=== PATIENT | female | born 1935 | race Hispanic/Latino ===

== ENCOUNTER 2017-09-01 13:59 | Inpatient (IN) | payer MEDICARE, OTHER ==
[2017-08-30 18:47] VITALS: BMI 21.2
--- NOTE | 2017-09-01 15:54 | CP.PCM.HP ---
History of Present Illness - History of Present Illness History of Present Illness: 82 year old female with past medical history ESRD (HD on M, W, F, and Sa with left AC access), DM, HTN, CHF, chronic anemia, and diverticulitis was transported from [facility] to [facility] for hemodialysis. Patient has been on HD for at least 10 years. She was seen and examined in the Dialysis unit. Patient complains of generalized fatigue, otherwise no other acute complaints. Patient further denies having fever, headache, shortness of breath, chest pain, nausea, vomiting, or abdominal pain. PMD: Dr. Lan Nephro: Dr. Owen PMHx: CHF, carotid artery disease, [place], HLD, hypothyroidism, DM PSHx: left AV shunt, left carotid stent placement, cardiac cath, hysterectomy, left hip replacement Allergy: Ceftriaxone (itchiness) Social Hx: Denies tobacco, alcohol, or other drug use Family Hx: unknown Home meds: see MAR for detail Present on Admission - Present on Admission Any Indicators Present on Admission: No Review of Systems - Review of Systems All systems: reviewed and no additional remarkable complaints except - Constitutional Constitutional: As Per HPI, Fatigue. absent: Anorexia, Chills, Fever - EENT Eyes: As Per HPI. absent: Blurred Vision, Change in Vision, Discharge Ears: As Per HPI. absent: Ear Pain, Dizziness Nose/Mouth/Throat: As Per HPI. absent: Nasal Congestion, Nasal Trauma - Breasts Breasts: As Per HPI - Cardiovascular Cardiovascular: As Per HPI. absent: Chest Pain, Chest Pain at Rest, Chest Pain with Activity, Dyspnea, Syncope - Respiratory Respiratory: As Per HPI. absent: Dyspnea, Wheezing - Gastrointestinal Gastrointestinal: As Per HPI. absent: Abdominal Pain, Constipation, Nausea, Vomiting - Genitourinary Genitourinary: As Per HPI - Reproductive: Female Reproductive:Female: As Per HPI - Musculoskeletal Musculoskeletal: As Per HPI. absent: Back Pain, Joint Swelling - Integumentary Integumentary: As Per HPI. absent: Alopecia, Erythema - Neurological Neurological: As Per HPI. absent: Syncope, Tremor - Psychiatric Psychiatric: As Per HPI. absent: Anxiety, Depression - Endocrine Endocrine: As Per HPI, Fatigue. absent: Change in Body Appearance Past Patient History - Infectious Disease Hx of Infectious Diseases: C.diff - Tetanus Immunizations Tetanus Immunization: Unknown - Past Social History Smoking Status: Never Smoked - CARDIAC Hx Cardiac Disorders: Yes Hx Congestive Heart Failure: Yes Hx Hypercholesterolemia: Yes - PULMONARY Hx Respiratory Disorders: Yes Hx Chronic Obstructive Pulmonary Disease (COPD): Yes Hx Pneumonia: Yes - NEUROLOGICAL Hx Neurological Disorder: Yes (numbnes/tingling left leg and ft) Hx Dizziness: Yes - HEENT Hx HEENT Problems: Yes Hx Cataracts: Yes (b/l sx) - RENAL Date of Last Dialysis Treatment: 08/29/17 Hx Renal Failure: Yes - ENDOCRINE/METABOLIC Hx Diabetes Mellitus Type 2: Yes - HEMATOLOGICAL/ONCOLOGICAL Hx Blood Disorders: Yes Hx Anemia: Yes - INTEGUMENTARY Hx Dermatological Problems: No Other/Comment: L arm shunt fas dsg over iy, excellent bruit at site - MUSCULOSKELETAL/RHEUMATOLOGICAL Hx Musculoskeletal Disorders: Yes Hx Falls: Yes (fell & hurt L ankle) Hx Unsteady Gait: Yes (CANE) - GASTROINTESTINAL Hx Gastrointestinal Disorders: Yes (POOR APPETITE,GERD,DIVERTICULITIS,RECTAL BLEED. H/O C DIFF.) Other/Comment: CHOLELITHIASIS - GENITOURINARY/GYNECOLOGICAL Hx 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.ESRD ON HD) - PSYCHIATRIC Hx Psychophysiologic Disorder: Yes Hx Anxiety: Yes Hx Depression: Yes Hx Substance Use: No - SURGICAL HISTORY Hx Surgeries: Yes Hx Cardiac Catheterization: Yes Hx Hysterectomy: Yes Hx Orthopedic Surgery: Yes (left hip replacement) Other/Comment: ed av shunt - ANESTHESIA Hx Anesthesia: Yes Hx Anesthesia Reactions: No Hx Malignant Hyperthermia: No Meds Allergies/Adverse Reactions: Allergies Allergy/AdvReac Type Severity Reaction Status Date / Time ceftriaxone Allergy ITCHING Verified 08/30/17 16:26 Physical Exam - Constitutional Appears: Non-toxic, No Acute Distress, Chronically Ill - Head Exam Head Exam: ATRAUMATIC, NORMOCEPHALIC - Eye Exam Eye Exam: EOMI, Normal appearance, PERRL Pupil Exam: NORMAL ACCOMODATION - ENT Exam ENT Exam: Mucous Membranes Moist - Neck Exam Neck exam: Positive for: Normal Inspection. Negative for: Tenderness - Respiratory Exam Respiratory Exam: Clear to Auscultation Bilateral, NORMAL BREATHING PATTERN. absent: Rhonchi, Wheezes, Respiratory Distress - Cardiovascular Exam Cardiovascular Exam: REGULAR RHYTHM, +S1, +S2. absent: Systolic Murmur - GI/Abdominal Exam GI & Abdominal Exam: Normal Bowel Sounds, Soft. absent: Guarding, Hernia, Mass , Tenderness - Extremities Exam Additional comments: Left arm shunt proximal to AC fossa, excellent bruit - Neurological Exam Neurological exam: Alert, CN II-XII Intact, Oriented x3 - Psychiatric Exam Psychiatric exam: Normal Affect, Normal Mood - Skin Skin Exam: Dry, Normal Color, Warm Assessment & Plan - Assessment and Plan (Free Text) Assessment: ESRD -Attending physician Dr. Clinton Kessler received verbal consent from Dr. Owen for HD -Patient is to be transferred back to [facility] after HD session Discussed case with Dr. Kessler
--- NOTE | 2017-09-01 16:41 | CP.PCM.DIS ---
Provider - Provider Date of Admission: 09/01/17 13:59 Attending physician: Clinton Kessler MD Primary care physician: Dr. Lan Consults: Dr. Owen Time Spent in preparation of Discharge (in minutes): 40 Diagnosis - Discharge Diagnosis (1) ESRD (end stage renal disease) on dialysis Status: Chronic Hospital Course - Hospital Course Hospital Course: 82 year old female with past medical history ESRD (HD on M, W, F, and Sa with left AC access), DM, HTN, CHF, chronic anemia, and diverticulitis was transported from [facility] to [facility] for hemodialysis. Patient has been on HD for at least 10 years. She was seen and examined in the Dialysis unit. Patient complains of generalized fatigue, otherwise no other acute complaints. Patient further denies having fever, headache, shortness of breath, chest pain, nausea, vomiting, or abdominal pain. Patient will be transfer back to [facility] for further management. This is a brief summary of patient's hospital course. For more detail please refer to medical reports from [facility]. PMD: Dr. Lan Nephro: Dr. Owen PMHx: CHF, carotid artery disease, [place], HLD, hypothyroidism, DM PSHx: left AV shunt, left carotid stent placement, cardiac cath, hysterectomy, left hip replacement Allergy: Ceftriaxone (itchiness) Social Hx: Denies tobacco, alcohol, or other drug use Family Hx: unknown Home meds: see MAR for detail - Date & Time of H&P Date of H&P: 09/01/17 Time of H&P: 15:38 Discharge Exam - Additional Findings Additional findings: - Constitutional Appears: Non-toxic, No Acute Distress, Chronically Ill - Head Exam Head Exam: ATRAUMATIC, NORMOCEPHALIC - Eye Exam Eye Exam: EOMI, Normal appearance, PERRL Pupil Exam: NORMAL ACCOMODATION - ENT Exam ENT Exam: Mucous Membranes Moist - Neck Exam Neck exam: Positive for: Normal Inspection. Negative for: Tenderness - Respiratory Exam Respiratory Exam: Clear to Auscultation Bilateral, NORMAL BREATHING PATTERN. absent: Rhonchi, Wheezes, Respiratory Distress - Cardiovascular Exam Cardiovascular Exam: REGULAR RHYTHM, +S1, +S2. absent: Systolic Murmur - GI/Abdominal Exam GI & Abdominal Exam: Normal Bowel Sounds, Soft. absent: Guarding, Hernia, Mass , Tenderness - Extremities Exam Additional comments: Left arm shunt proximal to AC fossa, excellent bruit - Neurological Exam Neurological exam: Alert, CN II-XII Intact, Oriented x3 - Psychiatric Exam Psychiatric exam: Normal Affect, Normal Mood - Skin Skin Exam: Dry, Normal Color, Warm Discharge Plan - Follow Up Plan Condition: GOOD Disposition: Trans to Other Acute Care Hosp Instructions: Renal Failure Diet (DC) Additional Instructions: Patient is to be transfer back to [facility] after dialysis for ongoing medical management. Referrals: Albino Owen MD [Staff Provider] - Clinton Kessler MD [Staff Provider] -
[2017-09-01 16:46] VITALS: TEMP 97.9
[2017-09-01 18:27] VITALS: RESP 18; O2SAT 98
[2017-09-01 18:28] VITALS: BP 134/50; PULSE 80
== END 2017-09-01 19:18 | disposition short-term general hospital (02) | DRG 291 ==
LOC: C.3T 13:59
PROVIDERS: ADMIT Family Medicine; ATTEND Family Medicine
PROC: 5A1D70Z Performance of Urinary Filtration, Intermittent, Less than 6 Hours Per Day (ICD-10-PCS; principal; 2017-09-01)
DX: I13.2 Hypertensive heart and chronic kidney disease with heart failure and with stage 5 chronic kidney disease, or end stage renal disease (principal); N18.6 End stage renal disease; E78.5 Hyperlipidemia, unspecified; I50.9 Heart failure, unspecified; E11.22 Type 2 diabetes mellitus with diabetic chronic kidney disease; Z99.2 Dependence on renal dialysis

== ENCOUNTER 2017-09-03 12:15 | Inpatient (IN) | payer MEDICARE, OTHER ==
[2017-09-03 13:08] VITALS: BMI 19.6
--- NOTE | 2017-09-03 13:24 | CP.PCM.HP ---
<Abdullahi Davis - Last Filed: 09/03/17 14:07> History of Present Illness - History of Present Illness History of Present Illness: This 82 year old female with PMHx of ESRD (HD on M, W, F, and Sa with left AC access), DM, HTN, CHF, chronic anemia, and diverticulitis - was transported from [facility] to [facility] for hemodialysis today (last seen here 09/01/17 for dialysis). Patient has been on HD for at least 10 years. She was seen and examined in the Dialysis unit. Patient continues to complain of generalized fatigue, and is followed closely by her PMD Dr. Lan. She denies having fever, headache, shortness of breath, chest pain, nausea, vomiting, or abdominal pain. 12-point review of systems is otherwise negative without any additional acute complaints. PMD: Dr. Lan Nephro: Dr. Owen PMHx: CHF, carotid artery disease, [place], HLD, hypothyroidism, DM PSHx: left AV shunt, left carotid stent placement, cardiac cath, hysterectomy, left hip replacement Allergy: Ceftriaxone (itchiness) Social Hx: Denies tobacco, alcohol, or other drug use Family Hx: unknown Home meds: see MAR for detail Review of Systems: -Gen: No fever, No chills, No headache, + lethargy, + weakness. -HEENT: No dizziness, No change in vision, No change in hearing, No sore throat , No dysphagia, No nasal congestion, No mucous. -Cardio: No chest pain, No palpitations, No lower extremity edema, No orthopnea. -Resp: No cough, No dyspnea, No hemoptysis, No wheezing, No pain on inspiration. -GI: No abdominal pain, No nausea/vomiting, No diarrhea/constipation, No hematochezia, No hematemesis. -: No dysuria, No urinary freq, No incontinence, No hematuria, No change in urinary stream. -MSK: No back pain, No muscle weakness, No radiating pain. -Skin: No itching, No rash, No lesions. -Neuro: No confusion, No numbness, No tingling, No focal weakness, No radicular pain, No syncope. -Psych: No anxiety, No depression, No H/I, No S/I, No hallucinations. Present on Admission - Present on Admission Any Indicators Present on Admission: No Past Patient History - Infectious Disease Hx of Infectious Diseases: C.diff - Tetanus Immunizations Tetanus Immunization: Unknown - Past Social History Smoking Status: Never Smoked - CARDIAC Hx Cardiac Disorders: Yes - PULMONARY Hx Chronic Obstructive Pulmonary Disease (COPD): Yes - NEUROLOGICAL Hx Neurological Disorder: Yes (numbnes/tingling left leg and ft) Hx Dizziness: Yes - HEENT Hx HEENT Problems: Yes Hx Cataracts: Yes (b/l sx) - RENAL Hx Renal Failure: Yes - ENDOCRINE/METABOLIC Hx Diabetes Mellitus Type 2: Yes Hx Hypothyroidism: Yes - HEMATOLOGICAL/ONCOLOGICAL Hx Blood Disorders: Yes Hx Anemia: Yes - INTEGUMENTARY Hx Dermatological Problems: No Other/Comment: L arm shunt fas dsg over iy, excellent bruit at site - MUSCULOSKELETAL/RHEUMATOLOGICAL Hx Musculoskeletal Disorders: Yes Hx Falls: Yes (fell & hurt L ankle) Hx Unsteady Gait: Yes (CANE) - GASTROINTESTINAL Hx Gastrointestinal Disorders: Yes (POOR APPETITE,GERD,DIVERTICULITIS,RECTAL BLEED. H/O C DIFF.) Other/Comment: CHOLELITHIASIS - GENITOURINARY/GYNECOLOGICAL Hx 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.ESRD ON HD) - PSYCHIATRIC Hx Psychophysiologic Disorder: Yes Hx Anxiety: Yes Hx Depression: Yes Hx Substance Use: No - SURGICAL HISTORY Hx Surgeries: Yes Hx Cardiac Catheterization: Yes Hx Hysterectomy: Yes Hx Orthopedic Surgery: Yes (left hip replacement) Other/Comment: ed av shunt - ANESTHESIA Hx Anesthesia: Yes Hx Anesthesia Reactions: No Hx Malignant Hyperthermia: No Meds Allergies/Adverse Reactions: Allergies Allergy/AdvReac Type Severity Reaction Status Date / Time ceftriaxone Allergy ITCHING Verified 08/30/17 16:26 Physical Exam - Additional Findings Additional findings: - Constitutional Appears: Non-toxic, No Acute Distress, Chronically Ill - Head Exam Head Exam: ATRAUMATIC, NORMOCEPHALIC - Eye Exam Eye Exam: EOMI, Normal appearance, PERRL Pupil Exam: NORMAL ACCOMODATION - ENT Exam ENT Exam: Mucous Membranes Moist - Neck Exam Neck exam: Positive for: Normal Inspection. Negative for: Tenderness - Respiratory Exam Respiratory Exam: Clear to Auscultation Bilateral, NORMAL BREATHING PATTERN. absent: Rhonchi, Wheezes, Respiratory Distress - Cardiovascular Exam Cardiovascular Exam: REGULAR RHYTHM, +S1, +S2. absent: Systolic Murmur - GI/Abdominal Exam GI & Abdominal Exam: Normal Bowel Sounds, Soft. absent: Guarding, Hernia, Mass , Tenderness - Extremities Exam Additional comments: Left arm shunt (+bruit) - Neurological Exam Neurological exam: Alert, CN II-XII Intact, Oriented x3 - Psychiatric Exam Psychiatric exam: Normal Affect, Normal Mood - Skin Skin Exam: Dry, Normal Color, Warm Results - Labs Result Diagrams: 09/03/17 13:50 Assessment & Plan - Assessment and Plan (Free Text) Assessment: ESRD -Pt here for Dialysis -HD on M, W, F, and Sa with left AC access -To be discharged after dialysis -Nephrology Consult, Dr. Griggs, notified to evaluate and treat the pt. -Patient is to be transferred back to [facility] after HD session Case discussed with Dr. Justyn Kessler - Date & Time Date: 09/03/17 Time: 13:22 <Clinton Kessler - Last Filed: 09/03/17 20:07> Results - Vital Signs Recent Vital Signs: Last Vital Signs Temp 97.6 F 09/03/17 16:20 Pulse 69 09/03/17 16:20 Resp 20 09/03/17 16:20 BP 117/58 L 09/03/17 16:20 Pulse Ox 100 09/03/17 16:20 - Labs Result Diagrams: 09/03/17 13:50 09/03/17 13:50 Labs: Laboratory Results - last 24 hr 09/03/17 09/03/17 09/03/17 13:50 13:50 13:50 WBC 6.0 RBC 2.97 L Hgb 9.4 L Hct 28.5 L MCV 95.9 MCH 31.8 H MCHC 33.1 RDW 19.4 H Plt Count 105 L MPV 7.8 Neut % (Auto) 77.7 H Lymph % (Auto) 13.4 L [place] % (Auto) 7.6 Eos % (Auto) 0.8 Baso % (Auto) 0.5 Neut # (Auto) 4.6 Lymph # (Auto) 0.8 L [place] # (Auto) 0.5 Eos # (Auto) 0.0 Baso # (Auto) 0.0 APTT 33 Sodium 135 Potassium 4.2 Chloride 94 L Carbon Dioxide 26 Anion Gap 19 BUN 32 H Creatinine 5.4 H Est GFR ( Amer) 9 Est GFR (Non-Af Amer) 8 POC Glucose (mg/dL) Random Glucose 107 H Calcium 7.3 L Phosphorus 4.6 H Magnesium 1.8 Total Bilirubin 1.2 AST 30 ALT 8 L Alkaline Phosphatase 62 Total Protein 7.4 Albumin 2.7 L Globulin 4.7 H Albumin/Globulin Ratio 0.6 L Hep Bs Antigen Negative Hep Bs Antibody 09/03/17 09/03/17 13:50 16:15 WBC RBC Hgb Hct MCV MCH MCHC RDW Plt Count MPV Neut % (Auto) Lymph % (Auto) [place] % (Auto) Eos % (Auto) Baso % (Auto) Neut # (Auto) Lymph # (Auto) [place] # (Auto) Eos # (Auto) Baso # (Auto) APTT Sodium Potassium Chloride Carbon Dioxide Anion Gap BUN Creatinine Est GFR ( Amer) Est GFR (Non-Af Amer) POC Glucose (mg/dL) 80 Random Glucose Calcium Phosphorus Magnesium Total Bilirubin AST ALT Alkaline Phosphatase Total Protein Albumin Globulin Albumin/Globulin Ratio Hep Bs Antigen Hep Bs Antibody Positive Attending/Attestation - Attestation I have personally seen and examined this patient.: Yes I have fully participated in the care of the patient.: Yes I have reviewed all pertinent clinical information: Yes
[2017-09-03 13:54] LABS: BASO % 0.5 % (0.0-2.0); EOS % 0.8 % (0.0-4.0); HEMOGLOBIN 9.4 g/dL (11.0-16.0); LYMPH # 0.8 K/uL (1.0-4.3); LYMPH % 13.4 % (20.0-40.0); MEAN CELL VOLUME 95.9 fL (81.0-99.0); MEAN CORPUSCULAR HEMOGLOBIN 31.8 pg (27.0-31.0); MEAN CORPUSCULAR HGB CONC 33.1 g/dL (33.0-37.0); MEAN PLATELET VOLUME 7.8 fL (7.2-11.7); MONO # 0.5 K/uL (0.0-0.8); MONO % 7.6 % (0.0-10.0); NEUT # 4.6 K/uL (1.8-7.0); NEUT % 77.7 % (50.0-75.0); RBC 2.97 Mil/uL (3.80-5.20); RED CELL DISTRIBUTION WIDTH 19.4 % (11.5-14.5)
[2017-09-03 14:09] LABS: ALB/GLOB RATIO 0.6 (1.0-2.1); ALBUMIN 2.7 g/dL (3.5-5.0); AST/SGOT 30 U/L (14-36); BLOOD UREA NITROGEN 32 mg/dL (7-17); CALCIUM 7.3 mg/dl (8.6-10.4); GFR AFRICAN-AMERICAN 9; GFR NON-AFRICAN AMERICAN 8
--- NOTE | 2017-09-03 14:12 | CP.PCM.DIS ---
Provider - Provider Date of Admission: 09/03/17 12:15 Attending physician: Clinton Kessler MD Consults: Dr. Griggs - nephrology Time Spent in preparation of Discharge (in minutes): 22 Hospital Course - Lab Results Lab Results: Most Recent Lab Values WBC 6.0 K/uL (4.8-10.8) 09/03/17 13:50 RBC 2.97 Mil/uL (3.80-5.20) L 09/03/17 13:50 Hgb 9.4 g/dL (11.0-16.0) L 09/03/17 13:50 Hct 28.5 % (34.0-47.0) L 09/03/17 13:50 MCV 95.9 fL (81.0-99.0) 09/03/17 13:50 MCH 31.8 pg (27.0-31.0) H 09/03/17 13:50 MCHC 33.1 g/dL (33.0-37.0) 09/03/17 13:50 RDW 19.4 % (11.5-14.5) H 09/03/17 13:50 Plt Count 105 K/uL (130-400) L 09/03/17 13:50 MPV 7.8 fL (7.2-11.7) 09/03/17 13:50 Neut % (Auto) 77.7 % (50.0-75.0) H 09/03/17 13:50 Lymph % (Auto) 13.4 % (20.0-40.0) L 09/03/17 13:50 [place] % (Auto) 7.6 % (0.0-10.0) 09/03/17 13:50 Eos % (Auto) 0.8 % (0.0-4.0) 09/03/17 13:50 Baso % (Auto) 0.5 % (0.0-2.0) 09/03/17 13:50 Neut # (Auto) 4.6 K/uL (1.8-7.0) 09/03/17 13:50 Lymph # (Auto) 0.8 K/uL (1.0-4.3) L 09/03/17 13:50 [place] # (Auto) 0.5 K/uL (0.0-0.8) 09/03/17 13:50 Eos # (Auto) 0.0 K/uL (0.0-0.7) 09/03/17 13:50 Baso # (Auto) 0.0 K/uL (0.0-0.2) 09/03/17 13:50 APTT 33 SECONDS (21-34) 09/03/17 13:50 Sodium 135 mmol/L (132-148) 09/03/17 13:50 Potassium 4.2 mmol/L (3.6-5.2) 09/03/17 13:50 Chloride 94 mmol/L (98-107) L 09/03/17 13:50 Carbon Dioxide 26 mmol/L (22-30) 09/03/17 13:50 Anion Gap 19 (10-20) 09/03/17 13:50 BUN 32 mg/dL (7-17) H 09/03/17 13:50 Creatinine 5.4 mg/dL (0.7-1.2) H 09/03/17 13:50 Est GFR ( Amer) 9 09/03/17 13:50 Est GFR (Non-Af Amer) 8 09/03/17 13:50 Random Glucose 107 mg/dL (65-105) H 09/03/17 13:50 Calcium 7.3 mg/dl (8.6-10.4) L 09/03/17 13:50 Phosphorus 4.6 mg/dL (2.5-4.5) H 09/03/17 13:50 Magnesium 1.8 mg/dL (1.6-2.3) 09/03/17 13:50 Total Bilirubin 1.2 mg/dL (0.2-1.3) 09/03/17 13:50 AST 30 U/L (14-36) 09/03/17 13:50 Alkaline Phosphatase 62 U/L (38-126) 09/03/17 13:50 Total Protein 7.4 g/dL (6.3-8.3) 09/03/17 13:50 Albumin 2.7 g/dL (3.5-5.0) L 09/03/17 13:50 Globulin 4.7 gm/dL (2.2-3.9) H 09/03/17 13:50 Albumin/Globulin Ratio 0.6 (1.0-2.1) L 09/03/17 13:50 - Hospital Course Hospital Course: This 82 year old female with PMHx of ESRD (HD on M, W, F, and Sa with left AC access), DM, HTN, CHF, chronic anemia, and diverticulitis - was transported from [facility] to [facility] for hemodialysis today (last seen here 09/01/17 for dialysis). Patient has been on HD for at least 10 years. She was seen and examined in the Dialysis unit. Patient continues to complain of generalized fatigue, and is followed closely by her PMD Dr. Lan. She denies having fever, headache, shortness of breath, chest pain, nausea, vomiting, or abdominal pain. 12-point review of systems is otherwise negative without any additional acute complaints. PMD: Dr. Lan Nephro: Dr. Owen PMHx: CHF, carotid artery disease, [place], HLD, hypothyroidism, DM PSHx: left AV shunt, left carotid stent placement, cardiac cath, hysterectomy, left hip replacement Allergy: Ceftriaxone (itchiness) Social Hx: Denies tobacco, alcohol, or other drug use Family Hx: unknown Home meds: see MAR for detail - Date & Time of H&P Date of H&P: 09/03/17 Time of H&P: 13:21 Discharge Exam - Additional Findings Additional findings: - Constitutional Appears: Non-toxic, No Acute Distress, Chronically Ill - Head Exam Head Exam: ATRAUMATIC, NORMOCEPHALIC - Eye Exam Eye Exam: EOMI, Normal appearance, PERRL Pupil Exam: NORMAL ACCOMODATION - ENT Exam ENT Exam: Mucous Membranes Moist - Neck Exam Neck exam: Positive for: Normal Inspection. Negative for: Tenderness - Respiratory Exam Respiratory Exam: Clear to Auscultation Bilateral, NORMAL BREATHING PATTERN. absent: Rhonchi, Wheezes, Respiratory Distress - Cardiovascular Exam Cardiovascular Exam: REGULAR RHYTHM, +S1, +S2. absent: Systolic Murmur - GI/Abdominal Exam GI & Abdominal Exam: Normal Bowel Sounds, Soft. absent: Guarding, Hernia, Mass , Tenderness - Extremities Exam Additional comments: Left arm shunt (+bruit) - Neurological Exam Neurological exam: Alert, CN II-XII Intact, Oriented x3 - Psychiatric Exam Psychiatric exam: Normal Affect, Normal Mood - Skin Skin Exam: Dry, Normal Color, Warm Discharge Plan - Follow Up Plan Condition: GOOD Disposition: HOME/ ROUTINE Additional Instructions: Patient is to be transfer back to [facility] after dialysis for ongoing medical management. Her PMD is Dr. Lan.
[2017-09-03 14:29] VITALS: RESP 20
[2017-09-03] MEDS ORDERED: EPOETIN ALFA 4,000 UNIT/ML ML Dialysis IV ONE (14:30)
[2017-09-03 14:35] VITALS: O2SAT 100
[2017-09-03 14:37] LABS: ALT/SGPT 8 U/L (9-52)
[2017-09-03 14:39] LABS: HEPATITIS B SURFACE AG Negative (NEGATIVE)
[2017-09-03] MEDS ORDERED: Albumin Human 25% (12.5 gm/50 ml) IV ONE (15:12)
[2017-09-03 16:50] VITALS: BP 117/58; PULSE 69; TEMP 97.6
--- NOTE | 2017-09-03 16:56 | CP.PCM.CON ---
History of Present Illness - History of Present Illness History of Present Illness: Initial Nephrology Consultation: Assessment: Stable abdomen pain severe sys CHF Diabetic chronic Kidney Disease (E11.22) Hypertensive Chronic Kidney Disease (I12.0) End stage renal disease (N18.6) dependence on hemodialysis (Z99.2) (MWF) via AVF Anemia (D64.9), Hyperphosphatemia (E83.39), Secondary Hyperparathyroidism (E21.1 ), HTN (I12.0) Plan: Will plan for HD today as ordered. Continue with Nephrovite 1 tab/day. pt unable to tolerate higher UF goal due to low BP. PRBC as needed for anemia. On ANTONIA as epogen 4000 unit with HD, last Hb 9.6 Continue with phos binders home dose, check phos level BP control with meds as ordered. Glycemic control, Dialysis consistent diet Further work up/management as per primary team Dose meds/antibiotics (if needed) for ESRD status. Avoid fleets enema/magnesium based laxatives. Thanks for allowing me to participate in care of your patient. Please call if any Qs Dr Javid Griggs Office: [phone] Chief Complaint;SOB HPI: Pt is a 82 Fwith hx of ESRD on hemodialysis (MWF) via AVF (Dr Gonzalez/Dr Conley), last dialysis Mon, chronic anemia, hyperphosphatemia, secondary hyperparathyroidism, Diabetes Mellitus, hypertension, CHF presented with complaints of abdomen pain and admitted to [facility]. transferred to [facility] for HD. renal consult for ESRD management ROS: Cardiovascular: No chest pain. Pulmonary: c/o shortness of breath Gastrointestinal: denies abdominal pain c/o nausea. No vomiting. Genitourinary: No pain while urinating. Denies blood in urine. All other negative Physical Examination: seen on HD General Appearance: in no acute respiratory distress, co-operative . chronically ill and debilitated appeating Vitals reviewed and noted as below Head; Atraumatic, normocephalic ENT: no ulcers no thrush. Tongue is midline. Oropharynx: no rash or ulcers. EYES: Pupils are equal, round and reactive to light accommodation. Eye muscles and extraocular movement intact. Sclera is anicteric. Neck; supple no lymphadenopathy, no thyromegaly or bruit Lungs: Normal respiratory rate/effort. Breath sounds bilateral equal and basal crackles Heart: Normal rate. s1s2 normal. No rub or gallop. Extremities: no edema. No varicose veins Neurological: Patient is alert, awake and oriented to person, place and time. No focal deficit. Strength bilateral appropriate and equal Skin: Warm and dry. Normal turgor. No rash. Palpitation: Normal elasticity for age Abdomen: Abdomen is soft. Bowel sounds +. There is no abdominal tenderness, no guarding/rigidity or organomegaly Psych: limited insight and normal affect/mood MSK: no joint tenderness or swelling. Digits and nails normal, no deformity : kidney or bladder not palpable Access: AVF Labs/imaging reviewed. Past medical history, past surgical history, family history, social history, allergy reviewed and noted as below Family Hx: no hx of CKD. Non contributory Past Patient History - Infectious Disease Hx of Infectious Diseases: C.diff - Tetanus Immunizations Tetanus Immunization: Unknown - Past Medical History & Family History Past Medical History?: Yes - Past Social History Smoking Status: Never Smoked - CARDIAC Hx Cardiac Disorders: Yes - PULMONARY Hx Chronic Obstructive Pulmonary Disease (COPD): Yes - NEUROLOGICAL Hx Neurological Disorder: Yes (numbnes/tingling left leg and ft) Hx Dizziness: Yes - HEENT Hx HEENT Problems: Yes Hx Cataracts: Yes (b/l sx) - RENAL Hx Dialysis: Yes Type of Dialysis Access: Left arm AV shunt Date of Last Dialysis Treatment: 09/01/17 Hx Renal Failure: Yes - ENDOCRINE/METABOLIC Hx Diabetes Mellitus Type 2: Yes Hx Hypothyroidism: Yes - HEMATOLOGICAL/ONCOLOGICAL Hx Blood Disorders: Yes Hx Anemia: Yes - INTEGUMENTARY Hx Dermatological Problems: No Other/Comment: L arm shunt fas dsg over iy, excellent bruit at site - MUSCULOSKELETAL/RHEUMATOLOGICAL Hx Musculoskeletal Disorders: Yes Hx Falls: Yes (fell & hurt L ankle) Hx Unsteady Gait: Yes (CANE) - GASTROINTESTINAL Hx Gastrointestinal Disorders: Yes (POOR APPETITE,GERD,DIVERTICULITIS,RECTAL BLEED. H/O C DIFF.) Other/Comment: CHOLELITHIASIS - GENITOURINARY/GYNECOLOGICAL Hx 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.ESRD ON HD) - PSYCHIATRIC Hx Psychophysiologic Disorder: Yes Hx Anxiety: Yes Hx Depression: Yes Hx Substance Use: No - SURGICAL HISTORY Hx Surgeries: Yes Hx Cardiac Catheterization: Yes Hx Hysterectomy: Yes Hx Orthopedic Surgery: Yes (left hip replacement) Other/Comment: ed av shunt - ANESTHESIA Hx Anesthesia: Yes Hx Anesthesia Reactions: No Hx Malignant Hyperthermia: No Meds Allergies/Adverse Reactions: Allergies Allergy/AdvReac Type Severity Reaction Status Date / Time ceftriaxone Allergy ITCHING Verified 08/30/17 16:26 Results - Vital Signs Recent Vital Signs: Last Vital Signs Temp 97.6 F 09/03/17 16:20 Pulse 69 09/03/17 16:20 Resp 20 09/03/17 16:20 BP 117/58 L 09/03/17 16:20 Pulse Ox 100 09/03/17 16:20 - Labs Result Diagrams: 09/03/17 13:50 09/03/17 13:50 Labs: Laboratory Results - last 24 hr 09/03/17 09/03/17 09/03/17 13:50 13:50 13:50 WBC 6.0 RBC 2.97 L Hgb 9.4 L Hct 28.5 L MCV 95.9 MCH 31.8 H MCHC 33.1 RDW 19.4 H Plt Count 105 L MPV 7.8 Neut % (Auto) 77.7 H Lymph % (Auto) 13.4 L [place] % (Auto) 7.6 Eos % (Auto) 0.8 Baso % (Auto) 0.5 Neut # (Auto) 4.6 Lymph # (Auto) 0.8 L [place] # (Auto) 0.5 Eos # (Auto) 0.0 Baso # (Auto) 0.0 APTT 33 Sodium 135 Potassium 4.2 Chloride 94 L Carbon Dioxide 26 Anion Gap 19 BUN 32 H Creatinine 5.4 H Est GFR ( Amer) 9 Est GFR (Non-Af Amer) 8 POC Glucose (mg/dL) Random Glucose 107 H Calcium 7.3 L Phosphorus 4.6 H Magnesium 1.8 Total Bilirubin 1.2 AST 30 ALT 8 L Alkaline Phosphatase 62 Total Protein 7.4 Albumin 2.7 L Globulin 4.7 H Albumin/Globulin Ratio 0.6 L Hep Bs Antigen Negative Hep Bs Antibody 09/03/17 09/03/17 13:50 16:15 WBC RBC Hgb Hct MCV MCH MCHC RDW Plt Count MPV Neut % (Auto) Lymph % (Auto) [place] % (Auto) Eos % (Auto) Baso % (Auto) Neut # (Auto) Lymph # (Auto) [place] # (Auto) Eos # (Auto) Baso # (Auto) APTT Sodium Potassium Chloride Carbon Dioxide Anion Gap BUN Creatinine Est GFR ( Amer) Est GFR (Non-Af Amer) POC Glucose (mg/dL) 80 Random Glucose Calcium Phosphorus Magnesium Total Bilirubin AST ALT Alkaline Phosphatase Total Protein Albumin Globulin Albumin/Globulin Ratio Hep Bs Antigen Hep Bs Antibody Positive
== END 2017-09-03 17:33 | disposition short-term general hospital (02) | DRG 291 ==
LOC: C.3T 12:15
PROVIDERS: ADMIT Family Medicine; ATTEND Family Medicine
PROC: 5A1D70Z Performance of Urinary Filtration, Intermittent, Less than 6 Hours Per Day (ICD-10-PCS; principal; 2017-09-03)
DX: I13.2 Hypertensive heart and chronic kidney disease with heart failure and with stage 5 chronic kidney disease, or end stage renal disease (principal); N18.6 End stage renal disease; N25.81 Secondary hyperparathyroidism of renal origin; I50.20 Unspecified systolic (congestive) heart failure; E78.5 Hyperlipidemia, unspecified; E83.39 Other disorders of phosphorus metabolism; E11.22 Type 2 diabetes mellitus with diabetic chronic kidney disease; E03.9 Hypothyroidism, unspecified; D64.9 Anemia, unspecified; J44.9 Chronic obstructive pulmonary disease, unspecified; K21.9 Gastro-esophageal reflux disease without esophagitis; Z96.642 Presence of left artificial hip joint; Z99.2 Dependence on renal dialysis

== ENCOUNTER 2017-10-03 20:46 | Inpatient (IN) | payer MEDICARE, OTHER ==
[2017-10-03 20:46] VITALS: BMI 23.0
--- NOTE | 2017-10-03 21:03 | C.PDOC ---
History Of Present Illness Patient is an 82 y/o female who presents to the ED by transfer from [facility] for dialysis and CHF s/p fall. Patient belongs to shelter. [facility] chart reviewed; patient denies onset of any new symptoms since transfer. No other physical complaints. Time Seen by Provider: 10/03/17 21:00 Chief Complaint (Nursing): Shortness Of Breath History Per: Patient, Other ([facility]) History/Exam Limitations: no limitations Onset/Duration Of Symptoms: Hrs Current Symptoms Are (Timing): Still Present Recent travel outside of the [place]: No Past Medical History Reviewed: Historical Data, Nursing Documentation, Vital Signs Vital Signs: Last Vital Signs Temp 97.8 F 10/04/17 12:16 Pulse 96 H 10/04/17 13:00 Resp 18 10/04/17 12:16 BP 134/65 10/04/17 13:00 Pulse Ox 99 10/04/17 06:40 - Medical History PMH: Anemia, Anxiety, Arthritis, CAD, CHF, COPD, Depression, Diabetes, Diverticulitis, Fractures (left hip), HTN, Hypercholesterolemia, Hypothyroidism , Pneumonia, End Stage Renal Disease (m-w-f-sat), Chronic Kidney Disease, Rheumatoid Arthritis (On HD) Surgical History: Coronary Stent - [facility] Procedures (09/20/17) ANESTH INJECT SYMP NERVE (08/06/14) BATHING/SHOWERING TECHNIQUES TREATMENT (06/22/16) CLOSED ENDOSCOPIC BIOPSY OF LARGE INTESTINE (05/22/14) COLONOSCOPY (12/19/14) DESTRUCTION OF ASCENDING COLON, ENDO (05/03/15) DRAINAGE OF PERINEUM SKIN, EXTERNAL APPROACH, DIAGNOSTIC (08/31/17) DRESSING TECHNIQUES TREATMENT (06/22/16) DX ULTRASOUND-DIGESTIVE (08/01/13) ENDOSC POLYPECTOMY OF LG INTEST (05/22/14) GAIT TRAINING/AMBULAT TREATMENT USING ASSIST EQUIPMENT (09/11/17) GROOMING/PERSONAL HYGIENE TREATMENT (06/22/16) HEMODIALYSIS (12/19/14) HOME MANAGEMENT TREATMENT (02/24/17) HOME MANAGEMENT TREATMENT USING ASSIST EQUIPMENT (09/11/17) INJECT STEROID (08/06/14) INJECT/INFUSE NEC (09/21/13) INTRODUCE OF OTH THERAP SUBST INTO RESP TRACT, VIA OPENING (07/05/17) INTRODUCE OF OXAZOLIDINONES INTO PERIPH VEIN, PERC APPROACH (06/17/16) NEBULIZER THERAPY (06/18/14) OCCUPATIONAL THERAPY (06/18/14) OTHER ENDOSCOPY OF SM INTEST (12/19/14) OTHER NONOP RESPIRATORY MEASURE (02/29/00) PACKED CELL TRANSFUSION (12/19/14) PERFORMANCE OF URINARY FILTRATION, MULTIPLE (06/17/16) PERFORMANCE OF URINARY FILTRATION, SINGLE (09/27/16) PHYSICAL THERAPY NEC (06/18/14) SYMPATH NERVE INJECT NEC (08/06/14) THERAPEUTIC ERYTHROCYTAPHERESIS (12/19/14) THERAPEUTIC EXERCISE TREATMENT OF MUSCULOSK LOW BACK/LE (04/29/16) THERAPEUTIC EXERCISE TREATMENT OF MUSCULOSK WHOLE (02/24/17) THERAPEUTIC PLATELETPHERESIS (05/22/14) TRANSFER TRAINING TREATMENT (04/29/16) TRANSFUSE NONAUT RED BLOOD CELLS IN PERIPH VEIN, PERC (05/28/17) Family History: States: Unknown Family Hx - Social History Hx Tobacco Use: No Hx Alcohol Use: No Hx Substance Use: No - Immunization History Hx Tetanus Toxoid Vaccination: No Hx Influenza Vaccination: No Hx Pneumococcal Vaccination: No Review Of Systems Except As Marked, All Systems Reviewed And Found Negative. Constitutional: Negative for: Fever, Chills Cardiovascular: Positive for: Other (CHF symptoms) Respiratory: Positive for: Shortness of Breath Genitourinary: Positive for: Other (dialysis needed) Physical Exam - Physical Exam Appears: No Acute Distress, Other (comfortable) Skin: Normal Color, Warm, Dry Head: Atraumatic, Normacephalic Oral Mucosa: Moist Chest: Symmetrical Cardiovascular: Rhythm Regular, No JVD Respiratory: Normal Breath Sounds, No Rales, No Rhonchi, No Wheezing, Other (no acute respiratory distress) Gastrointestinal/Abdominal: Soft, No Tenderness Neurological/Psych: Oriented x3, Normal Speech, Normal Cognition ED Course And Treatment - Laboratory Results Result Diagrams: 10/04/17 06:13 10/04/17 06:13 Progress Note: Patient admitted and accepted by Dr Moses. Progress - Re-Evaluation Re-evaluation Note: 10/03/17 21:00 D/W DR MOSES ACCEPTS FOR ADMISSION. PT SP FALL OUT OF BED, FOUND LAYING ON FLOOR UNK DURATION. PT DUE TO FOR HD TODAY. Disposition Counseled Patient/Family Regarding: Studies Performed, Diagnosis - Disposition Disposition: HOSPITALIZED Disposition Time: 21:03 Condition: STABLE - Clinical Impression Clinical Impression: ESRD (end stage renal disease) on dialysis, CHF (congestive heart failure), Fall - Scribe Statement The provider has reviewed the documentation as recorded by the Scribe Juana Hong All medical record entries made by the Scribe were at my direction and personally dictated by me. I have reviewed the chart and agree that the record accurately reflects my personal performance of the history, physical exam, medical decision making, and the department course for this patient. I have also personally directed, reviewed, and agree with the discharge instructions and disposition. Decision To Admit - Pt Status Changed To: Hospital Disposition Of: Inpatient - Admit Certification Admit to Inpatient:: After my assessment, the patient will require hospitalization for at least two midnights. This is because of the severity of symptoms shown, intensity of services needed, and/or the medical risk in this patient being treated as an outpatient. - InPatient: Physician Admission Certification: I certify that this patient requires 2 or more midnights of care for the following reason:: SEE NOTE - . Bed Request Type: Regular Admitting Physician: Titus Moses Patient Diagnosis: ESRD (end stage renal disease) on dialysis, CHF (congestive heart failure), Fall
[2017-10-04] MEDS: Levothyroxine 50 MCG TAB PO SCH (06:17)
[2017-10-04 06:21] LABS: BASO % 0.5 % (0.0-2.0); EOS % 0.4 % (0.0-4.0); HEMOGLOBIN 10.6 g/dL (11.0-16.0); LYMPH # 1.1 K/uL (1.0-4.3); LYMPH % 22.4 % (20.0-40.0); MEAN CELL VOLUME 96.7 fL (81.0-99.0); MEAN CORPUSCULAR HEMOGLOBIN 32.1 pg (27.0-31.0); MEAN CORPUSCULAR HGB CONC 33.1 g/dL (33.0-37.0); MEAN PLATELET VOLUME 7.7 fL (7.2-11.7); MONO # 0.3 K/uL (0.0-0.8); MONO % 5.8 % (0.0-10.0); NEUT # 3.6 K/uL (1.8-7.0); NEUT % 70.9 % (50.0-75.0); NRBC % 0.1 % (0.0-2.0); RBC 3.29 Mil/uL (3.80-5.20); RED CELL DISTRIBUTION WIDTH 20.2 % (11.5-14.5)
[2017-10-04 06:38] LABS: ALB/GLOB RATIO 0.8 (1.0-2.1); ALBUMIN 3.2 g/dL (3.5-5.0); CALCIUM 7.8 mg/dl (8.6-10.4)
[2017-10-04 06:45] LABS: TROPONIN I 0.073 ng/mL (0.00-0.120)
[2017-10-04] MEDS ORDERED: (Novolog) Insulin Aspart, Recombinant 100 u/ml 10 ml vial SC SCH ×2 (08:00→12:00)
--- NOTE | 2017-10-04 08:05 | CP.PCM.CON ---
History of Present Illness - History of Present Illness History of Present Illness: Chief complaint: Found on the floor HPI: 82-year-old female with a history of ischemic heart disease, systolic heart failure, atrial fibrillation, history of carotid artery disease, diabetes, hyperlipidemia, end-stage renal disease, Patient also had a history of diverticulosis diverticulitis, left groin abscess , recently got antibiotic. She was also recently discharged from the hospital. She went home, and the house patient was found on the floor the day morning. Patient's son noted that she was on the floor called ambulance. Upon arrival to the emergency room patient was responding, no fractures identified. Patient was noted to have increasing shortness of breath. X-ray of the lungs showing increasing heart failure changes. Patient initially seen in the emergency room at [facility], and was sent to the [facility] for hemodialysis and further management. Patient came to the emergency room. She was feeling comfortable. She is having mild exertional dyspnea. Cough noted. She was moving all 4 extremities, and she wanted to have her dialysis done in the morning. Past medical history: Ischemic heart disease, hypertension, hypercholesterolemia, end-stage renal disease on dialysis, diabetes, diverticulosis diverticulitis. Surgical history includes AV fistula Allergy no known drug allergy Personal history: Used to be a smoker in the past. Family history significant for hypertension and heart disease. Review of system: Patient is having minimal headache, complaining of lower back pain, some shortness of breath noted. Minimal cough noted. Leg swelling occasionally noted On examination: Vital signs reviewed Blood pressure is stable, slightly on the low side. Saturation is 100% with nasal cannula. Chest good air entry. Regular heart sound. Abdominal tenderness negative. No pedal edema Labs reviewed X-ray showing bilateral pleural effusion. Mild vascular congestion noted. EKG first-degree AV block sinus rhythm noted Patient had echocardiogram in June 2017, ejection fraction is 20-25%. Severe global hypokinesia noted. Aortic sclerosis noted. Mild to moderate mitral regurgitation. Pulmonary hypertension likely, and a moderate tricuspid regurgitation. Assessment and recommendation: 82-year-old female with multiple medical history with recurrent heart failure, ischemic heart disease, global hypokinesia, end-stage renal disease on dialysis , frequently dialysis, and also frequent volume overload status. Now admitted with syncope. No improvement. Patient admitted now with the fluid overload, and pleural effusion. Patient will be getting the hemodialysis tomorrow. Spoke to the thermodynamics professor. I also spoke to the patient's PMD at [place]. DVT GI prophylaxis will continue the current treatment ICU monitoring will follow the patient Past Patient History - Infectious Disease Hx of Infectious Diseases: None - Tetanus Immunizations Tetanus Immunization: Unknown - Past Medical History & Family History Past Medical History?: Yes - Past Social History Smoking Status: Never Smoked - CARDIAC Hx Congestive Heart Failure: Yes Hx Hypercholesterolemia: Yes Hx Hypertension: Yes - PULMONARY Hx Chronic Obstructive Pulmonary Disease (COPD): Yes Hx Pneumonia: Yes - NEUROLOGICAL Hx Neurological Disorder: Yes (numbnes/tingling left leg and ft) Hx Dizziness: Yes - HEENT Hx HEENT Problems: Yes Hx Cataracts: Yes (b/l sx) - RENAL Date of Last Dialysis Treatment: 10/01/17 - ENDOCRINE/METABOLIC Hx Hypothyroidism: Yes - HEMATOLOGICAL/ONCOLOGICAL Hx Anemia: Yes - INTEGUMENTARY Hx Dermatological Problems: No Other/Comment: 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, excellent bruit at site - MUSCULOSKELETAL/RHEUMATOLOGICAL Hx Falls: Yes - GASTROINTESTINAL Hx Diverticulitis: Yes - GENITOURINARY/GYNECOLOGICAL Hx 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.ESRD ON HD) - PSYCHIATRIC Hx Substance Use: No - SURGICAL HISTORY Hx Coronary Stent: Yes - ANESTHESIA Hx Anesthesia: Yes Hx Anesthesia Reactions: No Hx Malignant Hyperthermia: No Meds Allergies/Adverse Reactions: Allergies Allergy/AdvReac Type Severity Reaction Status Date / Time ceftriaxone Allergy ITCHING Verified 10/03/17 21:02 - Medications Medications: Current Medications Amlodipine Besylate (Norvasc) 5 mg PO DAILY [facility] Aspirin (Aspirin Chewable) 81 mg PO 0800 [facility] Calcium Acetate (Phoslo) 667 mg PO BIDCC [facility] Fenofibrate (Tricor) 145 mg PO DAILY [facility] Gabapentin (Neurontin) 100 mg PO HS [facility] Insulin Aspart (Novolog) 0 unit SC Q6H [facility] PRN Reason: Protocol Levothyroxine Sodium (Synthroid) 50 mcg PO DAILY@0630 [facility] Last Admin: 10/04/17 06:17 Dose: 50 mcg Pantoprazole Sodium (Protonix Ec Tab) 20 mg PO DAILY [facility] Pneumococcal Polyvalent Vaccine (Pneumovax 23 Vaccine) 0.5 ml IM .ONCE ONE Stop: 10/06/17 10:01 Vitamin B Complex/Vit C/Folic Acid (Nephro-Kennedy) 1 tab PO 0800 [facility] Results - Vital Signs Recent Vital Signs: Last Vital Signs Temp 98.8 F 10/04/17 04:00 Pulse 97 H 10/04/17 06:40 Resp 22 10/04/17 06:40 BP 126/58 L 10/04/17 06:16 Pulse Ox 99 10/04/17 06:40 - Labs Result Diagrams: 10/06/17 05:37 10/06/17 05:38 Labs: Laboratory Results - last 24 hr 10/03/17 10/04/17 10/04/17 22:57 06:13 06:13 WBC 5.0 RBC 3.29 L Hgb 10.6 L Hct 31.8 L MCV 96.7 MCH 32.1 H MCHC 33.1 RDW 20.2 H Plt Count 90 L MPV 7.7 Neut % (Auto) 70.9 Lymph % (Auto) 22.4 [place] % (Auto) 5.8 Eos % (Auto) 0.4 Baso % (Auto) 0.5 Neut # (Auto) 3.6 Lymph # (Auto) 1.1 [place] # (Auto) 0.3 Eos # (Auto) 0.0 Baso # (Auto) 0.0 Sodium 141 Potassium 4.1 Chloride 100 Carbon Dioxide 25 Anion Gap 20 BUN 58 H Creatinine 4.5 H Est GFR ( Amer) 11 Est GFR (Non-Af Amer) 9 POC Glucose (mg/dL) 122 H Random Glucose 126 H Calcium 7.8 L Phosphorus 5.3 H Magnesium 1.8 Total Bilirubin 0.9 AST 34 ALT 17 Alkaline Phosphatase 73 Troponin I 0.0730 NT-Pro-B Natriuret Pep Total Protein 7.3 Albumin 3.2 L Globulin 4.2 H Albumin/Globulin Ratio 0.8 L 10/04/17 07:13 WBC RBC Hgb Hct MCV MCH MCHC RDW Plt Count MPV Neut % (Auto) Lymph % (Auto) [place] % (Auto) Eos % (Auto) Baso % (Auto) Neut # (Auto) Lymph # (Auto) [place] # (Auto) Eos # (Auto) Baso # (Auto) Sodium Potassium Chloride Carbon Dioxide Anion Gap BUN Creatinine Est GFR ( Amer) Est GFR (Non-Af Amer) POC Glucose (mg/dL) Random Glucose Calcium Phosphorus Magnesium Total Bilirubin AST ALT Alkaline Phosphatase Troponin I NT-Pro-B Natriuret Pep > [id number] H Total Protein Albumin Globulin Albumin/Globulin Ratio
--- NOTE | 2017-10-04 08:29 | CP.CCUPN ---
Addendum entered and electronically signed by Ernestina Leblanc DO 10/04/17 10:09 : Patient downgraded to telemetry Original Note: <Ernestina Leblanc - Last Filed: 10/04/17 08:47> CCU Subjective - Physician Review Subjective (Free Text): Patient was seen and examined at bedside. No acute complaints. 10/04/17 08:53 PMHx: HF, carotid artery disease, HLD, hypothyroidism, DM PSHx: left AV shunt, left carotid stent placement, cardiac cath, hysterectomy, left hip replacement Allergy: Ceftriaxone (itchiness) Social Hx: Denies tobacco, alcohol, or other drug use Family Hx: unknown Home meds: see MAR for detail 10/04/17 08:54 10/04/17 08:57 CCU Objective - Vital Signs / Intake & Output Vital Signs (Last 4 hours): Vital Signs Pulse Resp BP Pulse Ox 10/04/17 06:40 97 H 22 99 10/04/17 06:30 97 H 21 99 10/04/17 06:20 76 18 100 10/04/17 06:16 75 17 126/58 L 99 10/04/17 06:10 75 30 H 99 10/04/17 06:00 74 18 97 10/04/17 05:50 73 21 100 10/04/17 05:40 74 16 100 10/04/17 05:30 77 10 L 100 10/04/17 05:20 75 29 H 92 L 10/04/17 05:18 74 31 H 93 L 10/04/17 05:07 69 19 110/38 L 10/04/17 05:00 69 19 100 10/04/17 04:50 72 19 91 L 10/04/17 04:40 71 17 100 10/04/17 04:30 71 18 100 Intake and Output (Last 8hrs): Intake & Output 10/03/17 10/04/17 10/04/17 22:59 06:59 14:59 Intake Total 170 Balance 170 Weight 110 lb 97 lb Intake: Oral 170 - Physical Exam Head: Positive for: Atraumatic, Normocephalic Pupils: Positive for: PERRL Extroacular Muscles: Positive for: EOMI Conjunctiva: Positive for: Normal Mouth: Positive for: Moist Mucous Membranes Neck: Positive for: Normal Range of Motion Respiratory/Chest: Positive for: Clear to Auscultation Cardiovascular: Positive for: Regular Rate and Rhythm Abdomen: Positive for: Normal Bowel Sounds. Negative for: Tenderness, Distention Upper Extremity: Positive for: Normal Inspection, NORMAL PULSES, Neurovascularly Intact, Capillary Refill < 2s Lower Extremity: Positive for: Normal Inspection, Neurovascularly Intact, Capillary Refill < 2 s Neurological: Positive for: GCS=15, CN II-XII Intact Skin: Positive for: Warm, Dry Psychiatric: Positive for: Alert, Oriented x 3 - Medications Active Medications: Active Medications Generic Name Dose Route Start Last Admin Trade Name Freq PRN Reason Stop Dose Admin Amlodipine Besylate 5 mg 10/04/17 10:00 Norvasc PO DAILY [facility] Aspirin 81 mg 10/04/17 08:00 Aspirin Chewable PO 0800 [facility] Calcium Acetate 667 mg 10/04/17 08:00 Phoslo PO BIDCC [facility] Fenofibrate 145 mg 10/04/17 10:00 Tricor PO DAILY [facility] Gabapentin 100 mg 10/04/17 22:00 Neurontin PO HS [facility] Insulin Aspart 0 unit 10/04/17 12:00 Novolog SC Q6H [facility] Protocol Levothyroxine Sodium 50 mcg 10/04/17 06:30 10/04/17 06:17 Synthroid PO 50 mcg DAILY@0630 [facility] Administration Lidocaine/Prilocaine 1 gm 10/04/17 09:00 Emla TOP 10/04/17 09:01 ONCE ONE Pantoprazole Sodium 20 mg 10/04/17 10:00 Protonix Ec Tab PO DAILY [facility] Pneumococcal Polyvalent Vaccine 0.5 ml 10/06/17 10:00 Pneumovax 23 Vaccine IM 10/06/17 10:01 .ONCE ONE Vitamin B Complex/Vit C/Folic Acid 1 tab 10/04/17 08:30 Nephro-Kennedy PO 0800 [facility] - Patient Studies Lab Studies: Lab Studies 10/04/17 10/04/17 10/04/17 Range/Units 07:13 06:13 06:13 WBC 5.0 (4.8-10.8) K/uL RBC 3.29 L (3.80-5.20) Mil/uL Hgb 10.6 L (11.0-16.0) g/dL Hct 31.8 L (34.0-47.0) % MCV 96.7 (81.0-99.0) fL MCH 32.1 H (27.0-31.0) pg MCHC 33.1 (33.0-37.0) g/dL RDW 20.2 H (11.5-14.5) % Plt Count 90 L (130-400) K/uL MPV 7.7 (7.2-11.7) fL Neut % (Auto) 70.9 (50.0-75.0) % Lymph % (Auto) 22.4 (20.0-40.0) % Frio % (Auto) 5.8 (0.0-10.0) % Eos % (Auto) 0.4 (0.0-4.0) % Baso % (Auto) 0.5 (0.0-2.0) % Neut # (Auto) 3.6 (1.8-7.0) K/uL Lymph # (Auto) 1.1 (1.0-4.3) K/uL Frio # (Auto) 0.3 (0.0-0.8) K/uL Eos # (Auto) 0.0 (0.0-0.7) K/uL Baso # (Auto) 0.0 (0.0-0.2) K/uL Sodium 141 (132-148) mmol/L Potassium 4.1 (3.6-5.2) mmol/L Chloride 100 (98-107) mmol/L Carbon Dioxide 25 (22-30) mmol/L Anion Gap 20 (10-20) BUN 58 H (7-17) mg/dL Creatinine 4.5 H (0.7-1.2) mg/dL Est GFR ( Amer) 11 Est GFR (Non-Af Amer) 9 POC Glucose (mg/dL) (65-110) mg/dL Random Glucose 126 H (65-105) mg/dL Calcium 7.8 L (8.6-10.4) mg/dl Phosphorus 5.3 H (2.5-4.5) mg/dL Magnesium 1.8 (1.6-2.3) mg/dL Total Bilirubin 0.9 (0.2-1.3) mg/dL AST 34 (14-36) U/L ALT 17 (9-52) U/L Alkaline Phosphatase 73 (38-126) U/L Troponin I 0.0730 (0.00-0.120) ng/mL NT-Pro-B Natriuret Pep > [id number] H (0-900) pg/mL Total Protein 7.3 (6.3-8.3) g/dL Albumin 3.2 L (3.5-5.0) g/dL Globulin 4.2 H (2.2-3.9) gm/dL Albumin/Globulin Ratio 0.8 L (1.0-2.1) 10/03/17 Range/Units 22:57 WBC (4.8-10.8) K/uL RBC (3.80-5.20) Mil/uL Hgb (11.0-16.0) g/dL Hct (34.0-47.0) % MCV (81.0-99.0) fL MCH (27.0-31.0) pg MCHC (33.0-37.0) g/dL RDW (11.5-14.5) % Plt Count (130-400) K/uL MPV (7.2-11.7) fL Neut % (Auto) (50.0-75.0) % Lymph % (Auto) (20.0-40.0) % Frio % (Auto) (0.0-10.0) % Eos % (Auto) (0.0-4.0) % Baso % (Auto) (0.0-2.0) % Neut # (Auto) (1.8-7.0) K/uL Lymph # (Auto) (1.0-4.3) K/uL Frio # (Auto) (0.0-0.8) K/uL Eos # (Auto) (0.0-0.7) K/uL Baso # (Auto) (0.0-0.2) K/uL Sodium (132-148) mmol/L Potassium (3.6-5.2) mmol/L Chloride (98-107) mmol/L Carbon Dioxide (22-30) mmol/L Anion Gap (10-20) BUN (7-17) mg/dL Creatinine (0.7-1.2) mg/dL Est GFR ( Amer) Est GFR (Non-Af Amer) POC Glucose (mg/dL) 122 H (65-110) mg/dL Random Glucose (65-105) mg/dL Calcium (8.6-10.4) mg/dl Phosphorus (2.5-4.5) mg/dL Magnesium (1.6-2.3) mg/dL Total Bilirubin (0.2-1.3) mg/dL AST (14-36) U/L ALT (9-52) U/L Alkaline Phosphatase (38-126) U/L Troponin I (0.00-0.120) ng/mL NT-Pro-B Natriuret Pep (0-900) pg/mL Total Protein (6.3-8.3) g/dL Albumin (3.5-5.0) g/dL Globulin (2.2-3.9) gm/dL Albumin/Globulin Ratio (1.0-2.1) Laboratory Results - last 24 hr 10/03/17 10/04/17 10/04/17 22:57 06:13 06:13 WBC 5.0 RBC 3.29 L Hgb 10.6 L Hct 31.8 L MCV 96.7 MCH 32.1 H MCHC 33.1 RDW 20.2 H Plt Count 90 L MPV 7.7 Neut % (Auto) 70.9 Lymph % (Auto) 22.4 Frio % (Auto) 5.8 Eos % (Auto) 0.4 Baso % (Auto) 0.5 Neut # (Auto) 3.6 Lymph # (Auto) 1.1 Frio # (Auto) 0.3 Eos # (Auto) 0.0 Baso # (Auto) 0.0 Sodium 141 Potassium 4.1 Chloride 100 Carbon Dioxide 25 Anion Gap 20 BUN 58 H Creatinine 4.5 H Est GFR ( Amer) 11 Est GFR (Non-Af Amer) 9 POC Glucose (mg/dL) 122 H Random Glucose 126 H Calcium 7.8 L Phosphorus 5.3 H Magnesium 1.8 Total Bilirubin 0.9 AST 34 ALT 17 Alkaline Phosphatase 73 Troponin I 0.0730 NT-Pro-B Natriuret Pep Total Protein 7.3 Albumin 3.2 L Globulin 4.2 H Albumin/Globulin Ratio 0.8 L 10/04/17 07:13 WBC RBC Hgb Hct MCV MCH MCHC RDW Plt Count MPV Neut % (Auto) Lymph % (Auto) Frio % (Auto) Eos % (Auto) Baso % (Auto) Neut # (Auto) Lymph # (Auto) Frio # (Auto) Eos # (Auto) Baso # (Auto) Sodium Potassium Chloride Carbon Dioxide Anion Gap BUN Creatinine Est GFR ( Amer) Est GFR (Non-Af Amer) POC Glucose (mg/dL) Random Glucose Calcium Phosphorus Magnesium Total Bilirubin AST ALT Alkaline Phosphatase Troponin I NT-Pro-B Natriuret Pep > 691813 H Total Protein Albumin Globulin Albumin/Globulin Ratio Critical Care Progress Note - Nutrition Nutrition: Nutrition Category Date Time Status Renal Diet [DIET] Diets 10/03/17 Breakfast Active Assessment/Plan - Assessment and Plan (Free Text) Assessment: This is a 82 F with PMHx of ESRD on HD MWFS (LAVF), HTN, T2DM, CAD with HF, Anemia of Chronic Disease who is admitted for dialysis. Plan: ESRD on HD -Pt here for Dialysis -HD on M, W, F, and Sa with left AVF -Nephrology Consult, Dr. Talbert, notified to evaluate DW Dr. Helena Kessler, Ernestina Leblanc DO, PGY-1 <Helena Kessler M - Last Filed: 10/04/17 14:31> CCU Objective - Vital Signs / Intake & Output Vital Signs (Last 4 hours): Vital Signs Temp Pulse Pulse Resp BP BP 10/04/17 14:14 96 H 146/68 10/04/17 14:00 97 H 141/65 10/04/17 13:45 96 H 143/65 10/04/17 13:30 76 151/62 H 10/04/17 13:15 75 141/58 L 10/04/17 13:00 96 H 134/65 10/04/17 12:45 95 H 137/66 10/04/17 12:30 98 H 132/67 10/04/17 12:16 97.8 F 95 H 18 148/64 10/04/17 12:15 95 H 133/61 10/04/17 12:00 95 H 130/66 10/04/17 11:50 95 H 125/59 L Intake and Output (Last 8hrs): Intake & Output 10/03/17 10/04/17 10/04/17 22:59 06:59 14:59 Intake Total 170 0 Balance 170 0 Weight 110 lb 97 lb Intake: Oral 170 0 Other: # Bowel Movements 1 - Medications Active Medications: Active Medications Generic Name Dose Route Start Last Admin Trade Name Iris PRN Reason Stop Dose Admin Amlodipine Besylate 5 mg 10/04/17 10:00 10/04/17 10:00 Norvasc PO Not Given DAILY [facility] Aspirin 81 mg 10/04/17 08:00 10/04/17 08:36 Aspirin Chewable PO 81 mg 0800 [facility] Administration Calcium Acetate 667 mg 10/04/17 08:00 10/04/17 08:36 Phoslo PO 667 mg BIDCC [facility] Administration Gabapentin 100 mg 10/04/17 22:00 Neurontin PO HS [facility] Insulin Aspart 0 unit 10/04/17 12:00 10/04/17 13:30 Novolog SC Not Given Q6H [facility] Protocol Levothyroxine Sodium 50 mcg 10/04/17 06:30 10/04/17 06:17 Synthroid PO 50 mcg DAILY@0630 [facility] Administration Pantoprazole Sodium 20 mg 10/04/17 10:00 10/04/17 11:00 Protonix Ec Tab PO 20 mg DAILY [facility] Administration Pneumococcal Polyvalent Vaccine 0.5 ml 10/06/17 10:00 Pneumovax 23 Vaccine IM 10/06/17 10:01 .ONCE ONE Vitamin B Complex/Vit C/Folic Acid 1 tab 10/04/17 08:30 10/04/17 08:36 Nephro-Kennedy PO 1 tab 0800 [facility] Administration - Patient Studies Lab Studies: Lab Studies 10/04/17 10/04/17 10/04/17 Range/Units 07:13 06:13 06:13 WBC 5.0 (4.8-10.8) K/uL RBC 3.29 L (3.80-5.20) Mil/uL Hgb 10.6 L (11.0-16.0) g/dL Hct 31.8 L (34.0-47.0) % MCV 96.7 (81.0-99.0) fL MCH 32.1 H (27.0-31.0) pg MCHC 33.1 (33.0-37.0) g/dL RDW 20.2 H (11.5-14.5) % Plt Count 90 L (130-400) K/uL MPV 7.7 (7.2-11.7) fL Neut % (Auto) 70.9 (50.0-75.0) % Lymph % (Auto) 22.4 (20.0-40.0) % Frio % (Auto) 5.8 (0.0-10.0) % Eos % (Auto) 0.4 (0.0-4.0) % Baso % (Auto) 0.5 (0.0-2.0) % Neut # (Auto) 3.6 (1.8-7.0) K/uL Lymph # (Auto) 1.1 (1.0-4.3) K/uL Frio # (Auto) 0.3 (0.0-0.8) K/uL Eos # (Auto) 0.0 (0.0-0.7) K/uL Baso # (Auto) 0.0 (0.0-0.2) K/uL Sodium 141 (132-148) mmol/L Potassium 4.1 (3.6-5.2) mmol/L Chloride 100 (98-107) mmol/L Carbon Dioxide 25 (22-30) mmol/L Anion Gap 20 (10-20) BUN 58 H (7-17) mg/dL Creatinine 4.5 H (0.7-1.2) mg/dL Est GFR ( Amer) 11 Est GFR (Non-Af Amer) 9 POC Glucose (mg/dL) (65-110) mg/dL Random Glucose 126 H (65-105) mg/dL Calcium 7.8 L (8.6-10.4) mg/dl Phosphorus 5.3 H (2.5-4.5) mg/dL Magnesium 1.8 (1.6-2.3) mg/dL Total Bilirubin 0.9 (0.2-1.3) mg/dL AST 34 (14-36) U/L ALT 17 (9-52) U/L Alkaline Phosphatase 73 (38-126) U/L Troponin I 0.0730 (0.00-0.120) ng/mL NT-Pro-B Natriuret Pep > [id number] H (0-900) pg/mL Total Protein 7.3 (6.3-8.3) g/dL Albumin 3.2 L (3.5-5.0) g/dL Globulin 4.2 H (2.2-3.9) gm/dL Albumin/Globulin Ratio 0.8 L (1.0-2.1) 10/03/17 Range/Units 22:57 WBC (4.8-10.8) K/uL RBC (3.80-5.20) Mil/uL Hgb (11.0-16.0) g/dL Hct (34.0-47.0) % MCV (81.0-99.0) fL MCH (27.0-31.0) pg MCHC (33.0-37.0) g/dL RDW (11.5-14.5) % Plt Count (130-400) K/uL MPV (7.2-11.7) fL Neut % (Auto) (50.0-75.0) % Lymph % (Auto) (20.0-40.0) % Frio % (Auto) (0.0-10.0) % Eos % (Auto) (0.0-4.0) % Baso % (Auto) (0.0-2.0) % Neut # (Auto) (1.8-7.0) K/uL Lymph # (Auto) (1.0-4.3) K/uL Frio # (Auto) (0.0-0.8) K/uL Eos # (Auto) (0.0-0.7) K/uL Baso # (Auto) (0.0-0.2) K/uL Sodium (132-148) mmol/L Potassium (3.6-5.2) mmol/L Chloride (98-107) mmol/L Carbon Dioxide (22-30) mmol/L Anion Gap (10-20) BUN (7-17) mg/dL Creatinine (0.7-1.2) mg/dL Est GFR ( Amer) Est GFR (Non-Af Amer) POC Glucose (mg/dL) 122 H (65-110) mg/dL Random Glucose (65-105) mg/dL Calcium (8.6-10.4) mg/dl Phosphorus (2.5-4.5) mg/dL Magnesium (1.6-2.3) mg/dL Total Bilirubin (0.2-1.3) mg/dL AST (14-36) U/L ALT (9-52) U/L Alkaline Phosphatase (38-126) U/L Troponin I (0.00-0.120) ng/mL NT-Pro-B Natriuret Pep (0-900) pg/mL Total Protein (6.3-8.3) g/dL Albumin (3.5-5.0) g/dL Globulin (2.2-3.9) gm/dL Albumin/Globulin Ratio (1.0-2.1) Laboratory Results - last 24 hr 10/03/17 10/04/17 10/04/17 22:57 06:13 06:13 WBC 5.0 RBC 3.29 L Hgb 10.6 L Hct 31.8 L MCV 96.7 MCH 32.1 H MCHC 33.1 RDW 20.2 H Plt Count 90 L MPV 7.7 Neut % (Auto) 70.9 Lymph % (Auto) 22.4 Frio % (Auto) 5.8 Eos % (Auto) 0.4 Baso % (Auto) 0.5 Neut # (Auto) 3.6 Lymph # (Auto) 1.1 Frio # (Auto) 0.3 Eos # (Auto) 0.0 Baso # (Auto) 0.0 Sodium 141 Potassium 4.1 Chloride 100 Carbon Dioxide 25 Anion Gap 20 BUN 58 H Creatinine 4.5 H Est GFR ( Amer) 11 Est GFR (Non-Af Amer) 9 POC Glucose (mg/dL) 122 H Random Glucose 126 H Calcium 7.8 L Phosphorus 5.3 H Magnesium 1.8 Total Bilirubin 0.9 AST 34 ALT 17 Alkaline Phosphatase 73 Troponin I 0.0730 NT-Pro-B Natriuret Pep Total Protein 7.3 Albumin 3.2 L Globulin 4.2 H Albumin/Globulin Ratio 0.8 L 10/04/17 07:13 WBC RBC Hgb Hct MCV MCH MCHC RDW Plt Count MPV Neut % (Auto) Lymph % (Auto) Frio % (Auto) Eos % (Auto) Baso % (Auto) Neut # (Auto) Lymph # (Auto) Frio # (Auto) Eos # (Auto) Baso # (Auto) Sodium Potassium Chloride Carbon Dioxide Anion Gap BUN Creatinine Est GFR ( Amer) Est GFR (Non-Af Amer) POC Glucose (mg/dL) Random Glucose Calcium Phosphorus Magnesium Total Bilirubin AST ALT Alkaline Phosphatase Troponin I NT-Pro-B Natriuret Pep > 004380 H Total Protein Albumin Globulin Albumin/Globulin Ratio Critical Care Progress Note - Nutrition Nutrition: Nutrition Category Date Time Status Renal Diet [DIET] Diets 10/03/17 Breakfast Active Assessment/Plan - Assessment and Plan (Free Text) Plan: Patient seen and examined at bedside with above resident. Patient denies any chest pain and is awaiting HD. -Patient has no hemodynamic instability -Patient at risk of cad and likely has diatolice heart failure -consider cardiology eval. -patient remains chest pain free -nephrology and cardiology eval -respiratory remains stable. - Date & Time Date: 10/04/17 Time: 14:29
[2017-10-04] MEDS: Multivitamin Vitamin B Complex (Nephro-Vite) Tab PO SCH (08:36)
[2017-10-04] MEDS ORDERED: Lidocaine/Prilocaine 2.5%-2.5% Cream (5 gm) TOP ONE (09:00)
--- NOTE | 2017-10-04 09:08 | CP.PCM.CON ---
History of Present Illness - History of Present Illness History of Present Illness: Initial Nephrology Consultation Note Covering for Dr Conley/Carlos: Assessment: Stable Fall at home severe sys CHF Diabetic chronic Kidney Disease (E11.22) Hypertensive Chronic Kidney Disease (I12.0) End stage renal disease (N18.6) dependence on hemodialysis (Z99.2) (MWF and sat ) via AVF Anemia (D64.9), Hyperphosphatemia (E83.39), Secondary Hyperparathyroidism (E21.1 ), HTN (I12.0) Plan: Will plan for HD today as ordered. Continue with Nephrovite 1 tab/day. plan for next HD friday PRBC as needed for anemia. Not on ANTONIA last Hb 12.6>10.6 Continue with phos binders home dose, phos level 5.3 BP control with meds as ordered. Glycemic control, Dialysis consistent diet Further work up/management as per primary team Dose meds/antibiotics (if needed) for ESRD status. Avoid fleets enema/magnesium based laxatives. CHF optimization fall precautions Thanks for allowing me to participate in care of your patient. Please call if any Qs. Dr Javid Griggs Office: [phone] Chief Complaint; SOB and fall reason for consult: ESRD HPI: Pt is a 82 F with hx of ESRD on hemodialysis (MWF and sat) via AVF (Dr Gonzalez/Dr Conley), last dialysis wed, chronic anemia, hyperphosphatemia, secondary hyperparathyroidism, Diabetes Mellitus, hypertension, CHF presented to [facility] ([facility] Er with c/o fall at home and SOB x 1 day. She was transferred to [facility] (formerly [facility]] for HD. renal consult for ESRD management pt c/o body aches and SOB. otherwise feels in usual health ROS: Cardiovascular: No chest pain. Pulmonary: c/o shortness of breath but better Gastrointestinal: denies abdominal pain no nausea. No vomiting. Genitourinary: No pain while urinating. Denies blood in urine. All other negative Physical Examination: General Appearance: in no acute respiratory distress, co-operative, chronically ill and debilitated appeating Vitals reviewed and noted as below Head; Atraumatic, normocephalic ENT: no ulcers no thrush. Tongue is midline. Oropharynx: no rash or ulcers. EYES: Pupils are equal, round and reactive to light accommodation. Eye muscles and extraocular movement intact. Sclera is anicteric. Neck; supple no lymphadenopathy, no thyromegaly or bruit Lungs: Normal respiratory rate/effort. Breath sounds bilateral equal and basal crackles Heart: Normal rate. s1s2 normal. No rub or gallop. Extremities: no edema. No varicose veins Neurological: Patient is alert, awake and oriented to person, place and time. No focal deficit. Strength bilateral appropriate and equal Skin: Warm and dry. Normal turgor. No rash. Palpitation: Normal elasticity for age Abdomen: Abdomen is soft. Bowel sounds +. There is no abdominal tenderness, no guarding/rigidity or organomegaly Psych: limited insight and normal affect/mood MSK: no joint tenderness or swelling. Digits and nails normal, no deformity : kidney or bladder not palpable Access: AVF Labs/imaging reviewed. Past medical history, past surgical history, family history, social history, allergy reviewed and noted as below Family Hx: no hx of CKD. Non contributory Past Patient History - Infectious Disease Hx of Infectious Diseases: None - Tetanus Immunizations Tetanus Immunization: Unknown - Past Medical History & Family History Past Medical History?: Yes - Past Social History Smoking Status: Never Smoked - CARDIAC Hx Congestive Heart Failure: Yes Hx Hypercholesterolemia: Yes Hx Hypertension: Yes - PULMONARY Hx Chronic Obstructive Pulmonary Disease (COPD): Yes Hx Pneumonia: Yes - NEUROLOGICAL Hx Neurological Disorder: Yes (numbnes/tingling left leg and ft) Hx Dizziness: Yes - HEENT Hx HEENT Problems: Yes Hx Cataracts: Yes (b/l sx) - RENAL Date of Last Dialysis Treatment: 10/01/17 - ENDOCRINE/METABOLIC Hx Hypothyroidism: Yes - HEMATOLOGICAL/ONCOLOGICAL Hx Anemia: Yes - INTEGUMENTARY Hx Dermatological Problems: No Other/Comment: 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, excellent bruit at site - MUSCULOSKELETAL/RHEUMATOLOGICAL Hx Falls: Yes - GASTROINTESTINAL Hx Diverticulitis: Yes - GENITOURINARY/GYNECOLOGICAL Hx 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.ESRD ON HD) - PSYCHIATRIC Hx Substance Use: No - SURGICAL HISTORY Hx Coronary Stent: Yes - ANESTHESIA Hx Anesthesia: Yes Hx Anesthesia Reactions: No Hx Malignant Hyperthermia: No Meds Allergies/Adverse Reactions: Allergies Allergy/AdvReac Type Severity Reaction Status Date / Time ceftriaxone Allergy ITCHING Verified 10/03/17 21:02 - Medications Medications: Current Medications Amlodipine Besylate (Norvasc) 5 mg PO DAILY [facility] Aspirin (Aspirin Chewable) 81 mg PO 0800 [facility] Last Admin: 10/04/17 08:36 Dose: 81 mg Calcium Acetate (Phoslo) 667 mg PO BIDCC [facility] Last Admin: 10/04/17 08:36 Dose: 667 mg Gabapentin (Neurontin) 100 mg PO HS [facility] Insulin Aspart (Novolog) 0 unit SC Q6H [facility] PRN Reason: Protocol Levothyroxine Sodium (Synthroid) 50 mcg PO DAILY@0630 [facility] Last Admin: 10/04/17 06:17 Dose: 50 mcg Pantoprazole Sodium (Protonix Ec Tab) 20 mg PO DAILY [facility] Pneumococcal Polyvalent Vaccine (Pneumovax 23 Vaccine) 0.5 ml IM .ONCE ONE Stop: 10/06/17 10:01 Vitamin B Complex/Vit C/Folic Acid (Nephro-Kennedy) 1 tab PO 0800 [facility] Last Admin: 10/04/17 08:36 Dose: 1 tab Results - Vital Signs Recent Vital Signs: Last Vital Signs Temp 98.8 F 10/04/17 04:00 Pulse 97 H 10/04/17 06:40 Resp 22 10/04/17 06:40 BP 126/58 L 10/04/17 06:16 Pulse Ox 99 10/04/17 06:40 - Labs Result Diagrams: 10/04/17 06:13 10/04/17 06:13 Labs: Laboratory Results - last 24 hr 10/03/17 10/04/17 10/04/17 22:57 06:13 06:13 WBC 5.0 RBC 3.29 L Hgb 10.6 L Hct 31.8 L MCV 96.7 MCH 32.1 H MCHC 33.1 RDW 20.2 H Plt Count 90 L MPV 7.7 Neut % (Auto) 70.9 Lymph % (Auto) 22.4 [place] % (Auto) 5.8 Eos % (Auto) 0.4 Baso % (Auto) 0.5 Neut # (Auto) 3.6 Lymph # (Auto) 1.1 [place] # (Auto) 0.3 Eos # (Auto) 0.0 Baso # (Auto) 0.0 Sodium 141 Potassium 4.1 Chloride 100 Carbon Dioxide 25 Anion Gap 20 BUN 58 H Creatinine 4.5 H Est GFR ( Amer) 11 Est GFR (Non-Af Amer) 9 POC Glucose (mg/dL) 122 H Random Glucose 126 H Calcium 7.8 L Phosphorus 5.3 H Magnesium 1.8 Total Bilirubin 0.9 AST 34 ALT 17 Alkaline Phosphatase 73 Troponin I 0.0730 NT-Pro-B Natriuret Pep Total Protein 7.3 Albumin 3.2 L Globulin 4.2 H Albumin/Globulin Ratio 0.8 L 10/04/17 07:13 WBC RBC Hgb Hct MCV MCH MCHC RDW Plt Count MPV Neut % (Auto) Lymph % (Auto) [place] % (Auto) Eos % (Auto) Baso % (Auto) Neut # (Auto) Lymph # (Auto) [place] # (Auto) Eos # (Auto) Baso # (Auto) Sodium Potassium Chloride Carbon Dioxide Anion Gap BUN Creatinine Est GFR ( Amer) Est GFR (Non-Af Amer) POC Glucose (mg/dL) Random Glucose Calcium Phosphorus Magnesium Total Bilirubin AST ALT Alkaline Phosphatase Troponin I NT-Pro-B Natriuret Pep > 124779 H Total Protein Albumin Globulin Albumin/Globulin Ratio
--- NOTE | 2017-10-04 09:44 | CT ---
PROCEDURE: CT Chest without contrast HISTORY: pulmonary fibrosis COMPARISON: None. TECHNIQUE: Contiguous axial images were obtained through the chest without intravenous contrast enhancement. Sagittal and coronal reconstructions were performed. Radiation dose (DLP): 303.34 mGy-cm. This CT exam was performed using one or more of the following dose reduction techniques: Automated exposure control, adjustment of the mA and/or kV according to patient size, and/or use of iterative reconstruction technique. FINDINGS: LUNGS: Ill-defined alveolar opacity in both upper lobes. No significant interstitial fibrosis appreciated. Bilateral lower lobe subsegmental/ segmental atelectasis likely secondary to pleural effusions. Please note that there are punctate calcifications seen within the atelectatic lower lobes consistent with old granulomatous disease. MEDIASTINUM: Unremarkable thoracic aorta. No aneurysm. Mild cardiomegaly. Coronary arterial calcification. Main pulmonary artery unremarkable. No vascular congestion. Shotty nonspecific mediastinal nodes, largest 14 mm in short axis, precarinal. No definite hilar lymphadenopathy. Evaluation limited by the absence of intravenous contrast. PLEURA: Moderate right and small left pleural effusion. No pneumothorax appreciated. BONES: No fracture. No destructive lesion. UPPER ABDOMEN: Grossly unremarkable. OTHER FINDINGS: None. IMPRESSION: Bilateral pleural effusion, right greater than left. Bilateral lower lobe subsegmental/ segmental atelectasis. Ill-defined alveolar opacity in both upper lobes. No definite interstitial fibrosis. Nonspecific mild mediastinal lymphadenopathy. Cardiomegaly and coronary arterial calcification.
[2017-10-04] MEDS: Pantoprazole 20 mg EC Tab PO SCH (11:00)
[2017-10-04] MEDS: (Novolog) Insulin Aspart, Recombinant 100 u/ml 10 ml vial SC SCH ×2 (13:30→17:57)
--- NOTE | 2017-10-04 18:05 | RAD ---
PROCEDURE: CHEST RADIOGRAPH, 1 VIEW HISTORY: CHF/ESRD COMPARISON: None available. FINDINGS: LUNGS: Bilateral perihilar opacity. PLEURA: Although moderate right and small left pleural effusion. No pneumothorax. CARDIOVASCULAR: Congestive change. Normal heart size. OSSEOUS STRUCTURES: No significant abnormalities. VISUALIZED UPPER ABDOMEN: Normal. OTHER FINDINGS: None. IMPRESSION: Findings suspicious for acute pulmonary edema. Bilateral pleural effusion. Congestive change.
[2017-10-04] MEDS: Rosuvastatin Calcium 2.5 mg Tab PO SCH (22:30)
[2017-10-05] MEDS: (Novolog) Insulin Aspart, Recombinant 100 u/ml 10 ml vial SC SCH ×4 (00:42→21:14)
[2017-10-05 06:29] LABS: BASO % 0.6 % (0.0-2.0); EOS % 0.4 % (0.0-4.0); HEMOGLOBIN 10.3 g/dL (11.0-16.0); LYMPH % 26.3 % (20.0-40.0); MEAN CELL VOLUME 97.5 fL (81.0-99.0); MEAN CORPUSCULAR HEMOGLOBIN 31.7 pg (27.0-31.0); MEAN CORPUSCULAR HGB CONC 32.5 g/dL (33.0-37.0); MEAN PLATELET VOLUME 8.1 fL (7.2-11.7); MONO # 0.3 K/uL (0.0-0.8); MONO % 7.9 % (0.0-10.0); NEUT # 2.4 K/uL (1.8-7.0); NEUT % 64.8 % (50.0-75.0); NRBC % 0.1 % (0.0-2.0); RBC 3.25 Mil/uL (3.80-5.20); RED CELL DISTRIBUTION WIDTH 20.4 % (11.5-14.5); WHITE BLOOD COUNT 3.6 K/uL (4.8-10.8)
[2017-10-05 06:44] LABS: ALB/GLOB RATIO 0.7 (1.0-2.1); ALBUMIN 3.2 g/dL (3.5-5.0); CALCIUM 7.8 mg/dl (8.6-10.4)
[2017-10-05] MEDS: Levothyroxine 50 MCG TAB PO SCH (07:34)
--- NOTE | 2017-10-05 07:45 | CP.PCM.PN ---
Subjective - Date & Time of Evaluation Date of Evaluation: 10/04/17 Time of Evaluation: 22:35 - Subjective Subjective: Patient feeling better. Still having shortness of breath on exertion. Family at bedside. Vital signs stable. Chest good air entry. Rales noted Received hemodialysis yesterday Assessment and recommendation: 82-year-old female with multiple medical history admitted with syncope, patient had a fall. Fluid overload state. Receiving hemodialysis. Chronic heart failure. Objective - Vital Signs/Intake and Output Vital Signs (last 24 hours): Temp Pulse Resp BP Pulse Ox 98 F 74 31 H 111/63 100 10/05/17 04:00 10/05/17 07:10 10/05/17 07:10 10/05/17 06:38 10/05/17 07:10 Intake and Output: 10/05/17 10/05/17 06:59 18:59 Intake Total 150 Output Total 0 Balance 150 0 - Medications Medications: Current Medications Amlodipine Besylate (Norvasc) 5 mg PO DAILY [facility] Last Admin: 10/04/17 10:00 Dose: Not Given Aspirin (Aspirin Chewable) 81 mg PO 0800 [facility] Last Admin: 10/04/17 08:36 Dose: 81 mg Calcium Acetate (Phoslo) 667 mg PO BIDCC [facility] Last Admin: 10/04/17 17:53 Dose: 667 mg Gabapentin (Neurontin) 100 mg PO [facility] Last Admin: 10/04/17 22:29 Dose: 100 mg Insulin Aspart (Novolog) 0 unit SC Q6H [facility] PRN Reason: Protocol Last Admin: 10/05/17 07:38 Dose: Not Given Levothyroxine Sodium (Synthroid) 50 mcg PO DAILY@0630 [facility] Last Admin: 10/05/17 07:34 Dose: 50 mcg Pantoprazole Sodium (Protonix Ec Tab) 20 mg PO DAILY [facility] Last Admin: 10/04/17 11:00 Dose: 20 mg Pneumococcal Polyvalent Vaccine (Pneumovax 23 Vaccine) 0.5 ml IM .ONCE ONE Stop: 10/06/17 10:01 Rosuvastatin Calcium (Crestor) 2.5 mg PO [facility] Last Admin: 10/04/17 22:30 Dose: 2.5 mg Vitamin B Complex/Vit C/Folic Acid (Nephro-Kennedy) 1 tab PO 0800 [facility] Last Admin: 10/04/17 08:36 Dose: 1 tab - Labs Labs: 10/05/17 06:21 10/05/17 06:21
[2017-10-05] MEDS: Multivitamin Vitamin B Complex (Nephro-Vite) Tab PO SCH (08:14)
[2017-10-05 08:38] LABS: HEPATITIS B SURFACE AG Negative (NEGATIVE)
[2017-10-05 08:43] LABS: HEPATITIS B CORE AB NEGATIVE (NEGATIVE)
[2017-10-05] MEDS: Pantoprazole 20 mg EC Tab PO SCH (10:18)
--- NOTE | 2017-10-05 14:25 | CP.PCM.PN ---
Subjective - Date & Time of Evaluation Date of Evaluation: 10/05/17 Time of Evaluation: 14:25 - Subjective Subjective: Nephrology Consultation Note Covering for Dr Conley/Carlos: Assessment: Stable Fall at home severe sys CHF Diabetic chronic Kidney Disease (E11.22) Hypertensive Chronic Kidney Disease (I12.0) End stage renal disease (N18.6) dependence on hemodialysis (Z99.2) (MWF and sat ) via AVF Anemia (D64.9), Hyperphosphatemia (E83.39), Secondary Hyperparathyroidism (E21.1 ), HTN (I12.0) Plan: Continue with Nephrovite 1 tab/day. plan for next HD friday PRBC as needed for anemia.add ANTONIA last Hb 12.6>10.6>10.3 Continue with phos binders home dose, phos level 5.3 BP control with meds as ordered. Glycemic control, Dialysis consistent diet Further work up/management as per primary team Dose meds/antibiotics (if needed) for ESRD status. Avoid fleets enema/magnesium based laxatives. CHF optimization fall precautions Thanks for allowing me to participate in care of your patient. Please call if any Qs. Dr Javid Griggs Office: [phone] Chief Complaint; SOB and fall reason for consult: ESRD HPI: Pt is a 82 F with hx of ESRD on hemodialysis (MWF and sat) via AVF (Dr Gonzalez/Dr Conley), last dialysis wed, chronic anemia, hyperphosphatemia, secondary hyperparathyroidism, Diabetes Mellitus, hypertension, CHF presented to [facility] with c/o fall at home and SOB x 1 day. She was transferred to [facility] for HD. renal consult for ESRD management pt c/o body aches and SOB. otherwise feels in usual health ROS: Cardiovascular: No chest pain. Pulmonary: c/o shortness of breath but better Gastrointestinal: denies abdominal pain no nausea. No vomiting. Genitourinary: No pain while urinating. Denies blood in urine. All other negative Physical Examination: General Appearance: in no acute respiratory distress, co-operative, chronically ill and debilitated appeating Vitals reviewed and noted as below Head; Atraumatic, normocephalic ENT: no ulcers no thrush. Tongue is midline. Oropharynx: no rash or ulcers. EYES: Pupils are equal, round and reactive to light accommodation. Eye muscles and extraocular movement intact. Sclera is anicteric. Neck; supple no lymphadenopathy, no thyromegaly or bruit Lungs: Normal respiratory rate/effort. Breath sounds bilateral equal and basal crackles Heart: Normal rate. s1s2 normal. No rub or gallop. Extremities: no edema. No varicose veins Neurological: Patient is alert, awake and oriented to person, place and time. No focal deficit. Strength bilateral appropriate and equal Skin: Warm and dry. Normal turgor. No rash. Palpitation: Normal elasticity for age Abdomen: Abdomen is soft. Bowel sounds +. There is no abdominal tenderness, no guarding/rigidity or organomegaly Psych: limited insight and normal affect/mood MSK: no joint tenderness or swelling. Digits and nails normal, no deformity : kidney or bladder not palpable Access: AVF Labs/imaging reviewed. Past medical history, past surgical history, family history, social history, allergy reviewed and noted as below Family Hx: no hx of CKD. Non contributory Objective - Vital Signs/Intake and Output Vital Signs (last 24 hours): Temp Pulse Resp BP Pulse Ox 98.3 F 74 24 126/53 L 100 10/05/17 12:00 10/05/17 14:10 10/05/17 14:10 10/05/17 13:38 10/05/17 14:10 Intake and Output: 10/05/17 10/05/17 06:59 18:59 Intake Total 150 780 Output Total 0 Balance 150 780 - Medications Medications: Current Medications Amlodipine Besylate (Norvasc) 5 mg PO DAILY [facility] Last Admin: 10/05/17 10:20 Dose: Not Given Aspirin (Aspirin Chewable) 81 mg PO 0800 [facility] Last Admin: 10/05/17 08:14 Dose: 81 mg Calcium Acetate (Phoslo) 667 mg PO BIDCC [facility] Last Admin: 10/05/17 08:14 Dose: 667 mg Gabapentin (Neurontin) 100 mg PO HS [facility] Last Admin: 10/04/17 22:29 Dose: 100 mg Insulin Aspart (Novolog) 0 unit SC Q6H [facility] PRN Reason: Protocol Last Admin: 10/05/17 12:35 Dose: Not Given Levothyroxine Sodium (Synthroid) 50 mcg PO DAILY@0630 [facility] Last Admin: 10/05/17 07:34 Dose: 50 mcg Pantoprazole Sodium (Protonix Ec Tab) 20 mg PO DAILY [facility] Last Admin: 10/05/17 10:18 Dose: 20 mg Pneumococcal Polyvalent Vaccine (Pneumovax 23 Vaccine) 0.5 ml IM .ONCE ONE Stop: 10/06/17 10:01 Rosuvastatin Calcium (Crestor) 2.5 mg PO HS [facility] Last Admin: 10/04/17 22:30 Dose: 2.5 mg Vitamin B Complex/Vit C/Folic Acid (Nephro-Kennedy) 1 tab PO 0800 [facility] Last Admin: 10/05/17 08:14 Dose: 1 tab - Labs Labs: 10/05/17 06:21 10/05/17 06:21
--- NOTE | 2017-10-05 18:10 | CP.PCM.PN ---
Subjective - Date & Time of Evaluation Date of Evaluation: 10/05/17 Time of Evaluation: 18:09 - Subjective Subjective: patient sitting up comfortably Not in any distress Feeling better Patient's daughter at bedside Spoke to her daughter. eating better Objective - Vital Signs/Intake and Output Vital Signs (last 24 hours): Temp Pulse Resp BP Pulse Ox 97.5 F L 75 25 H 118/42 L 100 10/05/17 16:00 10/05/17 18:00 10/05/17 18:00 10/05/17 17:38 10/05/17 18:00 Intake and Output: 10/05/17 10/05/17 06:59 18:59 Intake Total 150 960 Output Total 0 Balance 150 960 - Medications Medications: Current Medications Amlodipine Besylate (Norvasc) 5 mg PO DAILY [facility] Last Admin: 10/05/17 10:20 Dose: Not Given Aspirin (Aspirin Chewable) 81 mg PO 0800 [facility] Last Admin: 10/05/17 08:14 Dose: 81 mg Calcium Acetate (Phoslo) 667 mg PO BIDCC [facility] Last Admin: 10/05/17 17:46 Dose: 667 mg Epoetin Jonathan (Procrit) 4,000 unit IV MWF [facility] Gabapentin (Neurontin) 100 mg PO [facility] Last Admin: 10/04/17 22:29 Dose: 100 mg Insulin Aspart (Novolog) 0 unit SC [facility] PRN Reason: Protocol Levothyroxine Sodium (Synthroid) 50 mcg PO DAILY@0630 [facility] Last Admin: 10/05/17 07:34 Dose: 50 mcg Pantoprazole Sodium (Protonix Ec Tab) 20 mg PO DAILY [facility] Last Admin: 10/05/17 10:18 Dose: 20 mg Pneumococcal Polyvalent Vaccine (Pneumovax 23 Vaccine) 0.5 ml IM .ONCE ONE Stop: 10/06/17 10:01 Rosuvastatin Calcium (Crestor) 2.5 mg PO [facility] Last Admin: 10/04/17 22:30 Dose: 2.5 mg Vitamin B Complex/Vit C/Folic Acid (Nephro-Kennedy) 1 tab PO 0800 [facility] Last Admin: 10/05/17 08:14 Dose: 1 tab - Labs Labs: 10/05/17 06:21 10/05/17 06:21 - Head Exam Head Exam: ATRAUMATIC Additional comments: good air entry bilaterally regular heart sound Nontender abdomen Assessment and Plan - Assessment and Plan (Free Text) Assessment: patient with the heart failure Intermittent atrial fibrillation Congestive heart failure Patient with bilateral pleural effusion Renal insuf Will arrange for possibleThoracentesis tomorrow
[2017-10-05] MEDS: Rosuvastatin Calcium 2.5 mg Tab PO SCH (21:25)
[2017-10-06 05:45] LABS: BASO % 0.6 % (0.0-2.0); EOS % 0.4 % (0.0-4.0); HEMOGLOBIN 10.8 g/dL (11.0-16.0); LYMPH # 1.2 K/uL (1.0-4.3); LYMPH % 24.7 % (20.0-40.0); MEAN CELL VOLUME 97.3 fL (81.0-99.0); MEAN CORPUSCULAR HEMOGLOBIN 32.5 pg (27.0-31.0); MEAN CORPUSCULAR HGB CONC 33.4 g/dL (33.0-37.0); MEAN PLATELET VOLUME 7.8 fL (7.2-11.7); MONO # 0.4 K/uL (0.0-0.8); NEUT # 3.4 K/uL (1.8-7.0); NEUT % 67.3 % (50.0-75.0); NRBC % 0.2 % (0.0-2.0); RBC 3.32 Mil/uL (3.80-5.20); RED CELL DISTRIBUTION WIDTH 19.7 % (11.5-14.5)
[2017-10-06] MEDS: Levothyroxine 50 MCG TAB PO SCH (05:50)
[2017-10-06 06:35] LABS: ALB/GLOB RATIO 0.7 (1.0-2.1); ALBUMIN 3.1 g/dL (3.5-5.0); CALCIUM 7.8 mg/dl (8.6-10.4)
[2017-10-06] MEDS: (Novolog) Insulin Aspart, Recombinant 100 u/ml 10 ml vial SC SCH ×4 (07:49→21:33)
[2017-10-06] MEDS: Multivitamin Vitamin B Complex (Nephro-Vite) Tab PO SCH (08:55)
[2017-10-06] MEDS ORDERED: EPOETIN ALFA 4,000 UNIT/ML ML Dialysis IV SCH (09:00)
--- NOTE | 2017-10-06 09:58 | PCM.SURG1 ---
Surgeon's Initial Post Op Note - Surgeon's Notes Surgeon: Adam Ramos MD Tnt Line Supervisor: NONE Type of Anesthesia: Local Pre-Operative Diagnosis: Pleural effusion Operative Findings: US showed large right effusion and moderate left effusion Post-Operative Diagnosis: Pleural effusion Operation Performed: US guided right thoracentesis. Specimen/Specimens Removed: 1200 cc of straw colored fluid Estimated Blood Loss: EBL {In ML}: 0 Blood Products Given: N/A Drains Used: No Drains Post-Op Condition: Fair Date of Surgery/Procedure: 10/06/17 Time of Surgery/Procedure: 09:55
[2017-10-06] MEDS ORDERED: Pneumococcal 23-Valent Vaccine IM ONE (10:00)
[2017-10-06 10:35] LABS: BODY FLUID TYPE PLEURAL/THORACENTESI
[2017-10-06] MEDS: Pantoprazole 20 mg EC Tab PO SCH (10:36)
--- NOTE | 2017-10-06 11:15 | RAD ---
HISTORY: Status post thoracentesis. COMPARISON: 10/03/2017 FINDINGS: LUNGS: Improved aeration right lower lobe status post right thoracentesis. Stable consolidative changes left lung. PLEURA: Decrease right pleural effusion. No pneumothorax identified following right thoracentesis. Stable large left pleural effusion. CARDIOVASCULAR: Cardiomegaly OSSEOUS STRUCTURES: No significant abnormalities. VISUALIZED UPPER ABDOMEN: Normal. OTHER FINDINGS: None. IMPRESSION: Status post right thoracentesis, decrease pleural effusion, commensurate improved aeration right lower lobe. No pneumothorax.
[2017-10-06 11:30] LABS: BF GROSS APPEARANCE SL CLOUDY (CLEAR)
[2017-10-06 11:31] LABS: BODY FLUID MONO/MACROPHAGE 1 % (0-0); BODY FLUID TOTAL COUNT 100 (0-0)
--- NOTE | 2017-10-06 13:12 | CP.PCM.PN ---
Subjective - Date & Time of Evaluation Date of Evaluation: 10/06/17 Time of Evaluation: 13:10 - Subjective Subjective: Nephrology Consultation Note Covering for Dr Conley/Carlos: Assessment: Stable Fall at home severe sys CHF Diabetic chronic Kidney Disease (E11.22) Hypertensive Chronic Kidney Disease (I12.0) End stage renal disease (N18.6) dependence on hemodialysis (Z99.2) (MWF and sat ) via AVF Anemia (D64.9), Hyperphosphatemia (E83.39), Secondary Hyperparathyroidism (E21.1 ), HTN (I12.0) pleural effusion s/p thoracocentesis Plan: Continue with Nephrovite 1 tab/day. plan for next HD today PRBC as needed for anemia.add ANTONIA last Hb 12.6>10.6>10.3 Continue with phos binders home dose, phos level 5.3 BP control with meds as ordered. hold norvasc Glycemic control, Dialysis consistent diet Further work up/management as per primary team Dose meds/antibiotics (if needed) for ESRD status. Avoid fleets enema/magnesium based laxatives. CHF optimization fall precautions Thanks for allowing me to participate in care of your patient. Please call if any Qs. Dr Javid Griggs Office: [phone] Chief Complaint; SOB and fall reason for consult: ESRD HPI: Pt is a 82 F with hx of ESRD on hemodialysis (MWF and sat) via AVF (Dr Gonzalez/Dr Conley), last dialysis wed, chronic anemia, hyperphosphatemia, secondary hyperparathyroidism, Diabetes Mellitus, hypertension, CHF presented to [facility] with c/o fall at home and SOB x 1 day. She was transferred to [facility] for HD. renal consult for ESRD management pt c/o body aches and SOB. otherwise feels in usual health ROS: Cardiovascular: No chest pain. Pulmonary: c/o shortness of breath but better Gastrointestinal: denies abdominal pain no nausea. No vomiting. Genitourinary: No pain while urinating. Denies blood in urine. All other negative Physical Examination: General Appearance: in no acute respiratory distress, co-operative, chronically ill and debilitated appearing Vitals reviewed and noted as below Head; Atraumatic, normocephalic ENT: no ulcers no thrush. Tongue is midline. Oropharynx: no rash or ulcers. EYES: Pupils are equal, round and reactive to light accommodation. Eye muscles and extraocular movement intact. Sclera is anicteric. Neck; supple no lymphadenopathy, no thyromegaly or bruit Lungs: Normal respiratory rate/effort. Breath sounds bilateral improved at bases with has basal crackles Heart: Normal rate. s1s2 normal. No rub or gallop. Extremities: no edema. No varicose veins Neurological: Patient is alert, awake and oriented to person, place and time. No focal deficit. Strength bilateral appropriate and equal Skin: Warm and dry. Normal turgor. No rash. Palpitation: Normal elasticity for age Abdomen: Abdomen is soft. Bowel sounds +. There is no abdominal tenderness, no guarding/rigidity or organomegaly Psych: limited insight and normal affect/mood MSK: no joint tenderness or swelling. Digits and nails normal, no deformity : kidney or bladder not palpable Access: AVF Labs/imaging reviewed. Past medical history, past surgical history, family history, social history, allergy reviewed and noted as below Family Hx: no hx of CKD. Non contributory Objective - Vital Signs/Intake and Output Vital Signs (last 24 hours): Temp Pulse Resp BP Pulse Ox 98.1 F 72 15 117/45 L 100 10/06/17 10:00 10/06/17 11:24 10/06/17 10:50 10/06/17 10:38 10/06/17 11:24 Intake and Output: 10/06/17 10/06/17 06:59 18:59 Intake Total 300 120 Output Total 1200 Balance 300 -1080 - Medications Medications: Current Medications Amlodipine Besylate (Norvasc) 5 mg PO DAILY [facility] Last Admin: 10/06/17 10:30 Dose: Not Given Aspirin (Aspirin Chewable) 81 mg PO 0800 [facility] Last Admin: 10/06/17 08:54 Dose: 81 mg Calcium Acetate (Phoslo) 667 mg PO BIDCC [facility] Last Admin: 10/06/17 08:57 Dose: 667 mg Epoetin Jonathan (Procrit) 4,000 unit IV MWF [facility] Gabapentin (Neurontin) 100 mg PO HS [facility] Last Admin: 10/05/17 21:25 Dose: 100 mg Insulin Aspart (Novolog) 0 unit SC ACHS [facility] PRN Reason: Protocol Last Admin: 10/06/17 07:49 Dose: Not Given Levothyroxine Sodium (Synthroid) 50 mcg PO DAILY@0630 [facility] Last Admin: 10/06/17 05:50 Dose: 50 mcg Pantoprazole Sodium (Protonix Ec Tab) 20 mg PO DAILY [facility] Last Admin: 10/06/17 10:36 Dose: 20 mg Rosuvastatin Calcium (Crestor) 2.5 mg PO HS [facility] Last Admin: 10/05/17 21:25 Dose: 2.5 mg Vitamin B Complex/Vit C/Folic Acid (Nephro-Kennedy) 1 tab PO 0800 [facility] Last Admin: 10/06/17 08:55 Dose: 1 tab - Labs Labs: 10/06/17 05:37 10/06/17 05:38
[2017-10-06] MEDS: EPOETIN ALFA 4,000 UNIT/ML ML Dialysis IV SCH (19:01)
[2017-10-06] MEDS: Rosuvastatin Calcium 2.5 mg Tab PO SCH (21:25)
[2017-10-07] MEDS: Levothyroxine 50 MCG TAB PO SCH (05:38)
[2017-10-07] MEDS: (Novolog) Insulin Aspart, Recombinant 100 u/ml 10 ml vial SC SCH ×4 (07:34→21:44)
[2017-10-07] MEDS: Multivitamin Vitamin B Complex (Nephro-Vite) Tab PO SCH (07:52)
[2017-10-07] MEDS: Pantoprazole 20 mg EC Tab PO SCH (09:33)
--- NOTE | 2017-10-07 10:36 | US ---
PROCEDURE: Date of procedure: 10/06/2017 Procedure: 1. Ultrasound-guided Right thoracentesis, CPT 38696 Medications: 6cc 1% Lidocaine HISTORY: Right pleural effusion, shortness of breath TECHNIQUE: Following informed consent ,the Patients' right chest was marked. Procedure time-out was called, and the patient was placed in the sitting position and limited ultrasound showed a large right effusion. The patient's right back was prepped and draped in the usual sterile fashion. After the skin was anesthetized with lidocaine, a drainage catheter was advanced under ultrasound guidance into the pleural space. Ultrasound-guided thoracentesis was performed. A total of 1200 cubic centimeters of straw-colored fluid removed without complication. A Xeroform dressing was applied. IMPRESSION: Ultrasound guided Right thoracentesis. There were no immediate complications.
--- NOTE | 2017-10-07 14:30 | CP.PCM.PN ---
Subjective - Date & Time of Evaluation Date of Evaluation: 10/07/17 Time of Evaluation: 14:30 - Subjective Subjective: Nephrology Consultation Note Covering for Dr Conley/Carlos: Assessment: Stable Fall at home severe sys CHF Diabetic chronic Kidney Disease (E11.22) Hypertensive Chronic Kidney Disease (I12.0) End stage renal disease (N18.6) dependence on hemodialysis (Z99.2) (MWF and sat ) via AVF Anemia (D64.9), Hyperphosphatemia (E83.39), Secondary Hyperparathyroidism (E21.1 ), HTN (I12.0) pleural effusion s/p thoracocentesis Plan: Continue with Nephrovite 1 tab/day. plan for next HD tomorrow per schedule PRBC as needed for anemia.add ANTONIA last Hb 12.6>10.6>10.3 Continue with phos binders home dose, phos level 5.3 BP control with meds as ordered. hold norvasc Glycemic control, Dialysis consistent diet Further work up/management as per primary team Dose meds/antibiotics (if needed) for ESRD status. Avoid fleets enema/magnesium based laxatives. CHF optimization fall precautions Thanks for allowing me to participate in care of your patient. Please call if any Qs. had d/w team Dr Javid Griggs Office: [phone] Chief Complaint; SOB and fall reason for consult: ESRD HPI: Pt is a 82 F with hx of ESRD on hemodialysis (MWF and sat) via AVF (Dr Gonzalez/Dr Conley), last dialysis wed, chronic anemia, hyperphosphatemia, secondary hyperparathyroidism, Diabetes Mellitus, hypertension, CHF presented to [facility] with c/o fall at home and SOB x 1 day. She was transferred to [facility] for HD. renal consult for ESRD management pt c/o body aches and SOB. otherwise feels in usual health ROS: Cardiovascular: No chest pain. Pulmonary: c/o shortness of breath but better Gastrointestinal: denies abdominal pain no nausea. No vomiting. Genitourinary: No pain while urinating. Denies blood in urine. All other negative Physical Examination: General Appearance: in no acute respiratory distress, co-operative, chronically ill and debilitated appearing Vitals reviewed and noted as below Head; Atraumatic, normocephalic ENT: no ulcers no thrush. Tongue is midline. Oropharynx: no rash or ulcers. EYES: Pupils are equal, round and reactive to light accommodation. Eye muscles and extraocular movement intact. Sclera is anicteric. Neck; supple no lymphadenopathy, no thyromegaly or bruit Lungs: Normal respiratory rate/effort. Breath sounds bilateral improved at bases with has basal crackles Heart: Normal rate. s1s2 normal. No rub or gallop. Extremities: no edema. No varicose veins Neurological: Patient is alert, awake and oriented to person, place and time. No focal deficit. Strength bilateral appropriate and equal Skin: Warm and dry. Normal turgor. No rash. Palpitation: Normal elasticity for age Abdomen: Abdomen is soft. Bowel sounds +. There is no abdominal tenderness, no guarding/rigidity or organomegaly Psych: limited insight and normal affect/mood MSK: no joint tenderness or swelling. Digits and nails normal, no deformity : kidney or bladder not palpable Access: AVF Labs/imaging reviewed. Past medical history, past surgical history, family history, social history, allergy reviewed and noted as below Family Hx: no hx of CKD. Non contributory Objective - Vital Signs/Intake and Output Vital Signs (last 24 hours): Temp Pulse Resp BP Pulse Ox 98.3 F 91 H 22 123/53 L 96 10/07/17 12:00 10/07/17 12:00 10/07/17 12:00 10/07/17 12:00 10/07/17 12:00 Intake and Output: 10/07/17 10/07/17 06:59 18:59 Intake Total 340 360 Output Total 0 0 Balance 340 360 - Medications Medications: Current Medications Aspirin (Aspirin Chewable) 81 mg PO 0800 [facility] Last Admin: 10/07/17 07:52 Dose: 81 mg Calcium Acetate (Phoslo) 667 mg PO BIDCC [facility] Last Admin: 10/07/17 07:52 Dose: 667 mg Epoetin Jonathan (Procrit) 4,000 unit IV MWF@1800 [facility] Last Admin: 10/06/17 19:01 Dose: 4,000 unit Gabapentin (Neurontin) 100 mg PO HS [facility] Last Admin: 10/06/17 21:25 Dose: 100 mg Insulin Aspart (Novolog) 0 unit SC ACHS [facility] PRN Reason: Protocol Last Admin: 10/07/17 12:04 Dose: 1 u Levothyroxine Sodium (Synthroid) 50 mcg PO DAILY@0630 [facility] Last Admin: 10/07/17 05:38 Dose: 50 mcg Pantoprazole Sodium (Protonix Ec Tab) 20 mg PO DAILY [facility] Last Admin: 10/07/17 09:33 Dose: 20 mg Rosuvastatin Calcium (Crestor) 2.5 mg PO HS [facility] Last Admin: 10/06/17 21:25 Dose: 2.5 mg Vitamin B Complex/Vit C/Folic Acid (Nephro-Kennedy) 1 tab PO 0800 [facility] Last Admin: 10/07/17 07:52 Dose: 1 tab - Labs Labs: 10/06/17 05:37 10/06/17 05:38
--- NOTE | 2017-10-07 14:33 | PQF ---
CDI RESPONSE TEXT: DOCUMENTED IN THE h AND P CHRONIC AND SYSTOLIC CDI QUERY TEXT: CHF Acuity and Type Query created by: Mahogany Ibanez on 10/07/2017 2:25 PM Electronically signed by: Titus Moses MD 10/07/2017 2:29 PM
[2017-10-07] MEDS: Rosuvastatin Calcium 2.5 mg Tab PO SCH (21:46)
--- NOTE | 2017-10-07 22:36 | CP.PCM.PN ---
Subjective - Date & Time of Evaluation Date of Evaluation: 10/06/17 Time of Evaluation: 22:36 - Subjective Subjective: Patient did today had right-sided thoracentesis. Almost 1.2 L of fluid removed. Also patient is to do hemodialysis. Clinically she is stable. Vital signs are stable. Chest good air entry regular heart sounds nontender abdomen edema 1+ We will closely monitor for hypotension. Physical therapy tomorrow. We will follow the patient. Objective - Vital Signs/Intake and Output Vital Signs (last 24 hours): Temp Pulse Resp BP Pulse Ox 98.3 F 91 H 18 124/54 L 100 10/07/17 20:00 10/07/17 20:00 10/07/17 20:00 10/07/17 20:00 10/07/17 20:00 Intake and Output: 10/07/17 10/08/17 18:59 06:59 Intake Total 720 Output Total 0 Balance 720 - Medications Medications: Current Medications Aspirin (Aspirin Chewable) 81 mg PO 0800 [facility] Last Admin: 10/07/17 07:52 Dose: 81 mg Calcium Acetate (Phoslo) 667 mg PO BIDCC [facility] Last Admin: 10/07/17 17:29 Dose: 667 mg Epoetin Jonathan (Procrit) 4,000 unit IV MWF@1800 [facility] Last Admin: 10/06/17 19:01 Dose: 4,000 unit Gabapentin (Neurontin) 100 mg PO HS [facility] Last Admin: 10/07/17 21:43 Dose: 100 mg Insulin Aspart (Novolog) 0 unit SC [facility] REPLACED [facility] PRN Reason: Protocol Last Admin: 10/07/17 21:44 Dose: Not Given Levothyroxine Sodium (Synthroid) 50 mcg PO DAILY@0630 [facility] Last Admin: 10/07/17 05:38 Dose: 50 mcg Pantoprazole Sodium (Protonix Ec Tab) 20 mg PO DAILY [facility] Last Admin: 10/07/17 09:33 Dose: 20 mg Rosuvastatin Calcium (Crestor) 2.5 mg PO HS [facility] Last Admin: 10/07/17 21:46 Dose: 2.5 mg Vitamin B Complex/Vit C/Folic Acid (Nephro-Kennedy) 1 tab PO 0800 [facility] Last Admin: 10/07/17 07:52 Dose: 1 tab - Labs Labs: 10/06/17 05:37 10/06/17 05:38
--- NOTE | 2017-10-07 22:37 | CP.PCM.PN ---
Subjective - Date & Time of Evaluation Date of Evaluation: 10/07/17 Time of Evaluation: 22:37 - Subjective Subjective: Patient today feeling better. This morning she was having some shortness of breath. Now she is feeling better. No chest pain no shortness of breath currently. Eating slightly better. Leg swelling present Vital signs stable. Oxygen saturation is 100% Chest x-ray done today showing evidence of increasing pleural fluid and also congestion noted. Patient will be getting the hemodialysis tomorrow. After the hemodialysis will plan for possible discharge plan. Objective - Vital Signs/Intake and Output Vital Signs (last 24 hours): Temp Pulse Resp BP Pulse Ox 98.3 F 91 H 18 124/54 L 100 10/07/17 20:00 10/07/17 20:00 10/07/17 20:00 10/07/17 20:00 10/07/17 20:00 Intake and Output: 10/07/17 10/08/17 18:59 06:59 Intake Total 720 Output Total 0 Balance 720 - Medications Medications: Current Medications Aspirin (Aspirin Chewable) 81 mg PO 0800 [facility] Last Admin: 10/07/17 07:52 Dose: 81 mg Calcium Acetate (Phoslo) 667 mg PO BIDCC [facility] Last Admin: 10/07/17 17:29 Dose: 667 mg Epoetin Jonathan (Procrit) 4,000 unit IV MWF@1800 [facility] Last Admin: 10/06/17 19:01 Dose: 4,000 unit Gabapentin (Neurontin) 100 mg PO [facility] Last Admin: 10/07/17 21:43 Dose: 100 mg Insulin Aspart (Novolog) 0 unit SC [facility] PRN Reason: Protocol Last Admin: 10/07/17 21:44 Dose: Not Given Levothyroxine Sodium (Synthroid) 50 mcg PO DAILY@0630 [facility] Last Admin: 10/07/17 05:38 Dose: 50 mcg Pantoprazole Sodium (Protonix Ec Tab) 20 mg PO DAILY [facility] Last Admin: 10/07/17 09:33 Dose: 20 mg Rosuvastatin Calcium (Crestor) 2.5 mg PO HS [facility] Last Admin: 10/07/17 21:46 Dose: 2.5 mg Vitamin B Complex/Vit C/Folic Acid (Nephro-Kennedy) 1 tab PO 0800 [facility] Last Admin: 10/07/17 07:52 Dose: 1 tab - Labs Labs: 10/06/17 05:37 10/06/17 05:38
[2017-10-08] MEDS: Levothyroxine 50 MCG TAB PO SCH (06:27)
[2017-10-08] MEDS: (Novolog) Insulin Aspart, Recombinant 100 u/ml 10 ml vial SC SCH ×4 (07:47→21:10)
[2017-10-08] MEDS: Multivitamin Vitamin B Complex (Nephro-Vite) Tab PO SCH (07:47)
[2017-10-08] MEDS: Pantoprazole 20 mg EC Tab PO SCH (09:31)
[2017-10-08] MEDS: EPOETIN ALFA 4,000 UNIT/ML ML Dialysis IV SCH ×2 (10:30→17:57)
--- NOTE | 2017-10-08 11:08 | CP.PCM.PN ---
Subjective - Date & Time of Evaluation Date of Evaluation: 10/08/17 Time of Evaluation: 11:08 - Subjective Subjective: Nephrology Consultation Note Covering for Dr Conley/Carlos: Assessment: Stable Fall at home severe sys CHF Diabetic chronic Kidney Disease (E11.22) Hypertensive Chronic Kidney Disease (I12.0) End stage renal disease (N18.6) dependence on hemodialysis (Z99.2) (MWF and sat ) via AVF Anemia (D64.9), Hyperphosphatemia (E83.39), Secondary Hyperparathyroidism (E21.1 ), HTN (I12.0) pleural effusion s/p thoracocentesis Plan: Continue with Nephrovite 1 tab/day. plan for next HD today per schedule PRBC as needed for anemia. add ANTONIA last Hb 12.6>10.6>10.3 Continue with phos binders home dose, phos level 5.3 BP control with meds as ordered. hold norvasc Glycemic control, Dialysis consistent diet Further work up/management as per primary team Dose meds/antibiotics (if needed) for ESRD status. Avoid fleets enema/magnesium based laxatives. CHF optimization fall precautions Thanks for allowing me to participate in care of your patient. Please call if any Qs. had d/w team Dr Javid Griggs Office: [phone] Chief Complaint; SOB and fall reason for consult: ESRD HPI: Pt is a 82 F with hx of ESRD on hemodialysis (MWF and sat) via AVF (Dr Gonzalez/Dr Conley), last dialysis wed, chronic anemia, hyperphosphatemia, secondary hyperparathyroidism, Diabetes Mellitus, hypertension, CHF presented to [facility] with c/o fall at home and SOB x 1 day. She was transferred to [facility] for HD. renal consult for ESRD management pt c/o body aches and SOB. otherwise feels in usual health ROS: Cardiovascular: No chest pain. Pulmonary: c/o shortness of breath but better Gastrointestinal: denies abdominal pain no nausea. No vomiting. Genitourinary: No pain while urinating. Denies blood in urine. All other negative Physical Examination: seen on HD General Appearance: in no acute respiratory distress, co-operative, chronically ill and debilitated appearing Vitals reviewed and noted as below Head; Atraumatic, normocephalic ENT: no ulcers no thrush. Tongue is midline. Oropharynx: no rash or ulcers. EYES: Pupils are equal, round and reactive to light accommodation. Eye muscles and extraocular movement intact. Sclera is anicteric. Neck; supple no lymphadenopathy, no thyromegaly or bruit Lungs: Normal respiratory rate/effort. Breath sounds bilateral improved at bases with has basal crackles Heart: Normal rate. s1s2 normal. No rub or gallop. Extremities: no edema. No varicose veins Neurological: Patient is alert, awake and oriented to person, place and time. No focal deficit. Strength bilateral appropriate and equal Skin: Warm and dry. Normal turgor. No rash. Palpitation: Normal elasticity for age Abdomen: Abdomen is soft. Bowel sounds +. There is no abdominal tenderness, no guarding/rigidity or organomegaly Psych: limited insight and normal affect/mood MSK: no joint tenderness or swelling. Digits and nails normal, no deformity : kidney or bladder not palpable Access: AVF Labs/imaging reviewed. Past medical history, past surgical history, family history, social history, allergy reviewed and noted as below Family Hx: no hx of CKD. Non contributory Objective - Vital Signs/Intake and Output Vital Signs (last 24 hours): Temp Pulse Resp BP Pulse Ox 97.9 F 82 15 114/40 L 100 10/08/17 09:15 10/08/17 10:00 10/08/17 09:15 10/08/17 10:45 10/08/17 09:15 Intake and Output: 10/08/17 10/08/17 06:59 18:59 Intake Total 240 300 Output Total 0 Balance 240 300 - Medications Medications: Current Medications Aspirin (Aspirin Chewable) 81 mg PO 0800 [facility] Last Admin: 10/08/17 07:47 Dose: 81 mg Calcium Acetate (Phoslo) 667 mg PO BIDCC [facility] Last Admin: 10/08/17 07:47 Dose: 667 mg Epoetin Jonathan (Procrit) 4,000 unit IV MWF@1800 [facility] Last Admin: 10/08/17 10:30 Dose: 4,000 unit Gabapentin (Neurontin) 100 mg PO HS [facility] Last Admin: 10/07/17 21:43 Dose: 100 mg Insulin Aspart (Novolog) 0 unit SC ACHS [facility] PRN Reason: Protocol Last Admin: 10/08/17 07:47 Dose: Not Given Levothyroxine Sodium (Synthroid) 50 mcg PO DAILY@0630 [facility] Last Admin: 10/08/17 06:27 Dose: 50 mcg Pantoprazole Sodium (Protonix Ec Tab) 20 mg PO DAILY [facility] Last Admin: 10/08/17 09:31 Dose: 20 mg Rosuvastatin Calcium (Crestor) 2.5 mg PO HS [facility] Last Admin: 10/07/17 21:46 Dose: 2.5 mg Vitamin B Complex/Vit C/Folic Acid (Nephro-Kennedy) 1 tab PO 0800 [facility] Last Admin: 10/08/17 07:47 Dose: 1 tab - Labs Labs: 10/06/17 05:37 10/06/17 05:38
[2017-10-08] MEDS: Rosuvastatin Calcium 2.5 mg Tab PO SCH (21:10)
[2017-10-08 22:58] LABS: LDH PLEURAL FLUID 135 U/L; TOTAL PROTEIN PLEURAL FLUID <3.0 g/dL
--- NOTE | 2017-10-08 23:16 | CP.PCM.PN ---
Subjective - Date & Time of Evaluation Date of Evaluation: 10/08/17 Time of Evaluation: 23:16 - Subjective Subjective: Patient had a hemodialysis. Comfortable no. Sitting up in the chair. Denies any nausea vomiting On examination: Vital signs stable. Chest bilateral good air entry Regular heart sound noted. Pedal edema negative Patient is extremely weak at this time. Assessment and recommendation: 82-year-old female with multiple medical history admitted to the hospital with the bilateral pleural effusion. Decompensated heart failure. Syncopal attack. Most likely chronic systolic heart failure. Atrial fibrillation intermittent in the past. We will continue to monitor. End-stage renal disease on dialysis. She will be discharged once medically stable Objective - Vital Signs/Intake and Output Vital Signs (last 24 hours): Temp Pulse Resp BP Pulse Ox 98 F 71 22 124/47 L 98 10/08/17 20:00 10/08/17 20:00 10/08/17 20:00 10/08/17 20:00 10/08/17 16:00 Intake and Output: 10/08/17 10/09/17 18:59 06:59 Intake Total 750 240 Output Total 2300 Balance -1550 240 - Medications Medications: Current Medications Aspirin (Aspirin Chewable) 81 mg PO 0800 [facility] Last Admin: 10/08/17 07:47 Dose: 81 mg Calcium Acetate (Phoslo) 667 mg PO BIDCC [facility] Last Admin: 10/08/17 16:44 Dose: 667 mg Epoetin Jonathan (Procrit) 4,000 unit IV MWF@1800 [facility] Last Admin: 10/08/17 17:57 Dose: Not Given Gabapentin (Neurontin) [address] [facility] Last Admin: 10/08/17 21:10 Dose: 100 mg Insulin Aspart (Novolog) 0 unit SC [facility] PRN Reason: Protocol Last Admin: 10/08/17 21:10 Dose: Not Given Levothyroxine Sodium (Synthroid) 50 mcg PO DAILY@0630 [facility] Last Admin: 10/08/17 06:27 Dose: 50 mcg Pantoprazole Sodium (Protonix Ec Tab) 20 mg PO DAILY [facility] Last Admin: 10/08/17 09:31 Dose: 20 mg Rosuvastatin Calcium (Crestor) 2.[address] [facility] Last Admin: 10/08/17 21:10 Dose: 2.5 mg Vitamin B Complex/Vit C/Folic Acid (Nephro-Kennedy) 1 tab PO 0800 [facility] Last Admin: 10/08/17 07:47 Dose: 1 tab - Labs Labs: 10/06/17 05:37 10/06/17 05:38
[2017-10-09] MEDS: Levothyroxine 50 MCG TAB PO SCH (05:45)
[2017-10-09 06:41] LABS: BASO % 0.7 % (0.0-2.0); EOS % 0.3 % (0.0-4.0); HEMOGLOBIN 10.2 g/dL (11.0-16.0); LYMPH # 0.9 K/uL (1.0-4.3); LYMPH % 19.9 % (20.0-40.0); MEAN CELL VOLUME 97.3 fL (81.0-99.0); MEAN CORPUSCULAR HEMOGLOBIN 32.2 pg (27.0-31.0); MEAN CORPUSCULAR HGB CONC 33.1 g/dL (33.0-37.0); MEAN PLATELET VOLUME 7.8 fL (7.2-11.7); MONO # 0.3 K/uL (0.0-0.8); MONO % 6.2 % (0.0-10.0); NEUT # 3.5 K/uL (1.8-7.0); NEUT % 72.9 % (50.0-75.0); NRBC % 0.1 % (0.0-2.0); RBC 3.17 Mil/uL (3.80-5.20); RED CELL DISTRIBUTION WIDTH 19.6 % (11.5-14.5); WHITE BLOOD COUNT 4.8 K/uL (4.8-10.8)
[2017-10-09 06:55] LABS: ALB/GLOB RATIO 0.7 (1.0-2.1); CALCIUM 7.7 mg/dl (8.6-10.4)
[2017-10-09] MEDS: Multivitamin Vitamin B Complex (Nephro-Vite) Tab PO SCH (07:28)
[2017-10-09] MEDS: (Novolog) Insulin Aspart, Recombinant 100 u/ml 10 ml vial SC SCH ×4 (07:32→21:06)
[2017-10-09] MEDS: Pantoprazole 20 mg EC Tab PO SCH (09:06)
--- NOTE | 2017-10-09 15:10 | CP.PCM.PN ---
Subjective - Date & Time of Evaluation Date of Evaluation: 10/09/17 Time of Evaluation: 15:09 - Subjective Subjective: Nephrology Consultation Note Covering for Dr Conley/Carlos: Assessment: Stable Fall at home severe sys CHF Diabetic chronic Kidney Disease (E11.22) Hypertensive Chronic Kidney Disease (I12.0) End stage renal disease (N18.6) dependence on hemodialysis (Z99.2) (MWF and sat ) via AVF Anemia (D64.9), Hyperphosphatemia (E83.39), Secondary Hyperparathyroidism (E21.1 ), HTN (I12.0) pleural effusion s/p thoracocentesis Plan: Continue with Nephrovite 1 tab/day. plan for next HD tomorrow per schedule PRBC as needed for anemia. add ANTONIA last Hb 12.6>10.6>10.3 Continue with phos binders home dose, phos level 5.3 BP control with meds as ordered. hold norvasc Glycemic control, Dialysis consistent diet Further work up/management as per primary team Dose meds/antibiotics (if needed) for ESRD status. Avoid fleets enema/magnesium based laxatives. CHF optimization fall precautions Thanks for allowing me to participate in care of your patient. Please call if any Qs. had d/w team Dr Javid Griggs Office: [phone] Chief Complaint; SOB and fall reason for consult: ESRD HPI: Pt is a 82 F with hx of ESRD on hemodialysis (MWF and sat) via AVF (Dr Gonzalez/Dr Conley), last dialysis wed, chronic anemia, hyperphosphatemia, secondary hyperparathyroidism, Diabetes Mellitus, hypertension, CHF presented to [facility] with c/o fall at home and SOB x 1 day. She was transferred to [facility] for HD. renal consult for ESRD management pt c/o body aches and SOB. otherwise feels in usual health ROS: Cardiovascular: No chest pain. Pulmonary: c/o shortness of breath but better Gastrointestinal: denies abdominal pain no nausea. No vomiting. Genitourinary: No pain while urinating. Denies blood in urine. All other negative Physical Examination: General Appearance: in no acute respiratory distress, co-operative, chronically ill and debilitated appearing Vitals reviewed and noted as below Head; Atraumatic, normocephalic ENT: no ulcers no thrush. Tongue is midline. Oropharynx: no rash or ulcers. EYES: Pupils are equal, round and reactive to light accommodation. Eye muscles and extraocular movement intact. Sclera is anicteric. Neck; supple no lymphadenopathy, no thyromegaly or bruit Lungs: Normal respiratory rate/effort. Breath sounds bilateral decreased at left bases with has basal crackles Heart: Normal rate. s1s2 normal. No rub or gallop. Extremities: no edema. No varicose veins Neurological: Patient is alert, awake and oriented to person, place and time. No focal deficit. Strength bilateral appropriate and equal Skin: Warm and dry. Normal turgor. No rash. Palpitation: Normal elasticity for age Abdomen: Abdomen is soft. Bowel sounds +. There is no abdominal tenderness, no guarding/rigidity or organomegaly Psych: limited insight and normal affect/mood MSK: no joint tenderness or swelling. Digits and nails normal, no deformity : kidney or bladder not palpable Access: AVF Labs/imaging reviewed. Past medical history, past surgical history, family history, social history, allergy reviewed and noted as below Family Hx: no hx of CKD. Non contributory Objective - Vital Signs/Intake and Output Vital Signs (last 24 hours): Temp Pulse Resp BP Pulse Ox 98.0 F 95 H 18 126/42 L 98 10/09/17 12:00 10/09/17 12:00 10/09/17 12:00 10/09/17 12:00 10/09/17 12:00 Intake and Output: 10/09/17 10/09/17 06:59 18:59 Intake Total 420 550 Balance 420 550 - Medications Medications: Current Medications Aspirin (Aspirin Chewable) 81 mg PO 0800 [facility] Last Admin: 10/09/17 07:28 Dose: 81 mg Calcium Acetate (Phoslo) 667 mg PO BIDCC [facility] Last Admin: 10/09/17 07:28 Dose: 667 mg Epoetin Jonathan (Procrit) 4,000 unit IV MWF@1800 [facility] Last Admin: 10/08/17 17:57 Dose: Not Given Gabapentin (Neurontin) 100 mg PO HS [facility] Last Admin: 10/08/17 21:10 Dose: 100 mg Insulin Aspart (Novolog) 0 unit SC ACHS [facility] PRN Reason: Protocol Last Admin: 10/09/17 11:18 Dose: 2 u Levothyroxine Sodium (Synthroid) 50 mcg PO DAILY@0630 [facility] Last Admin: 10/09/17 05:45 Dose: 50 mcg Pantoprazole Sodium (Protonix Ec Tab) 20 mg PO DAILY [facility] Last Admin: 10/09/17 09:06 Dose: 20 mg Rosuvastatin Calcium (Crestor) 2.5 mg PO HS [facility] Last Admin: 10/08/17 21:10 Dose: 2.5 mg Vitamin B Complex/Vit C/Folic Acid (Nephro-Kennedy) 1 tab PO 0800 [facility] Last Admin: 10/09/17 07:28 Dose: 1 tab - Labs Labs: 10/09/17 06:33 10/09/17 06:33
--- NOTE | 2017-10-09 19:29 | CP.PCM.PN ---
Subjective - Date & Time of Evaluation Date of Evaluation: 10/09/17 Time of Evaluation: 19:29 - Subjective Subjective: Patient had a hemodialysis yesterday. Comfortable no. Sitting up in the chair. Denies any nausea vomiting On examination: Vital signs stable. Chest bilateral good air entry Regular heart sound noted. Pedal edema negative Patient is extremely weak at this time. Assessment and recommendation: 82-year-old female with multiple medical history admitted to the hospital with the bilateral pleural effusion. Decompensated heart failure. Syncopal attack. Most likely chronic systolic heart failure. Atrial fibrillation intermittent in the past. We will continue to monitor. End-stage renal disease on dialysis. She will be discharged once medically stable Objective - Vital Signs/Intake and Output Vital Signs (last 24 hours): Temp Pulse Resp BP Pulse Ox 98.3 F 69 20 132/54 L 95 10/09/17 16:00 10/09/17 16:00 10/09/17 16:00 10/09/17 16:00 10/09/17 16:00 Intake and Output: 10/09/17 10/10/17 18:59 06:59 Intake Total 550 Balance 550 - Medications Medications: Current Medications Aspirin (Aspirin Chewable) 81 mg PO 0800 [facility] Last Admin: 10/09/17 07:28 Dose: 81 mg Calcium Acetate (Phoslo) 667 mg PO BIDCC [facility] Last Admin: 10/09/17 17:53 Dose: 667 mg Epoetin Jonathan (Procrit) 4,000 unit IV MWF@1800 [facility] Last Admin: 10/08/17 17:57 Dose: Not Given Gabapentin (Neurontin) 100 mg PO [facility] Last Admin: 10/08/17 21:10 Dose: 100 mg Insulin Aspart (Novolog) 0 unit SC [facility] PRN Reason: Protocol Last Admin: 10/09/17 17:54 Dose: 1 u Levothyroxine Sodium (Synthroid) 50 mcg PO DAILY@0630 [facility] Last Admin: 10/09/17 05:45 Dose: 50 mcg Pantoprazole Sodium (Protonix Ec Tab) 20 mg PO DAILY [facility] Last Admin: 10/09/17 09:06 Dose: 20 mg Rosuvastatin Calcium (Crestor) 2.5 mg PO [facility] Last Admin: 10/08/17 21:10 Dose: 2.5 mg Vitamin B Complex/Vit C/Folic Acid (Nephro-Kennedy) 1 tab PO 0800 [facility] Last Admin: 10/09/17 07:28 Dose: 1 tab - Labs Labs: 10/09/17 06:33 10/09/17 06:33
[2017-10-09] MEDS: Rosuvastatin Calcium 2.5 mg Tab PO SCH (21:56)
[2017-10-10] MEDS: Levothyroxine 50 MCG TAB PO SCH (06:42)
[2017-10-10] MEDS: (Novolog) Insulin Aspart, Recombinant 100 u/ml 10 ml vial SC SCH ×3 (07:40→21:58)
[2017-10-10] MEDS: Multivitamin Vitamin B Complex (Nephro-Vite) Tab PO SCH (08:57)
[2017-10-10] MEDS: Pantoprazole 20 mg EC Tab PO SCH (10:00)
--- NOTE | 2017-10-10 14:43 | CP.PCM.PN ---
Subjective - Date & Time of Evaluation Date of Evaluation: 10/10/17 Time of Evaluation: 14:42 - Subjective Subjective: Nephrology Consultation Note Covering for Dr Conley/Carlos: Assessment: Stable Fall at home severe sys CHF Diabetic chronic Kidney Disease (E11.22) Hypertensive Chronic Kidney Disease (I12.0) End stage renal disease (N18.6) dependence on hemodialysis (Z99.2) (MWF and sat ) via AVF Anemia (D64.9), Hyperphosphatemia (E83.39), Secondary Hyperparathyroidism (E21.1 ), HTN (I12.0) pleural effusion s/p thoracocentesis Plan: Continue with Nephrovite 1 tab/day. HD today done plan for next HD tomorrow per schedule (will do isolated UF) PRBC as needed for anemia. added ANTONIA last Hb 10.2 Continue with phos binders home dose, phos level 5.3 BP control with meds as ordered. hold norvasc Glycemic control, Dialysis consistent diet Further work up/management as per primary team Dose meds/antibiotics (if needed) for ESRD status. Avoid fleets enema/magnesium based laxatives. CHF optimization fall precautions Thanks for allowing me to participate in care of your patient. Please call if any Qs. had d/w team Dr Javid Griggs Office: [phone] Chief Complaint; SOB and fall reason for consult: ESRD HPI: Pt is a 82 F with hx of ESRD on hemodialysis (MWF and sat) via AVF (Dr Gonzalez/Dr Conley), last dialysis wed, chronic anemia, hyperphosphatemia, secondary hyperparathyroidism, Diabetes Mellitus, hypertension, CHF presented to [facility] with c/o fall at home and SOB x 1 day. She was transferred to [facility] for HD. renal consult for ESRD management pt c/o body aches and SOB. otherwise feels in usual health ROS: Cardiovascular: No chest pain. Pulmonary: c/o shortness of breath but better Gastrointestinal: denies abdominal pain no nausea. No vomiting. Genitourinary: No pain while urinating. Denies blood in urine. All other negative Physical Examination: General Appearance: in no acute respiratory distress, co-operative, chronically ill and debilitated appearing Vitals reviewed and noted as below Head; Atraumatic, normocephalic ENT: no ulcers no thrush. Tongue is midline. Oropharynx: no rash or ulcers. EYES: Pupils are equal, round and reactive to light accommodation. Eye muscles and extraocular movement intact. Sclera is anicteric. Neck; supple no lymphadenopathy, no thyromegaly or bruit Lungs: Normal respiratory rate/effort. Breath sounds bilateral decreased at left bases with has basal crackles Heart: Normal rate. s1s2 normal. No rub or gallop. Extremities: no edema. No varicose veins Neurological: Patient is alert, awake and oriented to person, place and time. No focal deficit. Strength bilateral appropriate and equal Skin: Warm and dry. Normal turgor. No rash. Palpitation: Normal elasticity for age Abdomen: Abdomen is soft. Bowel sounds +. There is no abdominal tenderness, no guarding/rigidity or organomegaly Psych: limited insight and normal affect/mood MSK: no joint tenderness or swelling. Digits and nails normal, no deformity : kidney or bladder not palpable Access: AVF Labs/imaging reviewed. Past medical history, past surgical history, family history, social history, allergy reviewed and noted as below Family Hx: no hx of CKD. Non contributory Objective - Vital Signs/Intake and Output Vital Signs (last 24 hours): Temp Pulse Resp BP Pulse Ox 97.2 F L 68 16 144/62 100 10/10/17 12:20 10/10/17 12:20 10/10/17 12:20 10/10/17 12:20 10/10/17 12:20 Intake and Output: 10/10/17 10/10/17 06:59 18:59 Intake Total 400 Balance 400 - Medications Medications: Current Medications Aspirin (Aspirin Chewable) 81 mg PO 0800 [facility] Last Admin: 10/10/17 08:57 Dose: Not Given Calcium Acetate (Phoslo) 667 mg PO BIDCC [facility] Last Admin: 10/10/17 08:57 Dose: Not Given Epoetin Jonathan (Procrit) 4,000 unit IV MWF@1800 [facility] Last Admin: 10/08/17 17:57 Dose: Not Given Gabapentin (Neurontin) 100 mg PO HS [facility] Last Admin: 10/09/17 21:56 Dose: 100 mg Insulin Aspart (Novolog) 0 unit SC ACHS [facility] PRN Reason: Protocol Last Admin: 10/10/17 07:40 Dose: Not Given Levothyroxine Sodium (Synthroid) 50 mcg PO DAILY@0630 [facility] Last Admin: 10/10/17 06:42 Dose: 50 mcg Pantoprazole Sodium (Protonix Ec Tab) 20 mg PO DAILY [facility] Last Admin: 10/10/17 10:00 Dose: Not Given Rosuvastatin Calcium (Crestor) 2.5 mg PO HS [facility] Last Admin: 10/09/17 21:56 Dose: 2.5 mg Vitamin B Complex/Vit C/Folic Acid (Nephro-Kennedy) 1 tab PO 0800 [facility] Last Admin: 10/10/17 08:57 Dose: Not Given - Labs Labs: 10/09/17 06:33 10/09/17 06:33
--- NOTE | 2017-10-10 15:58 | CP.PCM.PN ---
Subjective - Date & Time of Evaluation Date of Evaluation: 10/10/17 Time of Evaluation: 15:57 - Subjective Subjective: PT CLEARED FOR D/C TODAY. PT AND FAMILY REFUSING MORIAH RECOMMENDED. [facility] HAS ARRANGED HOME CARE SERVICES FOR THE PT. NO NEW RX. TO CONTINUE SAME HOME MEDS. F/U WITH DR. COLE IN THE OFFICE. NO FURTHER ORDERS. FAMILY WILL [facility] PT THIS EVENING. FOLLOW UP WITH DR. CONKLIN IN THE OFFICE WITHIN 1 WEEK---CALL FOR APPT TIME. CONTINUE ALL YOUR HOME MEDICATIONS USUAL. NO NEW PRESCRIPTIONS HAVE BEEN GIVEN TO YOU. CONTINUE HEMODIALYSIS SCHEDULED USUAL. [facility]. HOME CARE SERVICES HAVE BEEN ARRANGED FOR YOU. THE COMPANY WILL CONTACT YOU REGARDING WHEN TO BEGIN SERVICES. -IF YOU HAVE ANY FURTHER QUESTIONS OR CONCERNS, CONTACT DR. CONKLIN. Objective - Vital Signs/Intake and Output Vital Signs (last 24 hours): Temp Pulse Resp BP Pulse Ox 97.2 F L 68 16 144/62 100 10/10/17 12:20 10/10/17 12:20 10/10/17 12:20 10/10/17 12:20 10/10/17 12:20 Intake and Output: 10/10/17 10/10/17 06:59 18:59 Intake Total 400 Balance 400 - Medications Medications: Current Medications Aspirin (Aspirin Chewable) 81 mg PO 0800 [facility] Last Admin: 10/10/17 08:57 Dose: Not Given Calcium Acetate (Phoslo) 667 mg PO BIDCC [facility] Last Admin: 10/10/17 08:57 Dose: Not Given Epoetin Jonathan (Procrit) 4,000 unit IV MWF@1800 [facility] Last Admin: 10/08/17 17:57 Dose: Not Given Gabapentin (Neurontin) 100 mg PO [facility] Last Admin: 10/09/17 21:56 Dose: 100 mg Insulin Aspart (Novolog) 0 unit SC [facility] PRN Reason: Protocol Last Admin: 10/10/17 07:40 Dose: Not Given Levothyroxine Sodium (Synthroid) 50 mcg PO DAILY@0630 [facility] Last Admin: 10/10/17 06:42 Dose: 50 mcg Pantoprazole Sodium (Protonix Ec Tab) 20 mg PO DAILY [facility] Last Admin: 10/10/17 10:00 Dose: Not Given Rosuvastatin Calcium (Crestor) 2.5 mg PO [facility] Last Admin: 10/09/17 21:56 Dose: 2.5 mg Vitamin B Complex/Vit C/Folic Acid (Nephro-Kennedy) 1 tab PO 0800 [facility] Last Admin: 10/10/17 08:57 Dose: Not Given - Labs Labs: 10/09/17 06:33 10/09/17 06:33
--- NOTE | 2017-10-10 15:58 | PCM.HF ---
Heart Failure Core Measure - Heart Failure Ejection Fraction: Less Than 40 % ANAMARIA Inhibitor Prescribed: No Contraindication/Reason for not providing: ESRD Beta-Randall Prescribed: None Contraindication/Reason for not providing: FLUID OVERLOAD 2/2 ESRD Angiotensin II Receptor Randall Prescribed: No Contraindication/Reason for not providing: ESRD AnticoagulationTherapy for Atrial Fibrillation/Atrialflutter: No Contraindication/Reason for not providing: NO AFIB Aldosterone Antagonist Prescribed: No Contraindication/Reason for not providing: ESRD Hydralazine Nitrate Prescribed: No Contraindication/Reason for not providing: ESRD Implantable Cardioverter Defibrillator Therapy: No Contraindication/Reason for not providing: FLUID OVERLOAD 2/2 ESRD Cardiac Resynchronization Therapy Prescribed: No Contraindication/Reason for not providing: FLUID OVERLOAD 2/2 ESRD - Follow up Will be discharged to: Nursing Home Facility ([facility]) Follow Up Date (must be within 7 days from discharge): 10/14/17 Follow Up Time: 09:00
[2017-10-10] MEDS: Rosuvastatin Calcium 2.5 mg Tab PO SCH (21:04)
--- NOTE | 2017-10-10 22:22 | CP.PCM.PN ---
Subjective - Date & Time of Evaluation Date of Evaluation: 10/10/17 Time of Evaluation: 22:21 - Subjective Subjective: Patient today was more to sixth floor. Patient is now comfortable. She is not in any pain at this time. Increasingly weakness noted. Patient supposed to be discharged home today but family is very concerned about the safety of the patient in the house. She is having significant problem in going to the bathroom, walking. Initially patient was admitted to rehab, but family does not want to send her to rehab. Patient family now wanted to have a subacute rehab because of the non-mobility Patient is also feeling weak On examination: Vital signs stable. Chest good air entry regular heart sounds nontender abdomen no pedal edema Assessment and recommendation: Patient with a heart failure, ischemic heart disease, global hypokinesia, end- stage renal disease on dialysis admitted frequently with fluid overload Patient this time admitted with a syncopal attack, fall. Most likely weakness. Fluid overload status secondary to hemodialysis missing. Status post thoracentesis of the right lung. We will continue the current treatment. Tomorrow hemodialysis. Patient will need subacute rehab. 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 Will follow the patient If the bed is available tomorrow after the dialysis patient can be discharged to rehab Objective - Vital Signs/Intake and Output Vital Signs (last 24 hours): Temp Pulse Resp BP Pulse Ox 98.1 F 74 18 139/58 L 100 10/10/17 15:00 10/10/17 16:06 10/10/17 15:00 10/10/17 15:00 10/10/17 15:00 - Medications Medications: Current Medications Aspirin (Aspirin Chewable) 81 mg PO 0800 [facility] Last Admin: 10/10/17 08:57 Dose: Not Given Calcium Acetate (Phoslo) 667 mg PO BIDCC [facility] Last Admin: 10/10/17 17:17 Dose: 667 mg Epoetin Jonathan (Procrit) 4,000 unit IV MWF@1800 [facility] Last Admin: 10/08/17 17:57 Dose: Not Given Gabapentin (Neurontin) 100 mg PO HS [facility] Last Admin: 10/10/17 21:04 Dose: 100 mg Insulin Aspart (Novolog) 0 unit SC ACHS [facility] PRN Reason: Protocol Last Admin: 10/10/17 21:58 Dose: Not Given Levothyroxine Sodium (Synthroid) 50 mcg PO DAILY@0630 [facility] Last Admin: 10/10/17 06:42 Dose: 50 mcg Pantoprazole Sodium (Protonix Ec Tab) 20 mg PO DAILY [facility] Last Admin: 10/10/17 10:00 Dose: Not Given Rosuvastatin Calcium (Crestor) 2.5 mg PO HS [facility] Last Admin: 10/10/17 21:04 Dose: 2.5 mg Vitamin B Complex/Vit C/Folic Acid (Nephro-Kennedy) 1 tab PO 0800 [facility] Last Admin: 10/10/17 08:57 Dose: Not Given - Labs Labs: 10/09/17 06:33 10/09/17 06:33
[2017-10-11 00:49] VITALS: RESP 20
[2017-10-11] MEDS: Levothyroxine 50 MCG TAB PO SCH (06:50)
[2017-10-11] MEDS: (Novolog) Insulin Aspart, Recombinant 100 u/ml 10 ml vial SC SCH ×2 (08:00→16:57)
--- NOTE | 2017-10-11 08:29 | RAD ---
HISTORY: effusion COMPARISON: 10/06/2017. FINDINGS: LUNGS: The lungs are well inflated. There is severe pulmonary venous congestion. Also noted is haziness in the right lung which may represent pulmonary edema. PLEURA: There are moderate pleural effusions, no pneumothorax apparent. CARDIOVASCULAR: Mild cardiomegaly. OSSEOUS STRUCTURES: No significant abnormalities. VISUALIZED UPPER ABDOMEN: Normal. OTHER FINDINGS: None. IMPRESSION: No interval change in congestive heart failure with moderate pleural effusions. Presumable pulmonary edema in the right lung.
[2017-10-11] MEDS: Pantoprazole 20 mg EC Tab PO SCH ×2 (08:30→12:23)
[2017-10-11] MEDS: Multivitamin Vitamin B Complex (Nephro-Vite) Tab PO SCH (08:30)
--- NOTE | 2017-10-11 15:45 | CP.PCM.PN ---
Subjective - Date & Time of Evaluation Date of Evaluation: 10/11/17 Time of Evaluation: 14:05 - Subjective Subjective: RENAL: seen on dialysis extra Isolated UF tratement today for 2kg uf. bp stable +s1+s2 l ungs reduced bs at base Objective - Vital Signs/Intake and Output Vital Signs (last 24 hours): Temp Pulse Resp BP Pulse Ox 97.9 F 75 20 113/49 L 98 10/11/17 13:45 10/11/17 13:45 10/11/17 13:45 10/11/17 14:45 10/11/17 13:45 - Medications Medications: Current Medications Acetaminophen (Tylenol 325mg Tab) 650 mg PO Q6 PRN PRN Reason: Pain, moderate (4-7) Aspirin (Aspirin Chewable) 81 mg PO 0800 [facility] Last Admin: 10/11/17 08:30 Dose: 81 mg Calcium Acetate (Phoslo) 667 mg PO BIDCC [facility] Last Admin: 10/11/17 08:30 Dose: 667 mg Epoetin Jonathan (Procrit) 4,000 unit IV MWF@1800 [facility] Last Admin: 10/08/17 17:57 Dose: Not Given Gabapentin (Neurontin) 100 mg PO HS [facility] Last Admin: 10/10/17 21:04 Dose: 100 mg Insulin Aspart (Novolog) 0 unit SC ACHS [facility] PRN Reason: Protocol Last Admin: 10/11/17 08:00 Dose: Not Given Levothyroxine Sodium (Synthroid) 50 mcg PO DAILY@0630 [facility] Last Admin: 10/11/17 06:50 Dose: 50 mcg Pantoprazole Sodium (Protonix Ec Tab) 20 mg PO DAILY [facility] Last Admin: 10/11/17 12:23 Dose: Not Given Rosuvastatin Calcium (Crestor) 2.5 mg PO HS [facility] Last Admin: 10/10/17 21:04 Dose: 2.5 mg Vitamin B Complex/Vit C/Folic Acid (Nephro-Kennedy) 1 tab PO 0800 [facility] Last Admin: 10/11/17 08:30 Dose: 1 tab - Labs Labs: 10/09/17 06:33 10/09/17 06:33
[2017-10-11 18:49] VITALS: BP 138/55; PULSE 90; TEMP 97.9; O2SAT 100
--- NOTE | 2017-10-11 19:42 | CP.PCM.DIS ---
Provider - Provider Date of Admission: 10/03/17 21:08 Attending physician: Titus Moses MD Time Spent in preparation of Discharge (in minutes): 45 Hospital Course - Lab Results Lab Results: Micro Results 10/09/17 14:31 Nose MRSA Culture - Final 10/06/17 10:32 Other: Please Indicate Gram Stain - Final 10/06/17 10:32 Other: Please Indicate Anaerobic Culture - Final NO ANAEROBES ISOLATED. 10/06/17 10:32 Other: Please Indicate Body Fluid Culture - Preliminary NO GROWTH AFTER 3 DAYS 10/06/17 10:32 Other: Please Indicate Fungal Culture - Preliminary 10/04/17 06:13 Naris MRSA Culture (Admit) - Final MRSA NOT DETECTED Most Recent Lab Values WBC 4.8 K/uL (4.8-10.8) 10/09/17 06:33 RBC 3.17 Mil/uL (3.80-5.20) L 10/09/17 06:33 Hgb 10.2 g/dL (11.0-16.0) L 10/09/17 06:33 Hct 30.9 % (34.0-47.0) L 10/09/17 06:33 MCV 97.3 fL (81.0-99.0) 10/09/17 06:33 MCH 32.2 pg (27.0-31.0) H 10/09/17 06:33 MCHC 33.1 g/dL (33.0-37.0) 10/09/17 06:33 RDW 19.6 % (11.5-14.5) H 10/09/17 06:33 Plt Count 100 K/uL (130-400) L 10/09/17 06:33 MPV 7.8 fL (7.2-11.7) 10/09/17 06:33 Neut % (Auto) 72.9 % (50.0-75.0) 10/09/17 06:33 Lymph % (Auto) 19.9 % (20.0-40.0) L 10/09/17 06:33 Chambers % (Auto) 6.2 % (0.0-10.0) 10/09/17 06:33 Eos % (Auto) 0.3 % (0.0-4.0) 10/09/17 06:33 Baso % (Auto) 0.7 % (0.0-2.0) 10/09/17 06:33 Neut # (Auto) 3.5 K/uL (1.8-7.0) 10/09/17 06:33 Lymph # (Auto) 0.9 K/uL (1.0-4.3) L 10/09/17 06:33 Chambers # (Auto) 0.3 K/uL (0.0-0.8) 10/09/17 06:33 Eos # (Auto) 0.0 K/uL (0.0-0.7) 10/09/17 06:33 Baso # (Auto) 0.0 K/uL (0.0-0.2) 10/09/17 06:33 Sodium 133 mmol/L (132-148) 10/09/17 06:33 Potassium 4.5 mmol/L (3.6-5.2) 10/09/17 06:33 Chloride 96 mmol/L (98-107) L 10/09/17 06:33 Carbon Dioxide 27 mmol/L (22-30) 10/09/17 06:33 Anion Gap 16 (10-20) 10/09/17 06:33 BUN 38 mg/dL (7-17) H 10/09/17 06:33 Creatinine 2.9 mg/dL (0.7-1.2) H 10/09/17 06:33 Est GFR ( Amer) 19 10/09/17 06:33 Est GFR (Non-Af Amer) 15 10/09/17 06:33 POC Glucose (mg/dL) 125 mg/dL (65-110) H 10/11/17 16:51 Random Glucose 105 mg/dL (65-105) 10/09/17 06:33 Calcium 7.7 mg/dl (8.6-10.4) L 10/09/17 06:33 Phosphorus 2.6 mg/dL (2.5-4.5) 10/09/17 06:33 Magnesium 1.6 mg/dL (1.6-2.3) 10/09/17 06:33 Total Bilirubin 0.8 mg/dL (0.2-1.3) 10/09/17 06:33 AST 34 U/L (14-36) 10/09/17 06:33 ALT 18 U/L (9-52) 10/09/17 06:33 Alkaline Phosphatase 90 U/L (38-126) 10/09/17 06:33 Troponin I 0.0730 ng/mL (0.00-0.120) 10/04/17 06:13 NT-Pro-B Natriuret Pep > 631022 pg/mL (0-900) H 10/04/17 07:13 Total Protein 7.3 g/dL (6.3-8.3) 10/09/17 06:33 Albumin 3.0 g/dL (3.5-5.0) L 10/09/17 06:33 Globulin 4.2 gm/dL (2.2-3.9) H 10/09/17 06:33 Albumin/Globulin Ratio 0.7 (1.0-2.1) L 10/09/17 06:33 Fluid Source Pleural/thoracentesi 10/06/17 10:32 Fluid Appearance Sl cloudy (CLEAR) 10/06/17 10:32 Fluid WBC 208.0 /mm3 (0.0-300.0) 10/06/17 10:32 Fluid RBC 364.0 /mm3 (0.0-0.0) H 10/06/17 10:32 Fluid Tot Cell Count 100 (0-0) H 10/06/17 10:32 Fluid Neutrophils 95.0 % (0-0) H 10/06/17 10:32 Fluid Lymphocytes 4.0 % (0-0) H 10/06/17 10:32 Fld Monocyte/Macrophag 1 % (0-0) H 10/06/17 10:32 Fluid Comment 10/06/17 10:32 Pleural Total Protein <3.0 g/dL 10/06/17 10:32 Pleural LDH 135 U/L 10/06/17 10:32 Hep Bs Antigen Negative (NEGATIVE) 10/04/17 12:53 Hep Bs Antibody Positive (NEGATIVE) 10/04/17 12:53 Hep B Core IgM Ab Negative (NEGATIVE) 10/04/17 12:53 - Hospital Course Hospital Course: Chief complaint: Found on the floor HPI: 82-year-old female with a history of ischemic heart disease, systolic heart failure, atrial fibrillation, history of carotid artery disease, diabetes, hyperlipidemia, end-stage renal disease, Patient also had a history of diverticulosis diverticulitis, left groin abscess , recently got antibiotic. She was also recently discharged from the hospital. She went home, and the house patient was found on the floor the day morning. Patient's son noted that she was on the floor called ambulance. Upon arrival to the emergency room patient was responding, no fractures identified. Patient was noted to have increasing shortness of breath. X-ray of the lungs showing increasing heart failure changes. Patient initially seen in the emergency room at [facility], and was sent to the [facility] for hemodialysis and further management. Patient came to the emergency room. She was feeling comfortable. She is having mild exertional dyspnea. Cough noted. She was moving all 4 extremities, and she wanted to have her dialysis done in the morning. Past medical history: Ischemic heart disease, hypertension, hypercholesterolemia, end-stage renal disease on dialysis, diabetes, diverticulosis diverticulitis. Surgical history includes AV fistula Allergy no known drug allergy Personal history: Used to be a smoker in the past. Family history significant for hypertension and heart disease. Review of system: Patient is having minimal headache, complaining of lower back pain, some shortness of breath noted. Minimal cough noted. Leg swelling occasionally noted On examination: Vital signs reviewed Blood pressure is stable, slightly on the low side. Saturation is 100% with nasal cannula. Chest good air entry. Regular heart sound. Abdominal tenderness negative. No pedal edema Labs reviewed X-ray showing bilateral pleural effusion. Mild vascular congestion noted. EKG first-degree AV block sinus rhythm noted Patient had echocardiogram in June 2017, ejection fraction is 20-25%. Severe global hypokinesia noted. Aortic sclerosis noted. Mild to moderate mitral regurgitation. Pulmonary hypertension likely, and a moderate tricuspid regurgitation. Assessment and recommendation: 82-year-old female with multiple medical history with recurrent heart failure, ischemic heart disease, global hypokinesia, end-stage renal disease on dialysis , frequently dialysis, and also frequent volume overload status. Now admitted with syncope. No improvement. Patient admitted now with the fluid overload, and pleural effusion. Patient will be getting the hemodialysis tomorrow. Spoke to the forming machine upkeep mechanic helper. I also spoke to the patient's PMD at [facility]. DVT GI prophylaxis will continue the current treatment ICU monitoring will follow the patient Course in the hospital: The patient was transferred from [facility] for hemodialysis. Patient found to be on the floor, by the family member, not clear how long she was on the floor. Initial evaluation for stroke was negative. After patient was transferred to the floor patient was initially admitted to the intensive care unit The patient at the same time does not want to have the dialysis, and the dialysis was done the following day. Post dialysis patient was doing well. But repeat x-ray of the lungs are showing evidence of moderate to large pleural effusion on the right lung. Patient underwent a thoracentesis on the right lung, almost 1.4 L of fluid removed, transudative fluid. Patient tolerated the procedure well. Then she started on physical therapy. She was doing well. But the patient was having significant problem in moving around, and ambulation. After discussion with the family members it was decided that the patient will need, and the benefit having subacute rehab. Patient accepted, and the patient family also accepted for her to go to the [facility] rehab. Patient will be transferred to rehab today. Patient had hemodialysis this morning. She will be discharged to rehab today. Medications reviewed She will continue her home medications, oxygen, bronchodilators. Physical therapy will be continued. Next hemodialysis she will be getting on scheduled, patient recently was getting 4 times a week hemodialysis. She will be followed up by forming machine upkeep mechanic helper. Final diagnosis: Fall in the house, syncope. Fluid overload. Hemodialysis status. Congestive heart failure, diastolic. Intermittent history of atrial fibrillation. Pleural effusion. Weakness. Fatigue. Discharge Exam - Head Exam Head Exam: ATRAUMATIC Discharge Plan - Discharge Medications Prescriptions: Mupirocin 2% Nasal [Bactroban 2% Nasal] 1 gm ZAIDA BID 5 Days #1 gm - Follow Up Plan Condition: STABLE Disposition: REHAB FACILITY/REHAB UNIT Instructions: Dialysis Diet , Preventing Falls in the Older Adult, Heart Failure, Adult (DC), Thoracentesis, Pleural Effusion (DC), End Stage Kidney Disease (DC), Dialysis and Diet Additional Instructions: Please continue medication as per med. rec. Please continue HD as scheduled - as per SW all arranged Please keep oxygen via nasal canula 2-3Lit/min to keep spo2 >95% Referrals: Javid Griggs MD [Staff Provider] - Titus Moses MD [Staff Provider] -
== END 2017-10-11 19:31 | DRG 291 ==
LOC: C.ER 20:46 → C.9E 21:08 → C.6T 22:34 → C.9E 22:43 → C.9I 23:01 → C.6T 10-09 14:35
PROVIDERS: ADMIT Internal Medicine; ATTEND Internal Medicine
PROC: 5A1D70Z Performance of Urinary Filtration, Intermittent, Less than 6 Hours Per Day (ICD-10-PCS; 2017-10-03)
PROC: 0W993ZX Drainage of Right Pleural Cavity, Percutaneous Approach, Diagnostic (ICD-10-PCS; principal; 2017-10-06)
DX: I13.2 Hypertensive heart and chronic kidney disease with heart failure and with stage 5 chronic kidney disease, or end stage renal disease (principal); N18.6 End stage renal disease; N25.81 Secondary hyperparathyroidism of renal origin; J90 Pleural effusion, not elsewhere classified; I50.22 Chronic systolic (congestive) heart failure; E03.9 Hypothyroidism, unspecified; E11.22 Type 2 diabetes mellitus with diabetic chronic kidney disease; E78.00 Pure hypercholesterolemia, unspecified; J44.9 Chronic obstructive pulmonary disease, unspecified; M06.9 Rheumatoid arthritis, unspecified; I48.91 Unspecified atrial fibrillation; I25.10 Atherosclerotic heart disease of native coronary artery without angina pectoris; Z99.2 Dependence on renal dialysis; R55 Syncope and collapse; Z87.891 Personal history of nicotine dependence; I44.0 Atrioventricular block, first degree; I35.0 Nonrheumatic aortic (valve) stenosis; W18.30XA Fall on same level, unspecified, initial encounter; R53.1 Weakness; Z96.642 Presence of left artificial hip joint; D63.8 Anemia in other chronic diseases classified elsewhere; Z95.5 Presence of coronary angioplasty implant and graft; Z79.4 Long term (current) use of insulin

== ENCOUNTER 2017-10-27 05:43 | Inpatient (IN) | payer MEDICARE, OTHER ==
[2017-10-27 05:44] VITALS: BMI 23.0
--- NOTE | 2017-10-27 06:11 | C.PDOC ---
History Of Present Illness 82 year old female with PMHx of HTN, chronic renal failure, pneumonia, COPD, CAD , CHF is brought to the ED from her skilled nursing for evaluation. Patient was found unconscious and EMS were called. As per EMS patient was found in severe respiratory distress saturating at 73 with agonal respirations also noted to have pin point pupils. EMS gave narcan and removed avrious fentanyl patches from patient's sin. Patient became more arousable after that. Patient is unable to provide further history, patient only responds to question with groans. Patient currently on dialysis Friday, Friday and Friday. Chief Complaint (Nursing): Altered Mental Status History Per: EMS History/Exam Limitations: Clinical Condition Onset/Duration Of Symptoms: Hrs Onset Of Symptoms: Cannot Confirm Onset Current Symptoms Are (Timing): Still Present Usual Baseline: Alert Oriented Exacerbating Factor(s): Unknown Use Of Anticoag/Antiplatelets: No Recent travel outside of the [place]: No Additional History Per: EMS Past Medical History Reviewed: Historical Data, Nursing Documentation, Vital Signs Vital Signs: Last Vital Signs Temp 101.4 F H 10/27/17 05:55 Pulse 95 H 10/27/17 06:19 Resp 34 H 10/27/17 06:19 BP 102/41 L 10/27/17 06:19 Pulse Ox 90 L 10/27/17 06:37 - Medical History PMH: Anemia, Anxiety, Arthritis, CAD, CHF, COPD, Depression, Diabetes, Diverticulitis, Fractures (left hip), HTN, Hypercholesterolemia, Hypothyroidism , Pneumonia, End Stage Renal Disease (m-w-f-sat), Chronic Kidney Disease, Rheumatoid Arthritis (On HD) Surgical History: Coronary Stent - [facility] Procedures (10/03/17) ANESTH INJECT SYMP NERVE (08/06/14) BATHING/SHOWERING TECHNIQUES TREATMENT (06/22/16) CLOSED ENDOSCOPIC BIOPSY OF LARGE INTESTINE (05/22/14) COLONOSCOPY (12/19/14) DESTRUCTION OF ASCENDING COLON, ENDO (05/03/15) DRAINAGE OF PERINEUM SKIN, EXTERNAL APPROACH, DIAGNOSTIC (08/31/17) DRAINAGE OF RIGHT PLEURAL CAVITY, PERC APPROACH, DIAGN (10/03/17) DRESSING TECHNIQUES TREATMENT (06/22/16) DX ULTRASOUND-DIGESTIVE (08/01/13) ENDOSC POLYPECTOMY OF LG INTEST (05/22/14) GAIT TRAINING/AMBULAT TREATMENT USING ASSIST EQUIPMENT (09/11/17) GROOMING/PERSONAL HYGIENE TREATMENT (06/22/16) HEMODIALYSIS (12/19/14) HOME MANAGEMENT TREATMENT (02/24/17) HOME MANAGEMENT TREATMENT USING ASSIST EQUIPMENT (09/11/17) INJECT STEROID (08/06/14) INJECT/INFUSE NEC (09/21/13) INTRODUCE OF OTH THERAP SUBST INTO RESP TRACT, VIA OPENING (07/05/17) INTRODUCE OF OXAZOLIDINONES INTO PERIPH VEIN, PERC APPROACH (06/17/16) NEBULIZER THERAPY (06/18/14) OCCUPATIONAL THERAPY (06/18/14) OTHER ENDOSCOPY OF SM INTEST (12/19/14) OTHER NONOP RESPIRATORY MEASURE (02/29/00) PACKED CELL TRANSFUSION (12/19/14) PERFORMANCE OF URINARY FILTRATION, MULTIPLE (06/17/16) PERFORMANCE OF URINARY FILTRATION, SINGLE (09/27/16) PHYSICAL THERAPY NEC (06/18/14) SYMPATH NERVE INJECT NEC (08/06/14) THERAPEUTIC ERYTHROCYTAPHERESIS (12/19/14) THERAPEUTIC EXERCISE TREATMENT OF MUSCULOSK LOW BACK/LE (04/29/16) THERAPEUTIC EXERCISE TREATMENT OF MUSCULOSK WHOLE (02/24/17) THERAPEUTIC PLATELETPHERESIS (05/22/14) TRANSFER TRAINING TREATMENT (04/29/16) TRANSFUSE NONAUT RED BLOOD CELLS IN PERIPH VEIN, PERC (05/28/17) Family History: States: Unknown Family Hx - Social History Hx Tobacco Use: No Hx Alcohol Use: No Hx Substance Use: No - Immunization History Hx Tetanus Toxoid Vaccination: No Hx Influenza Vaccination: No Hx Pneumococcal Vaccination: No Review Of Systems Review Of Systems: ROS cannot be obtained secondary to pt's inabilty to answer questions. Physical Exam - Physical Exam Appears: In Acute Distress, Other (respiratory distress) Skin: Warm, Dry, Pale, Other (poor skin turgor. temp recorded at 101.4) Head: Atraumatic, Normacephalic Eye(s): bilateral: Normal Inspection Ear(s): Bilateral: Normal Oral Mucosa: Dry Throat: Normal, No Erythema, No Exudate Neck: Normal ROM, Supple Chest: Symmetrical Cardiovascular: Rhythm Regular, Other (pulse in the 90s) Respiratory: Accessory Muscle Use, No Rales, Rhonchi (b/l ), No Wheezing, Other (retractions. RR 30-40 . saturating at 90 on 4 liters) Gastrointestinal/Abdominal: Soft, No Tenderness, No Guarding, No Rebound, Other (scaphoid) Extremity: No Tenderness, Capillary Refill (diminished), No Swelling, Other (AV fistula on left arm) Pulses: Left Radial: Decreased (compared to central pulses), Right Radial: Decreased (compared to central pulses), Left Dorsalis Pedis: Decreased ( compared to central pulses), Right Dorsalis Pedis: Decreased (compared to central pulses) Neurological/Psych: Slow To Respond With Command Gait: Unable To Assess ED Course And Treatment - Laboratory Results Result Diagrams: 10/27/17 06:21 ECG: Interpreted By Me, Viewed By Me ECG Rhythm: Sinus Rhythm Interpretation Of ECst degree AV block. Q waves in leads V1 through V3 consistent with old intraceptal wall AR. Flipped Ts in leads I, aVL, V5 and V6 consistent with lateral wall ischemia O2 Sat by Pulse Oximetry: 90 (on 4 Liters) Medical Decision Making Medical Decision Making: Impression: AMS, rule out sepsis and pneumonia Plan: * ABG * VBG * EKG * Labs * CXR * Blood culture * Urine culture * UA * BIPAP 06:37 - spoke with Dr. Moses will come to the ED to evaluate patient. 06:45 - spoke with ICU Dr. Checo Helton who will come down and evaluate the patient Disposition - Disposition - Scribe Statement The provider has reviewed the documentation as recorded by the Scribe Roberto Avila All medical record entries made by the Scribe were at my direction and personally dictated by me. I have reviewed the chart and agree that the record accurately reflects my personal performance of the history, physical exam, medical decision making, and the department course for this patient. I have also personally directed, reviewed, and agree with the discharge instructions and disposition.
[2017-10-27 06:18] LABS: ARTERIAL BLOOD GAS HCO3 22.6 mmol/L (21-28); ARTERIAL BLOOD GAS O2 SAT 88.6 % (95-98); ARTERIAL BLOOD GAS PCO2 57 mm/Hg (35-45); ARTERIAL BLOOD GAS PH 7.26 (7.35-7.45); ARTERIAL BLOOD GAS PO2 51 mm/Hg (80-100); ARTERIAL BLOOD GAS TCO2 27.3 mmol/L (22-28)
[2017-10-27 06:27] LABS: BASO % 0.4 % (0.0-2.0); HEMOGLOBIN 10.3 g/dL (11.0-16.0); LYMPH # 0.3 K/uL (1.0-4.3); LYMPH % 4.8 % (20.0-40.0); MEAN CELL VOLUME 99.3 fL (81.0-99.0); MEAN CORPUSCULAR HEMOGLOBIN 31.9 pg (27.0-31.0); MEAN CORPUSCULAR HGB CONC 32.1 g/dL (33.0-37.0); MEAN PLATELET VOLUME 8.2 fL (7.2-11.7); MONO # 0.4 K/uL (0.0-0.8); MONO % 6.8 % (0.0-10.0); NEUT # 5.3 K/uL (1.8-7.0); NRBC % 0.1 % (0.0-2.0); PLATELET COUNT 91 K/uL (130-400); RBC 3.22 Mil/uL (3.80-5.20); RED CELL DISTRIBUTION WIDTH 17.9 % (11.5-14.5)
[2017-10-27 06:34] LABS: INR 1.3; PROTHROMBIN TIME 13.9 SECONDS (9.7-12.2)
[2017-10-27] MEDS ORDERED: Vancomycin 1 gm/NS 200 ml 1 GM/200 ML BAG IVPB STA (06:47)
[2017-10-27] MEDS ORDERED: Naloxone 0.4 mg/ml Inj (Adult) IVP ONE (06:53)
--- NOTE | 2017-10-27 06:55 | CP.PCM.CON ---
History of Present Illness - History of Present Illness History of Present Illness: 82 F with PMHx of ESRD on HD MWFS (LAVF), HTN, DM type 2, CAD with HF, Anemia of Chronic Disease who is admitted to [facility] with AMS. Patient had 2 fentanyl patch on her body. Patient is arousable but not able to provide any history. Past Patient History - Infectious Disease Hx of Infectious Diseases: C.diff - Tetanus Immunizations Tetanus Immunization: Unknown - Past Medical History & Family History Past Medical History?: Yes - Past Social History Smoking Status: Never Smoked - CARDIAC Hx Congestive Heart Failure: Yes Hx Hypercholesterolemia: Yes Hx Hypertension: Yes - PULMONARY Hx Chronic Obstructive Pulmonary Disease (COPD): Yes Hx Pneumonia: Yes - NEUROLOGICAL Hx Neurological Disorder: Yes (numbnes/tingling left leg and ft) Hx Dizziness: Yes - HEENT Hx HEENT Problems: Yes Hx Cataracts: Yes (b/l sx) - RENAL Hx Chronic Kidney Disease: Yes - ENDOCRINE/METABOLIC Hx Hypothyroidism: Yes - HEMATOLOGICAL/ONCOLOGICAL Hx Anemia: Yes - INTEGUMENTARY Hx Dermatological Problems: No Other/Comment: 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, excellent bruit at site - MUSCULOSKELETAL/RHEUMATOLOGICAL Hx Arthritis: Yes Hx Fractures: Yes (left hip) Hx Rheumatoid Arthritis: Yes (On HD) - GASTROINTESTINAL Hx Diverticulitis: Yes - GENITOURINARY/GYNECOLOGICAL Hx 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.ESRD ON HD) - PSYCHIATRIC Hx Anxiety: Yes Hx Depression: Yes Hx Substance Use: No - SURGICAL HISTORY Hx Coronary Stent: Yes - ANESTHESIA Hx Anesthesia: Yes Hx Anesthesia Reactions: No Hx Malignant Hyperthermia: No Meds Allergies/Adverse Reactions: Allergies Allergy/AdvReac Type Severity Reaction Status Date / Time ceftriaxone Allergy ITCHING Verified 10/27/17 05:52 Results - Vital Signs Recent Vital Signs: Last Vital Signs Temp 101.4 F H 10/27/17 05:55 Pulse 95 H 10/27/17 06:19 Resp 34 H 10/27/17 06:19 BP 102/41 L 10/27/17 06:19 Pulse Ox 90 L 10/27/17 06:47 - Labs Result Diagrams: 10/31/17 06:32 10/31/17 06:32 Labs: Laboratory Results - last 24 hr 10/27/17 10/27/17 06:12 06:21 WBC 6.0 RBC 3.22 L Hgb 10.3 L Hct 32.0 L MCV 99.3 H D MCH 31.9 H MCHC 32.1 L RDW 17.9 H Plt Count 91 L MPV 8.2 Neut % (Auto) 88.0 H Lymph % (Auto) 4.8 L [place] % (Auto) 6.8 Eos % (Auto) 0.0 Baso % (Auto) 0.4 Neut # (Auto) 5.3 Lymph # (Auto) 0.3 L [place] # (Auto) 0.4 Eos # (Auto) 0.0 Baso # (Auto) 0.0 Puncture Site R brac pCO2 57 H pO2 51 L HCO3 22.6 ABG pH 7.26 L ABG Total CO2 27.3 ABG O2 Saturation 88.6 L ABG Base Excess -2.4 L Ck Test Na ABG Potassium 4.4 Sodium 134.0 Chloride 100.0 Glucose 139 H Lactate 2.4 H Liter Flow 4.0 Arterial Blood Potassium 4.4 Assessment & Plan - Assessment and Plan (Free Text) Assessment: Hypercapneic respiratory failure: continue bi-pap, more arousable, repeat abg, continue bronchodilators, aspiratio precautions, if not improvement, intubate patient -ESRD on HD:continue HD for negative balace -ASpiration PNA: ESRD will start vanco, genta 180 mg and aztreonam 1gm q8hrs, serial lactic,will not benefit from 30 ml/kg of IVF, serial lactic -DVT ppx hepari nsq -PUD pp pepcid -NPOI until mental status improves. monitor to keep mPA >65 PAtient will benefit from ICU level of care. - Date & Time Date: 10/27/17 Time: 06:55
[2017-10-27 07:00] LABS: ABG ALLEN TEST OS; ARTERIAL BLOOD GAS O2 SAT 97.8 % (95-98); ARTERIAL BLOOD GAS PCO2 59 mm/Hg (35-45); ARTERIAL BLOOD GAS PH 7.25 (7.35-7.45); ARTERIAL BLOOD GAS PO2 92 mm/Hg (80-100); ARTERIAL BLOOD GAS TCO2 27.7 mmol/L (22-28)
[2017-10-27] MEDS ORDERED: Naloxone 0.4 mg/ml Inj (Adult) ONE (07:15)
[2017-10-27 07:19] LABS: SQUAMOUS EPITHIAL 5 /hpf (0-5); URINE BACTERIA OCC (<OCC); URINE BILIRUBIN NEGATIVE (NEGATIVE); URINE BLOOD 2+ (NEGATIVE); URINE CLARITY Hazy (Clear); URINE COLOR Amber (YELLOW); URINE GLUCOSE (UA) 1+ mg/dL (Normal); URINE LEUKOCYTE ESTERASE 2+ Leu/uL (Negative); URINE PROTEIN 2+ mg/dL (NEGATIVE); URINE UROBILINOGEN NORMAL mg/dL (0.2-1.0)
[2017-10-27 08:25] LABS: BANDS 3 % (0-2); LYMPHOCYTE 3 % (20-40); MONOCYTE 4 % (0-10); MYELOCYTE 1 % (0-0); NEUTROPHIL 89 % (50-75); PLATELET ESTIMATE DECREASED (NORMAL); TOTAL CELLS COUNTED 100
[2017-10-27 08:26] LABS: ANISOCYTOSIS SLIGHT
[2017-10-27 09:09] LABS: ALB/GLOB RATIO 0.9 (1.0-2.1); ALBUMIN 3.5 g/dL (3.5-5.0); CALCIUM 8.3 mg/dl (8.6-10.4)
--- NOTE | 2017-10-27 10:04 | RAD ---
HISTORY: rales COMPARISON: 10/11/2017. FINDINGS: LUNGS: There are low lung volumes. There is severe pulmonary venous congestion. PLEURA: There are small pleural effusions, no pneumothorax apparent. CARDIOVASCULAR: Stable. OSSEOUS STRUCTURES: Diffuse bone demineralization. VISUALIZED UPPER ABDOMEN: Normal. OTHER FINDINGS: None. IMPRESSION: Findings are most compatible with congestive heart failure. Low lung volumes may be related to poor inspiratory effort.
[2017-10-27] MEDS ORDERED: EPOETIN ALFA 4,000 UNIT/ML ML Dialysis IV SCH (11:00)
--- NOTE | 2017-10-27 12:13 | CP.PCM.CON ---
History of Present Illness - History of Present Illness History of Present Illness: Nephrology Consultation Note Covering for Dr Conley/Carlos: Assessment: critical Acute respi failure with hypoxia hypercapnia with pulm edema AMS likely due to opiates severe sys CHF exacerbation Diabetic chronic Kidney Disease (E11.22) Hypertensive Chronic Kidney Disease (I12.0) End stage renal disease (N18.6) dependence on hemodialysis (Z99.2) (MWF and sat ) via AVF Anemia (D64.9), Hyperphosphatemia (E83.39), Secondary Hyperparathyroidism (E21.1 ), HTN (I12.0) hx of pleural effusion s/p thoracocentesis Plan: Continue with Nephrovite 1 tab/day. plan for next HD today per schedule PRBC as needed for anemia. added ANTONIA last Hb 10.3 Continue with phos binders home dose, phos level 5.1 BP controlled without meds not on raas stefania as bp low Glycemic control, Dialysis consistent diet Further work up/management as per primary team Dose meds/antibiotics (if needed) for ESRD status. Avoid fleets enema/magnesium based laxatives. CHF optimization fall precautions consider palliative care Thanks for allowing me to participate in care of your patient. will follow with you. Please call if any Qs. had d/w team Dr Javid Griggs Office: [phone] Chief Complaint; SOB and AMS reason for consult: ESRD HPI: Pt is a 82 F with hx of ESRD on hemodialysis (MWF and sat) via AVF (Dr Gonzalez/Dr Conley), chronic anemia, hyperphosphatemia, secondary hyperparathyroidism, Diabetes Mellitus, hypertension, severe CHF presented to [facility] with c/o severe SOB and AMS which improved after narcan. pt was on fentanyl. renal consult for ESRD management pt on bipap and unable to provide much hx ROS: pt with SOB on Bipap, unable to obtain detailed ROS Physical Examination: General Appearance: co-operative, chronically ill and debilitated appearing, on bipap Vitals reviewed and noted as below Head; Atraumatic, normocephalic ENT: deferred EYES: Pupils are equal, round and reactive to light accommodation. Eye muscles and extraocular movement intact. Sclera is anicteric. Neck; supple no lymphadenopathy, no thyromegaly or bruit Lungs: Increased respiratory rate/effort. Breath sounds bilateral decreased has b/l crackles Heart: Normal rate. s1s2 normal. No rub or gallop. Extremities: no edema. No varicose veins Neurological: Patient is alert, awake and No focal deficit. Strength bilateral appropriate and equal Skin: Warm and dry. Normal turgor. No rash. Palpitation: Normal elasticity for age Abdomen: Abdomen is soft. Bowel sounds +. There is no abdominal tenderness, no guarding/rigidity or organomegaly Psych: limited insight and normal affect/mood MSK: no joint tenderness or swelling. Digits and nails normal, no deformity : kidney or bladder not palpable Access: AVF Labs/imaging reviewed. Past medical history, past surgical history, family history, social history, allergy reviewed and noted as below Family Hx: no hx of CKD. Non contributory Past Patient History - Infectious Disease Hx of Infectious Diseases: C.diff - Tetanus Immunizations Tetanus Immunization: Unknown - Past Medical History & Family History Past Medical History?: Yes - Past Social History Smoking Status: Former Smoker - CARDIAC Hx Congestive Heart Failure: Yes Hx Hypercholesterolemia: Yes Hx Hypertension: Yes - PULMONARY Hx Chronic Obstructive Pulmonary Disease (COPD): Yes Hx Pneumonia: Yes - NEUROLOGICAL Hx Neurological Disorder: Yes (numbnes/tingling left leg and ft) Hx Dizziness: Yes - HEENT Hx HEENT Problems: Yes Hx Cataracts: Yes (b/l sx) - RENAL Hx Chronic Kidney Disease: Yes - ENDOCRINE/METABOLIC Hx Hypothyroidism: Yes - HEMATOLOGICAL/ONCOLOGICAL Hx Anemia: Yes - INTEGUMENTARY Hx Dermatological Problems: No Other/Comment: 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, excellent bruit at site - MUSCULOSKELETAL/RHEUMATOLOGICAL Hx Falls: Yes - GASTROINTESTINAL Hx Diverticulitis: Yes - GENITOURINARY/GYNECOLOGICAL Hx 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.ESRD ON HD) - PSYCHIATRIC Hx Anxiety: Yes Hx Depression: Yes Hx Substance Use: No - SURGICAL HISTORY Hx Coronary Stent: Yes Other/Comment: unable to obtain any other information from patient at this time - ANESTHESIA Hx Anesthesia: Yes Hx Anesthesia Reactions: No Hx Malignant Hyperthermia: No Meds Allergies/Adverse Reactions: Allergies Allergy/AdvReac Type Severity Reaction Status Date / Time ceftriaxone Allergy ITCHING Verified 10/27/17 05:52 - Medications Medications: Current Medications Acetaminophen (Tylenol 325mg Tab) 650 mg PO Q6 PRN PRN Reason: Pain, moderate (4-7) Aspirin (Aspirin Chewable) 81 mg PO 0800 [facility] Calcium Acetate (Phoslo) 667 mg PO BIDCC [facility] Epoetin Jonathan (Procrit) 4,000 unit IV MWF [facility] Levothyroxine Sodium (Synthroid) 50 mcg PO DAILY@0630 [facility] Mupirocin (Bactroban 2% Nasal) 0.25 gm ZAIDA BID [place] Stop: 11/01/17 10:01 Pantoprazole Sodium (Protonix Ec Tab) 20 mg PO DAILY [facility] Pantoprazole Sodium (Protonix Inj) 40 mg IVP DAILY [facility] Rosuvastatin Calcium (Crestor) 2.5 mg PO HS [facility] Vitamin B Complex/Vit C/Folic Acid (Nephro-Kennedy) 1 tab PO 0800 [facility] Results - Vital Signs Recent Vital Signs: Last Vital Signs Temp 98.1 F 10/27/17 08:40 Pulse 88 10/27/17 09:32 Resp 21 10/27/17 09:32 BP 109/40 L 10/27/17 09:32 Pulse Ox 97 10/27/17 09:32 - Labs Result Diagrams: 10/27/17 06:21 10/27/17 08:47 Labs: Laboratory Results - last 24 hr 10/27/17 10/27/17 10/27/17 06:12 06:21 06:21 WBC 6.0 RBC 3.22 L Hgb 10.3 L Hct 32.0 L MCV 99.3 H D MCH 31.9 H MCHC 32.1 L RDW 17.9 H Plt Count 91 L MPV 8.2 Neut % (Auto) 88.0 H Lymph % (Auto) 4.8 L [place] % (Auto) 6.8 Eos % (Auto) 0.0 Baso % (Auto) 0.4 Neut # (Auto) 5.3 Lymph # (Auto) 0.3 L [place] # (Auto) 0.4 Eos # (Auto) 0.0 Baso # (Auto) 0.0 Neutrophils % (Manual) 89 H Band Neutrophils % 3 H Lymphocytes % (Manual) 3 L Monocytes % (Manual) 4 Myelocytes % 1 H Platelet Estimate Decreased L Anisocytosis (manual) Slight PT 13.9 H INR 1.3 APTT 37 H Puncture Site R brac pCO2 57 H pO2 51 L HCO3 22.6 ABG pH 7.26 L ABG Total CO2 27.3 ABG O2 Saturation 88.6 L ABG Base Excess -2.4 L Ck Test Na ABG Potassium 4.4 A-a O2 Difference Respiratory Index Sodium 134.0 Chloride 100.0 Glucose 139 H Lactate 2.4 H Liter Flow 4.0 Vent Mode Mechanical Rate FiO2 Inspiratory BiPAP Expiratory BiPAP Potassium Carbon Dioxide Anion Gap BUN Creatinine Est GFR ( Amer) Est GFR (Non-Af Amer) POC Glucose (mg/dL) Random Glucose Calcium Phosphorus Magnesium Total Bilirubin AST ALT Alkaline Phosphatase Total Protein Albumin Globulin Albumin/Globulin Ratio Arterial Blood Potassium 4.4 Urine Color Urine Clarity Urine pH Ur Specific [place] Urine Protein Urine Glucose (UA) Urine Ketones Urine Blood Urine Nitrate Urine Bilirubin Urine Urobilinogen Ur Leukocyte Esterase Urine WBC (Auto) Urine RBC (Auto) Ur Squamous Epith Cells Urine Bacteria 10/27/17 10/27/17 10/27/17 06:39 06:56 08:47 WBC RBC Hgb Hct MCV MCH MCHC RDW Plt Count MPV Neut % (Auto) Lymph % (Auto) [place] % (Auto) Eos % (Auto) Baso % (Auto) Neut # (Auto) Lymph # (Auto) [place] # (Auto) Eos # (Auto) Baso # (Auto) Neutrophils % (Manual) Band Neutrophils % Lymphocytes % (Manual) Monocytes % (Manual) Myelocytes % Platelet Estimate Anisocytosis (manual) PT INR APTT Puncture Site R rad pCO2 59 H pO2 92 HCO3 23.0 ABG pH 7.25 L ABG Total CO2 27.7 ABG O2 Saturation 97.8 ABG Base Excess -2.4 L Ck Test Os ABG Potassium 3.9 A-a O2 Difference 191.0 Respiratory Index 2.1 Sodium 133.0 135 Chloride 100.0 96 L Glucose 138 H Lactate 1.7 Liter Flow Vent Mode Bipap Mechanical Rate 14 FiO2 50.0 Inspiratory BiPAP 10 Expiratory BiPAP 5 Potassium 4.5 Carbon Dioxide 26 Anion Gap 18 BUN 28 H Creatinine 3.8 H Est GFR ( Amer) 14 Est GFR (Non-Af Amer) 11 POC Glucose (mg/dL) Random Glucose 148 H Calcium 8.3 L Phosphorus 5.1 H Magnesium 2.1 Total Bilirubin 1.2 AST 74 H D ALT 25 Alkaline Phosphatase 111 Total Protein 7.5 Albumin 3.5 Globulin 4.1 H Albumin/Globulin Ratio 0.9 L Arterial Blood Potassium 3.9 Urine Color June Urine Clarity Hazy Urine pH 5.0 Ur Specific [place] 1.019 Urine Protein 2+ H Urine Glucose (UA) 1+ Urine Ketones Negative Urine Blood 2+ H Urine Nitrate Negative Urine Bilirubin Negative Urine Urobilinogen Normal Ur Leukocyte Esterase 2+ H Urine WBC (Auto) 114 H Urine RBC (Auto) 25 H Ur Squamous Epith Cells 5 Urine Bacteria Occ H 10/27/17 11:45 WBC RBC Hgb Hct MCV MCH MCHC RDW Plt Count MPV Neut % (Auto) Lymph % (Auto) [place] % (Auto) Eos % (Auto) Baso % (Auto) Neut # (Auto) Lymph # (Auto) [place] # (Auto) Eos # (Auto) Baso # (Auto) Neutrophils % (Manual) Band Neutrophils % Lymphocytes % (Manual) Monocytes % (Manual) Myelocytes % Platelet Estimate Anisocytosis (manual) PT INR APTT Puncture Site pCO2 pO2 HCO3 ABG pH ABG Total CO2 ABG O2 Saturation ABG Base Excess Ck Test ABG Potassium A-a O2 Difference Respiratory Index Sodium Chloride Glucose Lactate Liter Flow Vent Mode Mechanical Rate FiO2 Inspiratory BiPAP Expiratory BiPAP Potassium Carbon Dioxide Anion Gap BUN Creatinine Est GFR ( Amer) Est GFR (Non-Af Amer) POC Glucose (mg/dL) 154 H Random Glucose Calcium Phosphorus Magnesium Total Bilirubin AST ALT Alkaline Phosphatase Total Protein Albumin Globulin Albumin/Globulin Ratio Arterial Blood Potassium Urine Color Urine Clarity Urine pH Ur Specific [place] Urine Protein Urine Glucose (UA) Urine Ketones Urine Blood Urine Nitrate Urine Bilirubin Urine Urobilinogen Ur Leukocyte Esterase Urine WBC (Auto) Urine RBC (Auto) Ur Squamous Epith Cells Urine Bacteria
[2017-10-27] MEDS: Mupirocin 2% Ointment (NASAL) NAS SCH (18:39)
--- NOTE | 2017-10-27 19:48 | CARD ---
APPROVED REPORT EKG Measurement Heart [id number] <Conclusion> Sinus rhythm with 1st degree AV block Low voltage QRS Cannot rule out Anteroseptal infarct, age undetermined ST & T wave abnormality, consider lateral ischemia Abnormal ECG
[2017-10-27] MEDS: Rosuvastatin Calcium 2.5 mg Tab PO SCH (21:33)
[2017-10-28] MEDS: Levothyroxine 50 MCG TAB PO SCH (05:55)
[2017-10-28 06:15] LABS: BASO % 0.3 % (0.0-2.0); HEMOGLOBIN 11.2 g/dL (11.0-16.0); LYMPH # 0.4 K/uL (1.0-4.3); LYMPH % 5.5 % (20.0-40.0); MEAN CELL VOLUME 99.4 fL (81.0-99.0); MEAN CORPUSCULAR HEMOGLOBIN 31.8 pg (27.0-31.0); MEAN PLATELET VOLUME 8.9 fL (7.2-11.7); MONO # 0.4 K/uL (0.0-0.8); MONO % 5.2 % (0.0-10.0); NEUT # 6.3 K/uL (1.8-7.0); NRBC % 0.2 % (0.0-2.0); PLATELET COUNT 76 K/uL (130-400); RBC 3.52 Mil/uL (3.80-5.20); RED CELL DISTRIBUTION WIDTH 17.5 % (11.5-14.5)
[2017-10-28 06:46] LABS: ALB/GLOB RATIO 0.8 (1.0-2.1); ALBUMIN 3.5 g/dL (3.5-5.0); CALCIUM 8.1 mg/dl (8.6-10.4)
[2017-10-28 08:05] LABS: ANISOCYTOSIS SLIGHT; BANDS 6 % (0-2); GIANT PLATELETS PRESENT; HYPOCHROMIC SLIGHT; LYMPHOCYTE 3 % (20-40); MONOCYTE 3 % (0-10); NEUTROPHIL 88 % (50-75); NUCLEATED RED BLOOD CELL 1 % (0-0); PLATELET ESTIMATE DECREASED (NORMAL); POIKILOCYTOSIS SLIGHT; TOTAL CELLS COUNTED 100
[2017-10-28 09:49] LABS: ABG ALLEN TEST POS; ARTERIAL BLOOD GAS HCO3 22.5 mmol/L (21-28); ARTERIAL BLOOD GAS HEMOGLOBIN 10.6 g/dL (11.7-17.4); ARTERIAL BLOOD GAS O2 SAT 97.4 % (95-98); ARTERIAL BLOOD GAS PCO2 66 mm/Hg (35-45); ARTERIAL BLOOD GAS PO2 90 mm/Hg (80-100); ARTERIAL BLOOD GAS TCO2 27.8 mmol/L (22-28)
[2017-10-28] MEDS ORDERED: Pantoprazole 20 mg EC Tab PO SCH (10:00)
[2017-10-28] MEDS: Mupirocin 2% Ointment (NASAL) NAS SCH ×2 (10:00→18:12)
[2017-10-28] MEDS: Multivitamin Vitamin B Complex (Nephro-Vite) Tab PO SCH (10:01)
--- NOTE | 2017-10-28 10:33 | CP.CCUPN ---
<Akilah Haywood - Last Filed: 10/28/17 17:26> CCU Subjective - Physician Review Subjective (Free Text): 10/28/17 10:29 82 F with PMHx of ESRD on HD MWFS, HTN, DM, CAD, HF, Anemia of Chronic Disease, admitted to ICU with AMS in hypercapneic respiratory failure. Patient presented to ED w/ 3 fentanyl patches. No acute events overnight. Pt unable to maintain spO2 on BiPAP w/ FiO2 of 50%, intubated today 10/28 *Contact precaution for C. Diff Hx. 10/28/17 17:26 CCU Objective - Vital Signs / Intake & Output Vital Signs (Last 4 hours): Vital Signs Pulse Resp BP Pulse Ox 10/28/17 09:54 81 10/28/17 07:38 99 H 10/28/17 07:00 95 H 28 H 98/30 L 97 Intake and Output (Last 8hrs): Intake & Output 10/27/17 10/28/17 10/28/17 22:59 06:59 14:59 Intake Total 0 150 0 Output Total 1999 Balance -1999 150 0 Weight 132 lb 4.438 oz 125 lb Intake: Oral 0 150 0 Output: Other 1999 Other: # Voids Urine, Voided 0 - Physical Exam Physical Exam Limitations: Positive for: Altered Mental Status Head: Positive for: Atraumatic, Normocephalic Mouth: Positive for: Moist Mucous Membranes Respiratory/Chest: Positive for: Decreased Breath Sounds (R>L), Tachypneic Cardiovascular: Positive for: Regular Rate and Rhythm. Negative for: Murmurs Abdomen: Positive for: Normal Bowel Sounds. Negative for: Distention Upper Extremity: Negative for: Cyanosis Lower Extremity: Positive for: Normal Inspection Skin: Positive for: Normal Color Psychiatric: Negative for: Alert - Medications Active Medications: Active Medications Generic Name Dose Route Start Last Admin Trade Name Freq PRN Reason Stop Dose Admin Acetaminophen 650 mg 10/27/17 10:07 10/27/17 22:00 Tylenol 325mg Tab PO 650 mg Q6 PRN Administration Pain, moderate (4-7) Albuterol/Ipratropium 3 ml 10/28/17 14:00 Duoneb 3 Mg/0.5 Mg (3 Ml) Ud INH RQ6 LUKE Aspirin 81 mg 10/28/17 08:00 07/10/18 09:57 Aspirin Chewable PO 81 mg 0800 LUKE Administration Calcium Acetate 667 mg 10/27/17 17:00 10/28/17 09:59 Phoslo PO 667 mg BIDCC [facility] Administration Epoetin Jonathan 4,000 unit 10/27/17 11:00 10/27/17 17:27 Procrit IV 4,000 unit MWF [facility] Administration Piperacillin Sod/Tazobactam Sod 2.25 gm in 50 mls @ 100 mls/hr 10/28/17 10:00 Zosyn 2.25 Gm Iv Premix IVPB Q8H [facility] Protocol Levothyroxine Sodium 50 mcg 10/28/17 06:30 10/28/17 05:55 Synthroid PO 50 mcg DAILY@0630 LUKE Administration Mupirocin 0.25 gm 10/27/17 18:00 10/28/17 10:00 Bactroban 2% Nasal ZAIDA 11/01/17 10:01 0.25 gm BID LUKE Administration Pantoprazole Sodium 40 mg 10/27/17 12:00 10/28/17 09:53 Protonix Inj IVP 40 mg DAILY LUKE Administration Rosuvastatin Calcium 2.5 mg 10/27/17 22:00 10/27/17 21:33 Crestor PO 2.5 mg HS LUKE Administration Vitamin B Complex/Vit C/Folic Acid 1 tab 10/28/17 08:00 10/28/17 10:01 Nephro-Kennedy PO 1 tab 0800 LUKE Administration - Patient Studies Lab Studies: Microbiology Studies 10/27/17 06:39 Urine Culture - Final Urine,Catheterized No Growth (<1,000 CFU/ML) Lab Studies 10/28/17 10/28/17 10/28/17 Range/Units 09:45 06:09 06:08 WBC 7.0 (4.8-10.8) K/uL RBC 3.52 L (3.80-5.20) Mil/uL Hgb 11.2 (11.0-16.0) g/dL Hct 35.0 (34.0-47.0) % MCV 99.4 H (81.0-99.0) fL MCH 31.8 H (27.0-31.0) pg MCHC 32.0 L (33.0-37.0) g/dL RDW 17.5 H (11.5-14.5) % Plt Count 76 L (130-400) K/uL MPV 8.9 (7.2-11.7) fL Neut % (Auto) 89.0 H (50.0-75.0) % Lymph % (Auto) 5.5 L (20.0-40.0) % [place] % (Auto) 5.2 (0.0-10.0) % Eos % (Auto) 0.0 (0.0-4.0) % Baso % (Auto) 0.3 (0.0-2.0) % Neut # (Auto) 6.3 (1.8-7.0) K/uL Lymph # (Auto) 0.4 L (1.0-4.3) K/uL [place] # (Auto) 0.4 (0.0-0.8) K/uL Eos # (Auto) 0.0 (0.0-0.7) K/uL Baso # (Auto) 0.0 (0.0-0.2) K/uL Neutrophils % (Manual) 88 H (50-75) % Band Neutrophils % 6 H (0-2) % Lymphocytes % (Manual) 3 L (20-40) % Monocytes % (Manual) 3 (0-10) % Nucleated RBC % 1 H (0-0) % Platelet Estimate Decreased L (NORMAL) Giant Platelets Present Hypochromasia (manual) Slight Poikilocytosis (manual Slight Basophilic Stippling Slight Anisocytosis (manual) Slight Puncture Site Rr pCO2 66 H (35-45) mm/Hg pO2 90 (80-100) mm/Hg HCO3 22.5 (21-28) mmol/L ABG pH 7.20 L (7.35-7.45) ABG Total CO2 27.8 (22-28) mmol/L ABG O2 Saturation 97.4 (95-98) % ABG Base Excess -3.0 L (-2.0-3.0) mmol/L ABG Hemoglobin 10.6 L (11.7-17.4) g/dL ABG Carboxyhemoglobin 2.1 H (0.5-1.5) % POC ABG HHb (Measured) 2.5 (0.0-5.0) % ABG Methemoglobin 0.7 (0.0-3.0) % Ck Test Pos A-a O2 Difference 184.0 mm/Hg Respiratory Index 2.0 Hgb O2 Saturation 94.7 L (95.0-98.0) % Vent Mode Bipap FiO2 50.0 % Inspiratory BiPAP 10 Expiratory BiPAP 5 Sodium 140 (132-148) mmol/L Potassium 4.5 (3.6-5.2) mmol/L Chloride 100 (98-107) mmol/L Carbon Dioxide 25 (22-30) mmol/L Anion Gap 20 (10-20) BUN 21 H (7-17) mg/dL Creatinine 2.8 H (0.7-1.2) mg/dL Est GFR ( Amer) 20 Est GFR (Non-Af Amer) 16 POC Glucose (mg/dL) (65-110) mg/dL Random Glucose 98 (65-105) mg/dL Calcium 8.1 L (8.6-10.4) mg/dl Phosphorus 5.3 H (2.5-4.5) mg/dL Magnesium 2.2 (1.6-2.3) mg/dL Total Bilirubin 1.1 (0.2-1.3) mg/dL AST 79 H (14-36) U/L ALT 27 (9-52) U/L Alkaline Phosphatase 97 (38-126) U/L Total Protein 7.7 (6.3-8.3) g/dL Albumin 3.5 (3.5-5.0) g/dL Globulin 4.2 H (2.2-3.9) gm/dL Albumin/Globulin Ratio 0.8 L (1.0-2.1) 10/28/17 10/27/17 10/27/17 Range/Units 04:55 23:52 17:34 WBC (4.8-10.8) K/uL RBC (3.80-5.20) Mil/uL Hgb (11.0-16.0) g/dL Hct (34.0-47.0) % MCV (81.0-99.0) fL MCH (27.0-31.0) pg MCHC (33.0-37.0) g/dL RDW (11.5-14.5) % Plt Count (130-400) K/uL MPV (7.2-11.7) fL Neut % (Auto) (50.0-75.0) % Lymph % (Auto) (20.0-40.0) % [place] % (Auto) (0.0-10.0) % Eos % (Auto) (0.0-4.0) % Baso % (Auto) (0.0-2.0) % Neut # (Auto) (1.8-7.0) K/uL Lymph # (Auto) (1.0-4.3) K/uL [place] # (Auto) (0.0-0.8) K/uL Eos # (Auto) (0.0-0.7) K/uL Baso # (Auto) (0.0-0.2) K/uL Neutrophils % (Manual) (50-75) % Band Neutrophils % (0-2) % Lymphocytes % (Manual) (20-40) % Monocytes % (Manual) (0-10) % Nucleated RBC % (0-0) % Platelet Estimate (NORMAL) Giant Platelets Hypochromasia (manual) Poikilocytosis (manual Basophilic Stippling Anisocytosis (manual) Puncture Site pCO2 (35-45) mm/Hg pO2 (80-100) mm/Hg HCO3 (21-28) mmol/L ABG pH (7.35-7.45) ABG Total CO2 (22-28) mmol/L ABG O2 Saturation (95-98) % ABG Base Excess (-2.0-3.0) mmol/L ABG Hemoglobin (11.7-17.4) g/dL ABG Carboxyhemoglobin (0.5-1.5) % POC ABG HHb (Measured) (0.0-5.0) % ABG Methemoglobin (0.0-3.0) % Ck Test A-a O2 Difference mm/Hg Respiratory Index Hgb O2 Saturation (95.0-98.0) % Vent Mode FiO2 % Inspiratory BiPAP Expiratory BiPAP Sodium (132-148) mmol/L Potassium (3.6-5.2) mmol/L Chloride (98-107) mmol/L Carbon Dioxide (22-30) mmol/L Anion Gap (10-20) BUN (7-17) mg/dL Creatinine (0.7-1.2) mg/dL Est GFR ( Amer) Est GFR (Non-Af Amer) POC Glucose (mg/dL) 95 100 120 H (65-110) mg/dL Random Glucose (65-105) mg/dL Calcium (8.6-10.4) mg/dl Phosphorus (2.5-4.5) mg/dL Magnesium (1.6-2.3) mg/dL Total Bilirubin (0.2-1.3) mg/dL AST (14-36) U/L ALT (9-52) U/L Alkaline Phosphatase (38-126) U/L Total Protein (6.3-8.3) g/dL Albumin (3.5-5.0) g/dL Globulin (2.2-3.9) gm/dL Albumin/Globulin Ratio (1.0-2.1) 10/27/17 Range/Units 11:45 WBC (4.8-10.8) K/uL RBC (3.80-5.20) Mil/uL Hgb (11.0-16.0) g/dL Hct (34.0-47.0) % MCV (81.0-99.0) fL MCH (27.0-31.0) pg MCHC (33.0-37.0) g/dL RDW (11.5-14.5) % Plt Count (130-400) K/uL MPV (7.2-11.7) fL Neut % (Auto) (50.0-75.0) % Lymph % (Auto) (20.0-40.0) % [place] % (Auto) (0.0-10.0) % Eos % (Auto) (0.0-4.0) % Baso % (Auto) (0.0-2.0) % Neut # (Auto) (1.8-7.0) K/uL Lymph # (Auto) (1.0-4.3) K/uL [place] # (Auto) (0.0-0.8) K/uL Eos # (Auto) (0.0-0.7) K/uL Baso # (Auto) (0.0-0.2) K/uL Neutrophils % (Manual) (50-75) % Band Neutrophils % (0-2) % Lymphocytes % (Manual) (20-40) % Monocytes % (Manual) (0-10) % Nucleated RBC % (0-0) % Platelet Estimate (NORMAL) Giant Platelets Hypochromasia (manual) Poikilocytosis (manual Basophilic Stippling Anisocytosis (manual) Puncture Site pCO2 (35-45) mm/Hg pO2 (80-100) mm/Hg HCO3 (21-28) mmol/L ABG pH (7.35-7.45) ABG Total CO2 (22-28) mmol/L ABG O2 Saturation (95-98) % ABG Base Excess (-2.0-3.0) mmol/L ABG Hemoglobin (11.7-17.4) g/dL ABG Carboxyhemoglobin (0.5-1.5) % POC ABG HHb (Measured) (0.0-5.0) % ABG Methemoglobin (0.0-3.0) % Ck Test A-a O2 Difference mm/Hg Respiratory Index Hgb O2 Saturation (95.0-98.0) % Vent Mode FiO2 % Inspiratory BiPAP Expiratory BiPAP Sodium (132-148) mmol/L Potassium (3.6-5.2) mmol/L Chloride (98-107) mmol/L Carbon Dioxide (22-30) mmol/L Anion Gap (10-20) BUN (7-17) mg/dL Creatinine (0.7-1.2) mg/dL Est GFR ( Amer) Est GFR (Non-Af Amer) POC Glucose (mg/dL) 154 H (65-110) mg/dL Random Glucose (65-105) mg/dL Calcium (8.6-10.4) mg/dl Phosphorus (2.5-4.5) mg/dL Magnesium (1.6-2.3) mg/dL Total Bilirubin (0.2-1.3) mg/dL AST (14-36) U/L ALT (9-52) U/L Alkaline Phosphatase (38-126) U/L Total Protein (6.3-8.3) g/dL Albumin (3.5-5.0) g/dL Globulin (2.2-3.9) gm/dL Albumin/Globulin Ratio (1.0-2.1) Laboratory Results - last 24 hr 10/27/17 10/27/17 10/27/17 11:45 17:34 23:52 WBC RBC Hgb Hct MCV MCH MCHC RDW Plt Count MPV Neut % (Auto) Lymph % (Auto) [place] % (Auto) Eos % (Auto) Baso % (Auto) Neut # (Auto) Lymph # (Auto) [place] # (Auto) Eos # (Auto) Baso # (Auto) Neutrophils % (Manual) Band Neutrophils % Lymphocytes % (Manual) Monocytes % (Manual) Nucleated RBC % Platelet Estimate Giant Platelets Hypochromasia (manual) Poikilocytosis (manual Basophilic Stippling Anisocytosis (manual) Puncture Site pCO2 pO2 HCO3 ABG pH ABG Total CO2 ABG O2 Saturation ABG Base Excess ABG Hemoglobin ABG Carboxyhemoglobin POC ABG HHb (Measured) ABG Methemoglobin Ck Test A-a O2 Difference Respiratory Index Hgb O2 Saturation Vent Mode FiO2 Inspiratory BiPAP Expiratory BiPAP Sodium Potassium Chloride Carbon Dioxide Anion Gap BUN Creatinine Est GFR ( Amer) Est GFR (Non-Af Amer) POC Glucose (mg/dL) 154 H 120 H 100 Random Glucose Calcium Phosphorus Magnesium Total Bilirubin AST ALT Alkaline Phosphatase Total Protein Albumin Globulin Albumin/Globulin Ratio 10/28/17 10/28/17 10/28/17 04:55 06:08 06:09 WBC 7.0 RBC 3.52 L Hgb 11.2 Hct 35.0 MCV 99.4 H MCH 31.8 H MCHC 32.0 L RDW 17.5 H Plt Count 76 L MPV 8.9 Neut % (Auto) 89.0 H Lymph % (Auto) 5.5 L [place] % (Auto) 5.2 Eos % (Auto) 0.0 Baso % (Auto) 0.3 Neut # (Auto) 6.3 Lymph # (Auto) 0.4 L [place] # (Auto) 0.4 Eos # (Auto) 0.0 Baso # (Auto) 0.0 Neutrophils % (Manual) 88 H Band Neutrophils % 6 H Lymphocytes % (Manual) 3 L Monocytes % (Manual) 3 Nucleated RBC % 1 H Platelet Estimate Decreased L Giant Platelets Present Hypochromasia (manual) Slight Poikilocytosis (manual Slight Basophilic Stippling Slight Anisocytosis (manual) Slight Puncture Site pCO2 pO2 HCO3 ABG pH ABG Total CO2 ABG O2 Saturation ABG Base Excess ABG Hemoglobin ABG Carboxyhemoglobin POC ABG HHb (Measured) ABG Methemoglobin Ck Test A-a O2 Difference Respiratory Index Hgb O2 Saturation Vent Mode FiO2 Inspiratory BiPAP Expiratory BiPAP Sodium 140 Potassium 4.5 Chloride 100 Carbon Dioxide 25 Anion Gap 20 BUN 21 H Creatinine 2.8 H Est GFR ( Amer) 20 Est GFR (Non-Af Amer) 16 POC Glucose (mg/dL) 95 Random Glucose 98 Calcium 8.1 L Phosphorus 5.3 H Magnesium 2.2 Total Bilirubin 1.1 AST 79 H ALT 27 Alkaline Phosphatase 97 Total Protein 7.7 Albumin 3.5 Globulin 4.2 H Albumin/Globulin Ratio 0.8 L 10/28/17 09:45 WBC RBC Hgb Hct MCV MCH MCHC RDW Plt Count MPV Neut % (Auto) Lymph % (Auto) [place] % (Auto) Eos % (Auto) Baso % (Auto) Neut # (Auto) Lymph # (Auto) [place] # (Auto) Eos # (Auto) Baso # (Auto) Neutrophils % (Manual) Band Neutrophils % Lymphocytes % (Manual) Monocytes % (Manual) Nucleated RBC % Platelet Estimate Giant Platelets Hypochromasia (manual) Poikilocytosis (manual Basophilic Stippling Anisocytosis (manual) Puncture Site Rr pCO2 66 H pO2 90 HCO3 22.5 ABG pH 7.20 L ABG Total CO2 27.8 ABG O2 Saturation 97.4 ABG Base Excess -3.0 L ABG Hemoglobin 10.6 L ABG Carboxyhemoglobin 2.1 H POC ABG HHb (Measured) 2.5 ABG Methemoglobin 0.7 Ck Test Pos A-a O2 Difference 184.0 Respiratory Index 2.0 Hgb O2 Saturation 94.7 L Vent Mode Bipap FiO2 50.0 Inspiratory BiPAP 10 Expiratory BiPAP 5 Sodium Potassium Chloride Carbon Dioxide Anion Gap BUN Creatinine Est GFR ( Amer) Est GFR (Non-Af Amer) POC Glucose (mg/dL) Random Glucose Calcium Phosphorus Magnesium Total Bilirubin AST ALT Alkaline Phosphatase Total Protein Albumin Globulin Albumin/Globulin Ratio Fingerstick Blood Sugar Results: 100 Review of Systems - Review of Systems Systems not reviewed;Unavailable: Altered Mental Status Critical Care Progress Note - Prophylaxis GI Prophylaxis GI: PPI Assessment/Plan - Assessment and Plan (Free Text) Assessment: 82 yo F w/ PMHx of ESRD, HTN, DM, CAD, HF, anemia, admitted with AMS in hypercapneic respiratory failure. 1. AMS -likely exacerbated due to 3 fentanyl patches -avoid opiates -monitor CO2 -aspiration precaution -NPO 2. Hypercapneic respiratory failure -on vent -pCO2 @66, pH 7.2 -ABGs 3. PNA -zosyn 2.25g q8 4. ESRD -HD MWFS -epo 400U MWF -renally dosed meds 5. CHF 6. COPD -duonebs q6 7. CAD -aspirin 81mg -crestor 2.5mg 8. Hypothyroid -levothyroxine 50mcg Ppx -protonix 40mg case discussed with Dr. Atwood <Vick Atwood S - Last Filed: 10/28/17 18:26> CCU Objective - Vital Signs / Intake & Output Vital Signs (Last 4 hours): Vital Signs Temp Pulse Pulse Resp BP Pulse Ox 10/28/17 16:40 97.7 F 79 25 H 98/41 L 97 10/28/17 16:10 91/36 L 10/28/17 15:47 74 10/28/17 15:40 96/38 L 10/28/17 15:10 100/34 L 10/28/17 14:55 89/35 L 10/28/17 14:40 88/35 L Intake and Output (Last 8hrs): Intake & Output 10/28/17 10/28/17 10/28/17 06:59 14:59 22:59 Intake Total 150 120 Balance 150 120 Weight 125 lb Intake: Oral 150 120 - Medications Active Medications: Active Medications Generic Name Dose Route Start Last Admin Trade Name Freq PRN Reason Stop Dose Admin Acetaminophen 650 mg 10/27/17 10:07 10/27/17 22:00 Tylenol 325mg Tab PO 650 mg Q6 PRN Administration Pain, moderate (4-7) Albuterol/Ipratropium 3 ml 10/28/17 14:00 10/28/17 13:33 Duoneb 3 Mg/0.5 Mg (3 Ml) Ud INH 3 ml RQ6 LUKE Administration Aspirin 81 mg 10/28/17 08:00 10/28/17 09:57 Aspirin Chewable PO 81 mg 0800 LUKE Administration Calcium Acetate 667 mg 10/27/17 17:00 10/28/17 18:08 Phoslo PO 667 mg BIDCC [facility] Administration Epoetin Jonathan 4,000 unit 11/03/17 10:00 Procrit IV QWK [facility] Heparin Sodium (Porcine) 5,000 units 10/28/17 22:00 Heparin SC Q12 LU[facility] Piperacillin Sod/Tazobactam Sod 2.25 gm in 50 mls @ 100 mls/hr 10/28/17 10:00 10/28/17 18:08 Zosyn 2.25 Gm Iv Premix IVPB 100 mls/hr Q8H [facility] Administration Protocol Propofol 1,000 mg in 100 mls @ 1.701 mls/hr 10/28/17 17:35 10/28/17 17:54 Diprivan IV 10 mcg/kg/min .Q24H PRN 3.402 mls/hr Agitation Administration Protocol 5 MCG/KG/MIN Levothyroxine Sodium 50 mcg 10/28/17 06:30 10/28/17 05:55 Synthroid PO 50 mcg DAILY@0630 [facility] Administration Mupirocin 0.25 gm 10/27/17 18:00 10/28/17 18:12 Bactroban 2% Nasal ZAIDA 11/01/17 10:01 0.25 gm BID LUKE Administration Pantoprazole Sodium 40 mg 10/27/17 12:00 10/28/17 09:53 Protonix Inj IVP 40 mg DAILY [facility] Administration Rosuvastatin Calcium 2.5 mg 10/27/17 22:00 10/27/17 21:33 Crestor PO 2.5 mg HS [facility] Administration Vitamin B Complex/Vit C/Folic Acid 1 tab 10/28/17 08:00 10/28/17 10:01 Nephro-Kennedy PO 1 tab 0800 LUKE Administration - Patient Studies Lab Studies: Microbiology Studies 10/27/17 16:35 Blood Culture - Preliminary Blood NO GROWTH AFTER 24 HOURS 10/27/17 16:35 Blood Culture - Preliminary Blood NO GROWTH AFTER 24 HOURS 10/27/17 09:10 MRSA Culture (Admit) - Final Naris MRSA NOT DETECTED 10/27/17 06:39 Urine Culture - Final Urine,Catheterized No Growth (<1,000 CFU/ML) Lab Studies 10/28/17 10/28/17 10/28/17 Range/Units 17:39 11:48 09:53 WBC (4.8-10.8) K/uL RBC (3.80-5.20) Mil/uL Hgb (11.0-16.0) g/dL Hct (34.0-47.0) % MCV (81.0-99.0) fL MCH (27.0-31.0) pg MCHC (33.0-37.0) g/dL RDW (11.5-14.5) % Plt Count (130-400) K/uL MPV (7.2-11.7) fL Neut % (Auto) (50.0-75.0) % Lymph % (Auto) (20.0-40.0) % [place] % (Auto) (0.0-10.0) % Eos % (Auto) (0.0-4.0) % Baso % (Auto) (0.0-2.0) % Neut # (Auto) (1.8-7.0) K/uL Lymph # (Auto) (1.0-4.3) K/uL [place] # (Auto) (0.0-0.8) K/uL Eos # (Auto) (0.0-0.7) K/uL Baso # (Auto) (0.0-0.2) K/uL Neutrophils % (Manual) (50-75) % Band Neutrophils % (0-2) % Lymphocytes % (Manual) (20-40) % Monocytes % (Manual) (0-10) % Nucleated RBC % (0-0) % Platelet Estimate (NORMAL) Giant Platelets Hypochromasia (manual) Poikilocytosis (manual Basophilic Stippling Anisocytosis (manual) Puncture Site pCO2 (35-45) mm/Hg pO2 (80-100) mm/Hg HCO3 (21-28) mmol/L ABG pH (7.35-7.45) ABG Total CO2 (22-28) mmol/L ABG O2 Saturation (95-98) % ABG Base Excess (-2.0-3.0) mmol/L ABG Hemoglobin (11.7-17.4) g/dL ABG Carboxyhemoglobin (0.5-1.5) % POC ABG HHb (Measured) (0.0-5.0) % ABG Methemoglobin (0.0-3.0) % Ck Test A-a O2 Difference mm/Hg Respiratory Index Hgb O2 Saturation (95.0-98.0) % Vent Mode FiO2 % Inspiratory BiPAP Expiratory BiPAP Sodium (132-148) mmol/L Potassium (3.6-5.2) mmol/L Chloride (98-107) mmol/L Carbon Dioxide (22-30) mmol/L Anion Gap (10-20) BUN (7-17) mg/dL Creatinine (0.7-1.2) mg/dL Est GFR ( Amer) Est GFR (Non-Af Amer) POC Glucose (mg/dL) 87 84 (65-110) mg/dL Random Glucose (65-105) mg/dL Calcium (8.6-10.4) mg/dl Phosphorus (2.5-4.5) mg/dL Magnesium (1.6-2.3) mg/dL Total Bilirubin (0.2-1.3) mg/dL AST (14-36) U/L ALT (9-52) U/L Alkaline Phosphatase (38-126) U/L Total Protein (6.3-8.3) g/dL Albumin (3.5-5.0) g/dL Globulin (2.2-3.9) gm/dL Albumin/Globulin Ratio (1.0-2.1) Procalcitonin 6.12 H (0.19-0.49) NG/ML 10/28/17 10/28/17 10/28/17 Range/Units 09:45 06:09 06:08 WBC 7.0 (4.8-10.8) K/uL RBC 3.52 L (3.80-5.20) Mil/uL Hgb 11.2 (11.0-16.0) g/dL Hct 35.0 (34.0-47.0) % MCV 99.4 H (81.0-99.0) fL MCH 31.8 H (27.0-31.0) pg MCHC 32.0 L (33.0-37.0) g/dL RDW 17.5 H (11.5-14.5) % Plt Count 76 L (130-400) K/uL MPV 8.9 (7.2-11.7) fL Neut % (Auto) 89.0 H (50.0-75.0) % Lymph % (Auto) 5.5 L (20.0-40.0) % [place] % (Auto) 5.2 (0.0-10.0) % Eos % (Auto) 0.0 (0.0-4.0) % Baso % (Auto) 0.3 (0.0-2.0) % Neut # (Auto) 6.3 (1.8-7.0) K/uL Lymph # (Auto) 0.4 L (1.0-4.3) K/uL [place] # (Auto) 0.4 (0.0-0.8) K/uL Eos # (Auto) 0.0 (0.0-0.7) K/uL Baso # (Auto) 0.0 (0.0-0.2) K/uL Neutrophils % (Manual) 88 H (50-75) % Band Neutrophils % 6 H (0-2) % Lymphocytes % (Manual) 3 L (20-40) % Monocytes % (Manual) 3 (0-10) % Nucleated RBC % 1 H (0-0) % Platelet Estimate Decreased L (NORMAL) Giant Platelets Present Hypochromasia (manual) Slight Poikilocytosis (manual Slight Basophilic Stippling Slight Anisocytosis (manual) Slight Puncture Site Rr pCO2 66 H (35-45) mm/Hg pO2 90 (80-100) mm/Hg HCO3 22.5 (21-28) mmol/L ABG pH 7.20 L (7.35-7.45) ABG Total CO2 27.8 (22-28) mmol/L ABG O2 Saturation 97.4 (95-98) % ABG Base Excess -3.0 L (-2.0-3.0) mmol/L ABG Hemoglobin 10.6 L (11.7-17.4) g/dL ABG Carboxyhemoglobin 2.1 H (0.5-1.5) % POC ABG HHb (Measured) 2.5 (0.0-5.0) % ABG Methemoglobin 0.7 (0.0-3.0) % Ck Test Pos A-a O2 Difference 184.0 mm/Hg Respiratory Index 2.0 Hgb O2 Saturation 94.7 L (95.0-98.0) % Vent Mode Bipap FiO2 50.0 % Inspiratory BiPAP 10 Expiratory BiPAP 5 Sodium 140 (132-148) mmol/L Potassium 4.5 (3.6-5.2) mmol/L Chloride 100 (98-107) mmol/L Carbon Dioxide 25 (22-30) mmol/L Anion Gap 20 (10-20) BUN 21 H (7-17) mg/dL Creatinine 2.8 H (0.7-1.2) mg/dL Est GFR ( Amer) 20 Est GFR (Non-Af Amer) 16 POC Glucose (mg/dL) (65-110) mg/dL Random Glucose 98 (65-105) mg/dL Calcium 8.1 L (8.6-10.4) mg/dl Phosphorus 5.3 H (2.5-4.5) mg/dL Magnesium 2.2 (1.6-2.3) mg/dL Total Bilirubin 1.1 (0.2-1.3) mg/dL AST 79 H (14-36) U/L ALT 27 (9-52) U/L Alkaline Phosphatase 97 (38-126) U/L Total Protein 7.7 (6.3-8.3) g/dL Albumin 3.5 (3.5-5.0) g/dL Globulin 4.2 H (2.2-3.9) gm/dL Albumin/Globulin Ratio 0.8 L (1.0-2.1) Procalcitonin (0.19-0.49) NG/ML 10/28/17 10/27/17 Range/Units 04:55 23:52 WBC (4.8-10.8) K/uL RBC (3.80-5.20) Mil/uL Hgb (11.0-16.0) g/dL Hct (34.0-47.0) % MCV (81.0-99.0) fL MCH (27.0-31.0) pg MCHC (33.0-37.0) g/dL RDW (11.5-14.5) % Plt Count (130-400) K/uL MPV (7.2-11.7) fL Neut % (Auto) (50.0-75.0) % Lymph % (Auto) (20.0-40.0) % [place] % (Auto) (0.0-10.0) % Eos % (Auto) (0.0-4.0) % Baso % (Auto) (0.0-2.0) % Neut # (Auto) (1.8-7.0) K/uL Lymph # (Auto) (1.0-4.3) K/uL [place] # (Auto) (0.0-0.8) K/uL Eos # (Auto) (0.0-0.7) K/uL Baso # (Auto) (0.0-0.2) K/uL Neutrophils % (Manual) (50-75) % Band Neutrophils % (0-2) % Lymphocytes % (Manual) (20-40) % Monocytes % (Manual) (0-10) % Nucleated RBC % (0-0) % Platelet Estimate (NORMAL) Giant Platelets Hypochromasia (manual) Poikilocytosis (manual Basophilic Stippling Anisocytosis (manual) Puncture Site pCO2 (35-45) mm/Hg pO2 (80-100) mm/Hg HCO3 (21-28) mmol/L ABG pH (7.35-7.45) ABG Total CO2 (22-28) mmol/L ABG O2 Saturation (95-98) % ABG Base Excess (-2.0-3.0) mmol/L ABG Hemoglobin (11.7-17.4) g/dL ABG Carboxyhemoglobin (0.5-1.5) % POC ABG HHb (Measured) (0.0-5.0) % ABG Methemoglobin (0.0-3.0) % Ck Test A-a O2 Difference mm/Hg Respiratory Index Hgb O2 Saturation (95.0-98.0) % Vent Mode FiO2 % Inspiratory BiPAP Expiratory BiPAP Sodium (132-148) mmol/L Potassium (3.6-5.2) mmol/L Chloride (98-107) mmol/L Carbon Dioxide (22-30) mmol/L Anion Gap (10-20) BUN (7-17) mg/dL Creatinine (0.7-1.2) mg/dL Est GFR ( Amer) Est GFR (Non-Af Amer) POC Glucose (mg/dL) 95 100 (65-110) mg/dL Random Glucose (65-105) mg/dL Calcium (8.6-10.4) mg/dl Phosphorus (2.5-4.5) mg/dL Magnesium (1.6-2.3) mg/dL Total Bilirubin (0.2-1.3) mg/dL AST (14-36) U/L ALT (9-52) U/L Alkaline Phosphatase (38-126) U/L Total Protein (6.3-8.3) g/dL Albumin (3.5-5.0) g/dL Globulin (2.2-3.9) gm/dL Albumin/Globulin Ratio (1.0-2.1) Procalcitonin (0.19-0.49) NG/ML Laboratory Results - last 24 hr 10/27/17 10/28/17 10/28/17 23:52 04:55 06:08 WBC 7.0 RBC 3.52 L Hgb 11.2 Hct 35.0 MCV 99.4 H MCH 31.8 H MCHC 32.0 L RDW 17.5 H Plt Count 76 L MPV 8.9 Neut % (Auto) 89.0 H Lymph % (Auto) 5.5 L [place] % (Auto) 5.2 Eos % (Auto) 0.0 Baso % (Auto) 0.3 Neut # (Auto) 6.3 Lymph # (Auto) 0.4 L [place] # (Auto) 0.4 Eos # (Auto) 0.0 Baso # (Auto) 0.0 Neutrophils % (Manual) 88 H Band Neutrophils % 6 H Lymphocytes % (Manual) 3 L Monocytes % (Manual) 3 Nucleated RBC % 1 H Platelet Estimate Decreased L Giant Platelets Present Hypochromasia (manual) Slight Poikilocytosis (manual Slight Basophilic Stippling Slight Anisocytosis (manual) Slight Puncture Site pCO2 pO2 HCO3 ABG pH ABG Total CO2 ABG O2 Saturation ABG Base Excess ABG Hemoglobin ABG Carboxyhemoglobin POC ABG HHb (Measured) ABG Methemoglobin Ck Test A-a O2 Difference Respiratory Index Hgb O2 Saturation Vent Mode FiO2 Inspiratory BiPAP Expiratory BiPAP Sodium Potassium Chloride Carbon Dioxide Anion Gap BUN Creatinine Est GFR ( Amer) Est GFR (Non-Af Amer) POC Glucose (mg/dL) 100 95 Random Glucose Calcium Phosphorus Magnesium Total Bilirubin AST ALT Alkaline Phosphatase Total Protein Albumin Globulin Albumin/Globulin Ratio Procalcitonin 10/28/17 10/28/17 10/28/17 06:09 09:45 09:53 WBC RBC Hgb Hct MCV MCH MCHC RDW Plt Count MPV Neut % (Auto) Lymph % (Auto) [place] % (Auto) Eos % (Auto) Baso % (Auto) Neut # (Auto) Lymph # (Auto) [place] # (Auto) Eos # (Auto) Baso # (Auto) Neutrophils % (Manual) Band Neutrophils % Lymphocytes % (Manual) Monocytes % (Manual) Nucleated RBC % Platelet Estimate Giant Platelets Hypochromasia (manual) Poikilocytosis (manual Basophilic Stippling Anisocytosis (manual) Puncture Site Rr pCO2 66 H pO2 90 HCO3 22.5 ABG pH 7.20 L ABG Total CO2 27.8 ABG O2 Saturation 97.4 ABG Base Excess -3.0 L ABG Hemoglobin 10.6 L ABG Carboxyhemoglobin 2.1 H POC ABG HHb (Measured) 2.5 ABG Methemoglobin 0.7 Ck Test Pos A-a O2 Difference 184.0 Respiratory Index 2.0 Hgb O2 Saturation 94.7 L Vent Mode Bipap FiO2 50.0 Inspiratory BiPAP 10 Expiratory BiPAP 5 Sodium 140 Potassium 4.5 Chloride 100 Carbon Dioxide 25 Anion Gap 20 BUN 21 H Creatinine 2.8 H Est GFR ( Amer) 20 Est GFR (Non-Af Amer) 16 POC Glucose (mg/dL) Random Glucose 98 Calcium 8.1 L Phosphorus 5.3 H Magnesium 2.2 Total Bilirubin 1.1 AST 79 H ALT 27 Alkaline Phosphatase 97 Total Protein 7.7 Albumin 3.5 Globulin 4.2 H Albumin/Globulin Ratio 0.8 L Procalcitonin 6.12 H 10/28/17 10/28/17 11:48 17:39 WBC RBC Hgb Hct MCV MCH MCHC RDW Plt Count MPV Neut % (Auto) Lymph % (Auto) [place] % (Auto) Eos % (Auto) Baso % (Auto) Neut # (Auto) Lymph # (Auto) [place] # (Auto) Eos # (Auto) Baso # (Auto) Neutrophils % (Manual) Band Neutrophils % Lymphocytes % (Manual) Monocytes % (Manual) Nucleated RBC % Platelet Estimate Giant Platelets Hypochromasia (manual) Poikilocytosis (manual Basophilic Stippling Anisocytosis (manual) Puncture Site pCO2 pO2 HCO3 ABG pH ABG Total CO2 ABG O2 Saturation ABG Base Excess ABG Hemoglobin ABG Carboxyhemoglobin POC ABG HHb (Measured) ABG Methemoglobin Ck Test A-a O2 Difference Respiratory Index Hgb O2 Saturation Vent Mode FiO2 Inspiratory BiPAP Expiratory BiPAP Sodium Potassium Chloride Carbon Dioxide Anion Gap BUN Creatinine Est GFR ( Amer) Est GFR (Non-Af Amer) POC Glucose (mg/dL) 84 87 Random Glucose Calcium Phosphorus Magnesium Total Bilirubin AST ALT Alkaline Phosphatase Total Protein Albumin Globulin Albumin/Globulin Ratio Procalcitonin Attending/Attestation - Attestation I have personally seen and examined this patient.: Yes I have fully participated in the care of the patient.: Yes I have reviewed all pertinent clinical information: Yes Notes (Text): 10/28/17 18:25 Patient seen and examined in the intensive care unit. Patient intubatedfor tachypnea/respiratory distress Status post hemodialysis Continue antibiotics Continue nebulizer treatment Start NG tube feeding Follow-up ABGand chest x-ray
[2017-10-28] MEDS: Piperacill/Tazo 2.25gm in Dex 2.25 GM/50 ML BAG IVPB SCH ×2 (10:39→18:08)
--- NOTE | 2017-10-28 10:40 | RAD ---
Date of service: 10/28/2017 HISTORY: respiratory distress COMPARISON: Chest x-ray 10/27/2017 FINDINGS: LUNGS: Bibasilar opacities compatible with bilateral pleural effusions and compressive bibasilar atelectasis. Concomitant underlying infiltrates here pathology not excluded. Size of the left pleural effusion is unchanged given differences in inspiration. That on the right believe similar as well. Background interstitial lung disease a background of pulmonary interstitial pulmonary edema also suspect. PLEURA: Bilateral pleural effusions as above. No pneumothorax CARDIOVASCULAR: Cardiomegaly -similar. Pulmonary venous congestion -similar Atherosclerotic vascular calcifications present. . OSSEOUS STRUCTURES: Generalized osteopenia. Thoracic spondylosis. Bilateral shoulder arthrosis VISUALIZED UPPER ABDOMEN: Normal. OTHER FINDINGS: None. IMPRESSION: Moderate bilateral pleural effusions -similar. Common and bibasilar compressive atelectasis inferred. Additional underlying pathology for example infiltrates not excluded. . Cardiomegaly and pulmonary venous congestion as well as pulmonary interstitial lung disease are suspect. Congestive heart failure inferred. Allowing for differences in technique -no definite interval changes noted
--- NOTE | 2017-10-28 11:43 | CP.PCM.PN ---
Subjective - Date & Time of Evaluation Date of Evaluation: 10/28/17 Time of Evaluation: 11:42 - Subjective Subjective: Nephrology Consultation Note Covering for Dr Conley/Carlos: Assessment: critical Acute respi failure with hypoxia hypercapnia with pulm edema AMS likely due to opiates severe sys CHF exacerbation Diabetic chronic Kidney Disease (E11.22) Hypertensive Chronic Kidney Disease (I12.0) End stage renal disease (N18.6) dependence on hemodialysis (Z99.2) (MWF and sat ) via AVF Anemia (D64.9), Hyperphosphatemia (E83.39), Secondary Hyperparathyroidism (E21.1 ), HTN (I12.0) hx of pleural effusion s/p thoracocentesis Plan: Continue with Nephrovite 1 tab/day. plan for next HD today for isolated UF PRBC as needed for anemia. ANTONIA q 1week last Hb 11 Continue with phos binders home dose, phos level 5.1 BP controlled without meds not on raas stefania as bp low Glycemic control, Dialysis consistent diet Further work up/management as per primary team Dose meds/antibiotics (if needed) for ESRD status. Avoid fleets enema/magnesium based laxatives. CHF optimization fall precautions consider palliative care Thanks for allowing me to participate in care of your patient. will follow with you. Please call if any Qs. had d/w team Dr Javid Griggs Office: [phone] Chief Complaint; SOB and AMS reason for consult: ESRD HPI: Pt is a 82 F with hx of ESRD on hemodialysis (MWF and sat) via AVF (Dr Gonzalez/Dr Conley), chronic anemia, hyperphosphatemia, secondary hyperparathyroidism, Diabetes Mellitus, hypertension, severe CHF presented to [facility] with c/o severe SOB and AMS which improved after narcan. pt was on fentanyl. renal consult for ESRD management pt on bipap and unable to provide much hx ROS: pt with SOB on Bipap, unable to obtain detailed ROS Physical Examination: General Appearance: co-operative, chronically ill and debilitated appearing, on bipap Vitals reviewed and noted as below Head; Atraumatic, normocephalic ENT: deferred EYES: Pupils are equal, round and reactive to light accommodation. Eye muscles and extraocular movement intact. Sclera is anicteric. Neck; supple no lymphadenopathy, no thyromegaly or bruit Lungs: Increased respiratory rate/effort. Breath sounds bilateral decreased has b/l crackles Heart: Normal rate. s1s2 normal. No rub or gallop. Extremities: 1+ edema. No varicose veins Neurological: Patient is alert, awake and No focal deficit. Strength bilateral appropriate and equal Skin: Warm and dry. Normal turgor. No rash. Palpitation: Normal elasticity for age Abdomen: Abdomen is soft. Bowel sounds +. There is no abdominal tenderness, no guarding/rigidity or organomegaly Psych: limited insight and normal affect/mood MSK: no joint tenderness or swelling. Digits and nails normal, no deformity : kidney or bladder not palpable Access: AVF Labs/imaging reviewed. Past medical history, past surgical history, family history, social history, allergy reviewed and noted as below Family Hx: no hx of CKD. Non contributory Objective - Vital Signs/Intake and Output Vital Signs (last 24 hours): Temp Pulse Resp BP Pulse Ox 97.6 F 98 H 24 106/35 L 98 10/28/17 08:00 10/28/17 11:00 10/28/17 11:00 10/28/17 11:00 10/28/17 11:00 Intake and Output: 10/28/17 10/28/17 06:59 18:59 Intake Total 150 120 Output Total 2000 Balance -1850 120 - Medications Medications: Current Medications Acetaminophen (Tylenol 325mg Tab) 650 mg PO Q6 PRN PRN Reason: Pain, moderate (4-7) Last Admin: 10/27/17 22:00 Dose: 650 mg Albuterol/Ipratropium (Duoneb 3 Mg/0.5 Mg (3 Ml) Ud) 3 ml INH RQ6 [facility] Aspirin (Aspirin Chewable) 81 mg PO 0800 [facility] Last Admin: 10/28/17 09:57 Dose: 81 mg Calcium Acetate (Phoslo) 667 mg PO BIDCC [facility] Last Admin: 10/28/17 09:59 Dose: 667 mg Epoetin Jonathan (Procrit) 4,000 unit IV QWK [facility] Piperacillin Sod/Tazobactam Sod (Zosyn 2.25 Gm Iv Premix) 2.25 gm in 50 mls @ 100 mls/hr IVPB Q8H [facility] PRN Reason: Protocol Last Admin: 10/28/17 10:39 Dose: 100 mls/hr Levothyroxine Sodium (Synthroid) 50 mcg PO DAILY@0630 [facility] Last Admin: 10/28/17 05:55 Dose: 50 mcg Mupirocin (Bactroban 2% Nasal) 0.25 gm ZAIDA BID [facility] Stop: 11/01/17 10:01 Last Admin: 10/28/17 10:00 Dose: 0.25 gm Pantoprazole Sodium (Protonix Inj) 40 mg IVP DAILY [facility] Last Admin: 10/28/17 09:53 Dose: 40 mg Rosuvastatin Calcium (Crestor) 2.5 mg PO HS [facility] Last Admin: 10/27/17 21:33 Dose: 2.5 mg Vitamin B Complex/Vit C/Folic Acid (Nephro-Kennedy) 1 tab PO 0800 [facility] Last Admin: 10/28/17 10:01 Dose: 1 tab - Labs Labs: 10/28/17 06:08 10/28/17 06:09 PT 13.9 SECONDS (9.7-12.2) H 10/27/17 06:21 INR 1.3 10/27/17 06:21 APTT 37 SECONDS (21-34) H 10/27/17 06:21
--- NOTE | 2017-10-28 13:27 | VASCLAB ---
Date of service: 10/28/2017 PROCEDURE: Lower Extremity Venous Duplex Exam. HISTORY: B/L LE swelling PRIORS: None. TECHNIQUE: Bilateral common femoral, femoral, popliteal and posterior tibial, peroneal and great saphenous veins were evaluated. Flow was assessed with color Doppler, compressibility, assessment of phasic flow and augmentation response. Report prepared by Compa Lanza, BS, RVT. FINDINGS: RIGHT: 1. Common Femoral Vein: 1.1. Compressibility - Fully compressible: Thrombus - None : Flow - Phasic: Augmentation -Normal: Reflux - None. 2. Femoral Vein: 2.1. Compressibility - Fully compressible: Thrombus - None : Flow - Phasic: Augmentation -Normal: Reflux - None. 3. Popliteal Vein: 3.1. Compressibility - Fully compressible: Thrombus - None : Flow - Phasic: Augmentation -Normal: Reflux - None. 4. Posterior Tibial Vein: 4.1. Compressibility - Fully compressible: Thrombus - None: Flow - Phasic: Augmentation -Normal: Reflux - None. 5. Peroneal Vein: 5.1. Compressibility - Fully compressible: Thrombus - None: Flow - Phasic: Augmentation -Normal: Reflux - None. 6. Great Saphenous Vein: 6.1. Compressibility - Fully compressible: Thrombus - None: Flow - Phasic: Augmentation - Normal: Reflux - None. LEFT: 1. Common Femoral Vein: 1.1. Compressibility - Fully compressible: Thrombus - None: Flow - Phasic: Augmentation -Normal: Reflux - None. 2. Femoral Vein: 2.1. Compressibility - Fully compressible: Thrombus - None: Flow - Phasic: Augmentation -Normal: Reflux - None. 3. Popliteal Vein: 3.1. Compressibility - Fully compressible: Thrombus - None : Flow - Phasic: Augmentation -Normal: Reflux - None. 4. Posterior Tibial Vein: 4.1. Compressibility - Fully compressible: Thrombus - None: Flow - Phasic: Augmentation -Normal: Reflux - None. 5. Peroneal Vein: 5.1. Compressibility - Fully compressible: Thrombus - None: Flow - Phasic: Augmentation -Normal: Reflux - None. 6. Great Saphenous Vein: 6.1. Compressibility - Fully compressible: Thrombus - None: Flow - Phasic: Augmentation - Normal: Reflux - None. OTHER FINDINGS: Right: None significant. Left: None significant. IMPRESSION: Right: No evidence of deep or superficial vein thrombosis of the right lower extremity. Normal valve function noted of the right side. Left: No evidence of deep or superficial vein thrombosis of the left lower extremity. Normal valve function noted of the left side.
[2017-10-28] MEDS: Albuterol-Ipratrop 3 mg / 0.5 (3 ml) UD INH SCH ×2 (13:33→20:01)
[2017-10-28] MEDS ORDERED: Etomidate 20 mg/10ml Inj IV ONE (17:08)
[2017-10-28] MEDS ORDERED: Propofol 10 mg/ml 1,000 MG/100 ML VIAL IV PRN (17:23)
--- NOTE | 2017-10-28 17:53 | PCM.PROC ---
Procedures Attestation:: I certify that I have explained the specified Operation(s) or Procedure(s), risks, benefits and reasonable alternatives to the Patient and/or other person responsible. The opportunity was given to ask questions and all questions answered - Intubation Sedative: Etomidate Laryngoscope: Angeline Assist Device Used: Bougie ET Tube Size: 7.5 ET Tube Secured Locarion: Lips ET Tube Placement Confirmation: Visualized Passing Through Cords, Breath Sounds Equal Bilaterally, Confirmation w/Capnometry Patient Tolerated Procedure: Well Procedure Immediate Complications: None
[2017-10-28] MEDS: Propofol 10 mg/ml 1,000 MG/100 ML VIAL IV PRN (17:54)
--- NOTE | 2017-10-28 17:54 | RAD ---
Date of service: 10/28/2017 HISTORY: intubation COMPARISON: Chest radiograph performed approximately 10 hours prior FINDINGS: LUNGS: Pulmonary vascular congestion. Bibasilar atelectasis. PLEURA: Moderate bilateral pleural effusions. No pneumothorax apparent. CARDIOVASCULAR: Atherosclerotic aortic calcifications. Cardiomediastinal silhouette stably enlarged. OSSEOUS STRUCTURES: Unchanged. VISUALIZED UPPER ABDOMEN: Normal. OTHER FINDINGS: Endotracheal tube with tip between the clavicles and the herberth. Enteric tube with tip in the stomach. IMPRESSION: New enteric and endotracheal tubes in satisfactory position. Grossly stable appearance of moderate bilateral pleural effusions.
[2017-10-28 18:34] LABS: ABG ALLEN TEST UNABLE; ARTERIAL BLOOD GAS HCO3 21.2 mmol/L (21-28); ARTERIAL BLOOD GAS HEMOGLOBIN 10.9 g/dL (11.7-17.4); ARTERIAL BLOOD GAS O2 SAT 99.7 % (95-98); ARTERIAL BLOOD GAS PCO2 38 mm/Hg (35-45); ARTERIAL BLOOD GAS PH 7.34 (7.35-7.45); ARTERIAL BLOOD GAS PO2 192 mm/Hg (80-100); ARTERIAL BLOOD GAS TCO2 21.7 mmol/L (22-28)
--- NOTE | 2017-10-28 18:41 | CP.PCM.HP ---
History of Present Illness - History of Present Illness History of Present Illness: Chief complaint: Altered mental status HPI: 82-year-old female with a history of ischemic heart disease, systolic heart failure, atrial fibrillation, history of carotid artery disease, diabetes, hyperlipidemia, end-stage renal disease, Patient also had a history of diverticulosis diverticulitis, left groin abscess , Received antibiotic and treatment. During the last hospitalization patient was hospitalized for recurrent fall, and also decompensated heart failure. Patient received hemodialysis. Right-sided pleural thoracentesis was done for pleural effusion. Patient sent to rehab, she was doing well, until 2 days she started having increasing weakness, lethargy. This morning patient was found to severe unresponsive, poorly responding to deep stimuli, and also difficulty to arouse. EMS was called, patient was given Narcan with minimal improvement. Patient was immediately transferred to emergency room at [facility]. In the ER patient was given another dose of Narcan, as the patient was having fentanyl patch. She briefly responded. But again she was not able to respond well, she was placed on BiPAP, and she was admitted to the intensive care unit. Patient in the intensive care unit more arousable than before. She was on BiPAP. She does not have any chest pain or does not have any other vomiting or nausea. She was responding to deep stimuli only. Patient also received emergent hemodialysis intensive care unit. Past medical history: Ischemic heart disease, hypertension, hypercholesterolemia, end-stage renal disease on dialysis, diabetes, diverticulosis diverticulitis. Surgical history includes AV fistula Allergy no known drug allergy Personal history: Used to be a smoker in the past. Family history significant for hypertension and heart disease. Review of system: Patient is having minimal headache, complaining of lower back pain, some shortness of breath noted. Minimal cough noted. Leg swelling occasionally noted On examination: Vital signs reviewed Blood pressure is mildly hypotensive. Patient responding only to do extremely. On BiPAP. Bilateral good air entry. Regular heart sound noted. Nontender abdomen. 1+ pedal edema Labs reviewed X-ray showing bilateral pleural effusion. Mild vascular congestion noted. EKG first-degree AV block sinus rhythm noted Patient had echocardiogram in June 2017, ejection fraction is 20-25%. Severe global hypokinesia noted. Aortic sclerosis noted. Mild to moderate mitral regurgitation. Pulmonary hypertension likely, and a moderate tricuspid regurgitation. Assessment and recommendation: 82-year-old female with multiple medical history with recurrent heart failure, ischemic heart disease, global hypokinesia, end-stage renal disease on dialysis , frequently dialysis, and also frequent volume overload status. Patient now admitted with altered mental status most likely secondary to opioid induced. Also associated with the possible decompensated heart failure, and associated with the shortness of breath. Patient is currently responding with the BiPAP. And also to the dialysis. Blood gas analysis reviewed and Currently improving. Continue the BiPAP, bronchodilators, hemodialysis, nephrology evaluation. DVT, GI prophylaxis. Patient possibly also has a decompensated systolic heart failure. Fluid restriction. Daily weight. Avoid opiates. Will follow the Present on Admission - Present on Admission Any Indicators Present on Admission: No History of DVT/PE: No History of Uncontrolled Diabetes: No Urinary Catheter: No Decubitus Ulcer Present: No Past Patient History - Infectious Disease Hx of Infectious Diseases: C.diff - Tetanus Immunizations Tetanus Immunization: Unknown - Past Medical History & Family History Past Medical History?: Yes - Past Social History Smoking Status: Former Smoker - CARDIAC Hx Congestive Heart Failure: Yes Hx Hypercholesterolemia: Yes Hx Hypertension: Yes - PULMONARY Hx Chronic Obstructive Pulmonary Disease (COPD): Yes Hx Pneumonia: Yes - NEUROLOGICAL Hx Neurological Disorder: Yes (numbnes/tingling left leg and ft) Hx Dizziness: Yes - HEENT Hx HEENT Problems: Yes Hx Cataracts: Yes (b/l sx) - RENAL Hx Chronic Kidney Disease: Yes - ENDOCRINE/METABOLIC Hx Hypothyroidism: Yes - HEMATOLOGICAL/ONCOLOGICAL Hx Anemia: Yes - INTEGUMENTARY Hx Dermatological Problems: No Other/Comment: 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, excellent bruit at site - MUSCULOSKELETAL/RHEUMATOLOGICAL Hx Falls: Yes - GASTROINTESTINAL Hx Diverticulitis: Yes - GENITOURINARY/GYNECOLOGICAL Hx 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.ESRD ON HD) - PSYCHIATRIC Hx Anxiety: Yes Hx Depression: Yes Hx Substance Use: No - SURGICAL HISTORY Hx Coronary Stent: Yes Other/Comment: unable to obtain any other information from patient at this time - ANESTHESIA Hx Anesthesia: Yes Hx Anesthesia Reactions: No Hx Malignant Hyperthermia: No Meds Allergies/Adverse Reactions: Allergies Allergy/AdvReac Type Severity Reaction Status Date / Time ceftriaxone Allergy ITCHING Verified 10/27/17 05:52 Results - Vital Signs Recent Vital Signs: Last Vital Signs Temp 97.7 F 10/28/17 16:40 Pulse 79 10/28/17 16:40 Resp 25 H 10/28/17 16:40 BP 98/41 L 10/28/17 16:40 Pulse Ox 97 10/28/17 16:40 - Labs Result Diagrams: 10/28/17 06:08 10/28/17 06:09 Labs: Laboratory Results - last 24 hr 10/27/17 10/28/17 10/28/17 23:52 04:55 06:08 WBC 7.0 RBC 3.52 L Hgb 11.2 Hct 35.0 MCV 99.4 H MCH 31.8 H MCHC 32.0 L RDW 17.5 H Plt Count 76 L MPV 8.9 Neut % (Auto) 89.0 H Lymph % (Auto) 5.5 L Bowie % (Auto) 5.2 Eos % (Auto) 0.0 Baso % (Auto) 0.3 Neut # (Auto) 6.3 Lymph # (Auto) 0.4 L Bowie # (Auto) 0.4 Eos # (Auto) 0.0 Baso # (Auto) 0.0 Neutrophils % (Manual) 88 H Band Neutrophils % 6 H Lymphocytes % (Manual) 3 L Monocytes % (Manual) 3 Nucleated RBC % 1 H Platelet Estimate Decreased L Giant Platelets Present Hypochromasia (manual) Slight Poikilocytosis (manual Slight Basophilic Stippling Slight Anisocytosis (manual) Slight Puncture Site pCO2 pO2 HCO3 ABG pH ABG Total CO2 ABG O2 Saturation ABG Base Excess ABG Hemoglobin ABG Carboxyhemoglobin POC ABG HHb (Measured) ABG Methemoglobin Ck Test A-a O2 Difference Respiratory Index Hgb O2 Saturation Vent Mode Mechanical Rate FiO2 Tidal Volume PEEP Inspiratory BiPAP Expiratory BiPAP Sodium Potassium Chloride Carbon Dioxide Anion Gap BUN Creatinine Est GFR ( Amer) Est GFR (Non-Af Amer) POC Glucose (mg/dL) 100 95 Random Glucose Calcium Phosphorus Magnesium Total Bilirubin AST ALT Alkaline Phosphatase Total Protein Albumin Globulin Albumin/Globulin Ratio Procalcitonin 10/28/17 10/28/17 10/28/17 06:09 09:45 09:53 WBC RBC Hgb Hct MCV MCH MCHC RDW Plt Count MPV Neut % (Auto) Lymph % (Auto) Bowie % (Auto) Eos % (Auto) Baso % (Auto) Neut # (Auto) Lymph # (Auto) Bowie # (Auto) Eos # (Auto) Baso # (Auto) Neutrophils % (Manual) Band Neutrophils % Lymphocytes % (Manual) Monocytes % (Manual) Nucleated RBC % Platelet Estimate Giant Platelets Hypochromasia (manual) Poikilocytosis (manual Basophilic Stippling Anisocytosis (manual) Puncture Site Rr pCO2 66 H pO2 90 HCO3 22.5 ABG pH 7.20 L ABG Total CO2 27.8 ABG O2 Saturation 97.4 ABG Base Excess -3.0 L ABG Hemoglobin 10.6 L ABG Carboxyhemoglobin 2.1 H POC ABG HHb (Measured) 2.5 ABG Methemoglobin 0.7 Ck Test Pos A-a O2 Difference 184.0 Respiratory Index 2.0 Hgb O2 Saturation 94.7 L Vent Mode Bipap Mechanical Rate FiO2 50.0 Tidal Volume PEEP Inspiratory BiPAP 10 Expiratory BiPAP 5 Sodium 140 Potassium 4.5 Chloride 100 Carbon Dioxide 25 Anion Gap 20 BUN 21 H Creatinine 2.8 H Est GFR ( Amer) 20 Est GFR (Non-Af Amer) 16 POC Glucose (mg/dL) Random Glucose 98 Calcium 8.1 L Phosphorus 5.3 H Magnesium 2.2 Total Bilirubin 1.1 AST 79 H ALT 27 Alkaline Phosphatase 97 Total Protein 7.7 Albumin 3.5 Globulin 4.2 H Albumin/Globulin Ratio 0.8 L Procalcitonin 6.12 H 10/28/17 10/28/17 10/28/17 11:48 17:39 18:29 WBC RBC Hgb Hct MCV MCH MCHC RDW Plt Count MPV Neut % (Auto) Lymph % (Auto) Bowie % (Auto) Eos % (Auto) Baso % (Auto) Neut # (Auto) Lymph # (Auto) Bowie # (Auto) Eos # (Auto) Baso # (Auto) Neutrophils % (Manual) Band Neutrophils % Lymphocytes % (Manual) Monocytes % (Manual) Nucleated RBC % Platelet Estimate Giant Platelets Hypochromasia (manual) Poikilocytosis (manual Basophilic Stippling Anisocytosis (manual) Puncture Site Rr pCO2 38 pO2 192 H HCO3 21.2 ABG pH 7.34 L ABG Total CO2 21.7 L ABG O2 Saturation 99.7 H ABG Base Excess -4.8 L ABG Hemoglobin 10.9 L ABG Carboxyhemoglobin 1.8 H POC ABG HHb (Measured) 0.3 ABG Methemoglobin 1.1 Ck Test Unable A-a O2 Difference 474.0 Respiratory Index 2.5 Hgb O2 Saturation 96.8 Vent Mode Prvc Mechanical Rate 14 FiO2 100.0 Tidal Volume 400 PEEP 5 Inspiratory BiPAP Expiratory BiPAP Sodium Potassium Chloride Carbon Dioxide Anion Gap BUN Creatinine Est GFR ( Amer) Est GFR (Non-Af Amer) POC Glucose (mg/dL) 84 87 Random Glucose Calcium Phosphorus Magnesium Total Bilirubin AST ALT Alkaline Phosphatase Total Protein Albumin Globulin Albumin/Globulin Ratio Procalcitonin
--- NOTE | 2017-10-28 19:04 | CP.PCM.PN ---
Subjective - Date & Time of Evaluation Date of Evaluation: 10/28/17 Time of Evaluation: 19:04 - Subjective Subjective: Patient yesterday received hemodialysis. She was doing okay, on BiPAP. But the secretion was noted, patient was having a hard time in bringing it out. Today again dialysis was attempted. But repeat blood gas analysis showing some George worsening acidosis, and the elevated PCO2 and a reduced pH noted. It was decided by the ICU team to intubate, currently on ventilator. Patient is on ventilator. Sedated. On examination: Vital signs hypotension noted. Chest bilateral good air entry. Regular heart sound noted. Abdomen soft nontender. Extremities edema Chest x-ray showing intubated endotracheal tube in place. Bilateral haziness noted, edema present Assessment and recommendation: 82-year-old female with a history of ischemic heart disease, systolic heart failure, atrial fibrillation intermittent, carotid artery disease, diabetes, hypertension, hypercholesterolemia, end-stage renal disease on dialysis, and diverticulosis diverticulitis. Now admitted with acute respiratory failure, and possible aspiration pneumonia, pneumonitis and associate with the fluid overload. Currently intubated, on ventilator patient I spoke to the patient's family in details. We will inform the family about the prognosis. If no improvement in next few days, will discuss with family about the possible palliative treatment. Will follow-up the patient Objective - Vital Signs/Intake and Output Vital Signs (last 24 hours): Temp Pulse Resp BP Pulse Ox 97.7 F 79 25 H 98/41 L 97 10/28/17 16:40 10/28/17 16:40 10/28/17 16:40 10/28/17 16:40 10/28/17 16:40 Intake and Output: 10/28/17 10/29/17 18:59 06:59 Intake Total 240 Balance 240 - Medications Medications: Current Medications Acetaminophen (Tylenol 325mg Tab) 650 mg PO Q6 PRN PRN Reason: Pain, moderate (4-7) Last Admin: 10/27/17 22:00 Dose: 650 mg Albuterol/Ipratropium (Duoneb 3 Mg/0.5 Mg (3 Ml) Ud) 3 ml INH RQ6 [facility] Last Admin: 10/28/17 13:33 Dose: 3 ml Aspirin (Aspirin Chewable) 81 mg PO 0800 [facility] Last Admin: 10/28/17 09:57 Dose: 81 mg Calcium Acetate (Phoslo) 667 mg PO BIDCC [facility] Last Admin: 10/28/17 18:08 Dose: 667 mg Epoetin Jonathan (Procrit) 4,000 unit IV QWK [facility] Heparin Sodium (Porcine) (Heparin) 5,000 units SC Q12 [facility] Piperacillin Sod/Tazobactam Sod (Zosyn 2.25 Gm Iv Premix) 2.25 gm in 50 mls @ 100 mls/hr IVPB Q8H [facility] PRN Reason: Protocol Last Admin: 10/28/17 18:08 Dose: 100 mls/hr Propofol (Diprivan) 1,000 mg in 100 mls @ 1.701 mls/hr IV .Q24H PRN; Protocol; 5 MCG/KG/MIN PRN Reason: Agitation Last Titration: 10/28/17 18:34 Dose: 30 mcg/kg/min, 10.206 mls/hr Levothyroxine Sodium (Synthroid) 50 mcg PO DAILY@0630 [facility] Last Admin: 10/28/17 05:55 Dose: 50 mcg Mupirocin (Bactroban 2% Nasal) 0.25 gm ZAIDA BID [facility] Stop: 11/01/17 10:01 Last Admin: 10/28/17 18:12 Dose: 0.25 gm Pantoprazole Sodium (Protonix Inj) 40 mg IVP DAILY [facility] Last Admin: 10/28/17 09:53 Dose: 40 mg Rosuvastatin Calcium (Crestor) 2.5 mg PO HS [facility] Last Admin: 10/27/17 21:33 Dose: 2.5 mg Vitamin B Complex/Vit C/Folic Acid (Nephro-Kennedy) 1 tab PO 0800 [facility] Last Admin: 10/28/17 10:01 Dose: 1 tab - Labs Labs: 10/28/17 06:08 10/28/17 06:09 PT 13.9 SECONDS (9.7-12.2) H 10/27/17 06:21 INR 1.3 10/27/17 06:21 APTT 37 SECONDS (21-34) H 10/27/17 06:21
[2017-10-28] MEDS: Rosuvastatin Calcium 2.5 mg Tab PO SCH (22:15)
[2017-10-29] MEDS ORDERED: Dextrose 50% SYRINGE Inj (50 ml) IV STA (00:27)
[2017-10-29] MEDS: Propofol 10 mg/ml 1,000 MG/100 ML VIAL IV PRN ×3 (00:45→16:00)
[2017-10-29] MEDS: Albuterol-Ipratrop 3 mg / 0.5 (3 ml) UD INH SCH ×4 (01:11→20:28)
[2017-10-29] MEDS: Piperacill/Tazo 2.25gm in Dex 2.25 GM/50 ML BAG IVPB SCH ×3 (02:00→17:40)
[2017-10-29 04:39] LABS: ABG ALLEN TEST POS; ARTERIAL BLOOD GAS HCO3 23.7 mmol/L (21-28); ARTERIAL BLOOD GAS HEMOGLOBIN 14.1 g/dL (11.7-17.4); ARTERIAL BLOOD GAS O2 SAT 99.7 % (95-98); ARTERIAL BLOOD GAS PCO2 44 mm/Hg (35-45); ARTERIAL BLOOD GAS PH 7.35 (7.35-7.45); ARTERIAL BLOOD GAS PO2 147 mm/Hg (80-100); ARTERIAL BLOOD GAS TCO2 25.7 mmol/L (22-28)
[2017-10-29] MEDS: Levothyroxine 50 MCG TAB PO SCH (05:49)
[2017-10-29 06:30] LABS: BASO % 0.3 % (0.0-2.0); HEMOGLOBIN 10.3 g/dL (11.0-16.0); LYMPH # 0.8 K/uL (1.0-4.3); LYMPH % 13.9 % (20.0-40.0); MEAN CELL VOLUME 96.2 fL (81.0-99.0); MEAN CORPUSCULAR HEMOGLOBIN 31.5 pg (27.0-31.0); MEAN CORPUSCULAR HGB CONC 32.8 g/dL (33.0-37.0); MONO # 0.5 K/uL (0.0-0.8); MONO % 8.3 % (0.0-10.0); NEUT # 4.5 K/uL (1.8-7.0); NEUT % 77.5 % (50.0-75.0); NRBC % 0.3 % (0.0-2.0); RBC 3.28 Mil/uL (3.80-5.20); RED CELL DISTRIBUTION WIDTH 17.3 % (11.5-14.5); WHITE BLOOD COUNT 5.8 K/uL (4.8-10.8)
[2017-10-29 06:49] LABS: ALB/GLOB RATIO 0.8 (1.0-2.1); ALBUMIN 2.7 g/dL (3.5-5.0); CALCIUM 7.8 mg/dl (8.6-10.4)
[2017-10-29] MEDS: Multivitamin Vitamin B Complex (Nephro-Vite) Tab PO SCH (10:11)
--- NOTE | 2017-10-29 10:16 | RAD ---
Date of service: 10/29/2017 HISTORY: Intubated. COMPARISON: October 28, 2017. FINDINGS: LUNGS: Stable bilateral lower lobe infiltrates, pulmonary vascular congestion. PLEURA: Stable bilateral pleural effusions left smaller than right CARDIOVASCULAR: No significant interval change compared to the prior examination(s). OSSEOUS STRUCTURES: No significant abnormalities. VISUALIZED UPPER ABDOMEN: Normal. OTHER FINDINGS: Satisfactory and stable position of support apparatus including endotracheal tube and nasogastric tube. IMPRESSION: No significant interval change compared to the prior examination(s).
[2017-10-29] MEDS: Mupirocin 2% Ointment (NASAL) NAS SCH ×2 (10:46→17:39)
--- NOTE | 2017-10-29 11:43 | CP.CCUPN ---
CCU Subjective - Physician Review Subjective (Free Text): 10/28/17 10:29 82 F with PMHx of ESRD on HD MWFS, HTN, DM, CAD, HF, Anemia of Chronic Disease, admitted to ICU with AMS in hypercapneic respiratory failure. Patient presented to ED w/ 3 fentanyl patches. No acute events overnight. Pt unable to maintain spO2 on BiPAP w/ FiO2 of 50%, intubated 10/28 *Contact precaution for C. Diff Hx. 10/29/17 11:41 CCU Objective - Vital Signs / Intake & Output Vital Signs (Last 4 hours): Vital Signs Temp Pulse Resp BP Pulse Ox 10/29/17 11:00 111 H 21 99 10/29/17 10:57 111 H 14 98/42 L 100 10/29/17 10:52 111 H 20 93/43 L 100 10/29/17 10:51 112 H 19 10/29/17 10:50 112 H 17 99 10/29/17 10:40 112 H 19 99 10/29/17 10:30 112 H 22 99 10/29/17 10:20 112 H 22 99 10/29/17 10:10 112 H 22 99 10/29/17 10:00 112 H 14 99 10/29/17 09:52 112 H 17 97/43 L 99 10/29/17 09:50 112 H 15 100 10/29/17 09:40 111 H 15 100 10/29/17 09:30 112 H 20 100 10/29/17 09:20 111 H 18 100 10/29/17 09:10 110 H 14 100 10/29/17 09:00 109 H 15 112/46 L 100 10/29/17 08:52 108 H 11 L 112/46 L 100 10/29/17 08:50 107 H 12 100 10/29/17 08:40 106 H 17 100 10/29/17 08:30 106 H 14 100 10/29/17 08:20 106 H 14 100 10/29/17 08:10 106 H 17 100 10/29/17 08:00 98.3 F 76 13 118/43 L 100 10/29/17 07:52 70 9 L 118/43 L 100 10/29/17 07:50 71 11 L 100 Intake and Output (Last 8hrs): Intake & Output 10/28/17 10/29/17 10/29/17 22:59 06:59 14:59 Intake Total 130.4 302.8 195.8 Output Total 0 Balance 130.4 302.8 195.8 Weight 129 lb 0.7 oz Intake: IV 30 92.0 78 Intake, IV Amount 100.4 150.8 117.8 Right Forearm 100.4 100.8 67.8 Right Hand 50 50 Oral 0 Other 60 Output: Urine 0 Urine, Voided 0 Other: # Bowel Movements 0 - Physical Exam Physical Exam Limitations: Positive for: Altered Mental Status Head: Positive for: Atraumatic, Normocephalic Respiratory/Chest: Positive for: Decreased Breath Sounds (R>L), Tachypneic Cardiovascular: Positive for: Regular Rate and Rhythm. Negative for: Murmurs Abdomen: Positive for: Normal Bowel Sounds. Negative for: Distention Upper Extremity: Negative for: Cyanosis, Edema Lower Extremity: Positive for: Normal Inspection. Negative for: Edema Neurological: Negative for: GCS=15 Skin: Positive for: Normal Color Psychiatric: Negative for: Alert - Medications Active Medications: Active Medications Generic Name Dose Route Start Last Admin Trade Name Freq PRN Reason Stop Dose Admin Acetaminophen 650 mg 10/27/17 10:07 10/27/17 22:00 Tylenol 325mg Tab PO 650 mg Q6 PRN Administration Pain, moderate (4-7) Albuterol/Ipratropium 3 ml 10/28/17 14:00 10/29/17 07:30 Duoneb 3 Mg/0.5 Mg (3 Ml) Ud INH 3 ml RQ6 LUKE Administration Aspirin 81 mg 10/28/17 08:00 10/29/17 07:58 Aspirin Chewable PO 81 mg 0800 LUKE Administration Calcium Acetate 667 mg 10/27/17 17:00 10/29/17 07:58 Phoslo PO 667 mg BIDCC LUKE Administration Epoetin Jonathan 4,000 unit 11/03/17 10:00 Procrit IV QWK [facility] Heparin Sodium (Porcine) 5,000 units 10/28/17 22:00 10/29/17 10:10 Heparin SC 5,000 units Q12 LUKE Administration Piperacillin Sod/Tazobactam Sod 2.25 gm in 50 mls @ 100 mls/hr 10/28/17 10:00 10/29/17 10:11 Zosyn 2.25 Gm Iv Premix IVPB 100 mls/hr Q8H LUKE Administration Protocol Propofol 1,000 mg in 100 mls @ 1.701 mls/hr 10/28/17 17:35 10/29/17 09:49 Diprivan IV 40 mcg/kg/min .Q24H PRN 13.608 mls/hr Agitation Administration Protocol 5 MCG/KG/MIN Levothyroxine Sodium 50 mcg 10/28/17 06:30 10/29/17 05:49 Synthroid PO 50 mcg DAILY@0630 LUKE Administration Mupirocin 0.25 gm 10/27/17 18:00 10/29/17 10:46 Bactroban 2% Nasal ZAIDA 11/01/17 10:01 0.25 gm BID LUKE Administration Pantoprazole Sodium 40 mg 10/27/17 12:00 10/29/17 10:11 Protonix Inj IVP 40 mg DAILY LUKE Administration Rosuvastatin Calcium 2.5 mg 10/27/17 22:00 10/28/17 22:15 Crestor PO 2.5 mg HS LUKE Administration Vitamin B Complex/Vit C/Folic Acid 1 tab 10/28/17 08:00 10/29/17 10:11 Nephro-Kennedy PO 1 tab 0800 LUKE Administration - Patient Studies Lab Studies: Microbiology Studies 10/28/17 18:47 Gram Stain - Final Trachasp 10/27/17 16:35 Blood Culture - Preliminary Blood NO GROWTH AFTER 24 HOURS 10/27/17 16:35 Blood Culture - Preliminary Blood NO GROWTH AFTER 24 HOURS 10/27/17 09:10 MRSA Culture (Admit) - Final Naris MRSA NOT DETECTED 10/27/17 06:39 Urine Culture - Final Urine,Catheterized No Growth (<1,000 CFU/ML) Lab Studies 10/29/17 10/29/17 10/29/17 Range/Units 06:24 06:24 06:04 WBC 5.8 (4.8-10.8) K/uL RBC 3.28 L (3.80-5.20) Mil/uL Hgb 10.3 L (11.0-16.0) g/dL Hct 31.6 L (34.0-47.0) % MCV 96.2 D (81.0-99.0) fL MCH 31.5 H (27.0-31.0) pg MCHC 32.8 L (33.0-37.0) g/dL RDW 17.3 H (11.5-14.5) % Plt Count 76 L (130-400) K/uL MPV 8.0 (7.2-11.7) fL Neut % (Auto) 77.5 H (50.0-75.0) % Lymph % (Auto) 13.9 L (20.0-40.0) % [place] % (Auto) 8.3 (0.0-10.0) % Eos % (Auto) 0.0 (0.0-4.0) % Baso % (Auto) 0.3 (0.0-2.0) % Neut # (Auto) 4.5 (1.8-7.0) K/uL Lymph # (Auto) 0.8 L (1.0-4.3) K/uL [place] # (Auto) 0.5 (0.0-0.8) K/uL Eos # (Auto) 0.0 (0.0-0.7) K/uL Baso # (Auto) 0.0 (0.0-0.2) K/uL Puncture Site pCO2 (35-45) mm/Hg pO2 (80-100) mm/Hg HCO3 (21-28) mmol/L ABG pH (7.35-7.45) ABG Total CO2 (22-28) mmol/L ABG O2 Saturation (95-98) % ABG Base Excess (-2.0-3.0) mmol/L ABG Hemoglobin (11.7-17.4) g/dL ABG Carboxyhemoglobin (0.5-1.5) % POC ABG HHb (Measured) (0.0-5.0) % ABG Methemoglobin (0.0-3.0) % Ck Test A-a O2 Difference mm/Hg Respiratory Index Hgb O2 Saturation (95.0-98.0) % Vent Mode Mechanical Rate FiO2 % Tidal Volume PEEP Sodium 139 (132-148) mmol/L Potassium 3.9 (3.6-5.2) mmol/L Chloride 100 (98-107) mmol/L Carbon Dioxide 22 (22-30) mmol/L Anion Gap 21 H (10-20) BUN 37 H (7-17) mg/dL Creatinine 3.5 H (0.7-1.2) mg/dL Est GFR ( Amer) 15 Est GFR (Non-Af Amer) 12 POC Glucose (mg/dL) 105 (65-110) mg/dL Random Glucose 91 (65-105) mg/dL Calcium 7.8 L (8.6-10.4) mg/dl Phosphorus 3.2 (2.5-4.5) mg/dL Magnesium 2.2 (1.6-2.3) mg/dL Total Bilirubin 0.9 (0.2-1.3) mg/dL AST 68 H (14-36) U/L ALT 36 (9-52) U/L Alkaline Phosphatase 90 (38-126) U/L Total Protein 6.3 (6.3-8.3) g/dL Albumin 2.7 L D (3.5-5.0) g/dL Globulin 3.5 (2.2-3.9) gm/dL Albumin/Globulin Ratio 0.8 L (1.0-2.1) Procalcitonin (0.19-0.49) NG/ML 10/29/17 10/29/17 10/29/17 Range/Units 04:25 00:59 00:17 WBC (4.8-10.8) K/uL RBC (3.80-5.20) Mil/uL Hgb (11.0-16.0) g/dL Hct (34.0-47.0) % MCV (81.0-99.0) fL MCH (27.0-31.0) pg MCHC (33.0-37.0) g/dL RDW (11.5-14.5) % Plt Count (130-400) K/uL MPV (7.2-11.7) fL Neut % (Auto) (50.0-75.0) % Lymph % (Auto) (20.0-40.0) % [place] % (Auto) (0.0-10.0) % Eos % (Auto) (0.0-4.0) % Baso % (Auto) (0.0-2.0) % Neut # (Auto) (1.8-7.0) K/uL Lymph # (Auto) (1.0-4.3) K/uL [place] # (Auto) (0.0-0.8) K/uL Eos # (Auto) (0.0-0.7) K/uL Baso # (Auto) (0.0-0.2) K/uL Puncture Site Rr pCO2 44 (35-45) mm/Hg pO2 147 H (80-100) mm/Hg HCO3 23.7 (21-28) mmol/L ABG pH 7.35 (7.35-7.45) ABG Total CO2 25.7 (22-28) mmol/L ABG O2 Saturation 99.7 H (95-98) % ABG Base Excess -1.5 (-2.0-3.0) mmol/L ABG Hemoglobin 14.1 (11.7-17.4) g/dL ABG Carboxyhemoglobin 1.8 H (0.5-1.5) % POC ABG HHb (Measured) 0.3 (0.0-5.0) % ABG Methemoglobin 0.9 (0.0-3.0) % Ck Test Pos A-a O2 Difference 226.0 mm/Hg Respiratory Index 1.5 Hgb O2 Saturation 97.0 (95.0-98.0) % Vent Mode Prvc Mechanical Rate 14 FiO2 60.0 % Tidal Volume 400 PEEP 5 Sodium (132-148) mmol/L Potassium (3.6-5.2) mmol/L Chloride (98-107) mmol/L Carbon Dioxide (22-30) mmol/L Anion Gap (10-20) BUN (7-17) mg/dL Creatinine (0.7-1.2) mg/dL Est GFR ( Amer) Est GFR (Non-Af Amer) POC Glucose (mg/dL) 210 H 61 L (65-110) mg/dL Random Glucose (65-105) mg/dL Calcium (8.6-10.4) mg/dl Phosphorus (2.5-4.5) mg/dL Magnesium (1.6-2.3) mg/dL Total Bilirubin (0.2-1.3) mg/dL AST (14-36) U/L ALT (9-52) U/L Alkaline Phosphatase (38-126) U/L Total Protein (6.3-8.3) g/dL Albumin (3.5-5.0) g/dL Globulin (2.2-3.9) gm/dL Albumin/Globulin Ratio (1.0-2.1) Procalcitonin (0.19-0.49) NG/ML 10/29/17 10/28/17 10/28/17 Range/Units 00:14 18:29 17:39 WBC (4.8-10.8) K/uL RBC (3.80-5.20) Mil/uL Hgb (11.0-16.0) g/dL Hct (34.0-47.0) % MCV (81.0-99.0) fL MCH (27.0-31.0) pg MCHC (33.0-37.0) g/dL RDW (11.5-14.5) % Plt Count (130-400) K/uL MPV (7.2-11.7) fL Neut % (Auto) (50.0-75.0) % Lymph % (Auto) (20.0-40.0) % [place] % (Auto) (0.0-10.0) % Eos % (Auto) (0.0-4.0) % Baso % (Auto) (0.0-2.0) % Neut # (Auto) (1.8-7.0) K/uL Lymph # (Auto) (1.0-4.3) K/uL [place] # (Auto) (0.0-0.8) K/uL Eos # (Auto) (0.0-0.7) K/uL Baso # (Auto) (0.0-0.2) K/uL Puncture Site Rr pCO2 38 (35-45) mm/Hg pO2 192 H (80-100) mm/Hg HCO3 21.2 (21-28) mmol/L ABG pH 7.34 L (7.35-7.45) ABG Total CO2 21.7 L (22-28) mmol/L ABG O2 Saturation 99.7 H (95-98) % ABG Base Excess -4.8 L (-2.0-3.0) mmol/L ABG Hemoglobin 10.9 L (11.7-17.4) g/dL ABG Carboxyhemoglobin 1.8 H (0.5-1.5) % POC ABG HHb (Measured) 0.3 (0.0-5.0) % ABG Methemoglobin 1.1 (0.0-3.0) % Ck Test Unable A-a O2 Difference 474.0 mm/Hg Respiratory Index 2.5 Hgb O2 Saturation 96.8 (95.0-98.0) % Vent Mode Prvc Mechanical Rate 14 FiO2 100.0 % Tidal Volume 400 PEEP 5 Sodium (132-148) mmol/L Potassium (3.6-5.2) mmol/L Chloride (98-107) mmol/L Carbon Dioxide (22-30) mmol/L Anion Gap (10-20) BUN (7-17) mg/dL Creatinine (0.7-1.2) mg/dL Est GFR ( Amer) Est GFR (Non-Af Amer) POC Glucose (mg/dL) 65 87 (65-110) mg/dL Random Glucose (65-105) mg/dL Calcium (8.6-10.4) mg/dl Phosphorus (2.5-4.5) mg/dL Magnesium (1.6-2.3) mg/dL Total Bilirubin (0.2-1.3) mg/dL AST (14-36) U/L ALT (9-52) U/L Alkaline Phosphatase (38-126) U/L Total Protein (6.3-8.3) g/dL Albumin (3.5-5.0) g/dL Globulin (2.2-3.9) gm/dL Albumin/Globulin Ratio (1.0-2.1) Procalcitonin (0.19-0.49) NG/ML 10/28/17 10/28/17 Range/Units 11:48 09:53 WBC (4.8-10.8) K/uL RBC (3.80-5.20) Mil/uL Hgb (11.0-16.0) g/dL Hct (34.0-47.0) % MCV (81.0-99.0) fL MCH (27.0-31.0) pg MCHC (33.0-37.0) g/dL RDW (11.5-14.5) % Plt Count (130-400) K/uL MPV (7.2-11.7) fL Neut % (Auto) (50.0-75.0) % Lymph % (Auto) (20.0-40.0) % [place] % (Auto) (0.0-10.0) % Eos % (Auto) (0.0-4.0) % Baso % (Auto) (0.0-2.0) % Neut # (Auto) (1.8-7.0) K/uL Lymph # (Auto) (1.0-4.3) K/uL [place] # (Auto) (0.0-0.8) K/uL Eos # (Auto) (0.0-0.7) K/uL Baso # (Auto) (0.0-0.2) K/uL Puncture Site pCO2 (35-45) mm/Hg pO2 (80-100) mm/Hg HCO3 (21-28) mmol/L ABG pH (7.35-7.45) ABG Total CO2 (22-28) mmol/L ABG O2 Saturation (95-98) % ABG Base Excess (-2.0-3.0) mmol/L ABG Hemoglobin (11.7-17.4) g/dL ABG Carboxyhemoglobin (0.5-1.5) % POC ABG HHb (Measured) (0.0-5.0) % ABG Methemoglobin (0.0-3.0) % Ck Test A-a O2 Difference mm/Hg Respiratory Index Hgb O2 Saturation (95.0-98.0) % Vent Mode Mechanical Rate FiO2 % Tidal Volume PEEP Sodium (132-148) mmol/L Potassium (3.6-5.2) mmol/L Chloride (98-107) mmol/L Carbon Dioxide (22-30) mmol/L Anion Gap (10-20) BUN (7-17) mg/dL Creatinine (0.7-1.2) mg/dL Est GFR ( Amer) Est GFR (Non-Af Amer) POC Glucose (mg/dL) 84 (65-110) mg/dL Random Glucose (65-105) mg/dL Calcium (8.6-10.4) mg/dl Phosphorus (2.5-4.5) mg/dL Magnesium (1.6-2.3) mg/dL Total Bilirubin (0.2-1.3) mg/dL AST (14-36) U/L ALT (9-52) U/L Alkaline Phosphatase (38-126) U/L Total Protein (6.3-8.3) g/dL Albumin (3.5-5.0) g/dL Globulin (2.2-3.9) gm/dL Albumin/Globulin Ratio (1.0-2.1) Procalcitonin 6.12 H (0.19-0.49) NG/ML Laboratory Results - last 24 hr 10/28/17 10/28/17 10/28/17 09:53 11:48 17:39 WBC RBC Hgb Hct MCV MCH MCHC RDW Plt Count MPV Neut % (Auto) Lymph % (Auto) [place] % (Auto) Eos % (Auto) Baso % (Auto) Neut # (Auto) Lymph # (Auto) [place] # (Auto) Eos # (Auto) Baso # (Auto) Puncture Site pCO2 pO2 HCO3 ABG pH ABG Total CO2 ABG O2 Saturation ABG Base Excess ABG Hemoglobin ABG Carboxyhemoglobin POC ABG HHb (Measured) ABG Methemoglobin Ck Test A-a O2 Difference Respiratory Index Hgb O2 Saturation Vent Mode Mechanical Rate FiO2 Tidal Volume PEEP Sodium Potassium Chloride Carbon Dioxide Anion Gap BUN Creatinine Est GFR ( Amer) Est GFR (Non-Af Amer) POC Glucose (mg/dL) 84 87 Random Glucose Calcium Phosphorus Magnesium Total Bilirubin AST ALT Alkaline Phosphatase Total Protein Albumin Globulin Albumin/Globulin Ratio Procalcitonin 6.12 H 10/28/17 10/29/17 10/29/17 18:29 00:14 00:17 WBC RBC Hgb Hct MCV MCH MCHC RDW Plt Count MPV Neut % (Auto) Lymph % (Auto) [place] % (Auto) Eos % (Auto) Baso % (Auto) Neut # (Auto) Lymph # (Auto) [place] # (Auto) Eos # (Auto) Baso # (Auto) Puncture Site Rr pCO2 38 pO2 192 H HCO3 21.2 ABG pH 7.34 L ABG Total CO2 21.7 L ABG O2 Saturation 99.7 H ABG Base Excess -4.8 L ABG Hemoglobin 10.9 L ABG Carboxyhemoglobin 1.8 H POC ABG HHb (Measured) 0.3 ABG Methemoglobin 1.1 Ck Test Unable A-a O2 Difference 474.0 Respiratory Index 2.5 Hgb O2 Saturation 96.8 Vent Mode Prvc Mechanical Rate 14 FiO2 100.0 Tidal Volume 400 PEEP 5 Sodium Potassium Chloride Carbon Dioxide Anion Gap BUN Creatinine Est GFR ( Amer) Est GFR (Non-Af Amer) POC Glucose (mg/dL) 65 61 L Random Glucose Calcium Phosphorus Magnesium Total Bilirubin AST ALT Alkaline Phosphatase Total Protein Albumin Globulin Albumin/Globulin Ratio Procalcitonin 10/29/17 10/29/17 10/29/17 00:59 04:25 06:04 WBC RBC Hgb Hct MCV MCH MCHC RDW Plt Count MPV Neut % (Auto) Lymph % (Auto) [place] % (Auto) Eos % (Auto) Baso % (Auto) Neut # (Auto) Lymph # (Auto) [place] # (Auto) Eos # (Auto) Baso # (Auto) Puncture Site Rr pCO2 44 pO2 147 H HCO3 23.7 ABG pH 7.35 ABG Total CO2 25.7 ABG O2 Saturation 99.7 H ABG Base Excess -1.5 ABG Hemoglobin 14.1 ABG Carboxyhemoglobin 1.8 H POC ABG HHb (Measured) 0.3 ABG Methemoglobin 0.9 Ck Test Pos A-a O2 Difference 226.0 Respiratory Index 1.5 Hgb O2 Saturation 97.0 Vent Mode Prvc Mechanical Rate 14 FiO2 60.0 Tidal Volume 400 PEEP 5 Sodium Potassium Chloride Carbon Dioxide Anion Gap BUN Creatinine Est GFR ( Amer) Est GFR (Non-Af Amer) POC Glucose (mg/dL) 210 H 105 Random Glucose Calcium Phosphorus Magnesium Total Bilirubin AST ALT Alkaline Phosphatase Total Protein Albumin Globulin Albumin/Globulin Ratio Procalcitonin 10/29/17 10/29/17 06:24 06:24 WBC 5.8 RBC 3.28 L Hgb 10.3 L Hct 31.6 L MCV 96.2 D MCH 31.5 H MCHC 32.8 L RDW 17.3 H Plt Count 76 L MPV 8.0 Neut % (Auto) 77.5 H Lymph % (Auto) 13.9 L [place] % (Auto) 8.3 Eos % (Auto) 0.0 Baso % (Auto) 0.3 Neut # (Auto) 4.5 Lymph # (Auto) 0.8 L [place] # (Auto) 0.5 Eos # (Auto) 0.0 Baso # (Auto) 0.0 Puncture Site pCO2 pO2 HCO3 ABG pH ABG Total CO2 ABG O2 Saturation ABG Base Excess ABG Hemoglobin ABG Carboxyhemoglobin POC ABG HHb (Measured) ABG Methemoglobin Ck Test A-a O2 Difference Respiratory Index Hgb O2 Saturation Vent Mode Mechanical Rate FiO2 Tidal Volume PEEP Sodium 139 Potassium 3.9 Chloride 100 Carbon Dioxide 22 Anion Gap 21 H BUN 37 H Creatinine 3.5 H Est GFR ( Amer) 15 Est GFR (Non-Af Amer) 12 POC Glucose (mg/dL) Random Glucose 91 Calcium 7.8 L Phosphorus 3.2 Magnesium 2.2 Total Bilirubin 0.9 AST 68 H ALT 36 Alkaline Phosphatase 90 Total Protein 6.3 Albumin 2.7 L D Globulin 3.5 Albumin/Globulin Ratio 0.8 L Procalcitonin Fingerstick Blood Sugar Results: 105 Review of Systems - Review of Systems Systems not reviewed;Unavailable: Intubated Assessment/Plan - Assessment and Plan (Free Text) Assessment: 82 yo F w/ PMHx of ESRD, HTN, DM, CAD, HF, anemia, admitted with AMS in hypercapneic respiratory failure. 1. AMS -likely exacerbated due to 3 fentanyl patches -avoid opiates -monitor CO2 -aspiration precaution -NPO 2. Hypercapneic respiratory failure -on vent, FiO2 50% -pCO2 44, pH 7.35 -ABGs 3. PNA -zosyn 2.25g q8 4. ESRD -HD MWFS -epo 400U MWF -renally dosed meds 5. CHF 6. COPD -duonebs q6 7. CAD -aspirin 81mg -crestor 2.5mg 8. Hypothyroid -levothyroxine 50mcg 9. Nutrition -10/29 feeds started, Nepro @20, goal 40 Ppx -protonix 40mg -heparin 5000u q12 case discussed with Dr. Atwood
[2017-10-29] MEDS ORDERED: Albumin Human 25% (12.5 gm/50 ml) IV ONE (12:45)
--- NOTE | 2017-10-29 15:07 | CP.PCM.PN ---
Subjective - Date & Time of Evaluation Date of Evaluation: 10/29/17 Time of Evaluation: 15:06 - Subjective Subjective: Nephrology Consultation Note Covering for Dr Conley/Carlos: Assessment: critical Acute respi failure with hypoxia hypercapnia with pulm edema s/p mechanical ventilation 10/28/17 AMS likely due to opiates severe sys CHF exacerbation Diabetic chronic Kidney Disease (E11.22) Hypertensive Chronic Kidney Disease (I12.0) End stage renal disease (N18.6) dependence on hemodialysis (Z99.2) (MWF and sat ) via AVF Anemia (D64.9), Hyperphosphatemia (E83.39), Secondary Hyperparathyroidism (E21.1 ), HTN (I12.0) hx of pleural effusion s/p thoracocentesis Plan: Continue with Nephrovite 1 tab/day. plan for next HD today per MWF schedule PRBC as needed for anemia. ANTONIA q 1week last Hb 10.3-11 range Continue with phos binders home dose, phos level 5.1 BP controlled without meds not on raas stefania as bp low Glycemic control, Dialysis consistent diet Further work up/management as per primary team Dose meds/antibiotics (if needed) for ESRD status. Avoid fleets enema/magnesium based laxatives. CHF optimization fall precautions consider palliative care Thanks for allowing me to participate in care of your patient. will follow with you. Please call if any Qs. had d/w team Dr Javid Griggs Office: [phone] Chief Complaint; SOB and AMS reason for consult: ESRD HPI: Pt is a 82 F with hx of ESRD on hemodialysis (MWF and sat) via AVF (Dr Gonzalez/Dr Conley), chronic anemia, hyperphosphatemia, secondary hyperparathyroidism, Diabetes Mellitus, hypertension, severe CHF presented to [facility] with c/o severe SOB and AMS which improved after narcan. pt was on fentanyl. renal consult for ESRD management pt on bipap and unable to provide much hx ROS: intubated Physical Examination: General Appearance: chronically ill and debilitated appearing, intubated and mechanically ventilated Vitals reviewed and noted as below Head; Atraumatic, normocephalic ENT: deferred EYES: Pupils are equal, round and reactive to light accommodation. Eye muscles and extraocular movement intact. Sclera is anicteric. Neck; supple no lymphadenopathy, no thyromegaly or bruit Lungs: normal respiratory rate/effort. Breath sounds bilateral decreased has b/ l crackles Heart: Normal rate. s1s2 normal. No rub or gallop. Extremities: no edema. No varicose veins Neurological: Patient is sedated Skin: Warm and dry. Normal turgor. No rash. Palpitation: Normal elasticity for age Abdomen: Abdomen is soft. Bowel sounds +. There is no abdominal tenderness, no guarding/rigidity or organomegaly Psych: deferred MSK: no joint tenderness or swelling. Digits and nails normal, no deformity : kidney or bladder not palpable Access: AVF Labs/imaging reviewed. Past medical history, past surgical history, family history, social history, allergy reviewed and noted as below Family Hx: no hx of CKD. Non contributory Objective - Vital Signs/Intake and Output Vital Signs (last 24 hours): Temp Pulse Resp BP Pulse Ox 97.7 F 70 15 124/43 L 100 10/29/17 13:55 10/29/17 14:30 10/29/17 14:30 10/29/17 14:16 10/29/17 14:30 Intake and Output: 10/29/17 10/29/17 06:59 18:59 Intake Total 363.2 276.6 Output Total 200 Balance 363.2 76.6 - Medications Medications: Current Medications Acetaminophen (Tylenol 325mg Tab) 650 mg PO Q6 PRN PRN Reason: Pain, moderate (4-7) Last Admin: 10/27/17 22:00 Dose: 650 mg Albuterol/Ipratropium (Duoneb 3 Mg/0.5 Mg (3 Ml) Ud) 3 ml INH RQ6 [facility] Last Admin: 10/29/17 13:17 Dose: 3 ml Aspirin (Aspirin Chewable) 81 mg PO 0800 [facility] Last Admin: 10/29/17 07:58 Dose: 81 mg Calcium Acetate (Phoslo) 667 mg PO BIDCC [facility] Last Admin: 10/29/17 07:58 Dose: 667 mg Epoetin Jonathan (Procrit) 4,000 unit IV QWK [facility] Heparin Sodium (Porcine) (Heparin) 5,000 units SC Q12 [facility] Last Admin: 10/29/17 10:10 Dose: 5,000 units Piperacillin Sod/Tazobactam Sod (Zosyn 2.25 Gm Iv Premix) 2.25 gm in 50 mls @ 100 mls/hr IVPB Q8H [facility] PRN Reason: Protocol Last Admin: 10/29/17 10:11 Dose: 100 mls/hr Propofol (Diprivan) 1,000 mg in 100 mls @ 1.701 mls/hr IV .Q24H PRN; Protocol; 5 MCG/KG/MIN PRN Reason: Agitation Last Admin: 10/29/17 09:49 Dose: 40 mcg/kg/min, 13.608 mls/hr Levothyroxine Sodium (Synthroid) 50 mcg PO DAILY@0630 [facility] Last Admin: 10/29/17 05:49 Dose: 50 mcg Mupirocin (Bactroban 2% Nasal) 0.25 gm ZAIDA BID [facility] Stop: 11/01/17 10:01 Last Admin: 10/29/17 10:46 Dose: 0.25 gm Pantoprazole Sodium (Protonix Inj) 40 mg IVP DAILY [facility] Last Admin: 10/29/17 10:11 Dose: 40 mg Rosuvastatin Calcium (Crestor) 2.5 mg PO HS [facility] Last Admin: 10/28/17 22:15 Dose: 2.5 mg Vitamin B Complex/Vit C/Folic Acid (Nephro-Kennedy) 1 tab PO 0800 [facility] Last Admin: 10/29/17 10:11 Dose: 1 tab - Labs Labs: 10/29/17 06:24 10/29/17 06:24 PT 13.9 SECONDS (9.7-12.2) H 10/27/17 06:21 INR 1.3 10/27/17 06:21 APTT 37 SECONDS (21-34) H 10/27/17 06:21
--- NOTE | 2017-10-29 22:00 | CP.PCM.PN ---
Subjective - Date & Time of Evaluation Date of Evaluation: 10/29/17 Time of Evaluation: 22:00 - Subjective Subjective: Patient is currently sedated. On ventilator. Thick secretions noted from the tube. Did have a dialysis today. Tolerated. Vital signs stable. No fever noted. On examination: Vital signs stable. Chest bilateral good air entry noted. Regular heart sound noted. Abdomen soft, nontender. Edema noted bilaterally Labs reviewed Chest x-ray Sabra her pleural effusion, no acute infiltrate noted Assessment/recommendation: 82-year-old female with history of end-stage renal disease on dialysis, congestive heart failure, atrial fibrillation intermittent, bilateral pleural effusion. Admitted with acute respiratory failure, altered mental status, aspiration possibly pneumonia. On ventilator at right now. We'll continue the bronchodilators, antibiotic, and will follow the patient. Will speak to the patient's family about the prognosis again. Will follow-up the patient Objective - Vital Signs/Intake and Output Vital Signs (last 24 hours): Temp Pulse Resp BP Pulse Ox 98.7 F 81 23 125/41 L 100 10/29/17 20:00 10/29/17 21:00 10/29/17 21:00 10/29/17 20:26 10/29/17 21:00 Intake and Output: 10/29/17 10/30/17 18:59 06:59 Intake Total 597.0 107.4 Output Total 200 0 Balance 397.0 107.4 - Medications Medications: Current Medications Acetaminophen (Tylenol 325mg Tab) 650 mg PO Q6 PRN PRN Reason: Pain, moderate (4-7) Last Admin: 10/27/17 22:00 Dose: 650 mg Albuterol/Ipratropium (Duoneb 3 Mg/0.5 Mg (3 Ml) Ud) 3 ml INH RQ6 [facility] Last Admin: 10/29/17 20:28 Dose: 3 ml Aspirin (Aspirin Chewable) 81 mg PO 0800 [facility] Last Admin: 10/29/17 07:58 Dose: 81 mg Calcium Acetate (Phoslo) 667 mg PO BIDCC [facility] Last Admin: 10/29/17 16:12 Dose: 667 mg Epoetin Jonathan (Procrit) 4,000 unit IV QWK [facility] Heparin Sodium (Porcine) (Heparin) 5,000 units SC Q12 [facility] Last Admin: 10/29/17 10:10 Dose: 5,000 units Piperacillin Sod/Tazobactam Sod (Zosyn 2.25 Gm Iv Premix) 2.25 gm in 50 mls @ 100 mls/hr IVPB Q8H [facility] PRN Reason: Protocol Last Admin: 10/29/17 17:40 Dose: 100 mls/hr Propofol (Diprivan) 1,000 mg in 100 mls @ 1.701 mls/hr IV .Q24H PRN; Protocol; 5 MCG/KG/MIN PRN Reason: Agitation Last Titration: 10/29/17 18:47 Dose: 35 mcg/kg/min, 11.907 mls/hr Levothyroxine Sodium (Synthroid) 50 mcg PO DAILY@0630 [facility] Last Admin: 10/29/17 05:49 Dose: 50 mcg Mupirocin (Bactroban 2% Nasal) 0.25 gm ZAIDA BID [facility] Stop: 11/01/17 10:01 Last Admin: 10/29/17 17:39 Dose: 0.25 gm Pantoprazole Sodium (Protonix Inj) 40 mg IVP DAILY [facility] Last Admin: 10/29/17 10:11 Dose: 40 mg Rosuvastatin Calcium (Crestor) 2.5 mg PO HS [facility] Last Admin: 10/28/17 22:15 Dose: 2.5 mg Vitamin B Complex/Vit C/Folic Acid (Nephro-Kennedy) 1 tab PO 0800 [facility] Last Admin: 10/29/17 10:11 Dose: 1 tab - Labs Labs: 10/29/17 06:24 10/29/17 06:24 PT 13.9 SECONDS (9.7-12.2) H 10/27/17 06:21 INR 1.3 10/27/17 06:21 APTT 37 SECONDS (21-34) H 10/27/17 06:21
[2017-10-29] MEDS: Rosuvastatin Calcium 2.5 mg Tab PO SCH (22:26)
[2017-10-30] MEDS: Propofol 10 mg/ml 1,000 MG/100 ML VIAL IV PRN ×2 (00:35→08:59)
[2017-10-30] MEDS: Albuterol-Ipratrop 3 mg / 0.5 (3 ml) UD INH SCH ×4 (01:34→19:28)
[2017-10-30] MEDS: Piperacill/Tazo 2.25gm in Dex 2.25 GM/50 ML BAG IVPB SCH ×3 (01:39→17:00)
[2017-10-30 06:08] LABS: ABG ALLEN TEST POS; ARTERIAL BLOOD GAS HCO3 29.6 mmol/L (21-28); ARTERIAL BLOOD GAS HEMOGLOBIN 9.1 g/dL (11.7-17.4); ARTERIAL BLOOD GAS O2 SAT 99.4 % (95-98); ARTERIAL BLOOD GAS PCO2 44 mm/Hg (35-45); ARTERIAL BLOOD GAS PH 7.45 (7.35-7.45); ARTERIAL BLOOD GAS PO2 172 mm/Hg (80-100)
[2017-10-30] MEDS: Levothyroxine 50 MCG TAB PO SCH (06:11)
[2017-10-30 06:19] LABS: HEMOGLOBIN 9.4 g/dL (11.0-16.0); LYMPH # 1.1 K/uL (1.0-4.3); MEAN CELL VOLUME 95.3 fL (81.0-99.0); MEAN CORPUSCULAR HEMOGLOBIN 32.9 pg (27.0-31.0); MEAN CORPUSCULAR HGB CONC 34.6 g/dL (33.0-37.0); MEAN PLATELET VOLUME 8.1 fL (7.2-11.7); MONO # 0.4 K/uL (0.0-0.8); MONO % 8.7 % (0.0-10.0); NEUT # 3.2 K/uL (1.8-7.0); NEUT % 67.3 % (50.0-75.0); NRBC % 0.4 % (0.0-2.0); RBC 2.86 Mil/uL (3.80-5.20); RED CELL DISTRIBUTION WIDTH 16.9 % (11.5-14.5); WHITE BLOOD COUNT 4.8 K/uL (4.8-10.8)
[2017-10-30 06:32] LABS: INR 1.1; PROTHROMBIN TIME 12.1 SECONDS (9.7-12.2)
[2017-10-30 06:51] LABS: ALB/GLOB RATIO 0.8 (1.0-2.1); ALBUMIN 2.9 g/dL (3.5-5.0); CALCIUM 8.2 mg/dl (8.6-10.4)
[2017-10-30] MEDS: Multivitamin Vitamin B Complex (Nephro-Vite) Tab PO SCH (08:22)
[2017-10-30] MEDS ORDERED: Potassium Phosphate 15 MMOLE in Sodium Chloride 0.9% 250 ML IVPB ONE (09:00)
[2017-10-30] MEDS: Mupirocin 2% Ointment (NASAL) NAS SCH (10:27)
--- NOTE | 2017-10-30 12:38 | RAD ---
Date of service: 10/30/2017 HISTORY: intubated COMPARISON: 10/29/2017 FINDINGS: LUNGS: Bordering the right pleural effusion is fluid tracking in the fissure and likely-concomitant discoid atelectasis-appearing similar. PLEURA: The minimal left and mild right pleural effusions appear similar. Nopneumothorax apparent. CARDIOVASCULAR: Minimal cardiomegaly and mild pulmonary venous congestion-both similar. OSSEOUS STRUCTURES: No significant abnormalities. VISUALIZED UPPER ABDOMEN: Splenic artery and aortic knob calcifications noted OTHER FINDINGS: Endotracheal tube tip 3 cm from the herberth the NG tube courses along the stomach -tip beyond the inferior edge of this study. IMPRESSION: The pulmonary venous congestion, bilateral pleural effusions and right basal concomitant discoid atelectasis are similar in appearance Endotracheal tube and NG tube positions suggest satisfactory positions
--- NOTE | 2017-10-30 15:25 | CP.PCM.PN ---
Subjective - Date & Time of Evaluation Date of Evaluation: 10/30/17 Time of Evaluation: 15:24 - Subjective Subjective: Nephrology Consultation Note Covering for Dr Conley/Carlos: Assessment: critical Acute respi failure with hypoxia hypercapnia with pulm edema s/p mechanical ventilation 10/28/17 AMS likely due to opiates severe sys CHF exacerbation Diabetic chronic Kidney Disease (E11.22) Hypertensive Chronic Kidney Disease (I12.0) End stage renal disease (N18.6) dependence on hemodialysis (Z99.2) (MWF and sat ) via AVF Anemia (D64.9), Hyperphosphatemia (E83.39), Secondary Hyperparathyroidism (E21.1 ), HTN (I12.0) hx of pleural effusion s/p thoracocentesis Plan: Continue with Nephrovite 1 tab/day. plan for next HD tomorrow per MWF schedule PRBC as needed for anemia. ANTONIA with HD last Hb 9.4 d/c phos binders, last phos level 1.0 KPHOS was supplemented BP controlled without meds not on raas stefania as bp low Glycemic control, Dialysis consistent diet Further work up/management as per primary team Dose meds/antibiotics (if needed) for ESRD status. Avoid fleets enema/magnesium based laxatives. CHF optimization fall precautions consider palliative care Thanks for allowing me to participate in care of your patient. will follow with you. Please call if any Qs. had d/w team Dr Javid Griggs Office: [phone] Chief Complaint; SOB and AMS reason for consult: ESRD HPI: Pt is a 82 F with hx of ESRD on hemodialysis (MWF and sat) via AVF (Dr Gonzalez/Dr Conley), chronic anemia, hyperphosphatemia, secondary hyperparathyroidism, Diabetes Mellitus, hypertension, severe CHF presented to [facility] with c/o severe SOB and AMS which improved after narcan. pt was on fentanyl. renal consult for ESRD management pt on bipap and unable to provide much hx ROS: intubated Physical Examination: General Appearance: chronically ill and debilitated appearing, orally intubated and mechanically ventilated Vitals reviewed and noted as below Head; Atraumatic, normocephalic ENT: deferred EYES: Pupils are equal, round and reactive to light accommodation. Sclera is anicteric. Neck; supple no lymphadenopathy, no thyromegaly or bruit Lungs: normal respiratory rate/effort. Breath sounds bilateral clear anteriorly Heart: Normal rate. s1s2 normal. No rub or gallop. Extremities: no edema. No varicose veins Neurological: Patient is sedated Skin: Warm and dry. Normal turgor. No rash. Palpitation: Normal elasticity for age Abdomen: Abdomen is soft. Bowel sounds +. There is no abdominal tenderness, no guarding/rigidity or organomegaly Psych: deferred MSK: no joint tenderness or swelling. Digits and nails normal, no deformity : kidney or bladder not palpable Access: AVF Labs/imaging reviewed. Past medical history, past surgical history, family history, social history, allergy reviewed and noted as below Family Hx: no hx of CKD. Non contributory Objective - Vital Signs/Intake and Output Vital Signs (last 24 hours): Temp Pulse Resp BP Pulse Ox 98.8 F 75 14 101/39 L 95 10/30/17 12:00 10/30/17 13:00 10/30/17 13:00 10/30/17 12:25 10/30/17 13:00 Intake and Output: 10/30/17 10/30/17 06:59 18:59 Intake Total 638.5 639.6 Output Total 0 0 Balance 638.5 639.6 - Medications Medications: Current Medications Acetaminophen (Tylenol 325mg Tab) 650 mg PO Q6 PRN PRN Reason: Pain, moderate (4-7) Last Admin: 10/27/17 22:00 Dose: 650 mg Albuterol/Ipratropium (Duoneb 3 Mg/0.5 Mg (3 Ml) Ud) 3 ml INH RQ6 [facility] Last Admin: 10/30/17 14:21 Dose: 3 ml Aspirin (Aspirin Chewable) 81 mg PO 0800 [facility] Last Admin: 10/30/17 08:22 Dose: 81 mg Epoetin Jonathan (Procrit) 4,000 unit IV MWF [facility] Heparin Sodium (Porcine) (Heparin) 5,000 units SC Q12 [facility] Last Admin: 10/30/17 10:35 Dose: 5,000 units Piperacillin Sod/Tazobactam Sod (Zosyn 2.25 Gm Iv Premix) 2.25 gm in 50 mls @ 100 mls/hr IVPB Q8H [facility] PRN Reason: Protocol Last Admin: 10/30/17 10:21 Dose: 100 mls/hr Propofol (Diprivan) 1,000 mg in 100 mls @ 1.701 mls/hr IV .Q24H PRN; Protocol; 5 MCG/KG/MIN PRN Reason: Agitation Last Titration: 10/30/17 10:19 Dose: 5 mcg/kg/min, 1.701 mls/hr Fentanyl Citrate 2,500 mcg/ (Sodium Chloride) 250 mls @ 11.79 mls/hr IV .[id number] [facility]; 2 MCG/KG/HR PRN Reason: Protocol Last Admin: 10/30/17 11:00 Dose: 1 mcg/kg/hr, 5.89 mls/hr Levothyroxine Sodium (Synthroid) 50 mcg PO DAILY@0630 [facility] Last Admin: 10/30/17 06:11 Dose: 50 mcg Pantoprazole Sodium (Protonix Inj) 40 mg IVP DAILY [facility] Last Admin: 10/30/17 10:36 Dose: 40 mg Rosuvastatin Calcium (Crestor) 2.5 mg PO HS [facility] Last Admin: 10/29/17 22:26 Dose: 2.5 mg Vitamin B Complex/Vit C/Folic Acid (Nephro-Kennedy) 1 tab PO 0800 [facility] Last Admin: 10/30/17 08:22 Dose: 1 tab - Labs Labs: 10/30/17 06:11 10/30/17 06:11 PT 12.1 SECONDS (9.7-12.2) 10/30/17 06:11 INR 1.1 10/30/17 06:11 APTT 33 SECONDS (21-34) 10/30/17 06:11
--- NOTE | 2017-10-30 18:44 | CP.CCUPN ---
<Akilah Haywood - Last Filed: 10/30/17 19:00> CCU Subjective - Physician Review Subjective (Free Text): 82 F with PMHx of ESRD on HD MWFS, HTN, DM, CAD, HF, Anemia of Chronic Disease, admitted to ICU with AMS in hypercapneic respiratory failure. Patient presented to ED w/ 3 fentanyl patches. No acute events overnight. Pt unable to maintain spO2 on BiPAP, intubated 7/10 w/ FiO2 of 50%. ROS unobtainable as pt is intubated. *Contact precaution for C. Diff Hx. 10/30/17 18:36 CCU Objective - Vital Signs / Intake & Output Vital Signs (Last 4 hours): Vital Signs Pulse Resp BP Pulse Ox 10/30/17 17:25 71 14 102/40 L 96 10/30/17 17:00 71 14 96 10/30/17 16:25 75 14 115/42 L 96 10/30/17 16:00 76 16 96 10/30/17 15:26 80 15 117/42 L 97 10/30/17 15:00 80 14 96 Intake and Output (Last 8hrs): Intake & Output 10/30/17 10/30/17 10/30/17 06:59 14:59 22:59 Intake Total 494.2 736.0 85.1 Output Total 0 0 0 Balance 494.2 736.0 85.1 Weight 130 lb 0.8 oz Intake: IV 99 92 Intake, IV Amount 145.2 469.0 85.1 Right Forearm 95.2 54.4 Right Hand 50 375.0 62.5 side port right forearm 39.6 22.6 Tube Feeding 250 175 Output: Urine 0 0 0 Urine, Voided 0 0 0 Other: # Bowel Movements 0 0 0 - Physical Exam Head: Positive for: Atraumatic, Normocephalic Mouth: Positive for: Moist Mucous Membranes Respiratory/Chest: Positive for: Decreased Breath Sounds (R>L), Tachypneic Cardiovascular: Positive for: Regular Rate and Rhythm. Negative for: Murmurs Abdomen: Positive for: Normal Bowel Sounds. Negative for: Distention Upper Extremity: Negative for: Cyanosis, Edema Lower Extremity: Positive for: Normal Inspection. Negative for: Edema Neurological: Negative for: GCS=15 Skin: Positive for: Normal Color Psychiatric: Negative for: Alert - Medications Active Medications: Active Medications Generic Name Dose Route Start Last Admin Trade Name Freq PRN Reason Stop Dose Admin Acetaminophen 650 mg 10/27/17 10:07 10/27/17 22:00 Tylenol 325mg Tab PO 650 mg Q6 PRN Administration Pain, moderate (4-7) Albuterol/Ipratropium 3 ml 10/28/17 14:00 10/30/17 14:21 Duoneb 3 Mg/0.5 Mg (3 Ml) Ud INH 3 ml RQ6 LUKE Administration Aspirin 81 mg 10/28/17 08:00 10/30/17 08:22 Aspirin Chewable PO 81 mg 0800 LUKE Administration Epoetin Jonathan 4,000 unit 10/31/17 09:00 Procrit IV MWF [facility], [facility]–1983 Heparin Sodium (Porcine) 5,000 units 10/28/17 22:00 10/30/17 10:35 Heparin SC 5,000 units Q12 LUKE Administration Piperacillin Sod/Tazobactam Sod 2.25 gm in 50 mls @ 100 mls/hr 10/28/17 10:00 10/30/17 10:21 Zosyn 2.25 Gm Iv Premix IVPB 100 mls/hr Q8H LUKE Administration Protocol Propofol 1,000 mg in 100 mls @ 1.701 mls/hr 10/28/17 17:35 10/30/17 10:19 Diprivan IV 5 mcg/kg/min .Q24H PRN 1.701 mls/hr Agitation Titration Protocol 5 MCG/KG/MIN Fentanyl Citrate 2,500 mcg/ 250 mls @ 11.79 mls/hr 10/30/17 11:00 10/30/17 11 :00 Sodium Chloride IV 1 mcg/kg/hr .[id number] LUKE 5.89 mls/hr Protocol Administration 2 MCG/KG/HR Levothyroxine Sodium 50 mcg 10/28/17 06:30 10/30/17 06:11 Synthroid PO 50 mcg DAILY@0630 LUKE Administration Pantoprazole Sodium 40 mg 10/27/17 12:00 10/30/17 10:36 Protonix Inj IVP 40 mg DAILY LUKE Administration Rosuvastatin Calcium 2.5 mg 10/27/17 22:00 10/29/17 22:26 Crestor PO 2.5 mg HS LUKE Administration Vitamin B Complex/Vit C/Folic Acid 1 tab 10/28/17 08:00 10/30/17 08:22 Nephro-Kennedy PO 1 tab 0800 [facility] Administration - Patient Studies Lab Studies: Microbiology Studies 10/27/17 16:35 Blood Culture - Preliminary Blood NO GROWTH AFTER 3 DAYS 10/27/17 16:35 Blood Culture - Preliminary Blood NO GROWTH AFTER 3 DAYS 10/28/17 18:47 Gram Stain - Final Trachasp Sputum Culture - Final Yeast Species Lab Studies 10/30/17 10/30/17 10/30/17 Range/Units 18:11 12:46 06:11 WBC (4.8-10.8) K/uL RBC (3.80-5.20) Mil/uL Hgb (11.0-16.0) g/dL Hct (34.0-47.0) % MCV (81.0-99.0) fL MCH (27.0-31.0) pg MCHC (33.0-37.0) g/dL RDW (11.5-14.5) % Plt Count (130-400) K/uL MPV (7.2-11.7) fL Neut % (Auto) (50.0-75.0) % Lymph % (Auto) (20.0-40.0) % [place] % (Auto) (0.0-10.0) % Eos % (Auto) (0.0-4.0) % Baso % (Auto) (0.0-2.0) % Neut # (Auto) (1.8-7.0) K/uL Lymph # (Auto) (1.0-4.3) K/uL [place] # (Auto) (0.0-0.8) K/uL Eos # (Auto) (0.0-0.7) K/uL Baso # (Auto) (0.0-0.2) K/uL PT (9.7-12.2) SECONDS INR APTT (21-34) SECONDS Puncture Site pCO2 (35-45) mm/Hg pO2 (80-100) mm/Hg HCO3 (21-28) mmol/L ABG pH (7.35-7.45) ABG Total CO2 (22-28) mmol/L ABG O2 Saturation (95-98) % ABG Base Excess (-2.0-3.0) mmol/L ABG Hemoglobin (11.7-17.4) g/dL ABG Carboxyhemoglobin (0.5-1.5) % POC ABG HHb (Measured) (0.0-5.0) % ABG Methemoglobin (0.0-3.0) % Ck Test A-a O2 Difference mm/Hg Respiratory Index Hgb O2 Saturation (95.0-98.0) % Vent Mode Mechanical Rate FiO2 % Tidal Volume PEEP Sodium 138 (132-148) mmol/L Potassium 3.6 (3.6-5.2) mmol/L Chloride 98 (98-107) mmol/L Carbon Dioxide 27 (22-30) mmol/L Anion Gap 17 (10-20) BUN 30 H (7-17) mg/dL Creatinine 2.9 H (0.7-1.2) mg/dL Est GFR ( Amer) 19 Est GFR (Non-Af Amer) 15 POC Glucose (mg/dL) 164 H 179 H (65-110) mg/dL Random Glucose 175 H (65-105) mg/dL Calcium 8.2 L (8.6-10.4) mg/dl Phosphorus 1.0 L* (2.5-4.5) mg/dL Magnesium 2.1 (1.6-2.3) mg/dL Total Bilirubin 0.9 (0.2-1.3) mg/dL AST 66 H (14-36) U/L ALT 28 (9-52) U/L Alkaline Phosphatase 125 (38-126) U/L Total Protein 6.5 (6.3-8.3) g/dL Albumin 2.9 L (3.5-5.0) g/dL Globulin 3.6 (2.2-3.9) gm/dL Albumin/Globulin Ratio 0.8 L (1.0-2.1) 10/30/17 10/30/17 10/30/17 Range/Units 06:11 06:11 05:54 WBC 4.8 (4.8-10.8) K/uL RBC 2.86 L (3.80-5.20) Mil/uL Hgb 9.4 L (11.0-16.0) g/dL Hct 27.2 L (34.0-47.0) % MCV 95.3 (81.0-99.0) fL MCH 32.9 H (27.0-31.0) pg MCHC 34.6 (33.0-37.0) g/dL RDW 16.9 H (11.5-14.5) % Plt Count 67 L (130-400) K/uL MPV 8.1 (7.2-11.7) fL Neut % (Auto) 67.3 (50.0-75.0) % Lymph % (Auto) 23.0 (20.0-40.0) % [place] % (Auto) 8.7 (0.0-10.0) % Eos % (Auto) 0.0 (0.0-4.0) % Baso % (Auto) 1.0 (0.0-2.0) % Neut # (Auto) 3.2 (1.8-7.0) K/uL Lymph # (Auto) 1.1 (1.0-4.3) K/uL [place] # (Auto) 0.4 (0.0-0.8) K/uL Eos # (Auto) 0.0 (0.0-0.7) K/uL Baso # (Auto) 0.0 (0.0-0.2) K/uL PT 12.1 (9.7-12.2) SECONDS INR 1.1 APTT 33 (21-34) SECONDS Puncture Site pCO2 (35-45) mm/Hg pO2 (80-100) mm/Hg HCO3 (21-28) mmol/L ABG pH (7.35-7.45) ABG Total CO2 (22-28) mmol/L ABG O2 Saturation (95-98) % ABG Base Excess (-2.0-3.0) mmol/L ABG Hemoglobin (11.7-17.4) g/dL ABG Carboxyhemoglobin (0.5-1.5) % POC ABG HHb (Measured) (0.0-5.0) % ABG Methemoglobin (0.0-3.0) % Ck Test A-a O2 Difference mm/Hg Respiratory Index Hgb O2 Saturation (95.0-98.0) % Vent Mode Mechanical Rate FiO2 % Tidal Volume PEEP Sodium (132-148) mmol/L Potassium (3.6-5.2) mmol/L Chloride (98-107) mmol/L Carbon Dioxide (22-30) mmol/L Anion Gap (10-20) BUN (7-17) mg/dL Creatinine (0.7-1.2) mg/dL Est GFR ( Amer) Est GFR (Non-Af Amer) POC Glucose (mg/dL) 177 H (65-110) mg/dL Random Glucose (65-105) mg/dL Calcium (8.6-10.4) mg/dl Phosphorus (2.5-4.5) mg/dL Magnesium (1.6-2.3) mg/dL Total Bilirubin (0.2-1.3) mg/dL AST (14-36) U/L ALT (9-52) U/L Alkaline Phosphatase (38-126) U/L Total Protein (6.3-8.3) g/dL Albumin (3.5-5.0) g/dL Globulin (2.2-3.9) gm/dL Albumin/Globulin Ratio (1.0-2.1) 10/30/17 10/29/17 Range/Units 05:27 23:56 WBC (4.8-10.8) K/uL RBC (3.80-5.20) Mil/uL Hgb (11.0-16.0) g/dL Hct (34.0-47.0) % MCV (81.0-99.0) fL MCH (27.0-31.0) pg MCHC (33.0-37.0) g/dL RDW (11.5-14.5) % Plt Count (130-400) K/uL MPV (7.2-11.7) fL Neut % (Auto) (50.0-75.0) % Lymph % (Auto) (20.0-40.0) % [place] % (Auto) (0.0-10.0) % Eos % (Auto) (0.0-4.0) % Baso % (Auto) (0.0-2.0) % Neut # (Auto) (1.8-7.0) K/uL Lymph # (Auto) (1.0-4.3) K/uL [place] # (Auto) (0.0-0.8) K/uL Eos # (Auto) (0.0-0.7) K/uL Baso # (Auto) (0.0-0.2) K/uL PT (9.7-12.2) SECONDS INR APTT (21-34) SECONDS Puncture Site R rad pCO2 44 (35-45) mm/Hg pO2 172 H (80-100) mm/Hg HCO3 29.6 H (21-28) mmol/L ABG pH 7.45 (7.35-7.45) ABG Total CO2 32.0 H (22-28) mmol/L ABG O2 Saturation 99.4 H (95-98) % ABG Base Excess 6.0 H (-2.0-3.0) mmol/L ABG Hemoglobin 9.1 L (11.7-17.4) g/dL ABG Carboxyhemoglobin 1.5 (0.5-1.5) % POC ABG HHb (Measured) 0.6 (0.0-5.0) % ABG Methemoglobin 1.2 (0.0-3.0) % Ck Test Pos A-a O2 Difference 130.0 mm/Hg Respiratory Index 0.8 Hgb O2 Saturation 96.7 (95.0-98.0) % Vent Mode Prvc Mechanical Rate 14 FiO2 50.0 % Tidal Volume 400 PEEP 5 Sodium (132-148) mmol/L Potassium (3.6-5.2) mmol/L Chloride (98-107) mmol/L Carbon Dioxide (22-30) mmol/L Anion Gap (10-20) BUN (7-17) mg/dL Creatinine (0.7-1.2) mg/dL Est GFR ( Amer) Est GFR (Non-Af Amer) POC Glucose (mg/dL) 146 H (65-110) mg/dL Random Glucose (65-105) mg/dL Calcium (8.6-10.4) mg/dl Phosphorus (2.5-4.5) mg/dL Magnesium (1.6-2.3) mg/dL Total Bilirubin (0.2-1.3) mg/dL AST (14-36) U/L ALT (9-52) U/L Alkaline Phosphatase (38-126) U/L Total Protein (6.3-8.3) g/dL Albumin (3.5-5.0) g/dL Globulin (2.2-3.9) gm/dL Albumin/Globulin Ratio (1.0-2.1) Laboratory Results - last 24 hr 10/29/17 10/30/17 10/30/17 23:56 05:27 05:54 WBC RBC Hgb Hct MCV MCH MCHC RDW Plt Count MPV Neut % (Auto) Lymph % (Auto) [place] % (Auto) Eos % (Auto) Baso % (Auto) Neut # (Auto) Lymph # (Auto) [place] # (Auto) Eos # (Auto) Baso # (Auto) PT INR APTT Puncture Site R rad pCO2 44 pO2 172 H HCO3 29.6 H ABG pH 7.45 ABG Total CO2 32.0 H ABG O2 Saturation 99.4 H ABG Base Excess 6.0 H ABG Hemoglobin 9.1 L ABG Carboxyhemoglobin 1.5 POC ABG HHb (Measured) 0.6 ABG Methemoglobin 1.2 Ck Test Pos A-a O2 Difference 130.0 Respiratory Index 0.8 Hgb O2 Saturation 96.7 Vent Mode Prvc Mechanical Rate 14 FiO2 50.0 Tidal Volume 400 PEEP 5 Sodium Potassium Chloride Carbon Dioxide Anion Gap BUN Creatinine Est GFR ( Amer) Est GFR (Non-Af Amer) POC Glucose (mg/dL) 146 H 177 H Random Glucose Calcium Phosphorus Magnesium Total Bilirubin AST ALT Alkaline Phosphatase Total Protein Albumin Globulin Albumin/Globulin Ratio 10/30/17 10/30/17 10/30/17 06:11 06:11 06:11 WBC 4.8 RBC 2.86 L Hgb 9.4 L Hct 27.2 L MCV 95.3 MCH 32.9 H MCHC 34.6 RDW 16.9 H Plt Count 67 L MPV 8.1 Neut % (Auto) 67.3 Lymph % (Auto) 23.0 [place] % (Auto) 8.7 Eos % (Auto) 0.0 Baso % (Auto) 1.0 Neut # (Auto) 3.2 Lymph # (Auto) 1.1 [place] # (Auto) 0.4 Eos # (Auto) 0.0 Baso # (Auto) 0.0 PT 12.1 INR 1.1 APTT 33 Puncture Site pCO2 pO2 HCO3 ABG pH ABG Total CO2 ABG O2 Saturation ABG Base Excess ABG Hemoglobin ABG Carboxyhemoglobin POC ABG HHb (Measured) ABG Methemoglobin Ck Test A-a O2 Difference Respiratory Index Hgb O2 Saturation Vent Mode Mechanical Rate FiO2 Tidal Volume PEEP Sodium 138 Potassium 3.6 Chloride 98 Carbon Dioxide 27 Anion Gap 17 BUN 30 H Creatinine 2.9 H Est GFR ( Amer) 19 Est GFR (Non-Af Amer) 15 POC Glucose (mg/dL) Random Glucose 175 H Calcium 8.2 L Phosphorus 1.0 L* Magnesium 2.1 Total Bilirubin 0.9 AST 66 H ALT 28 Alkaline Phosphatase 125 Total Protein 6.5 Albumin 2.9 L Globulin 3.6 Albumin/Globulin Ratio 0.8 L 10/30/17 10/30/17 12:46 18:11 WBC RBC Hgb Hct MCV MCH MCHC RDW Plt Count MPV Neut % (Auto) Lymph % (Auto) [place] % (Auto) Eos % (Auto) Baso % (Auto) Neut # (Auto) Lymph # (Auto) [place] # (Auto) Eos # (Auto) Baso # (Auto) PT INR APTT Puncture Site pCO2 pO2 HCO3 ABG pH ABG Total CO2 ABG O2 Saturation ABG Base Excess ABG Hemoglobin ABG Carboxyhemoglobin POC ABG HHb (Measured) ABG Methemoglobin Ck Test A-a O2 Difference Respiratory Index Hgb O2 Saturation Vent Mode Mechanical Rate FiO2 Tidal Volume PEEP Sodium Potassium Chloride Carbon Dioxide Anion Gap BUN Creatinine Est GFR ( Amer) Est GFR (Non-Af Amer) POC Glucose (mg/dL) 179 H 164 H Random Glucose Calcium Phosphorus Magnesium Total Bilirubin AST ALT Alkaline Phosphatase Total Protein Albumin Globulin Albumin/Globulin Ratio Fingerstick Blood Sugar Results: 172 Review of Systems - Review of Systems Systems not reviewed;Unavailable: Intubated Assessment/Plan - Assessment and Plan (Free Text) Assessment: 82 yo F w/ PMHx of ESRD, HTN, DM, CAD, HF, anemia, admitted with AMS in hypercapneic respiratory failure. 1. AMS -likely exacerbated due to 3 fentanyl patches -avoid opiates -monitor CO2 -aspiration precaution -NPO, tube feeds -decrease propofol sedation while adding fentanyl 2. Hypercapneic respiratory failure -on vent, FiO2 50%, wean to 40% w/ goal of CPAP -pCO2 44, pH 7.45 -ABGs 3. PNA -zosyn 2.25g q8 4. ESRD -HD MWFS -epo 400U MWF -renally dosed meds 5. CHF -limit IVF 6. COPD -duonebs q6 7. CAD -aspirin 81mg -crestor 2.5mg 8. Hypothyroid -levothyroxine 50mcg 9. Nutrition -10/29 feeds started, Nepro @20, goal 40 Ppx -protonix 40mg -heparin 5000u q12 case discussed with Dr. Lau - Date & Time Date: 10/30/17 Time: 19:00 <Jose Lau - Last Filed: 10/30/17 19:01> CCU Objective - Vital Signs / Intake & Output Vital Signs (Last 4 hours): Vital Signs Pulse Resp BP Pulse Ox 10/30/17 17:25 71 14 102/40 L 96 10/30/17 17:00 71 14 96 10/30/17 16:25 75 14 115/42 L 96 10/30/17 16:00 76 16 96 10/30/17 15:26 80 15 117/42 L 97 Intake and Output (Last 8hrs): Intake & Output 10/30/17 10/30/17 10/30/17 06:59 14:59 22:59 Intake Total 494.2 736.0 85.1 Output Total 0 0 0 Balance 494.2 736.0 85.1 Weight 130 lb 0.8 oz Intake: IV 99 92 Intake, IV Amount 145.2 469.0 85.1 Right Forearm 95.2 54.4 Right Hand 50 375.0 62.5 side port right forearm 39.6 22.6 Tube Feeding 250 175 Output: Urine 0 0 0 Urine, Voided 0 0 0 Other: # Bowel Movements 0 0 0 - Medications Active Medications: Active Medications Generic Name Dose Route Start Last Admin Trade Name Freq PRN Reason Stop Dose Admin Acetaminophen 650 mg 10/27/17 10:07 10/27/17 22:00 Tylenol 325mg Tab PO 650 mg Q6 PRN Administration Pain, moderate (4-7) Albuterol/Ipratropium 3 ml 10/28/17 14:00 10/30/17 14:21 Duoneb 3 Mg/0.5 Mg (3 Ml) Ud INH 3 ml RQ6 LUKE Administration Aspirin 81 mg 10/28/17 08:00 10/30/17 08:22 Aspirin Chewable PO 81 mg 0800 LUKE Administration Epoetin Jonathan 4,000 unit 10/31/17 09:00 Procrit IV MWF [facility] Heparin Sodium (Porcine) 5,000 units 10/28/17 22:00 10/30/17 10:35 Heparin SC 5,000 units Q12 LUKE Administration Piperacillin Sod/Tazobactam Sod 2.25 gm in 50 mls @ 100 mls/hr 10/28/17 10:00 10/30/17 10:21 Zosyn 2.25 Gm Iv Premix IVPB 100 mls/hr Q8H LUKE Administration Protocol Propofol 1,000 mg in 100 mls @ 1.701 mls/hr 10/28/17 17:35 10/30/17 10:19 Diprivan IV 5 mcg/kg/min .Q24H PRN 1.701 mls/hr Agitation Titration Protocol 5 MCG/KG/MIN Fentanyl Citrate 2,500 mcg/ 250 mls @ 11.79 mls/hr 10/30/17 11:00 10/30/17 11 :00 Sodium Chloride IV 1 mcg/kg/hr .[id number] LUKE 5.89 mls/hr Protocol Administration 2 MCG/KG/HR Levothyroxine Sodium 50 mcg 10/28/17 06:30 10/30/17 06:11 Synthroid PO 50 mcg DAILY@0630 LUKE Administration Pantoprazole Sodium 40 mg 10/27/17 12:00 10/30/17 10:36 Protonix Inj IVP 40 mg DAILY LUKE Administration Rosuvastatin Calcium 2.5 mg 10/27/17 22:00 10/29/17 22:26 Crestor PO 2.5 mg HS LUKE Administration Vitamin B Complex/Vit C/Folic Acid 1 tab 10/28/17 08:00 10/30/17 08:22 Nephro-Kennedy PO 1 tab 0800 LUKE Administration - Patient Studies Lab Studies: Microbiology Studies 10/27/17 16:35 Blood Culture - Preliminary Blood NO GROWTH AFTER 3 DAYS 10/27/17 16:35 Blood Culture - Preliminary Blood NO GROWTH AFTER 3 DAYS 10/28/17 18:47 Gram Stain - Final Trachasp Sputum Culture - Final Yeast Species Lab Studies 10/30/17 10/30/17 10/30/17 Range/Units 18:11 12:46 06:11 WBC (4.8-10.8) K/uL RBC (3.80-5.20) Mil/uL Hgb (11.0-16.0) g/dL Hct (34.0-47.0) % MCV (81.0-99.0) fL MCH (27.0-31.0) pg MCHC (33.0-37.0) g/dL RDW (11.5-14.5) % Plt Count (130-400) K/uL MPV (7.2-11.7) fL Neut % (Auto) (50.0-75.0) % Lymph % (Auto) (20.0-40.0) % [place] % (Auto) (0.0-10.0) % Eos % (Auto) (0.0-4.0) % Baso % (Auto) (0.0-2.0) % Neut # (Auto) (1.8-7.0) K/uL Lymph # (Auto) (1.0-4.3) K/uL [place] # (Auto) (0.0-0.8) K/uL Eos # (Auto) (0.0-0.7) K/uL Baso # (Auto) (0.0-0.2) K/uL PT (9.7-12.2) SECONDS INR APTT (21-34) SECONDS Puncture Site pCO2 (35-45) mm/Hg pO2 (80-100) mm/Hg HCO3 (21-28) mmol/L ABG pH (7.35-7.45) ABG Total CO2 (22-28) mmol/L ABG O2 Saturation (95-98) % ABG Base Excess (-2.0-3.0) mmol/L ABG Hemoglobin (11.7-17.4) g/dL ABG Carboxyhemoglobin (0.5-1.5) % POC ABG HHb (Measured) (0.0-5.0) % ABG Methemoglobin (0.0-3.0) % Ck Test A-a O2 Difference mm/Hg Respiratory Index Hgb O2 Saturation (95.0-98.0) % Vent Mode Mechanical Rate FiO2 % Tidal Volume PEEP Sodium 138 (132-148) mmol/L Potassium 3.6 (3.6-5.2) mmol/L Chloride 98 (98-107) mmol/L Carbon Dioxide 27 (22-30) mmol/L Anion Gap 17 (10-20) BUN 30 H (7-17) mg/dL Creatinine 2.9 H (0.7-1.2) mg/dL Est GFR ( Amer) 19 Est GFR (Non-Af Amer) 15 POC Glucose (mg/dL) 164 H 179 H (65-110) mg/dL Random Glucose 175 H (65-105) mg/dL Calcium 8.2 L (8.6-10.4) mg/dl Phosphorus 1.0 L* (2.5-4.5) mg/dL Magnesium 2.1 (1.6-2.3) mg/dL Total Bilirubin 0.9 (0.2-1.3) mg/dL AST 66 H (14-36) U/L ALT 28 (9-52) U/L Alkaline Phosphatase 125 (38-126) U/L Total Protein 6.5 (6.3-8.3) g/dL Albumin 2.9 L (3.5-5.0) g/dL Globulin 3.6 (2.2-3.9) gm/dL Albumin/Globulin Ratio 0.8 L (1.0-2.1) 10/30/17 10/30/17 10/30/17 Range/Units 06:11 06:11 05:54 WBC 4.8 (4.8-10.8) K/uL RBC 2.86 L (3.80-5.20) Mil/uL Hgb 9.4 L (11.0-16.0) g/dL Hct 27.2 L (34.0-47.0) % MCV 95.3 (81.0-99.0) fL MCH 32.9 H (27.0-31.0) pg MCHC 34.6 (33.0-37.0) g/dL RDW 16.9 H (11.5-14.5) % Plt Count 67 L (130-400) K/uL MPV 8.1 (7.2-11.7) fL Neut % (Auto) 67.3 (50.0-75.0) % Lymph % (Auto) 23.0 (20.0-40.0) % [place] % (Auto) 8.7 (0.0-10.0) % Eos % (Auto) 0.0 (0.0-4.0) % Baso % (Auto) 1.0 (0.0-2.0) % Neut # (Auto) 3.2 (1.8-7.0) K/uL Lymph # (Auto) 1.1 (1.0-4.3) K/uL [place] # (Auto) 0.4 (0.0-0.8) K/uL Eos # (Auto) 0.0 (0.0-0.7) K/uL Baso # (Auto) 0.0 (0.0-0.2) K/uL PT 12.1 (9.7-12.2) SECONDS INR 1.1 APTT 33 (21-34) SECONDS Puncture Site pCO2 (35-45) mm/Hg pO2 (80-100) mm/Hg HCO3 (21-28) mmol/L ABG pH (7.35-7.45) ABG Total CO2 (22-28) mmol/L ABG O2 Saturation (95-98) % ABG Base Excess (-2.0-3.0) mmol/L ABG Hemoglobin (11.7-17.4) g/dL ABG Carboxyhemoglobin (0.5-1.5) % POC ABG HHb (Measured) (0.0-5.0) % ABG Methemoglobin (0.0-3.0) % Ck Test A-a O2 Difference mm/Hg Respiratory Index Hgb O2 Saturation (95.0-98.0) % Vent Mode Mechanical Rate FiO2 % Tidal Volume PEEP Sodium (132-148) mmol/L Potassium (3.6-5.2) mmol/L Chloride (98-107) mmol/L Carbon Dioxide (22-30) mmol/L Anion Gap (10-20) BUN (7-17) mg/dL Creatinine (0.7-1.2) mg/dL Est GFR ( Amer) Est GFR (Non-Af Amer) POC Glucose (mg/dL) 177 H (65-110) mg/dL Random Glucose (65-105) mg/dL Calcium (8.6-10.4) mg/dl Phosphorus (2.5-4.5) mg/dL Magnesium (1.6-2.3) mg/dL Total Bilirubin (0.2-1.3) mg/dL AST (14-36) U/L ALT (9-52) U/L Alkaline Phosphatase (38-126) U/L Total Protein (6.3-8.3) g/dL Albumin (3.5-5.0) g/dL Globulin (2.2-3.9) gm/dL Albumin/Globulin Ratio (1.0-2.1) 10/30/17 10/29/17 Range/Units 05:27 23:56 WBC (4.8-10.8) K/uL RBC (3.80-5.20) Mil/uL Hgb (11.0-16.0) g/dL Hct (34.0-47.0) % MCV (81.0-99.0) fL MCH (27.0-31.0) pg MCHC (33.0-37.0) g/dL RDW (11.5-14.5) % Plt Count (130-400) K/uL MPV (7.2-11.7) fL Neut % (Auto) (50.0-75.0) % Lymph % (Auto) (20.0-40.0) % [place] % (Auto) (0.0-10.0) % Eos % (Auto) (0.0-4.0) % Baso % (Auto) (0.0-2.0) % Neut # (Auto) (1.8-7.0) K/uL Lymph # (Auto) (1.0-4.3) K/uL [place] # (Auto) (0.0-0.8) K/uL Eos # (Auto) (0.0-0.7) K/uL Baso # (Auto) (0.0-0.2) K/uL PT (9.7-12.2) SECONDS INR APTT (21-34) SECONDS Puncture Site R rad pCO2 44 (35-45) mm/Hg pO2 172 H (80-100) mm/Hg HCO3 29.6 H (21-28) mmol/L ABG pH 7.45 (7.35-7.45) ABG Total CO2 32.0 H (22-28) mmol/L ABG O2 Saturation 99.4 H (95-98) % ABG Base Excess 6.0 H (-2.0-3.0) mmol/L ABG Hemoglobin 9.1 L (11.7-17.4) g/dL ABG Carboxyhemoglobin 1.5 (0.5-1.5) % POC ABG HHb (Measured) 0.6 (0.0-5.0) % ABG Methemoglobin 1.2 (0.0-3.0) % Ck Test Pos A-a O2 Difference 130.0 mm/Hg Respiratory Index 0.8 Hgb O2 Saturation 96.7 (95.0-98.0) % Vent Mode Prvc Mechanical Rate 14 FiO2 50.0 % Tidal Volume 400 PEEP 5 Sodium (132-148) mmol/L Potassium (3.6-5.2) mmol/L Chloride (98-107) mmol/L Carbon Dioxide (22-30) mmol/L Anion Gap (10-20) BUN (7-17) mg/dL Creatinine (0.7-1.2) mg/dL Est GFR ( Amer) Est GFR (Non-Af Amer) POC Glucose (mg/dL) 146 H (65-110) mg/dL Random Glucose (65-105) mg/dL Calcium (8.6-10.4) mg/dl Phosphorus (2.5-4.5) mg/dL Magnesium (1.6-2.3) mg/dL Total Bilirubin (0.2-1.3) mg/dL AST (14-36) U/L ALT (9-52) U/L Alkaline Phosphatase (38-126) U/L Total Protein (6.3-8.3) g/dL Albumin (3.5-5.0) g/dL Globulin (2.2-3.9) gm/dL Albumin/Globulin Ratio (1.0-2.1) Laboratory Results - last 24 hr 10/29/17 10/30/17 10/30/17 23:56 05:27 05:54 WBC RBC Hgb Hct MCV MCH MCHC RDW Plt Count MPV Neut % (Auto) Lymph % (Auto) [place] % (Auto) Eos % (Auto) Baso % (Auto) Neut # (Auto) Lymph # (Auto) [place] # (Auto) Eos # (Auto) Baso # (Auto) PT INR APTT Puncture Site R rad pCO2 44 pO2 172 H HCO3 29.6 H ABG pH 7.45 ABG Total CO2 32.0 H ABG O2 Saturation 99.4 H ABG Base Excess 6.0 H ABG Hemoglobin 9.1 L ABG Carboxyhemoglobin 1.5 POC ABG HHb (Measured) 0.6 ABG Methemoglobin 1.2 Ck Test Pos A-a O2 Difference 130.0 Respiratory Index 0.8 Hgb O2 Saturation 96.7 Vent Mode Prvc Mechanical Rate 14 FiO2 50.0 Tidal Volume 400 PEEP 5 Sodium Potassium Chloride Carbon Dioxide Anion Gap BUN Creatinine Est GFR ( Amer) Est GFR (Non-Af Amer) POC Glucose (mg/dL) 146 H 177 H Random Glucose Calcium Phosphorus Magnesium Total Bilirubin AST ALT Alkaline Phosphatase Total Protein Albumin Globulin Albumin/Globulin Ratio 10/30/17 10/30/17 10/30/17 06:11 06:11 06:11 WBC 4.8 RBC 2.86 L Hgb 9.4 L Hct 27.2 L MCV 95.3 MCH 32.9 H MCHC 34.6 RDW 16.9 H Plt Count 67 L MPV 8.1 Neut % (Auto) 67.3 Lymph % (Auto) 23.0 [place] % (Auto) 8.7 Eos % (Auto) 0.0 Baso % (Auto) 1.0 Neut # (Auto) 3.2 Lymph # (Auto) 1.1 [place] # (Auto) 0.4 Eos # (Auto) 0.0 Baso # (Auto) 0.0 PT 12.1 INR 1.1 APTT 33 Puncture Site pCO2 pO2 HCO3 ABG pH ABG Total CO2 ABG O2 Saturation ABG Base Excess ABG Hemoglobin ABG Carboxyhemoglobin POC ABG HHb (Measured) ABG Methemoglobin Ck Test A-a O2 Difference Respiratory Index Hgb O2 Saturation Vent Mode Mechanical Rate FiO2 Tidal Volume PEEP Sodium 138 Potassium 3.6 Chloride 98 Carbon Dioxide 27 Anion Gap 17 BUN 30 H Creatinine 2.9 H Est GFR ( Amer) 19 Est GFR (Non-Af Amer) 15 POC Glucose (mg/dL) Random Glucose 175 H Calcium 8.2 L Phosphorus 1.0 L* Magnesium 2.1 Total Bilirubin 0.9 AST 66 H ALT 28 Alkaline Phosphatase 125 Total Protein 6.5 Albumin 2.9 L Globulin 3.6 Albumin/Globulin Ratio 0.8 L 10/30/17 10/30/17 12:46 18:11 WBC RBC Hgb Hct MCV MCH MCHC RDW Plt Count MPV Neut % (Auto) Lymph % (Auto) [place] % (Auto) Eos % (Auto) Baso % (Auto) Neut # (Auto) Lymph # (Auto) [place] # (Auto) Eos # (Auto) Baso # (Auto) PT INR APTT Puncture Site pCO2 pO2 HCO3 ABG pH ABG Total CO2 ABG O2 Saturation ABG Base Excess ABG Hemoglobin ABG Carboxyhemoglobin POC ABG HHb (Measured) ABG Methemoglobin Ck Test A-a O2 Difference Respiratory Index Hgb O2 Saturation Vent Mode Mechanical Rate FiO2 Tidal Volume PEEP Sodium Potassium Chloride Carbon Dioxide Anion Gap BUN Creatinine Est GFR ( Amer) Est GFR (Non-Af Amer) POC Glucose (mg/dL) 179 H 164 H Random Glucose Calcium Phosphorus Magnesium Total Bilirubin AST ALT Alkaline Phosphatase Total Protein Albumin Globulin Albumin/Globulin Ratio Attending/Attestation - Attestation I have personally seen and examined this patient.: Yes I have fully participated in the care of the patient.: Yes I have reviewed all pertinent clinical information: Yes Notes (Text): 10/30/17 19:01 Today: October The Patient was seen and examined at the bedside, Medical records reviewed, and management issues were discussed and formulated with the house staff. I have reviewed all the relevant clinical, laboratory, hemodynamic, radiographic data and medications Events reviewed Pain issues, skin care, head of the bed elevation, glycemic control were addressed. Agree with above resident's assessment and treatment plans of care as transcribed in Dr. Haywood's note.
[2017-10-30] MEDS: Rosuvastatin Calcium 2.5 mg Tab PO SCH (22:13)
--- NOTE | 2017-10-31 00:33 | CP.PCM.PN ---
Subjective - Date & Time of Evaluation Date of Evaluation: 10/30/17 Time of Evaluation: 21:13 - Subjective Subjective: Patient is currently having some shortness of breath. Extubated. Respiratory status to be monitored. Cough noted. Awake and responding On examination: Vital signs stable. Chest good air entry Regular heart sounds Nontender abdomen Labs reviewed X-ray bilateral effusion noted Assessment and recommendation: 82-year-old female admitted with acute respiratory failure, status post intubation. Pneumonia possible. We will continue the current treatment. ICU management Objective - Vital Signs/Intake and Output Vital Signs (last 24 hours): Temp Pulse Resp BP Pulse Ox 97.9 F 85 16 105/43 L 96 10/30/17 20:00 10/31/17 00:25 10/31/17 00:25 10/31/17 00:25 10/31/17 00:25 Intake and Output: 10/30/17 10/31/17 18:59 06:59 Intake Total 948.7 304.4 Output Total 0 0 Balance 948.7 304.4 - Medications Medications: Current Medications Acetaminophen (Tylenol 325mg Tab) 650 mg PO Q6 PRN PRN Reason: Pain, moderate (4-7) Last Admin: 10/27/17 22:00 Dose: 650 mg Albuterol/Ipratropium (Duoneb 3 Mg/0.5 Mg (3 Ml) Ud) 3 ml INH RQ6 REPLACED BY [facility] Last Admin: 10/30/17 19:28 Dose: 3 ml Aspirin (Aspirin Chewable) 81 mg PO 0800 REPLACED BY [facility] Last Admin: 10/30/17 08:22 Dose: 81 mg Epoetin Jonathan (Procrit) 4,000 unit IV MWF REPLACED BY [facility] Heparin Sodium (Porcine) (Heparin) 5,000 units SC Q12 REPLACED BY [facility] Last Admin: 10/30/17 22:13 Dose: 5,000 units Piperacillin Sod/Tazobactam Sod (Zosyn 2.25 Gm Iv Premix) 2.25 gm in 50 mls @ 100 mls/hr IVPB Q8H REPLACED BY [facility] PRN Reason: Protocol Last Admin: 10/30/17 17:00 Dose: 100 mls/hr Propofol (Diprivan) 1,000 mg in 100 mls @ 1.701 mls/hr IV .Q24H PRN; Protocol; 5 MCG/KG/MIN PRN Reason: Agitation Last Titration: 10/30/17 21:00 Dose: 5 mcg/kg/min, 1.701 mls/hr Fluconazole (Diflucan Iv 200 Mg/100 Ml Ns) 100 mls @ 100 mls/hr IVPB DAILY [facility] PRN Reason: Protocol Levothyroxine Sodium (Synthroid) 50 mcg PO DAILY@0630 REPLACED BY [facility] Last Admin: 10/30/17 06:11 Dose: 50 mcg Lorazepam (Ativan) 1 mg IVP Q6H PRN PRN Reason: Anxiety Pantoprazole Sodium (Protonix Inj) 40 mg IVP DAILY REPLACED BY [facility] Last Admin: 10/30/17 10:36 Dose: 40 mg Rosuvastatin Calcium (Crestor) 2.5 mg PO HS REPLACED BY [facility] Last Admin: 10/30/17 22:13 Dose: 2.5 mg Vitamin B Complex/Vit C/Folic Acid (Nephro-Kennedy) 1 tab PO 0800 REPLACED BY [facility] Last Admin: 10/30/17 08:22 Dose: 1 tab - Labs Labs: 10/30/17 06:11 10/30/17 06:11 PT 12.1 SECONDS (9.7-12.2) 10/30/17 06:11 INR 1.1 10/30/17 06:11 APTT 33 SECONDS (21-34) 10/30/17 06:11
[2017-10-31] MEDS: Albuterol-Ipratrop 3 mg / 0.5 (3 ml) UD INH SCH ×6 (01:17→19:35)
[2017-10-31] MEDS: Piperacill/Tazo 2.25gm in Dex 2.25 GM/50 ML BAG IVPB SCH ×3 (02:20→17:28)
[2017-10-31 05:43] LABS: ABG ALLEN TEST POS; ARTERIAL BLOOD GAS HCO3 23.2 mmol/L (21-28); ARTERIAL BLOOD GAS HEMOGLOBIN 7.6 g/dL (11.7-17.4); ARTERIAL BLOOD GAS O2 SAT 99.2 % (95-98); ARTERIAL BLOOD GAS PCO2 59 mm/Hg (35-45); ARTERIAL BLOOD GAS PH 7.24 (7.35-7.45); ARTERIAL BLOOD GAS PO2 150 mm/Hg (80-100); ARTERIAL BLOOD GAS TCO2 27.1 mmol/L (22-28)
[2017-10-31] MEDS: Levothyroxine 50 MCG TAB PO SCH (05:43)
[2017-10-31 06:37] LABS: BASO % 0.5 % (0.0-2.0); EOS % 0.1 % (0.0-4.0); HEMOGLOBIN 9.4 g/dL (11.0-16.0); LYMPH # 0.9 K/uL (1.0-4.3); LYMPH % 19.5 % (20.0-40.0); MEAN CELL VOLUME 97.3 fL (81.0-99.0); MEAN CORPUSCULAR HEMOGLOBIN 31.4 pg (27.0-31.0); MEAN CORPUSCULAR HGB CONC 32.3 g/dL (33.0-37.0); MONO # 0.3 K/uL (0.0-0.8); MONO % 6.8 % (0.0-10.0); NEUT # 3.4 K/uL (1.8-7.0); NEUT % 73.1 % (50.0-75.0); NRBC % 0.7 % (0.0-2.0); RBC 2.98 Mil/uL (3.80-5.20); RED CELL DISTRIBUTION WIDTH 17.6 % (11.5-14.5); WHITE BLOOD COUNT 4.7 K/uL (4.8-10.8)
[2017-10-31 07:00] LABS: ALB/GLOB RATIO 0.8 (1.0-2.1); ALBUMIN 2.9 g/dL (3.5-5.0)
--- NOTE | 2017-10-31 07:16 | CP.CCUPN ---
<HaywoodAkilah - Last Filed: 10/31/17 14:57> CCU Subjective - Physician Review Subjective (Free Text): 82 F with PMHx of ESRD on HD MWFS, HTN, DM, CAD, HF, Anemia of Chronic Disease, admitted to ICU with AMS in hypercapneic respiratory failure. Patient presented to ED w/ 3 fentanyl patches. No acute events overnight. Pt unable to maintain spO2 on BiPAP, intubated 10/28 w/ FiO2 of 40%. Pt extubated(10/31), placed back on BiPAP. *Contact precaution for C. Diff Hx. 10/31/17 07:11 10/31/17 14:56 CCU Objective - Vital Signs / Intake & Output Vital Signs (Last 4 hours): Vital Signs Temp Pulse Resp BP Pulse Ox 10/31/17 06:26 107 H 21 103/45 L 97 10/31/17 06:00 106 H 20 97 10/31/17 05:25 104 H 19 92/41 L 97 10/31/17 05:00 105 H 16 98 10/31/17 04:25 107 H 21 112/49 L 98 10/31/17 04:00 97.6 F 106 H 20 98 10/31/17 03:25 105 H 19 103/45 L 100 Intake and Output (Last 8hrs): Intake & Output 10/30/17 10/31/17 10/31/17 22:59 06:59 14:59 Intake Total 438.7 366.6 Output Total 0 0 Balance 438.7 366.6 Weight 131 lb 13.383 oz Intake: IV 0 13 Intake, IV Amount 233.7 13.6 Right Hand 162.5 side port right forearm 71.2 13.6 Tube Feeding 105 280 Other 100 60 Output: Urine 0 0 Urine, Voided 0 0 Other: # Bowel Movements 0 0 - Physical Exam Physical Exam Limitations: Positive for: Altered Mental Status Head: Positive for: Atraumatic, Normocephalic Mouth: Positive for: Moist Mucous Membranes Respiratory/Chest: Positive for: Decreased Breath Sounds (R>L), Tachypneic Cardiovascular: Positive for: Regular Rate and Rhythm. Negative for: Murmurs Abdomen: Positive for: Normal Bowel Sounds. Negative for: Distention Upper Extremity: Negative for: Cyanosis, Edema Lower Extremity: Positive for: Normal Inspection. Negative for: Edema Neurological: Negative for: GCS=15 Skin: Positive for: Normal Color Psychiatric: Negative for: Alert - Medications Active Medications: Active Medications Generic Name Dose Route Start Last Admin Trade Name Freq PRN Reason Stop Dose Admin Acetaminophen 650 mg 10/27/17 10:07 10/27/17 22:00 Tylenol 325mg Tab PO 650 mg Q6 PRN Administration Pain, moderate (4-7) Albuterol/Ipratropium 3 ml 10/28/17 14:00 10/31/17 01:17 Duoneb 3 Mg/0.5 Mg (3 Ml) Ud INH 3 ml RQ6 [facility] Administration Aspirin 81 mg 10/28/17 08:00 10/30/17 08:22 Aspirin Chewable PO 81 mg 0800 [facility] Administration Epoetin Jonathan 4,000 unit 10/31/17 09:00 Procrit IV MWF [facility] Heparin Sodium (Porcine) 5,000 units 10/28/17 22:00 10/30/17 22:13 Heparin SC 5,000 units Q12 [facility] Administration Piperacillin Sod/Tazobactam Sod 2.25 gm in 50 mls @ 100 mls/hr 10/28/17 10:00 10/31/17 02:20 Zosyn 2.25 Gm Iv Premix IVPB 100 mls/hr Q8H [facility] Administration Protocol Propofol 1,000 mg in 100 mls @ 1.701 mls/hr 10/28/17 17:35 10/31/17 05:55 Diprivan IV 8 mcg/kg/min .Q24H PRN 2.722 mls/hr Agitation Titration Protocol 5 MCG/KG/MIN Fluconazole 100 mls @ 100 mls/hr 10/31/17 10:00 Diflucan Iv 200 Mg/100 Ml Ns IVPB DAILY [facility] Protocol Levothyroxine Sodium 50 mcg 10/28/17 06:30 10/31/17 05:43 Synthroid PO 50 mcg DAILY@0630 [facility] Administration Lorazepam 1 mg 10/30/17 20:48 Ativan IVP Q6H PRN Anxiety Pantoprazole Sodium 40 mg 10/27/17 12:00 10/30/17 10:36 Protonix Inj IVP 40 mg DAILY [facility] Administration Rosuvastatin Calcium 2.5 mg 10/27/17 22:00 10/30/17 22:13 Crestor PO 2.5 mg HS [facility] Administration Vitamin B Complex/Vit C/Folic Acid 1 tab 10/28/17 08:00 10/30/17 08:22 Nephro-Kennedy PO 1 tab 0800 [facility] Administration - Patient Studies Lab Studies: Microbiology Studies 10/27/17 16:35 Blood Culture - Preliminary Blood NO GROWTH AFTER 3 DAYS 10/27/17 16:35 Blood Culture - Preliminary Blood NO GROWTH AFTER 3 DAYS 10/28/17 18:47 Gram Stain - Final Trachasp Sputum Culture - Final Yeast Species Lab Studies 10/31/17 10/31/17 10/31/17 Range/Units 06:32 06:32 05:21 WBC 4.7 L (4.8-10.8) K/uL RBC 2.98 L (3.80-5.20) Mil/uL Hgb 9.4 L (11.0-16.0) g/dL Hct 29.0 L (34.0-47.0) % MCV 97.3 D (81.0-99.0) fL MCH 31.4 H (27.0-31.0) pg MCHC 32.3 L (33.0-37.0) g/dL RDW 17.6 H (11.5-14.5) % Plt Count 54 L (130-400) K/uL MPV 8.0 (7.2-11.7) fL Neut % (Auto) 73.1 (50.0-75.0) % Lymph % (Auto) 19.5 L (20.0-40.0) % Grundy % (Auto) 6.8 (0.0-10.0) % Eos % (Auto) 0.1 (0.0-4.0) % Baso % (Auto) 0.5 (0.0-2.0) % Neut # (Auto) 3.4 (1.8-7.0) K/uL Lymph # (Auto) 0.9 L (1.0-4.3) K/uL Grundy # (Auto) 0.3 (0.0-0.8) K/uL Eos # (Auto) 0.0 (0.0-0.7) K/uL Baso # (Auto) 0.0 (0.0-0.2) K/uL Puncture Site pCO2 (35-45) mm/Hg pO2 (80-100) mm/Hg HCO3 (21-28) mmol/L ABG pH (7.35-7.45) ABG Total CO2 (22-28) mmol/L ABG O2 Saturation (95-98) % ABG Base Excess (-2.0-3.0) mmol/L ABG Hemoglobin (11.7-17.4) g/dL ABG Carboxyhemoglobin (0.5-1.5) % POC ABG HHb (Measured) (0.0-5.0) % ABG Methemoglobin (0.0-3.0) % Ck Test A-a O2 Difference mm/Hg Respiratory Index Hgb O2 Saturation (95.0-98.0) % Vent Mode FiO2 % PEEP Pressure Support Sodium 142 (132-148) mmol/L Potassium 4.1 (3.6-5.2) mmol/L Chloride 99 (98-107) mmol/L Carbon Dioxide 29 (22-30) mmol/L Anion Gap 18 (10-20) BUN 44 H (7-17) mg/dL Creatinine 3.9 H (0.7-1.2) mg/dL Est GFR ( Amer) 13 Est GFR (Non-Af Amer) 11 POC Glucose (mg/dL) 155 H (65-110) mg/dL Random Glucose 146 H (65-105) mg/dL Calcium 8.0 L (8.6-10.4) mg/dl Phosphorus 3.6 (2.5-4.5) mg/dL Magnesium 2.3 (1.6-2.3) mg/dL Total Bilirubin 0.9 (0.2-1.3) mg/dL AST 46 H D (14-36) U/L ALT 22 (9-52) U/L Alkaline Phosphatase 102 (38-126) U/L Total Protein 6.6 (6.3-8.3) g/dL Albumin 2.9 L (3.5-5.0) g/dL Globulin 3.7 (2.2-3.9) gm/dL Albumin/Globulin Ratio 0.8 L (1.0-2.1) 10/31/17 10/30/17 10/30/17 Range/Units 05:15 23:39 18:11 WBC (4.8-10.8) K/uL RBC (3.80-5.20) Mil/uL Hgb (11.0-16.0) g/dL Hct (34.0-47.0) % MCV (81.0-99.0) fL MCH (27.0-31.0) pg MCHC (33.0-37.0) g/dL RDW (11.5-14.5) % Plt Count (130-400) K/uL MPV (7.2-11.7) fL Neut % (Auto) (50.0-75.0) % Lymph % (Auto) (20.0-40.0) % Grundy % (Auto) (0.0-10.0) % Eos % (Auto) (0.0-4.0) % Baso % (Auto) (0.0-2.0) % Neut # (Auto) (1.8-7.0) K/uL Lymph # (Auto) (1.0-4.3) K/uL Grundy # (Auto) (0.0-0.8) K/uL Eos # (Auto) (0.0-0.7) K/uL Baso # (Auto) (0.0-0.2) K/uL Puncture Site Rr pCO2 59 H (35-45) mm/Hg pO2 150 H (80-100) mm/Hg HCO3 23.2 (21-28) mmol/L ABG pH 7.24 L (7.35-7.45) ABG Total CO2 27.1 (22-28) mmol/L ABG O2 Saturation 99.2 H (95-98) % ABG Base Excess -2.2 L (-2.0-3.0) mmol/L ABG Hemoglobin 7.6 L (11.7-17.4) g/dL ABG Carboxyhemoglobin 1.8 H (0.5-1.5) % POC ABG HHb (Measured) 0.8 (0.0-5.0) % ABG Methemoglobin 1.2 (0.0-3.0) % Ck Test Pos A-a O2 Difference 61.0 mm/Hg Respiratory Index 0.4 Hgb O2 Saturation 96.2 (95.0-98.0) % Vent Mode Cpap FiO2 40.0 % PEEP 5 Pressure Support 12 Sodium (132-148) mmol/L Potassium (3.6-5.2) mmol/L Chloride (98-107) mmol/L Carbon Dioxide (22-30) mmol/L Anion Gap (10-20) BUN (7-17) mg/dL Creatinine (0.7-1.2) mg/dL Est GFR ( Amer) Est GFR (Non-Af Amer) POC Glucose (mg/dL) 173 H 164 H (65-110) mg/dL Random Glucose (65-105) mg/dL Calcium (8.6-10.4) mg/dl Phosphorus (2.5-4.5) mg/dL Magnesium (1.6-2.3) mg/dL Total Bilirubin (0.2-1.3) mg/dL AST (14-36) U/L ALT (9-52) U/L Alkaline Phosphatase (38-126) U/L Total Protein (6.3-8.3) g/dL Albumin (3.5-5.0) g/dL Globulin (2.2-3.9) gm/dL Albumin/Globulin Ratio (1.0-2.1) 10/30/17 10/30/17 Range/Units 12:46 05:54 WBC (4.8-10.8) K/uL RBC (3.80-5.20) Mil/uL Hgb (11.0-16.0) g/dL Hct (34.0-47.0) % MCV (81.0-99.0) fL MCH (27.0-31.0) pg MCHC (33.0-37.0) g/dL RDW (11.5-14.5) % Plt Count (130-400) K/uL MPV (7.2-11.7) fL Neut % (Auto) (50.0-75.0) % Lymph % (Auto) (20.0-40.0) % Grundy % (Auto) (0.0-10.0) % Eos % (Auto) (0.0-4.0) % Baso % (Auto) (0.0-2.0) % Neut # (Auto) (1.8-7.0) K/uL Lymph # (Auto) (1.0-4.3) K/uL Grundy # (Auto) (0.0-0.8) K/uL Eos # (Auto) (0.0-0.7) K/uL Baso # (Auto) (0.0-0.2) K/uL Puncture Site pCO2 (35-45) mm/Hg pO2 (80-100) mm/Hg HCO3 (21-28) mmol/L ABG pH (7.35-7.45) ABG Total CO2 (22-28) mmol/L ABG O2 Saturation (95-98) % ABG Base Excess (-2.0-3.0) mmol/L ABG Hemoglobin (11.7-17.4) g/dL ABG Carboxyhemoglobin (0.5-1.5) % POC ABG HHb (Measured) (0.0-5.0) % ABG Methemoglobin (0.0-3.0) % Ck Test A-a O2 Difference mm/Hg Respiratory Index Hgb O2 Saturation (95.0-98.0) % Vent Mode FiO2 % PEEP Pressure Support Sodium (132-148) mmol/L Potassium (3.6-5.2) mmol/L Chloride (98-107) mmol/L Carbon Dioxide (22-30) mmol/L Anion Gap (10-20) BUN (7-17) mg/dL Creatinine (0.7-1.2) mg/dL Est GFR ( Amer) Est GFR (Non-Af Amer) POC Glucose (mg/dL) 179 H 177 H (65-110) mg/dL Random Glucose (65-105) mg/dL Calcium (8.6-10.4) mg/dl Phosphorus (2.5-4.5) mg/dL Magnesium (1.6-2.3) mg/dL Total Bilirubin (0.2-1.3) mg/dL AST (14-36) U/L ALT (9-52) U/L Alkaline Phosphatase (38-126) U/L Total Protein (6.3-8.3) g/dL Albumin (3.5-5.0) g/dL Globulin (2.2-3.9) gm/dL Albumin/Globulin Ratio (1.0-2.1) Laboratory Results - last 24 hr 10/30/17 10/30/17 10/30/17 05:54 12:46 18:11 WBC RBC Hgb Hct MCV MCH MCHC RDW Plt Count MPV Neut % (Auto) Lymph % (Auto) Grundy % (Auto) Eos % (Auto) Baso % (Auto) Neut # (Auto) Lymph # (Auto) Grundy # (Auto) Eos # (Auto) Baso # (Auto) Puncture Site pCO2 pO2 HCO3 ABG pH ABG Total CO2 ABG O2 Saturation ABG Base Excess ABG Hemoglobin ABG Carboxyhemoglobin POC ABG HHb (Measured) ABG Methemoglobin Ck Test A-a O2 Difference Respiratory Index Hgb O2 Saturation Vent Mode FiO2 PEEP Pressure Support Sodium Potassium Chloride Carbon Dioxide Anion Gap BUN Creatinine Est GFR ( Amer) Est GFR (Non-Af Amer) POC Glucose (mg/dL) 177 H 179 H 164 H Random Glucose Calcium Phosphorus Magnesium Total Bilirubin AST ALT Alkaline Phosphatase Total Protein Albumin Globulin Albumin/Globulin Ratio 10/30/17 10/31/17 10/31/17 23:39 05:15 05:21 WBC RBC Hgb Hct MCV MCH MCHC RDW Plt Count MPV Neut % (Auto) Lymph % (Auto) Grundy % (Auto) Eos % (Auto) Baso % (Auto) Neut # (Auto) Lymph # (Auto) Grundy # (Auto) Eos # (Auto) Baso # (Auto) Puncture Site Rr pCO2 59 H pO2 150 H HCO3 23.2 ABG pH 7.24 L ABG Total CO2 27.1 ABG O2 Saturation 99.2 H ABG Base Excess -2.2 L ABG Hemoglobin 7.6 L ABG Carboxyhemoglobin 1.8 H POC ABG HHb (Measured) 0.8 ABG Methemoglobin 1.2 Ck Test Pos A-a O2 Difference 61.0 Respiratory Index 0.4 Hgb O2 Saturation 96.2 Vent Mode Cpap FiO2 40.0 PEEP 5 Pressure Support 12 Sodium Potassium Chloride Carbon Dioxide Anion Gap BUN Creatinine Est GFR ( Amer) Est GFR (Non-Af Amer) POC Glucose (mg/dL) 173 H 155 H Random Glucose Calcium Phosphorus Magnesium Total Bilirubin AST ALT Alkaline Phosphatase Total Protein Albumin Globulin Albumin/Globulin Ratio 10/31/17 10/31/17 06:32 06:32 WBC 4.7 L RBC 2.98 L Hgb 9.4 L Hct 29.0 L MCV 97.3 D MCH 31.4 H MCHC 32.3 L RDW 17.6 H Plt Count 54 L MPV 8.0 Neut % (Auto) 73.1 Lymph % (Auto) 19.5 L Grundy % (Auto) 6.8 Eos % (Auto) 0.1 Baso % (Auto) 0.5 Neut # (Auto) 3.4 Lymph # (Auto) 0.9 L Grundy # (Auto) 0.3 Eos # (Auto) 0.0 Baso # (Auto) 0.0 Puncture Site pCO2 pO2 HCO3 ABG pH ABG Total CO2 ABG O2 Saturation ABG Base Excess ABG Hemoglobin ABG Carboxyhemoglobin POC ABG HHb (Measured) ABG Methemoglobin Ck Test A-a O2 Difference Respiratory Index Hgb O2 Saturation Vent Mode FiO2 PEEP Pressure Support Sodium 142 Potassium 4.1 Chloride 99 Carbon Dioxide 29 Anion Gap 18 BUN 44 H Creatinine 3.9 H Est GFR ( Amer) 13 Est GFR (Non-Af Amer) 11 POC Glucose (mg/dL) Random Glucose 146 H Calcium 8.0 L Phosphorus 3.6 Magnesium 2.3 Total Bilirubin 0.9 AST 46 H D ALT 22 Alkaline Phosphatase 102 Total Protein 6.6 Albumin 2.9 L Globulin 3.7 Albumin/Globulin Ratio 0.8 L Fingerstick Blood Sugar Results: 173 Review of Systems - Review of Systems Systems not reviewed;Unavailable: Intubated Assessment/Plan - Assessment and Plan (Free Text) Assessment: 82 yo F w/ PMHx of ESRD, HTN, DM, CAD, HF, anemia, admitted with AMS in hypercapneic respiratory failure. 1. AMS -likely exacerbated due to 3 fentanyl patches -avoid opiates -monitor CO2 -aspiration precaution 2. Hypercapneic respiratory failure -extubated(10/31) -extubated on biPAP -ABGs 3. PNA -zosyn 2.25g q8 4. ESRD -HD MWFS -epo 400U MWF -renally dosed meds 5. CHF -limit IVF 6. COPD -duonebs q6 7. CAD -aspirin 81mg -crestor 2.5mg 8. Hypothyroid -levothyroxine 50mcg 9. Nutrition -10/29 feeds started, Nepro @20, goal 40 10. Thrombocytopenia -Plts dropped from 91-->54 -heparin d/c Ppx -protonix 40mg -heparin 5000u q12 - Date & Time Date: 10/31/17 Time: 15:16 <Helena Kessler M - Last Filed: 10/31/17 22:08> CCU Objective - Vital Signs / Intake & Output Intake and Output (Last 8hrs): Intake & Output 10/31/17 10/31/17 10/31/17 06:59 14:59 22:59 Intake Total 366.6 291.7 50 Output Total 0 0 Balance 366.6 291.7 50 Weight 131 lb 13.383 oz Intake: IV 13 0 Intake, IV Amount 13.6 151.7 50 side port right forearm 13.6 151.7 50 Tube Feeding 280 140 Other 60 Output: Urine 0 0 Urine, Voided 0 0 Other: # Bowel Movements 0 1 1 - Medications Active Medications: Active Medications Generic Name Dose Route Start Last Admin Trade Name Freq PRN Reason Stop Dose Admin Acetaminophen 650 mg 10/27/17 10:07 10/27/17 22:00 Tylenol 325mg Tab PO 650 mg Q6 PRN Administration Pain, moderate (4-7) Albuterol/Ipratropium 3 ml 10/31/17 16:00 10/31/17 19:35 Duoneb 3 Mg/0.5 Mg (3 Ml) Ud INH 3 ml RQ4 [facility] Administration Aspirin 81 mg 10/28/17 08:00 10/31/17 08:23 Aspirin Chewable PO 81 mg 0800 [facility] Administration Docusate Sodium 100 mg 10/31/17 10:00 10/31/17 18:02 Colace PO Not Given BID [facility] Epoetin Jonathan 4,000 unit 10/31/17 09:00 10/31/17 11:34 Procrit IV 4,000 unit MWF [facility] Administration Piperacillin Sod/Tazobactam Sod 2.25 gm in 50 mls @ 100 mls/hr 10/28/17 10:00 10/31/17 17:28 Zosyn 2.25 Gm Iv Premix IVPB 100 mls/hr Q8H [facility] Administration Protocol Fluconazole 100 mls @ 100 mls/hr 10/31/17 10:00 10/31/17 12:02 Diflucan Iv 200 Mg/100 Ml Ns IVPB 100 mls/hr DAILY [facility] Administration Protocol Levothyroxine Sodium 50 mcg 10/28/17 06:30 10/31/17 05:43 Synthroid PO 50 mcg DAILY@0630 [facility] Administration Pantoprazole Sodium 40 mg 10/27/17 12:00 10/31/17 11:28 Protonix Inj IVP 40 mg DAILY [facility] Administration Rosuvastatin Calcium 2.5 mg 10/27/17 22:00 10/31/17 21:36 Crestor PO Not Given HS [facility] Sennosides 8.6 mg 10/31/17 10:00 10/31/17 13:29 Senokot Tab PO 8.6 mg DAILY [facility] Administration Vitamin A 1 ea 10/31/17 19:10 10/31/17 21:37 Vitamin A & D Oint Ud Foilpak TOP 1 ea Q8 PRN Administration Dry skin Vitamin B Complex/Vit C/Folic Acid 1 tab 10/28/17 08:00 10/31/17 08:24 Nephro-Kennedy PO 1 tab 0800 [facility] Administration - Patient Studies Lab Studies: Microbiology Studies 10/27/17 16:35 Blood Culture - Preliminary Blood NO GROWTH AFTER 4 DAYS 10/27/17 16:35 Blood Culture - Preliminary Blood NO GROWTH AFTER 4 DAYS Lab Studies 10/31/17 10/31/17 10/31/17 Range/Units 13:53 13:17 11:59 WBC (4.8-10.8) K/uL RBC (3.80-5.20) Mil/uL Hgb (11.0-16.0) g/dL Hct (34.0-47.0) % MCV (81.0-99.0) fL MCH (27.0-31.0) pg MCHC (33.0-37.0) g/dL RDW (11.5-14.5) % Plt Count (130-400) K/uL MPV (7.2-11.7) fL Neut % (Auto) (50.0-75.0) % Lymph % (Auto) (20.0-40.0) % Grundy % (Auto) (0.0-10.0) % Eos % (Auto) (0.0-4.0) % Baso % (Auto) (0.0-2.0) % Neut # (Auto) (1.8-7.0) K/uL Lymph # (Auto) (1.0-4.3) K/uL Grundy # (Auto) (0.0-0.8) K/uL Eos # (Auto) (0.0-0.7) K/uL Baso # (Auto) (0.0-0.2) K/uL Puncture Site Rrad pCO2 52 H (35-45) mm/Hg pO2 73 L (80-100) mm/Hg HCO3 29.2 H (21-28) mmol/L ABG pH 7.39 (7.35-7.45) ABG Total CO2 33.1 H (22-28) mmol/L ABG O2 Saturation 96.7 (95-98) % ABG Base Excess 5.6 H (-2.0-3.0) mmol/L ABG Hemoglobin 10.0 L (11.7-17.4) g/dL ABG Carboxyhemoglobin 2.3 H (0.5-1.5) % POC ABG HHb (Measured) 3.2 (0.0-5.0) % ABG Methemoglobin 0.6 (0.0-3.0) % Ck Test Na VBG pH (7.32-7.43) VBG pCO2 (40-60) mmHg VBG HCO3 mmol/L VBG Total CO2 (22-28) mmol/L VBG O2 Sat (Calc) (40-65) % VBG Base Excess (0.0-2.0) mmol/L VBG Potassium (3.6-5.2) mmol/L A-a O2 Difference 112.0 mm/Hg Respiratory Index 1.5 Hgb O2 Saturation 93.9 L (95.0-98.0) % Glucose (65-105) mg/dl Lactate (0.7-2.1) mmol/L Liter Flow 10.0 Vent Mode FiO2 35.0 % PEEP Pressure Support Sodium (132-148) mmol/L Potassium (3.6-5.2) mmol/L Chloride (98-107) mmol/L Carbon Dioxide (22-30) mmol/L Anion Gap (10-20) BUN (7-17) mg/dL Creatinine (0.7-1.2) mg/dL Est GFR ( Amer) Est GFR (Non-Af Amer) POC Glucose (mg/dL) 147 H (65-110) mg/dL Random Glucose (65-105) mg/dL Calcium (8.6-10.4) mg/dl Phosphorus (2.5-4.5) mg/dL Magnesium (1.6-2.3) mg/dL Total Bilirubin (0.2-1.3) mg/dL AST (14-36) U/L ALT (9-52) U/L Alkaline Phosphatase (38-126) U/L Total Protein (6.3-8.3) g/dL Albumin (3.5-5.0) g/dL Globulin (2.2-3.9) gm/dL Albumin/Globulin Ratio (1.0-2.1) Venous Blood Potassium (3.6-5.2) mmol/L Random Vancomycin 5.8 ug/mL 10/31/17 10/31/17 10/31/17 Range/Units 11:52 11:50 06:32 WBC (4.8-10.8) K/uL RBC (3.80-5.20) Mil/uL Hgb (11.0-16.0) g/dL Hct (34.0-47.0) % MCV (81.0-99.0) fL MCH (27.0-31.0) pg MCHC (33.0-37.0) g/dL RDW (11.5-14.5) % Plt Count (130-400) K/uL MPV (7.2-11.7) fL Neut % (Auto) (50.0-75.0) % Lymph % (Auto) (20.0-40.0) % Grundy % (Auto) (0.0-10.0) % Eos % (Auto) (0.0-4.0) % Baso % (Auto) (0.0-2.0) % Neut # (Auto) (1.8-7.0) K/uL Lymph # (Auto) (1.0-4.3) K/uL Grundy # (Auto) (0.0-0.8) K/uL Eos # (Auto) (0.0-0.7) K/uL Baso # (Auto) (0.0-0.2) K/uL Puncture Site pCO2 (35-45) mm/Hg pO2 70 H (80-100) mm/Hg HCO3 (21-28) mmol/L ABG pH (7.35-7.45) ABG Total CO2 (22-28) mmol/L ABG O2 Saturation (95-98) % ABG Base Excess (-2.0-3.0) mmol/L ABG Hemoglobin (11.7-17.4) g/dL ABG Carboxyhemoglobin (0.5-1.5) % POC ABG HHb (Measured) (0.0-5.0) % ABG Methemoglobin (0.0-3.0) % Ck Test VBG pH 7.47 H (7.32-7.43) VBG pCO2 43 (40-60) mmHg VBG HCO3 30.2 mmol/L VBG Total CO2 32.6 H (22-28) mmol/L VBG O2 Sat (Calc) 96.7 H (40-65) % VBG Base Excess 6.8 H (0.0-2.0) mmol/L VBG Potassium 3.0 L (3.6-5.2) mmol/L A-a O2 Difference mm/Hg Respiratory Index Hgb O2 Saturation (95.0-98.0) % Glucose 113 H (65-105) mg/dl Lactate 1.1 (0.7-2.1) mmol/L Liter Flow Vent Mode FiO2 30.0 % PEEP 5 Pressure Support Sodium 138.0 142 (132-148) mmol/L Potassium 4.1 (3.6-5.2) mmol/L Chloride 102.0 99 (98-107) mmol/L Carbon Dioxide 29 (22-30) mmol/L Anion Gap 18 (10-20) BUN 44 H (7-17) mg/dL Creatinine 3.9 H (0.7-1.2) mg/dL Est GFR ( Amer) 13 Est GFR (Non-Af Amer) 11 POC Glucose (mg/dL) 109 (65-110) mg/dL Random Glucose 146 H (65-105) mg/dL Calcium 8.0 L (8.6-10.4) mg/dl Phosphorus 3.6 (2.5-4.5) mg/dL Magnesium 2.3 (1.6-2.3) mg/dL Total Bilirubin 0.9 (0.2-1.3) mg/dL AST 46 H D (14-36) U/L ALT 22 (9-52) U/L Alkaline Phosphatase 102 (38-126) U/L Total Protein 6.6 (6.3-8.3) g/dL Albumin 2.9 L (3.5-5.0) g/dL Globulin 3.7 (2.2-3.9) gm/dL Albumin/Globulin Ratio 0.8 L (1.0-2.1) Venous Blood Potassium 3.0 L (3.6-5.2) mmol/L Random Vancomycin ug/mL 10/31/17 10/31/17 10/31/17 Range/Units 06:32 05:21 05:15 WBC 4.7 L (4.8-10.8) K/uL RBC 2.98 L (3.80-5.20) Mil/uL Hgb 9.4 L (11.0-16.0) g/dL Hct 29.0 L (34.0-47.0) % MCV 97.3 D (81.0-99.0) fL MCH 31.4 H (27.0-31.0) pg MCHC 32.3 L (33.0-37.0) g/dL RDW 17.6 H (11.5-14.5) % Plt Count 54 L (130-400) K/uL MPV 8.0 (7.2-11.7) fL Neut % (Auto) 73.1 (50.0-75.0) % Lymph % (Auto) 19.5 L (20.0-40.0) % Grundy % (Auto) 6.8 (0.0-10.0) % Eos % (Auto) 0.1 (0.0-4.0) % Baso % (Auto) 0.5 (0.0-2.0) % Neut # (Auto) 3.4 (1.8-7.0) K/uL Lymph # (Auto) 0.9 L (1.0-4.3) K/uL Grundy # (Auto) 0.3 (0.0-0.8) K/uL Eos # (Auto) 0.0 (0.0-0.7) K/uL Baso # (Auto) 0.0 (0.0-0.2) K/uL Puncture Site Rr pCO2 59 H (35-45) mm/Hg pO2 150 H (80-100) mm/Hg HCO3 23.2 (21-28) mmol/L ABG pH 7.24 L (7.35-7.45) ABG Total CO2 27.1 (22-28) mmol/L ABG O2 Saturation 99.2 H (95-98) % ABG Base Excess -2.2 L (-2.0-3.0) mmol/L ABG Hemoglobin 7.6 L (11.7-17.4) g/dL ABG Carboxyhemoglobin 1.8 H (0.5-1.5) % POC ABG HHb (Measured) 0.8 (0.0-5.0) % ABG Methemoglobin 1.2 (0.0-3.0) % Ck Test Pos VBG pH (7.32-7.43) VBG pCO2 (40-60) mmHg VBG HCO3 mmol/L VBG Total CO2 (22-28) mmol/L VBG O2 Sat (Calc) (40-65) % VBG Base Excess (0.0-2.0) mmol/L VBG Potassium (3.6-5.2) mmol/L A-a O2 Difference 61.0 mm/Hg Respiratory Index 0.4 Hgb O2 Saturation 96.2 (95.0-98.0) % Glucose (65-105) mg/dl Lactate (0.7-2.1) mmol/L Liter Flow Vent Mode Cpap FiO2 40.0 % PEEP 5 Pressure Support 12 Sodium (132-148) mmol/L Potassium (3.6-5.2) mmol/L Chloride (98-107) mmol/L Carbon Dioxide (22-30) mmol/L Anion Gap (10-20) BUN (7-17) mg/dL Creatinine (0.7-1.2) mg/dL Est GFR ( Amer) Est GFR (Non-Af Amer) POC Glucose (mg/dL) 155 H (65-110) mg/dL Random Glucose (65-105) mg/dL Calcium (8.6-10.4) mg/dl Phosphorus (2.5-4.5) mg/dL Magnesium (1.6-2.3) mg/dL Total Bilirubin (0.2-1.3) mg/dL AST (14-36) U/L ALT (9-52) U/L Alkaline Phosphatase (38-126) U/L Total Protein (6.3-8.3) g/dL Albumin (3.5-5.0) g/dL Globulin (2.2-3.9) gm/dL Albumin/Globulin Ratio (1.0-2.1) Venous Blood Potassium (3.6-5.2) mmol/L Random Vancomycin ug/mL 10/30/17 Range/Units 23:39 WBC (4.8-10.8) K/uL RBC (3.80-5.20) Mil/uL Hgb (11.0-16.0) g/dL Hct (34.0-47.0) % MCV (81.0-99.0) fL MCH (27.0-31.0) pg MCHC (33.0-37.0) g/dL RDW (11.5-14.5) % Plt Count (130-400) K/uL MPV (7.2-11.7) fL Neut % (Auto) (50.0-75.0) % Lymph % (Auto) (20.0-40.0) % Grundy % (Auto) (0.0-10.0) % Eos % (Auto) (0.0-4.0) % Baso % (Auto) (0.0-2.0) % Neut # (Auto) (1.8-7.0) K/uL Lymph # (Auto) (1.0-4.3) K/uL Grundy # (Auto) (0.0-0.8) K/uL Eos # (Auto) (0.0-0.7) K/uL Baso # (Auto) (0.0-0.2) K/uL Puncture Site pCO2 (35-45) mm/Hg pO2 (80-100) mm/Hg HCO3 (21-28) mmol/L ABG pH (7.35-7.45) ABG Total CO2 (22-28) mmol/L ABG O2 Saturation (95-98) % ABG Base Excess (-2.0-3.0) mmol/L ABG Hemoglobin (11.7-17.4) g/dL ABG Carboxyhemoglobin (0.5-1.5) % POC ABG HHb (Measured) (0.0-5.0) % ABG Methemoglobin (0.0-3.0) % Ck Test VBG pH (7.32-7.43) VBG pCO2 (40-60) mmHg VBG HCO3 mmol/L VBG Total CO2 (22-28) mmol/L VBG O2 Sat (Calc) (40-65) % VBG Base Excess (0.0-2.0) mmol/L VBG Potassium (3.6-5.2) mmol/L A-a O2 Difference mm/Hg Respiratory Index Hgb O2 Saturation (95.0-98.0) % Glucose (65-105) mg/dl Lactate (0.7-2.1) mmol/L Liter Flow Vent Mode FiO2 % PEEP Pressure Support Sodium (132-148) mmol/L Potassium (3.6-5.2) mmol/L Chloride (98-107) mmol/L Carbon Dioxide (22-30) mmol/L Anion Gap (10-20) BUN (7-17) mg/dL Creatinine (0.7-1.2) mg/dL Est GFR ( Amer) Est GFR (Non-Af Amer) POC Glucose (mg/dL) 173 H (65-110) mg/dL Random Glucose (65-105) mg/dL Calcium (8.6-10.4) mg/dl Phosphorus (2.5-4.5) mg/dL Magnesium (1.6-2.3) mg/dL Total Bilirubin (0.2-1.3) mg/dL AST (14-36) U/L ALT (9-52) U/L Alkaline Phosphatase (38-126) U/L Total Protein (6.3-8.3) g/dL Albumin (3.5-5.0) g/dL Globulin (2.2-3.9) gm/dL Albumin/Globulin Ratio (1.0-2.1) Venous Blood Potassium (3.6-5.2) mmol/L Random Vancomycin ug/mL Laboratory Results - last 24 hr 10/30/17 10/31/17 10/31/17 23:39 05:15 05:21 WBC RBC Hgb Hct MCV MCH MCHC RDW Plt Count MPV Neut % (Auto) Lymph % (Auto) Grundy % (Auto) Eos % (Auto) Baso % (Auto) Neut # (Auto) Lymph # (Auto) Grundy # (Auto) Eos # (Auto) Baso # (Auto) Puncture Site Rr pCO2 59 H pO2 150 H HCO3 23.2 ABG pH 7.24 L ABG Total CO2 27.1 ABG O2 Saturation 99.2 H ABG Base Excess -2.2 L ABG Hemoglobin 7.6 L ABG Carboxyhemoglobin 1.8 H POC ABG HHb (Measured) 0.8 ABG Methemoglobin 1.2 Ck Test Pos VBG pH VBG pCO2 VBG HCO3 VBG Total CO2 VBG O2 Sat (Calc) VBG Base Excess VBG Potassium A-a O2 Difference 61.0 Respiratory Index 0.4 Hgb O2 Saturation 96.2 Glucose Lactate Liter Flow Vent Mode Cpap FiO2 40.0 PEEP 5 Pressure Support 12 Sodium Potassium Chloride Carbon Dioxide Anion Gap BUN Creatinine Est GFR ( Amer) Est GFR (Non-Af Amer) POC Glucose (mg/dL) 173 H 155 H Random Glucose Calcium Phosphorus Magnesium Total Bilirubin AST ALT Alkaline Phosphatase Total Protein Albumin Globulin Albumin/Globulin Ratio Venous Blood Potassium Random Vancomycin 10/31/17 10/31/17 10/31/17 06:32 06:32 11:50 WBC 4.7 L RBC 2.98 L Hgb 9.4 L Hct 29.0 L MCV 97.3 D MCH 31.4 H MCHC 32.3 L RDW 17.6 H Plt Count 54 L MPV 8.0 Neut % (Auto) 73.1 Lymph % (Auto) 19.5 L Grundy % (Auto) 6.8 Eos % (Auto) 0.1 Baso % (Auto) 0.5 Neut # (Auto) 3.4 Lymph # (Auto) 0.9 L Grundy # (Auto) 0.3 Eos # (Auto) 0.0 Baso # (Auto) 0.0 Puncture Site pCO2 pO2 70 H HCO3 ABG pH ABG Total CO2 ABG O2 Saturation ABG Base Excess ABG Hemoglobin ABG Carboxyhemoglobin POC ABG HHb (Measured) ABG Methemoglobin Ck Test VBG pH 7.47 H VBG pCO2 43 VBG HCO3 30.2 VBG Total CO2 32.6 H VBG O2 Sat (Calc) 96.7 H VBG Base Excess 6.8 H VBG Potassium 3.0 L A-a O2 Difference Respiratory Index Hgb O2 Saturation Glucose 113 H Lactate 1.1 Liter Flow Vent Mode FiO2 30.0 PEEP 5 Pressure Support Sodium 142 138.0 Potassium 4.1 Chloride 99 102.0 Carbon Dioxide 29 Anion Gap 18 BUN 44 H Creatinine 3.9 H Est GFR ( Amer) 13 Est GFR (Non-Af Amer) 11 POC Glucose (mg/dL) Random Glucose 146 H Calcium 8.0 L Phosphorus 3.6 Magnesium 2.3 Total Bilirubin 0.9 AST 46 H D ALT 22 Alkaline Phosphatase 102 Total Protein 6.6 Albumin 2.9 L Globulin 3.7 Albumin/Globulin Ratio 0.8 L Venous Blood Potassium 3.0 L Random Vancomycin 10/31/17 10/31/17 10/31/17 11:52 11:59 13:17 WBC RBC Hgb Hct MCV MCH MCHC RDW Plt Count MPV Neut % (Auto) Lymph % (Auto) [place] % (Auto) Eos % (Auto) Baso % (Auto) Neut # (Auto) Lymph # (Auto) [place] # (Auto) Eos # (Auto) Baso # (Auto) Puncture Site pCO2 pO2 HCO3 ABG pH ABG Total CO2 ABG O2 Saturation ABG Base Excess ABG Hemoglobin ABG Carboxyhemoglobin POC ABG HHb (Measured) ABG Methemoglobin Ck Test VBG pH VBG pCO2 VBG HCO3 VBG Total CO2 VBG O2 Sat (Calc) VBG Base Excess VBG Potassium A-a O2 Difference Respiratory Index Hgb O2 Saturation Glucose Lactate Liter Flow Vent Mode FiO2 PEEP Pressure Support Sodium Potassium Chloride Carbon Dioxide Anion Gap BUN Creatinine Est GFR ( Amer) Est GFR (Non-Af Amer) POC Glucose (mg/dL) 109 147 H Random Glucose Calcium Phosphorus Magnesium Total Bilirubin AST ALT Alkaline Phosphatase Total Protein Albumin Globulin Albumin/Globulin Ratio Venous Blood Potassium Random Vancomycin 5.8 10/31/17 13:53 WBC RBC Hgb Hct MCV MCH MCHC RDW Plt Count MPV Neut % (Auto) Lymph % (Auto) [place] % (Auto) Eos % (Auto) Baso % (Auto) Neut # (Auto) Lymph # (Auto) [place] # (Auto) Eos # (Auto) Baso # (Auto) Puncture Site Rrad pCO2 52 H pO2 73 L HCO3 29.2 H ABG pH 7.39 ABG Total CO2 33.1 H ABG O2 Saturation 96.7 ABG Base Excess 5.6 H ABG Hemoglobin 10.0 L ABG Carboxyhemoglobin 2.3 H POC ABG HHb (Measured) 3.2 ABG Methemoglobin 0.6 Ck Test Na VBG pH VBG pCO2 VBG HCO3 VBG Total CO2 VBG O2 Sat (Calc) VBG Base Excess VBG Potassium A-a O2 Difference 112.0 Respiratory Index 1.5 Hgb O2 Saturation 93.9 L Glucose Lactate Liter Flow 10.0 Vent Mode FiO2 35.0 PEEP Pressure Support Sodium Potassium Chloride Carbon Dioxide Anion Gap BUN Creatinine Est GFR ( Amer) Est GFR (Non-Af Amer) POC Glucose (mg/dL) Random Glucose Calcium Phosphorus Magnesium Total Bilirubin AST ALT Alkaline Phosphatase Total Protein Albumin Globulin Albumin/Globulin Ratio Venous Blood Potassium Random Vancomycin Critical Care Progress Note - Nutrition Nutrition: Nutrition Category Date Time Status NPO Diet [DIET] Diets 10/31/17 Dinner Active Assessment/Plan - Assessment and Plan (Free Text) Assessment: Patient seen and examined at bedside. Patient remains hemodynamically stable. Patient tolerated C-pap. extubated. post extubation labs reveals good ventilation -patient will benefit from negative balance with HD -AMS resolved -speach and swallow in AM -above resident documents my clinical findings -cc time 35 minutes
[2017-10-31] MEDS: Multivitamin Vitamin B Complex (Nephro-Vite) Tab PO SCH (08:24)
[2017-10-31] MEDS ORDERED: EPOETIN ALFA 4,000 UNIT/ML ML Dialysis IV SCH (09:00)
--- NOTE | 2017-10-31 09:51 | RAD ---
Date of service: 10/31/2017 HISTORY: intubated COMPARISON: 10/30/2017 FINDINGS: The endotracheal tube terminates 3.5 cm proximal to the herberth. The nasogastric tube LUNGS: Terminates in the stomach. There is persistent severe pulmonary venous congestion. PLEURA: Small pleural effusions, larger on the right. No pneumothorax. CARDIOVASCULAR: The heart remains enlarged with prominent central vasculature. OSSEOUS STRUCTURES: No significant abnormalities. VISUALIZED UPPER ABDOMEN: Normal. OTHER FINDINGS: None. IMPRESSION: Worsening congestive heart failure. Stable position of endotracheal and nasogastric tubes.
[2017-10-31] MEDS: Fluconazole IV 200mg/100 ml NS 100 ML IVPB SCH (12:02)
[2017-10-31 12:06] LABS: VENOUS BLOOD GAS BASE EXCESS 6.8 mmol/L (0.0-2.0); VENOUS BLOOD GAS PCO2 43 mmHg (40-60); VENOUS BLOOD GAS PO2 70 mm/Hg (30-55); VENOUS BLOOD PH 7.47 (7.32-7.43)
[2017-10-31] MEDS ORDERED: Albuterol 0.042% Inhal Sol (1.25 mg/3 mL) UD INH ONE (12:45)
[2017-10-31] MEDS ORDERED: MethylPREDNISolone 40 mg Vial IVP ONE (12:45)
[2017-10-31 14:07] LABS: ARTERIAL BLOOD GAS HCO3 29.2 mmol/L (21-28); ARTERIAL BLOOD GAS O2 SAT 96.7 % (95-98); ARTERIAL BLOOD GAS PCO2 52 mm/Hg (35-45); ARTERIAL BLOOD GAS PH 7.39 (7.35-7.45); ARTERIAL BLOOD GAS PO2 73 mm/Hg (80-100); ARTERIAL BLOOD GAS TCO2 33.1 mmol/L (22-28)
--- NOTE | 2017-10-31 14:48 | CP.PCM.PN ---
Subjective - Date & Time of Evaluation Date of Evaluation: 10/31/17 Time of Evaluation: 14:47 - Subjective Subjective: Nephrology Consultation Note Covering for Dr Conley/Carlos: Assessment: critical Acute respi failure with hypoxia hypercapnia with pulm edema s/p mechanical ventilation 10/28/17 extubated 10/31/17 AMS likely due to opiates severe sys CHF exacerbation Diabetic chronic Kidney Disease (E11.22) Hypertensive Chronic Kidney Disease (I12.0) End stage renal disease (N18.6) dependence on hemodialysis (Z99.2) (MWF and sat ) via AVF Anemia (D64.9), Hyperphosphatemia (E83.39), Secondary Hyperparathyroidism (E21.1 ), HTN (I12.0) hx of pleural effusion s/p thoracocentesis Plan: Continue with Nephrovite 1 tab/day. plan for next HD today per MWF schedule. also plan for isolated UF tomorrow PRBC as needed for anemia. ANTONIA with HD last Hb 9.4 d/c phos binders, last phos level 1.0 KPHOS was supplemented, now phos 3.6 BP controlled without meds not on raas stefania as bp low Glycemic control, Dialysis consistent diet Further work up/management as per primary team Dose meds/antibiotics (if needed) for ESRD status. Avoid fleets enema/magnesium based laxatives. CHF optimization fall precautions consider palliative care Thanks for allowing me to participate in care of your patient. will follow with you. Please call if any Qs. had d/w team Dr Javid Griggs Office: [phone] Chief Complaint; SOB and AMS reason for consult: ESRD HPI: Pt is a 82 F with hx of ESRD on hemodialysis (MWF and sat) via AVF (Dr Gonzalez/Dr Conley), chronic anemia, hyperphosphatemia, secondary hyperparathyroidism, Diabetes Mellitus, hypertension, severe CHF presented to [facility] with c/o severe SOB and AMS which improved after narcan. pt was on fentanyl. renal consult for ESRD management pt on bipap and unable to provide much hx ROS: extubated 10/31/17. but pt still unable to communicate much Physical Examination: General Appearance: chronically ill and debilitated appearing Vitals reviewed and noted as below Head; Atraumatic, normocephalic ENT: deferred EYES: Pupils are equal, round and reactive to light accommodation. Sclera is anicteric. Neck; supple no lymphadenopathy, no thyromegaly or bruit Lungs: Increased respiratory rate/effort. Breath sounds bilateral with crackles Heart: Normal rate. s1s2 normal. No rub or gallop. Extremities: no edema. No varicose veins Neurological: Patient is awake Skin: Warm and dry. Normal turgor. No rash. Palpitation: Normal elasticity for age Abdomen: Abdomen is soft. Bowel sounds +. There is no abdominal tenderness, no guarding/rigidity or organomegaly Psych: deferred MSK: no joint tenderness or swelling. Digits and nails normal, no deformity : kidney or bladder not palpable Access: AVF Labs/imaging reviewed. Past medical history, past surgical history, family history, social history, allergy reviewed and noted as below Family Hx: no hx of CKD. Non contributory Objective - Vital Signs/Intake and Output Vital Signs (last 24 hours): Temp Pulse Resp BP Pulse Ox 98.6 F 86 15 134/47 L 94 L 10/31/17 12:00 10/31/17 13:00 10/31/17 13:00 10/31/17 12:49 10/31/17 13:00 Intake and Output: 10/31/17 10/31/17 06:59 18:59 Intake Total 597.6 291.7 Output Total 0 0 Balance 597.6 291.7 - Medications Medications: Current Medications Acetaminophen (Tylenol 325mg Tab) 650 mg PO Q6 PRN PRN Reason: Pain, moderate (4-7) Last Admin: 10/27/17 22:00 Dose: 650 mg Albuterol/Ipratropium (Duoneb 3 Mg/0.5 Mg (3 Ml) Ud) 3 ml INH RQ4 [facility] Aspirin (Aspirin Chewable) 81 mg PO 0800 [facility] Last Admin: 10/31/17 08:23 Dose: 81 mg Docusate Sodium (Colace) 100 mg PO BID [facility] Last Admin: 10/31/17 11:27 Dose: 100 mg Epoetin Jonathan (Procrit) 4,000 unit IV MWF [facility] Last Admin: 10/31/17 11:34 Dose: 4,000 unit Piperacillin Sod/Tazobactam Sod (Zosyn 2.25 Gm Iv Premix) 2.25 gm in 50 mls @ 100 mls/hr IVPB Q8H [facility] PRN Reason: Protocol Last Admin: 10/31/17 09:12 Dose: 100 mls/hr Propofol (Diprivan) 1,000 mg in 100 mls @ 1.701 mls/hr IV .Q24H PRN; Protocol; 5 MCG/KG/MIN PRN Reason: Agitation Last Titration: 10/31/17 05:55 Dose: 8 mcg/kg/min, 2.722 mls/hr Fluconazole (Diflucan Iv 200 Mg/100 Ml Ns) 100 mls @ 100 mls/hr IVPB DAILY [facility] PRN Reason: Protocol Last Admin: 10/31/17 12:02 Dose: 100 mls/hr Levothyroxine Sodium (Synthroid) 50 mcg PO DAILY@0630 [facility] Last Admin: 10/31/17 05:43 Dose: 50 mcg Pantoprazole Sodium (Protonix Inj) 40 mg IVP DAILY [facility] Last Admin: 10/31/17 11:28 Dose: 40 mg Rosuvastatin Calcium (Crestor) 2.5 mg PO HS [facility] Last Admin: 10/30/17 22:13 Dose: 2.5 mg Sennosides (Senokot Tab) 8.6 mg PO DAILY [facility] Last Admin: 10/31/17 13:29 Dose: 8.6 mg Vitamin B Complex/Vit C/Folic Acid (Nephro-Kennedy) 1 tab PO 0800 [facility] Last Admin: 10/31/17 08:24 Dose: 1 tab - Labs Labs: 10/31/17 06:32 10/31/17 06:32 PT 12.1 SECONDS (9.7-12.2) 10/30/17 06:11 INR 1.1 10/30/17 06:11 APTT 33 SECONDS (21-34) 10/30/17 06:11
[2017-10-31] MEDS: Rosuvastatin Calcium 2.5 mg Tab PO SCH (21:36)
[2017-10-31] MEDS: Vitamins A & D Oint UD Foilpak TOP PRN (21:37)
[2017-10-31] MEDS: MethylPREDNISolone 40 mg Vial IVP SCH (22:30)
[2017-11-01] MEDS: Albuterol-Ipratrop 3 mg / 0.5 (3 ml) UD INH SCH ×6 (00:54→19:41)
[2017-11-01] MEDS: Piperacill/Tazo 2.25gm in Dex 2.25 GM/50 ML BAG IVPB SCH ×3 (01:06→20:42)
[2017-11-01] MEDS: Levothyroxine 50 MCG TAB PO SCH (05:40)
[2017-11-01] MEDS: MethylPREDNISolone 40 mg Vial IVP SCH ×3 (05:40→22:02)
[2017-11-01] MEDS: Vitamins A & D Oint UD Foilpak TOP PRN ×2 (05:41→08:21)
[2017-11-01 06:36] LABS: BASO % 0.2 % (0.0-2.0); EOS % 0.1 % (0.0-4.0); HEMOGLOBIN 10.1 g/dL (11.0-16.0); LYMPH # 0.5 K/uL (1.0-4.3); MEAN CELL VOLUME 97.5 fL (81.0-99.0); MEAN CORPUSCULAR HEMOGLOBIN 32.1 pg (27.0-31.0); MEAN PLATELET VOLUME 8.8 fL (7.2-11.7); MONO # 0.1 K/uL (0.0-0.8); MONO % 1.2 % (0.0-10.0); NEUT # 7.1 K/uL (1.8-7.0); NEUT % 92.5 % (50.0-75.0); NRBC % 0.2 % (0.0-2.0); PLATELET COUNT 54 K/uL (130-400); RBC 3.13 Mil/uL (3.80-5.20); RED CELL DISTRIBUTION WIDTH 17.6 % (11.5-14.5); WHITE BLOOD COUNT 7.6 K/uL (4.8-10.8)
[2017-11-01 06:38] LABS: ALB/GLOB RATIO 0.7 (1.0-2.1); ALBUMIN 3.4 g/dL (3.5-5.0); CALCIUM 7.9 mg/dl (8.6-10.4)
[2017-11-01 09:13] LABS: BANDS 4 % (0-2); LYMPHOCYTE 6 % (20-40); MONOCYTE 1 % (0-10); NEUTROPHIL 89 % (50-75); PLATELET ESTIMATE DECREASED (NORMAL); TOTAL CELLS COUNTED 100
[2017-11-01 09:14] LABS: ANISOCYTOSIS SLIGHT; HYPOCHROMIC SLIGHT; POLYCHROMIC SLIGHT; TARGET CELLS SLIGHT
[2017-11-01 09:15] LABS: TOXIC GRANULATION PRESENT
[2017-11-01] MEDS: Fluconazole IV 200mg/100 ml NS 100 ML IVPB SCH (09:50)
[2017-11-01] MEDS: Multivitamin Vitamin B Complex (Nephro-Vite) Tab PO SCH (10:04)
--- NOTE | 2017-11-01 18:44 | CP.PCM.PN ---
Subjective - Date & Time of Evaluation Date of Evaluation: 11/01/17 Time of Evaluation: 18:43 - Subjective Subjective: Nephrology Consultation Note Covering for Dr Conley/Carlos: Assessment: critical Acute respi failure with hypoxia hypercapnia with pulm edema s/p mechanical ventilation 10/28/17 extubated 10/31/17 AMS likely due to opiates severe sys CHF exacerbation Diabetic chronic Kidney Disease (E11.22) Hypertensive Chronic Kidney Disease (I12.0) End stage renal disease (N18.6) dependence on hemodialysis (Z99.2) (MWF and sat ) via AVF Anemia (D64.9), Hyperphosphatemia (E83.39), Secondary Hyperparathyroidism (E21.1 ), HTN (I12.0) hx of pleural effusion s/p thoracocentesis Plan: Continue with Nephrovite 1 tab/day. HD MWF Extra IUF treatment today PRBC as needed for anemia. ANTONIA with HD d/c phos binders, last phos level 1.0 KPHOS was supplemented, now phos 3.6 BP controlled without meds not on raas stefania as bp low Glycemic control, Dialysis consistent diet Further work up/management as per primary team Dose meds/antibiotics (if needed) for ESRD status. Avoid fleets enema/magnesium based laxatives. S: seen and examineds till sob Physical Examination: General Appearance: chronically ill and debilitated appearing Vitals reviewed and noted as below Head; Atraumatic, normocephalic ENT: deferred EYES: Pupils are equal, round and reactive to light accommodation. Sclera is anicteric. Neck; supple no lymphadenopathy, no thyromegaly or bruit Lungs: Increased respiratory rate/effort. Breath sounds bilateral with crackles Heart: Normal rate. s1s2 normal. No rub or gallop. Extremities: no edema. No varicose veins Neurological: Patient is awake Skin: Warm and dry. Normal turgor. No rash. Palpitation: Normal elasticity for age Abdomen: Abdomen is soft. Bowel sounds +. There is no abdominal tenderness, no guarding/rigidity or organomegaly Psych: deferred MSK: no joint tenderness or swelling. Digits and nails normal, no deformity : kidney or bladder not palpable Access: AVF Labs/imaging reviewed. Past medical history, past surgical history, family history, social history, allergy reviewed and noted as below Family Hx: no hx of CKD. Non contributory Objective - Vital Signs/Intake and Output Vital Signs (last 24 hours): Temp Pulse Resp BP Pulse Ox 97.8 F 102 H 29 H 119/56 L 95 11/01/17 17:00 11/01/17 17:10 11/01/17 18:15 11/01/17 18:15 11/01/17 18:15 Intake and Output: 11/01/17 11/01/17 06:59 18:59 Intake Total 50 225 Output Total 0 Balance 50 225 - Medications Medications: Current Medications Acetaminophen (Tylenol 325mg Tab) 650 mg PO Q6 PRN PRN Reason: Pain, moderate (4-7) Last Admin: 10/27/17 22:00 Dose: 650 mg Albuterol/Ipratropium (Duoneb 3 Mg/0.5 Mg (3 Ml) Ud) 3 ml INH RQ4 [facility] BEDS AT [facility] Last Admin: 11/01/17 16:45 Dose: Not Given Aspirin (Aspirin Chewable) 81 mg PO 0800 [facility] 234 BEDS AT [facility] Last Admin: 11/01/17 08:21 Dose: 81 mg Docusate Sodium (Colace) 100 mg PO BID [facility]S INCLUDE 234 BEDS AT [facility] Last Admin: 11/01/17 10:20 Dose: Not Given Epoetin Jonathan (Procrit) 4,000 unit IV MWF COUNTS INCLUDE 234 BEDS AT [facility] Last Admin: 10/31/17 11:34 Dose: 4,000 unit Piperacillin Sod/Tazobactam Sod (Zosyn 2.25 Gm Iv Premix) 2.25 gm in 50 mls @ 100 mls/hr IVPB Q8H [facility] PRN Reason: Protocol Last Admin: 11/01/17 09:49 Dose: 100 mls/hr Fluconazole (Diflucan Iv 200 Mg/100 Ml Ns) 100 mls @ 100 mls/hr IVPB DAILY [facility] PRN Reason: Protocol Last Admin: 11/01/17 09:50 Dose: 100 mls/hr Levothyroxine Sodium (Synthroid) 50 mcg PO DAILY@0630 [facility]CLUDE 234 BEDS AT [facility] Last Admin: 11/01/17 05:40 Dose: Not Given Methylprednisolone (Solu-Medrol) 20 mg IVP Q8H [facility]S INCLUDE 234 BEDS AT [facility] Last Admin: 11/01/17 14:43 Dose: 20 mg Pantoprazole Sodium (Protonix Inj) 40 mg IVP DAILY [facility]CLUDE 234 BEDS AT [facility] Last Admin: 11/01/17 10:11 Dose: 40 mg Rosuvastatin Calcium (Crestor) 2.5 mg PO HS [facility]S INCLUDE 234 BEDS AT [facility] Last Admin: 10/31/17 21:36 Dose: Not Given Sennosides (Senokot Tab) 8.6 mg PO DAILY [facility]S INCLUDE 234 BEDS AT [facility] Last Admin: 11/01/17 10:20 Dose: Not Given Vitamin A (Vitamin A & D Oint Ud Foilpak) 1 ea TOP Q8 PRN PRN Reason: Dry skin Last Admin: 11/01/17 08:21 Dose: 1 ea Vitamin B Complex/Vit C/Folic Acid (Nephro-Kennedy) 1 tab PO 0800 [facility]CLUDE 234 BEDS AT [facility] Last Admin: 11/01/17 10:04 Dose: Not Given - Labs Labs: 11/01/17 06:06 11/01/17 06:07 PT 12.1 SECONDS (9.7-12.2) 10/30/17 06:11 INR 1.1 10/30/17 06:11 APTT 33 SECONDS (21-34) 10/30/17 06:11
[2017-11-01] MEDS: Rosuvastatin Calcium 2.5 mg Tab PO SCH (22:02)
--- NOTE | 2017-11-01 22:17 | CP.CCUPN ---
CCU Subjective - Physician Review Events Since Last Encounter (Free Text): 11/01/17 22:17 Patient extubated yesterday. Today received a hemodialysis. She is awake and responding. Not in any distress. Exertional dyspnea noted. Eating better Vital signs stable Assessment and recommendation: 82-year-old female with a pneumonia. Is pretty failure. Intubated. Extubated now. End-stage renal disease. Physical therapy. We will discharge her to the telemetry tomorrow CCU Objective - Vital Signs / Intake & Output Vital Signs (Last 4 hours): Vital Signs Temp Pulse Resp BP BP Pulse Ox 11/01/17 21:00 86 39 H 96 11/01/17 20:56 86 41 H 137/56 L 95 11/01/17 20:41 89 40 H 135/51 L 95 11/01/17 20:26 85 41 H 125/50 L 95 11/01/17 20:11 85 38 H 129/46 L 93 L 11/01/17 20:00 97.5 F L 85 13 96 11/01/17 19:56 85 44 H 129/58 L 96 11/01/17 19:43 86 34 H 127/52 L 93 L 11/01/17 19:41 84 33 H 120/49 L 92 L 11/01/17 19:30 25 H 113/44 L 95 11/01/17 19:26 105 H 24 113/44 L 92 L 11/01/17 19:15 21 115/54 L 95 11/01/17 19:11 105 H 27 H 115/54 L 93 L 11/01/17 19:00 107 H 35 H 115/54 L 92 L 11/01/17 18:55 107 H 30 H 115/54 L 91 L 11/01/17 18:40 106 H 23 119/54 L 119/54 L 94 L 11/01/17 18:26 106 H 34 H 120/58 L 11/01/17 18:20 29 H 119/56 L 95 Intake and Output (Last 8hrs): Intake & Output 11/01/17 11/01/17 11/01/17 06:59 14:59 22:59 Intake Total 50 225 100 Output Total 0 0 Balance 50 225 100 Weight 130 lb Intake: Intake, IV Amount 50 150 50 Right Forearm 50 150 50 Oral 75 50 Output: Urine 0 0 Urine, Voided 0 0 Other: # Bowel Movements 0 1 0 - Physical Exam Head: Positive for: Atraumatic, Normocephalic Mouth: Positive for: Moist Mucous Membranes Respiratory/Chest: Positive for: Decreased Breath Sounds (R>L), Tachypneic Cardiovascular: Positive for: Regular Rate and Rhythm. Negative for: Murmurs Abdomen: Positive for: Normal Bowel Sounds. Negative for: Distention Upper Extremity: Negative for: Cyanosis, Edema Lower Extremity: Positive for: Normal Inspection. Negative for: Edema Neurological: Negative for: GCS=15 Skin: Positive for: Normal Color Psychiatric: Negative for: Alert - Medications Active Medications: Active Medications Generic Name Dose Route Start Last Admin Trade Name Freq PRN Reason Stop Dose Admin Acetaminophen 650 mg 10/27/17 10:07 10/27/17 22:00 Tylenol 325mg Tab PO 650 mg Q6 PRN Administration Pain, moderate (4-7) Albuterol/Ipratropium 3 ml 10/31/17 16:00 11/01/17 19:41 Duoneb 3 Mg/0.5 Mg (3 Ml) Ud INH Not Given RQ4 [facility] Aspirin 81 mg 10/28/17 08:00 11/01/17 08:21 Aspirin Chewable PO 81 mg 0800 [facility] Administration Docusate Sodium 100 mg 10/31/17 10:00 11/01/17 20:38 Colace PO Not Given BID [facility] Epoetin Jonathan 4,000 unit 10/31/17 09:00 10/31/17 11:34 Procrit IV 4,000 unit MWF [facility] Administration Piperacillin Sod/Tazobactam Sod 2.25 gm in 50 mls @ 100 mls/hr 10/28/17 10:00 11/01/17 20:42 Zosyn 2.25 Gm Iv Premix IVPB 100 mls/hr Q8H [facility] Administration Protocol Fluconazole 100 mls @ 100 mls/hr 10/31/17 10:00 11/01/17 09:50 Diflucan Iv 200 Mg/100 Ml Ns IVPB 100 mls/hr DAILY [facility] Administration Protocol Levothyroxine Sodium 50 mcg 10/28/17 06:30 11/01/17 05:40 Synthroid PO Not Given DAILY@0630 [facility] Methylprednisolone 20 mg 10/31/17 22:30 11/01/17 22:02 Solu-Medrol IVP 20 mg Q8H [facility] Administration Pantoprazole Sodium 40 mg 10/27/17 12:00 11/01/17 10:11 Protonix Inj IVP 40 mg DAILY [facility] Administration Rosuvastatin Calcium 2.5 mg 10/27/17 22:00 11/01/17 22:02 Crestor PO 2.5 mg HS [facility] Administration Sennosides 8.6 mg 10/31/17 10:00 11/01/17 10:20 Senokot Tab PO Not Given DAILY [facility] Vitamin A 1 ea 10/31/17 19:10 11/01/17 08:21 Vitamin A & D Oint Ud Foilpak TOP 1 ea Q8 PRN Administration Dry skin Vitamin B Complex/Vit C/Folic Acid 1 tab 10/28/17 08:00 11/01/17 10:04 Nephro-Kennedy PO Not Given 0800 [facility] - Patient Studies Lab Studies: Microbiology Studies 10/27/17 16:35 Blood Culture - Final Blood NO GROWTH AFTER 5 DAYS Gram Stain - Final TEST NOT PERFORMED 10/27/17 16:35 Blood Culture - Final Blood NO GROWTH AFTER 5 DAYS Gram Stain - Final TEST NOT PERFORMED Lab Studies 11/01/17 11/01/17 10/31/17 Range/Units 06:07 06:06 17:25 WBC 7.6 D (4.8-10.8) K/uL RBC 3.13 L (3.80-5.20) Mil/uL Hgb 10.1 L (11.0-16.0) g/dL Hct 30.6 L (34.0-47.0) % MCV 97.5 (81.0-99.0) fL MCH 32.1 H (27.0-31.0) pg MCHC 33.0 (33.0-37.0) g/dL RDW 17.6 H (11.5-14.5) % Plt Count 54 L (130-400) K/uL MPV 8.8 (7.2-11.7) fL Neut % (Auto) 92.5 H (50.0-75.0) % Lymph % (Auto) 6.0 L (20.0-40.0) % [place] % (Auto) 1.2 (0.0-10.0) % Eos % (Auto) 0.1 (0.0-4.0) % Baso % (Auto) 0.2 (0.0-2.0) % Neut # (Auto) 7.1 H (1.8-7.0) K/uL Lymph # (Auto) 0.5 L (1.0-4.3) K/uL [place] # (Auto) 0.1 (0.0-0.8) K/uL Eos # (Auto) 0.0 (0.0-0.7) K/uL Baso # (Auto) 0.0 (0.0-0.2) K/uL Neutrophils % (Manual) 89 H (50-75) % Band Neutrophils % 4 H (0-2) % Lymphocytes % (Manual) 6 L (20-40) % Monocytes % (Manual) 1 (0-10) % Toxic Granulation Present Platelet Estimate Decreased L (NORMAL) Polychromasia Slight Hypochromasia (manual) Slight Anisocytosis (manual) Slight Macrocytosis (manual) Slight Target Cells Slight Sodium 140 (132-148) mmol/L Potassium 4.3 (3.6-5.2) mmol/L Chloride 97 L (98-107) mmol/L Carbon Dioxide 25 (22-30) mmol/L Anion Gap 22 H (10-20) BUN 30 H (7-17) mg/dL Creatinine 2.5 H (0.7-1.2) mg/dL Est GFR ( Amer) 22 Est GFR (Non-Af Amer) 18 POC Glucose (mg/dL) 192 H (65-110) mg/dL Random Glucose 219 H (65-105) mg/dL Calcium 7.9 L (8.6-10.4) mg/dl Phosphorus 3.8 (2.5-4.5) mg/dL Magnesium 2.2 (1.6-2.3) mg/dL Total Bilirubin 1.1 (0.2-1.3) mg/dL AST 46 H (14-36) U/L ALT 26 (9-52) U/L Alkaline Phosphatase 94 (38-126) U/L Total Protein 7.9 (6.3-8.3) g/dL Albumin 3.4 L (3.5-5.0) g/dL Globulin 4.5 H (2.2-3.9) gm/dL Albumin/Globulin Ratio 0.7 L (1.0-2.1) Laboratory Results - last 24 hr 10/31/17 11/01/17 11/01/17 17:25 06:06 06:07 WBC 7.6 D RBC 3.13 L Hgb 10.1 L Hct 30.6 L MCV 97.5 MCH 32.1 H MCHC 33.0 RDW 17.6 H Plt Count 54 L MPV 8.8 Neut % (Auto) 92.5 H Lymph % (Auto) 6.0 L [place] % (Auto) 1.2 Eos % (Auto) 0.1 Baso % (Auto) 0.2 Neut # (Auto) 7.1 H Lymph # (Auto) 0.5 L [place] # (Auto) 0.1 Eos # (Auto) 0.0 Baso # (Auto) 0.0 Neutrophils % (Manual) 89 H Band Neutrophils % 4 H Lymphocytes % (Manual) 6 L Monocytes % (Manual) 1 Toxic Granulation Present Platelet Estimate Decreased L Polychromasia Slight Hypochromasia (manual) Slight Anisocytosis (manual) Slight Macrocytosis (manual) Slight Target Cells Slight Sodium 140 Potassium 4.3 Chloride 97 L Carbon Dioxide 25 Anion Gap 22 H BUN 30 H Creatinine 2.5 H Est GFR ( Amer) 22 Est GFR (Non-Af Amer) 18 POC Glucose (mg/dL) 192 H Random Glucose 219 H Calcium 7.9 L Phosphorus 3.8 Magnesium 2.2 Total Bilirubin 1.1 AST 46 H ALT 26 Alkaline Phosphatase 94 Total Protein 7.9 Albumin 3.4 L Globulin 4.5 H Albumin/Globulin Ratio 0.7 L Fingerstick Blood Sugar Results: 173 Critical Care Progress Note - Nutrition Nutrition: Nutrition Category Date Time Status NPO Diet [DIET] Diets 10/31/17 Dinner Active
[2017-11-02] MEDS: Piperacill/Tazo 2.25gm in Dex 2.25 GM/50 ML BAG IVPB SCH ×3 (01:20→18:00)
[2017-11-02 05:59] LABS: BASO % 0.3 % (0.0-2.0); HEMOGLOBIN 11.1 g/dL (11.0-16.0); LYMPH # 0.5 K/uL (1.0-4.3); LYMPH % 6.5 % (20.0-40.0); MEAN CELL VOLUME 96.6 fL (81.0-99.0); MEAN CORPUSCULAR HEMOGLOBIN 31.4 pg (27.0-31.0); MEAN CORPUSCULAR HGB CONC 32.5 g/dL (33.0-37.0); MEAN PLATELET VOLUME 8.1 fL (7.2-11.7); MONO # 0.3 K/uL (0.0-0.8); MONO % 3.8 % (0.0-10.0); NEUT # 7.1 K/uL (1.8-7.0); NEUT % 89.4 % (50.0-75.0); NRBC % 0.3 % (0.0-2.0); PLATELET COUNT 73 K/uL (130-400); RBC 3.52 Mil/uL (3.80-5.20); RED CELL DISTRIBUTION WIDTH 17.1 % (11.5-14.5)
[2017-11-02] MEDS: Levothyroxine 50 MCG TAB PO SCH (06:24)
[2017-11-02] MEDS: MethylPREDNISolone 40 mg Vial IVP SCH ×3 (06:25→21:32)
[2017-11-02 06:26] LABS: ALB/GLOB RATIO 0.8 (1.0-2.1); ALBUMIN 3.5 g/dL (3.5-5.0); CALCIUM 8.2 mg/dl (8.6-10.4)
[2017-11-02] MEDS: Albuterol-Ipratrop 3 mg / 0.5 (3 ml) UD INH SCH ×5 (07:40→23:52)
[2017-11-02 08:28] LABS: ANISOCYTOSIS SLIGHT; LYMPHOCYTE 5 % (20-40); MONOCYTE 3 % (0-10); NEUTROPHIL 92 % (50-75); PLATELET ESTIMATE DECREASED (NORMAL); TOTAL CELLS COUNTED 100
[2017-11-02 08:29] LABS: HYPOCHROMIC SLIGHT; POLYCHROMIC SLIGHT; TARGET CELLS SLIGHT
[2017-11-02] MEDS: Multivitamin Vitamin B Complex (Nephro-Vite) Tab PO SCH (09:09)
[2017-11-02] MEDS: Fluconazole IV 200mg/100 ml NS 100 ML IVPB SCH (09:12)
--- NOTE | 2017-11-02 17:48 | RAD ---
Chest x-ray single frontal view History: Congestive heart failure. Comparison: 10/31/2017 Findings: Interval removal of endotracheal and NG tubes. Moderate loculated bilateral pleural effusions. Consolidative opacification in the mid to lower lung zones bilaterally. Right hilar prominence. Biapical pleural thickening with upper lobe granulomatous changes. Scattered nodular densities in both lung parkinson. Mild to moderate venous congestion. Calcification at the aortic knob. Cardiomegaly. Degenerative changes in the spine and shoulders. Prominent vascular calcifications in the upper abdomen. Impression: Interval removal of endotracheal and NG tubes. Moderate loculated bilateral pleural effusions. Consolidative opacification in the mid to lower lung zones bilaterally. Right hilar prominence. Biapical pleural thickening with upper lobe granulomatous changes. Scattered nodular densities in both lung parkinson. Mild to moderate venous congestion. Calcification at the aortic knob. Cardiomegaly.
--- NOTE | 2017-11-02 18:39 | CP.CCUPN ---
CCU Subjective - Physician Review Events Since Last Encounter (Free Text): 11/02/17 18:38 Patient extubated day before yesterday. Yesterday she was doing well, received hemodialysis. Today she was feeling better. She was able to eat. Suddenly she developed SOB. Placed on BiPAP. Xanax was given. Likely otherwise stable. Patient is now doing well. Will continue the BiPAP. Chest x-ray showing bilateral pleural effusion. 4 hemodialysis tomorrow a Will monitor the patient intensive care unit for the next 24 hours CCU Objective - Vital Signs / Intake & Output Vital Signs (Last 4 hours): Vital Signs Temp Pulse Resp BP Pulse Ox 11/02/17 18:04 104 H 20 134/65 100 11/02/17 18:00 104 H 38 H 98 11/02/17 17:04 109 H 24 122/61 100 11/02/17 17:00 108 H 27 H 100 11/02/17 16:48 114 H 11/02/17 16:04 113 H 34 H 121/65 99 11/02/17 16:00 97.3 F L 114 H 38 H 100 11/02/17 15:04 114 H 43 H 134/66 100 11/02/17 15:00 117 H 36 H 99 Intake and Output (Last 8hrs): Intake & Output 11/02/17 11/02/17 11/02/17 06:59 14:59 22:59 Intake Total 100 380 50 Output Total 1 0 0 Balance 99 380 50 Weight 129 lb Intake: Intake, IV Amount 50 150 50 Right Forearm 50 Right Hand 100 side port right forearm 50 50 Oral 50 230 0 Output: Urine 1 0 0 Urine, Voided 1 0 0 Other: # Bowel Movements 1 0 0 - Physical Exam Head: Positive for: Atraumatic, Normocephalic Mouth: Positive for: Moist Mucous Membranes Respiratory/Chest: Positive for: Decreased Breath Sounds (R>L), Tachypneic Cardiovascular: Positive for: Regular Rate and Rhythm. Negative for: Murmurs Abdomen: Positive for: Normal Bowel Sounds. Negative for: Distention Upper Extremity: Negative for: Cyanosis, Edema Lower Extremity: Positive for: Normal Inspection. Negative for: Edema Neurological: Negative for: GCS=15 Skin: Positive for: Normal Color Psychiatric: Negative for: Alert - Medications Active Medications: Active Medications Generic Name Dose Route Start Last Admin Trade Name Freq PRN Reason Stop Dose Admin Acetaminophen 650 mg 10/27/17 10:07 10/27/17 22:00 Tylenol 325mg Tab PO 650 mg Q6 PRN Administration Pain, moderate (4-7) Albuterol/Ipratropium 3 ml 10/31/17 16:00 11/02/17 16:47 Duoneb 3 Mg/0.5 Mg (3 Ml) Ud INH 3 ml RQ4 [facility] Administration Aspirin 81 mg 10/28/17 08:00 11/02/17 09:09 Aspirin Chewable PO 81 mg 0800 [facility] Administration Docusate Sodium 100 mg 10/31/17 10:00 11/02/17 18:01 Colace PO Not Given BID [facility] Epoetin Jonathan 4,000 unit 11/03/17 09:00 Procrit IV MWF [facility] Famotidine 20 mg 11/02/17 10:00 11/02/17 09:09 Pepcid PO 20 mg DAILY [facility] Administration Piperacillin Sod/Tazobactam Sod 2.25 gm in 50 mls @ 100 mls/hr 10/28/17 10:00 11/02/17 18:00 Zosyn 2.25 Gm Iv Premix IVPB 100 mls/hr Q8H [facility] Administration Protocol Levothyroxine Sodium 50 mcg 10/28/17 06:30 11/02/17 06:24 Synthroid PO 50 mcg DAILY@0630 [facility] Administration Methylprednisolone 20 mg 10/31/17 22:30 11/02/17 13:56 Solu-Medrol IVP 20 mg Q8H [facility] Administration Rosuvastatin Calcium 2.5 mg 10/27/17 22:00 11/01/17 22:02 Crestor PO 2.5 mg HS [facility] Administration Sennosides 8.6 mg 10/31/17 10:00 11/02/17 09:10 Senokot Tab PO Not Given DAILY [facility] Vitamin A 1 ea 10/31/17 19:10 11/01/17 08:21 Vitamin A & D Oint Ud Foilpak TOP 1 ea Q8 PRN Administration Dry skin Vitamin B Complex/Vit C/Folic Acid 1 tab 10/28/17 08:00 11/02/17 09:09 Nephro-Kennedy PO 1 tab 0800 [facility] Administration - Patient Studies Lab Studies: Microbiology Studies 10/27/17 16:35 Blood Culture - Final Blood NO GROWTH AFTER 5 DAYS Gram Stain - Final TEST NOT PERFORMED 10/27/17 16:35 Blood Culture - Final Blood NO GROWTH AFTER 5 DAYS Gram Stain - Final TEST NOT PERFORMED Lab Studies 11/02/17 11/02/17 11/02/17 Range/Units 17:26 12:00 05:54 WBC (4.8-10.8) K/uL RBC (3.80-5.20) Mil/uL Hgb (11.0-16.0) g/dL Hct (34.0-47.0) % MCV (81.0-99.0) fL MCH (27.0-31.0) pg MCHC (33.0-37.0) g/dL RDW (11.5-14.5) % Plt Count (130-400) K/uL MPV (7.2-11.7) fL Neut % (Auto) (50.0-75.0) % Lymph % (Auto) (20.0-40.0) % Trego % (Auto) (0.0-10.0) % Eos % (Auto) (0.0-4.0) % Baso % (Auto) (0.0-2.0) % Neut # (Auto) (1.8-7.0) K/uL Lymph # (Auto) (1.0-4.3) K/uL Trego # (Auto) (0.0-0.8) K/uL Eos # (Auto) (0.0-0.7) K/uL Baso # (Auto) (0.0-0.2) K/uL Neutrophils % (Manual) (50-75) % Lymphocytes % (Manual) (20-40) % Monocytes % (Manual) (0-10) % Platelet Estimate (NORMAL) Polychromasia Hypochromasia (manual) Anisocytosis (manual) Macrocytosis (manual) Target Cells Sodium 142 (132-148) mmol/L Potassium 4.1 (3.6-5.2) mmol/L Chloride 100 (98-107) mmol/L Carbon Dioxide 27 (22-30) mmol/L Anion Gap 20 (10-20) BUN 34 H (7-17) mg/dL Creatinine 2.3 H (0.7-1.2) mg/dL Est GFR ( Amer) 25 Est GFR (Non-Af Amer) 20 POC Glucose (mg/dL) 250 H 187 H (65-110) mg/dL Random Glucose 185 H (65-105) mg/dL Calcium 8.2 L (8.6-10.4) mg/dl Phosphorus 3.9 (2.5-4.5) mg/dL Magnesium 2.3 (1.6-2.3) mg/dL Total Bilirubin 1.1 (0.2-1.3) mg/dL AST 43 H (14-36) U/L ALT 18 (9-52) U/L Alkaline Phosphatase 94 (38-126) U/L Total Protein 7.9 (6.3-8.3) g/dL Albumin 3.5 (3.5-5.0) g/dL Globulin 4.4 H (2.2-3.9) gm/dL Albumin/Globulin Ratio 0.8 L (1.0-2.1) 11/02/17 Range/Units 05:53 WBC 8.0 (4.8-10.8) K/uL RBC 3.52 L (3.80-5.20) Mil/uL Hgb 11.1 (11.0-16.0) g/dL Hct 34.1 (34.0-47.0) % MCV 96.6 (81.0-99.0) fL MCH 31.4 H (27.0-31.0) pg MCHC 32.5 L (33.0-37.0) g/dL RDW 17.1 H (11.5-14.5) % Plt Count 73 L (130-400) K/uL MPV 8.1 (7.2-11.7) fL Neut % (Auto) 89.4 H (50.0-75.0) % Lymph % (Auto) 6.5 L (20.0-40.0) % Trego % (Auto) 3.8 (0.0-10.0) % Eos % (Auto) 0.0 (0.0-4.0) % Baso % (Auto) 0.3 (0.0-2.0) % Neut # (Auto) 7.1 H (1.8-7.0) K/uL Lymph # (Auto) 0.5 L (1.0-4.3) K/uL Trego # (Auto) 0.3 (0.0-0.8) K/uL Eos # (Auto) 0.0 (0.0-0.7) K/uL Baso # (Auto) 0.0 (0.0-0.2) K/uL Neutrophils % (Manual) 92 H (50-75) % Lymphocytes % (Manual) 5 L (20-40) % Monocytes % (Manual) 3 (0-10) % Platelet Estimate Decreased L (NORMAL) Polychromasia Slight Hypochromasia (manual) Slight Anisocytosis (manual) Slight Macrocytosis (manual) Slight Target Cells Slight Sodium (132-148) mmol/L Potassium (3.6-5.2) mmol/L Chloride (98-107) mmol/L Carbon Dioxide (22-30) mmol/L Anion Gap (10-20) BUN (7-17) mg/dL Creatinine (0.7-1.2) mg/dL Est GFR ( Amer) Est GFR (Non-Af Amer) POC Glucose (mg/dL) (65-110) mg/dL Random Glucose (65-105) mg/dL Calcium (8.6-10.4) mg/dl Phosphorus (2.5-4.5) mg/dL Magnesium (1.6-2.3) mg/dL Total Bilirubin (0.2-1.3) mg/dL AST (14-36) U/L ALT (9-52) U/L Alkaline Phosphatase (38-126) U/L Total Protein (6.3-8.3) g/dL Albumin (3.5-5.0) g/dL Globulin (2.2-3.9) gm/dL Albumin/Globulin Ratio (1.0-2.1) Laboratory Results - last 24 hr 11/02/17 11/02/17 11/02/17 05:53 05:54 12:00 WBC 8.0 RBC 3.52 L Hgb 11.1 Hct 34.1 MCV 96.6 MCH 31.4 H MCHC 32.5 L RDW 17.1 H Plt Count 73 L MPV 8.1 Neut % (Auto) 89.4 H Lymph % (Auto) 6.5 L Trego % (Auto) 3.8 Eos % (Auto) 0.0 Baso % (Auto) 0.3 Neut # (Auto) 7.1 H Lymph # (Auto) 0.5 L Trego # (Auto) 0.3 Eos # (Auto) 0.0 Baso # (Auto) 0.0 Neutrophils % (Manual) 92 H Lymphocytes % (Manual) 5 L Monocytes % (Manual) 3 Platelet Estimate Decreased L Polychromasia Slight Hypochromasia (manual) Slight Anisocytosis (manual) Slight Macrocytosis (manual) Slight Target Cells Slight Sodium 142 Potassium 4.1 Chloride 100 Carbon Dioxide 27 Anion Gap 20 BUN 34 H Creatinine 2.3 H Est GFR ( Amer) 25 Est GFR (Non-Af Amer) 20 POC Glucose (mg/dL) 187 H Random Glucose 185 H Calcium 8.2 L Phosphorus 3.9 Magnesium 2.3 Total Bilirubin 1.1 AST 43 H ALT 18 Alkaline Phosphatase 94 Total Protein 7.9 Albumin 3.5 Globulin 4.4 H Albumin/Globulin Ratio 0.8 L 11/02/17 17:26 WBC RBC Hgb Hct MCV MCH MCHC RDW Plt Count MPV Neut % (Auto) Lymph % (Auto) Trego % (Auto) Eos % (Auto) Baso % (Auto) Neut # (Auto) Lymph # (Auto) Trego # (Auto) Eos # (Auto) Baso # (Auto) Neutrophils % (Manual) Lymphocytes % (Manual) Monocytes % (Manual) Platelet Estimate Polychromasia Hypochromasia (manual) Anisocytosis (manual) Macrocytosis (manual) Target Cells Sodium Potassium Chloride Carbon Dioxide Anion Gap BUN Creatinine Est GFR ( Amer) Est GFR (Non-Af Amer) POC Glucose (mg/dL) 250 H Random Glucose Calcium Phosphorus Magnesium Total Bilirubin AST ALT Alkaline Phosphatase Total Protein Albumin Globulin Albumin/Globulin Ratio Fingerstick Blood Sugar Results: 187 Critical Care Progress Note - Nutrition Nutrition: Nutrition Category Date Time Status Renal Diet [DIET] Diets 11/02/17 Breakfast Active
[2017-11-02] MEDS: Rosuvastatin Calcium 2.5 mg Tab PO SCH (21:32)
[2017-11-03] MEDS: Piperacill/Tazo 2.25gm in Dex 2.25 GM/50 ML BAG IVPB SCH ×3 (01:52→17:04)
[2017-11-03] MEDS: Albuterol-Ipratrop 3 mg / 0.5 (3 ml) UD INH SCH ×5 (03:21→19:57)
[2017-11-03] MEDS: MethylPREDNISolone 40 mg Vial IVP SCH ×2 (06:21→21:33)
[2017-11-03] MEDS: Levothyroxine 50 MCG TAB PO SCH (06:22)
[2017-11-03] MEDS: Multivitamin Vitamin B Complex (Nephro-Vite) Tab PO SCH (08:30)
[2017-11-03] MEDS ORDERED: EPOETIN ALFA 4,000 UNIT/ML ML Dialysis IV SCH ×2 (09:00→10:00)
--- NOTE | 2017-11-03 11:35 | CP.PCM.PN ---
Subjective - Date & Time of Evaluation Date of Evaluation: 11/03/17 Time of Evaluation: 11:32 - Subjective Subjective: Nephrology Consultation Note Covering for Dr Conley/Carlos: Assessment: critical Acute respi failure with hypoxia hypercapnia with pulm edema s/p mechanical ventilation 10/28/17 extubated 10/31/17 AMS likely due to opiates severe sys CHF exacerbation Diabetic chronic Kidney Disease (E11.22) Hypertensive Chronic Kidney Disease (I12.0) End stage renal disease (N18.6) dependence on hemodialysis (Z99.2) (MWF and sat ) via AVF Anemia (D64.9), Hyperphosphatemia (E83.39), Secondary Hyperparathyroidism (E21.1 ), HTN (I12.0) hx of pleural effusion s/p thoracocentesis Plan: Continue with Nephrovite 1 tab/day. plan for next HD today per MWF schedule. PRBC as needed for anemia. ANTONIA with HD last Hb 9.4-11 range d/c phos binders, last phos level 1.0 KPHOS was supplemented, now phos 3.9 BP controlled without meds not on raas stefania as bp low Glycemic control, Dialysis consistent diet Further work up/management as per primary team Dose meds/antibiotics (if needed) for ESRD status. Avoid fleets enema/magnesium based laxatives. CHF optimization fall precautions consider palliative care Thanks for allowing me to participate in care of your patient. will follow with you. Please call if any Qs. had d/w team Dr Javid Griggs Office: [phone] reason for consult: ESRD HPI: Pt is a 82 F with hx of ESRD on hemodialysis (MWF and sat) via AVF (Dr Gonzalez/Dr Conley), chronic anemia, hyperphosphatemia, secondary hyperparathyroidism, Diabetes Mellitus, hypertension, severe CHF presented to [facility] with c/o severe SOB and AMS which improved after narcan. pt was on fentanyl. renal consult for ESRD management pt on bipap and unable to provide much hx ROS: extubated 10/31/17. but pt still unable to communicate much Physical Examination: seen on HD General Appearance: chronically ill and debilitated appearing. on o2 via face mask Vitals reviewed and noted as below Head; Atraumatic, normocephalic ENT: deferred EYES: Pupils are equal, round and reactive to light accommodation. Sclera is anicteric. Neck; supple no lymphadenopathy, no thyromegaly or bruit Lungs: Improved respiratory rate/effort. Breath sounds bilateral with crackles Heart: Normal rate. s1s2 normal. No rub or gallop. Extremities: no edema. No varicose veins Neurological: Patient is sleepy but arousable and not much communicative Skin: Warm and dry. Normal turgor. No rash. Palpitation: Normal elasticity for age Abdomen: Abdomen is soft. Bowel sounds +. There is no abdominal tenderness, no guarding/rigidity or organomegaly Psych: deferred MSK: no joint tenderness or swelling. Digits and nails normal, no deformity : kidney or bladder not palpable Access: AVF Labs/imaging reviewed. Past medical history, past surgical history, family history, social history, allergy reviewed and noted as below Family Hx: no hx of CKD. Non contributory Objective - Vital Signs/Intake and Output Vital Signs (last 24 hours): Temp Pulse Resp BP Pulse Ox 97.5 F L 90 40 H 133/43 L 93 L 11/03/17 09:15 11/03/17 11:10 11/03/17 11:10 11/03/17 11:30 11/03/17 11:10 Intake and Output: 11/03/17 11/03/17 06:59 18:59 Intake Total 350 170 Balance 350 170 - Medications Medications: Current Medications Acetaminophen (Tylenol 325mg Tab) 650 mg PO Q6 PRN PRN Reason: Pain, moderate (4-7) Last Admin: 10/27/17 22:00 Dose: 650 mg Albuterol/Ipratropium (Duoneb 3 Mg/0.5 Mg (3 Ml) Ud) 3 ml INH RQ4 [facility] Last Admin: 11/03/17 07:50 Dose: 3 ml Aspirin (Aspirin Chewable) 81 mg PO 0800 [facility] Last Admin: 11/03/17 08:30 Dose: 81 mg Docusate Sodium (Colace) 100 mg PO BID [facility] Last Admin: 11/03/17 11:00 Dose: Not Given Epoetin Jonathan (Procrit) 4,000 unit IV [facility] [place] Famotidine (Pepcid) 20 mg PO DAILY [facility] Last Admin: 11/03/17 11:00 Dose: 20 mg Piperacillin Sod/Tazobactam Sod (Zosyn 2.25 Gm Iv Premix) 2.25 gm in 50 mls @ 100 mls/hr IVPB Q8H [facility] PRN Reason: Protocol Last Admin: 11/03/17 10:59 Dose: 100 mls/hr Levothyroxine Sodium (Synthroid) 50 mcg PO DAILY@0630 [facility] Last Admin: 11/03/17 06:22 Dose: 50 mcg Methylprednisolone (Solu-Medrol) 20 mg IVP Q8H [facility] Last Admin: 11/03/17 06:21 Dose: 20 mg Rosuvastatin Calcium (Crestor) 2.5 mg PO HS [facility] Last Admin: 11/02/17 21:32 Dose: 2.5 mg Sennosides (Senokot Tab) 8.6 mg PO DAILY [facility] Last Admin: 11/03/17 11:00 Dose: 8.6 mg Vitamin A (Vitamin A & D Oint Ud Foilpak) 1 ea TOP Q8 PRN PRN Reason: Dry skin Last Admin: 11/01/17 08:21 Dose: 1 ea Vitamin B Complex/Vit C/Folic Acid (Nephro-Kennedy) 1 tab PO 0800 [facility] Last Admin: 11/03/17 08:30 Dose: 1 tab - Labs Labs: 11/02/17 05:53 11/02/17 05:54 PT 12.1 SECONDS (9.7-12.2) 10/30/17 06:11 INR 1.1 10/30/17 06:11 APTT 33 SECONDS (21-34) 10/30/17 06:11
[2017-11-03] MEDS: (Novolin R) Insulin Human Regular 100 units/ml vial SC SCH ×2 (17:04→21:48)
--- NOTE | 2017-11-03 18:09 | CP.CCUPN ---
CCU Subjective - Physician Review Subjective (Free Text): 82 F with PMHx of ESRD on HD MWFS, HTN, DM, CAD, HF, Anemia of Chronic Disease, admitted to ICU with AMS in hypercapneic respiratory failure. Patient presented to ED w/ 3 fentanyl patches. No acute events overnight. Pt extubated(10/31), doing well on NC. Downgrade to tele 11/03/17 18:06 CCU Objective - Vital Signs / Intake & Output Vital Signs (Last 4 hours): Vital Signs Temp Pulse Resp BP Pulse Ox 11/03/17 17:00 90 32 H 98 11/03/17 16:55 89 23 129/53 L 97 11/03/17 16:40 89 25 H 129/51 L 97 11/03/17 16:25 84 21 110/36 L 94 L 11/03/17 16:10 87 20 111/39 L 94 L 11/03/17 16:00 97.3 F L 83 20 95 11/03/17 15:55 83 19 110/36 L 95 11/03/17 15:40 84 21 110/38 L 100 11/03/17 15:25 85 20 114/41 L 100 11/03/17 15:24 85 11/03/17 15:21 86 11/03/17 15:10 82 21 101/34 L 98 11/03/17 15:00 82 21 98 11/03/17 14:55 83 21 105/37 L 98 11/03/17 14:40 86 14 112/39 L 99 11/03/17 14:25 86 22 111/37 L 100 11/03/17 14:10 89 19 120/45 L 96 Intake and Output (Last 8hrs): Intake & Output 11/03/17 11/03/17 11/03/17 06:59 14:59 22:59 Intake Total 100 350 162 Output Total 0 Balance 100 350 162 Weight 130 lb Intake: Intake, IV Amount 50 50 50 Right Forearm 50 50 50 Oral 50 300 112 Output: Urine 0 Urine, Voided 0 Other: # Bowel Movements 0 1 - Physical Exam Head: Positive for: Atraumatic, Normocephalic Extroacular Muscles: Positive for: EOMI Mouth: Positive for: Moist Mucous Membranes Neck: Positive for: Normal Range of Motion Respiratory/Chest: Positive for: Good Air Exchange, Decreased Breath Sounds Cardiovascular: Positive for: Regular Rate and Rhythm. Negative for: Murmurs Abdomen: Positive for: Normal Bowel Sounds. Negative for: Distention Upper Extremity: Negative for: Cyanosis, Edema Lower Extremity: Positive for: Normal Inspection. Negative for: Edema Neurological: Positive for: GCS=15 Skin: Positive for: Normal Color Psychiatric: Negative for: Alert - Medications Active Medications: Active Medications Generic Name Dose Route Start Last Admin Trade Name Freq PRN Reason Stop Dose Admin Acetaminophen 650 mg 10/27/17 10:07 10/27/17 22:00 Tylenol 325mg Tab PO 650 mg Q6 PRN Administration Pain, moderate (4-7) Albuterol/Ipratropium 3 ml 10/31/17 16:00 11/03/17 16:29 Duoneb 3 Mg/0.5 Mg (3 Ml) Ud INH 3 ml RQ4 [facility] Administration Aspirin 81 mg 10/28/17 08:00 11/03/17 08:30 Aspirin Chewable PO 81 mg 0800 [facility] Administration Epoetin Jonathan 4,000 unit 11/10/17 10:00 Procrit IV QWK [facility] Famotidine 20 mg 11/02/17 10:00 11/03/17 11:00 Pepcid PO 20 mg DAILY [facility] Administration Piperacillin Sod/Tazobactam Sod 2.25 gm in 50 mls @ 100 mls/hr 10/28/17 10:00 11/03/17 17:04 Zosyn 2.25 Gm Iv Premix IVPB 100 mls/hr Q8H [facility] Administration Protocol Insulin Human Regular 0 unit 11/03/17 16:30 11/03/17 17:04 Novolin R SC 3 unit ACHS [facility] Administration Protocol Levothyroxine Sodium 50 mcg 10/28/17 06:30 11/03/17 06:22 Synthroid PO 50 mcg DAILY@0630 [facility] Administration Methylprednisolone 20 mg 11/03/17 22:00 Solu-Medrol IVP Q12 [facility] Rosuvastatin Calcium 2.5 mg 10/27/17 22:00 11/02/17 21:32 Crestor PO 2.5 mg HS [facility] Administration Vitamin A 1 ea 10/31/17 19:10 11/01/17 08:21 Vitamin A & D Oint Ud Foilpak TOP 1 ea Q8 PRN Administration Dry skin Vitamin B Complex/Vit C/Folic Acid 1 tab 10/28/17 08:00 11/03/17 08:30 Nephro-Kennedy PO 1 tab 0800 [facility] Administration - Patient Studies Lab Studies: Lab Studies 11/03/17 11/03/17 11/03/17 Range/Units 16:30 11:20 07:28 POC Glucose (mg/dL) 256 H 233 H 241 H (65-110) mg/dL Laboratory Results - last 24 hr 11/03/17 11/03/17 11/03/17 07:28 11:20 16:30 POC Glucose (mg/dL) 241 H 233 H 256 H Fingerstick Blood Sugar Results: 256 Review of Systems - Constitutional Constitutional: absent: Chills - Cardiovascular Cardiovascular: absent: Chest Pain, Claudication, Edema, Palpitations - Respiratory Respiratory: Dyspnea. absent: Cough, Chest Congestion - Gastrointestinal Gastrointestinal: absent: Abdominal Pain, Diarrhea, Nausea Critical Care Progress Note - Nutrition Nutrition: Nutrition Category Date Time Status Renal Diet [DIET] Diets 11/02/17 Breakfast Active Assessment/Plan - Assessment and Plan (Free Text) Assessment: 1. AMS -likely exacerbated due to 3 fentanyl patches -avoid opiates -monitor CO2 -pt MS improved, able to eat, communicate 2. Hypercapneic respiratory failure -extubated(10/31) on NC, doing well 3. PNA -zosyn 2.25g q8 4. ESRD -HD MWFS -epo 400U MWF -renally dosed meds -Nephro consult Dr. Griggs 5. CHF -limit IVF 6. COPD -duonebs q6 7. CAD -aspirin 81mg -crestor 2.5mg 8. Hypothyroid -levothyroxine 50mcg 9. Nutrition -10/29 feeds started, Nepro @20, goal 40 10. Thrombocytopenia -Plts dropped from 91-->54 -heparin d/c Ppx -pepcid 20mg Downgrade to tele - Date & Time Date: 11/03/17 Time: 18:14
[2017-11-03] MEDS: Rosuvastatin Calcium 2.5 mg Tab PO SCH (21:33)
[2017-11-04] MEDS: Albuterol-Ipratrop 3 mg / 0.5 (3 ml) UD INH SCH ×6 (00:18→19:44)
[2017-11-04] MEDS: Piperacill/Tazo 2.25gm in Dex 2.25 GM/50 ML BAG IVPB SCH ×3 (01:40→17:18)
[2017-11-04] MEDS: Levothyroxine 50 MCG TAB PO SCH (06:22)
[2017-11-04] MEDS: Multivitamin Vitamin B Complex (Nephro-Vite) Tab PO SCH (09:19)
[2017-11-04] MEDS: (Novolin R) Insulin Human Regular 100 units/ml vial SC SCH ×4 (09:19→21:11)
[2017-11-04] MEDS: MethylPREDNISolone 40 mg Vial IVP SCH ×2 (09:20→21:13)
--- NOTE | 2017-11-04 12:06 | CP.PCM.PN ---
Subjective - Date & Time of Evaluation Date of Evaluation: 11/04/17 Time of Evaluation: 12:05 - Subjective Subjective: Nephrology Consultation Note Covering for Dr Conley/Carlos: Assessment: stable Acute respi failure with hypoxia hypercapnia with pulm edema s/p mechanical ventilation 10/28/17 extubated 10/31/17 AMS likely due to opiates severe sys CHF exacerbation Diabetic chronic Kidney Disease (E11.22) Hypertensive Chronic Kidney Disease (I12.0) End stage renal disease (N18.6) dependence on hemodialysis (Z99.2) (MWF and sat ) via AVF Anemia (D64.9), Hyperphosphatemia (E83.39), Secondary Hyperparathyroidism (E21.1 ), HTN (I12.0) hx of pleural effusion s/p thoracocentesis Plan: Continue with Nephrovite 1 tab/day. plan for next HD tomorrow per MWF schedule. PRBC as needed for anemia. weekly ANTONIA with HD last Hb 9.4-11 range d/c phos binders, last phos level 1.0 KPHOS was supplemented, now phos 3.9 BP controlled without meds not on raas stefania as bp low Glycemic control, Dialysis consistent diet Further work up/management as per primary team Dose meds/antibiotics (if needed) for ESRD status. Avoid fleets enema/magnesium based laxatives. CHF optimization fall precautions consider palliative care Thanks for allowing me to participate in care of your patient. will follow with you. Please call if any Qs. had d/w team Dr Javid Griggs Office: [phone] reason for consult: ESRD HPI: Pt is a 82 F with hx of ESRD on hemodialysis (MWF and sat) via AVF (Dr Gonzalez/Dr Conley), chronic anemia, hyperphosphatemia, secondary hyperparathyroidism, Diabetes Mellitus, hypertension, severe CHF presented to [facility] with c/o severe SOB and AMS which improved after narcan. pt was on fentanyl. renal consult for ESRD management pt on bipap and unable to provide much hx ROS: extubated 10/31/17. pt doesn't feel well. Physical Examination: General Appearance: chronically ill and debilitated appearing. on o2 via face mask Vitals reviewed and noted as below Head; Atraumatic, normocephalic ENT: deferred EYES: Pupils are equal, round and reactive to light accommodation. Sclera is anicteric. Neck; supple no lymphadenopathy, no thyromegaly or bruit Lungs: Improved respiratory rate/effort. Breath sounds bilateral with crackles Heart: Normal rate. s1s2 normal. No rub or gallop. Extremities: no edema. No varicose veins Neurological: Patient is awake alert but not much communicative Skin: Warm and dry. Normal turgor. No rash. Palpitation: Normal elasticity for age Abdomen: Abdomen is soft. Bowel sounds +. There is no abdominal tenderness, no guarding/rigidity or organomegaly Psych: deferred MSK: no joint tenderness or swelling. Digits and nails normal, no deformity : kidney or bladder not palpable Access: AVF Labs/imaging reviewed. Past medical history, past surgical history, family history, social history, allergy reviewed and noted as below Family Hx: no hx of CKD. Non contributory Objective - Vital Signs/Intake and Output Vital Signs (last 24 hours): Temp Pulse Resp BP Pulse Ox 98.1 F 95 H 31 H 141/60 86 L 11/04/17 08:00 11/04/17 11:25 11/04/17 11:25 11/04/17 11:25 11/04/17 10:00 Intake and Output: 11/04/17 11/04/17 06:59 18:59 Intake Total 0 0 Balance 0 0 - Medications Medications: Current Medications Acetaminophen (Tylenol 325mg Tab) 650 mg PO Q6 PRN PRN Reason: Pain, moderate (4-7) Last Admin: 10/27/17 22:00 Dose: 650 mg Albuterol/Ipratropium (Duoneb 3 Mg/0.5 Mg (3 Ml) Ud) 3 ml INH RQ4 [facility] Last Admin: 11/04/17 11:47 Dose: 3 ml Aspirin (Aspirin Chewable) 81 mg PO 0800 [facility] Last Admin: 11/04/17 09:19 Dose: 81 mg Epoetin Jonathan (Procrit) 4,000 unit IV QWK [facility] Famotidine (Pepcid) 20 mg PO DAILY [facility] Last Admin: 11/04/17 09:19 Dose: 20 mg Piperacillin Sod/Tazobactam Sod (Zosyn 2.25 Gm Iv Premix) 2.25 gm in 50 mls @ 100 mls/hr IVPB Q8H [facility] PRN Reason: Protocol Last Admin: 11/04/17 09:20 Dose: 100 mls/hr Insulin Human Regular (Novolin R) 0 unit SC ACHS [facility] PRN Reason: Protocol Last Admin: 11/04/17 09:19 Dose: 2 unit Levothyroxine Sodium (Synthroid) 50 mcg PO DAILY@0630 [facility] Last Admin: 11/04/17 06:22 Dose: 50 mcg Methylprednisolone (Solu-Medrol) 20 mg IVP Q12 [facility] Last Admin: 11/04/17 09:20 Dose: 20 mg Rosuvastatin Calcium (Crestor) 2.5 mg PO HS [facility] Last Admin: 11/03/17 21:33 Dose: 2.5 mg Vitamin A (Vitamin A & D Oint Ud Foilpak) 1 ea TOP Q8 PRN PRN Reason: Dry skin Last Admin: 11/01/17 08:21 Dose: 1 ea Vitamin B Complex/Vit C/Folic Acid (Nephro-Kennedy) 1 tab PO 0800 [facility] Last Admin: 11/04/17 09:19 Dose: 1 tab - Labs Labs: 11/02/17 05:53 11/02/17 05:54 PT 12.1 SECONDS (9.7-12.2) 10/30/17 06:11 INR 1.1 10/30/17 06:11 APTT 33 SECONDS (21-34) 10/30/17 06:11
--- NOTE | 2017-11-04 21:04 | CP.PCM.PN ---
Subjective - Date & Time of Evaluation Date of Evaluation: 10/31/17 Time of Evaluation: 21:04 - Subjective Subjective: Patient is awake and responding. Currently extubated, being monitored closely. Not in any distress at this time. Tolerating the nasal cannula Vital signs stable. Chest bilateral good air entry. Regular heart sound noted Sputum culture showing evidence of yeast species. Diflucan was added Assessment and recommendation: 82-year-old female admitted with acute respiratory failure. Status post intubation. Extubated today. Closely monitor respiratory status. Objective - Vital Signs/Intake and Output Vital Signs (last 24 hours): Temp Pulse Resp BP Pulse Ox 98 F 95 H 28 H 107/43 L 99 11/04/17 20:00 11/04/17 20:13 11/04/17 20:13 11/04/17 20:13 11/04/17 20:13 Intake and Output: 11/04/17 11/05/17 18:59 06:59 Intake Total 200 Balance 200 - Medications Medications: Current Medications Acetaminophen (Tylenol 325mg Tab) 650 mg PO Q6 PRN PRN Reason: Pain, moderate (4-7) Last Admin: 10/27/17 22:00 Dose: 650 mg Albuterol/Ipratropium (Duoneb 3 Mg/0.5 Mg (3 Ml) Ud) 3 ml INH RQ4 [facility] Last Admin: 11/04/17 19:44 Dose: 3 ml Aspirin (Aspirin Chewable) 81 mg PO 0800 [facility] Last Admin: 11/04/17 09:19 Dose: 81 mg Epoetin Jonathan (Procrit) 4,000 unit IV QWK [facility] Famotidine (Pepcid) 20 mg PO DAILY [facility] Last Admin: 11/04/17 09:19 Dose: 20 mg Piperacillin Sod/Tazobactam Sod (Zosyn 2.25 Gm Iv Premix) 2.25 gm in 50 mls @ 100 mls/hr IVPB Q8H [facility] PRN Reason: Protocol Last Admin: 11/04/17 17:18 Dose: 100 mls/hr Insulin Human Regular (Novolin R) 0 unit SC ACHS [facility] PRN Reason: Protocol Last Admin: 11/04/17 17:18 Dose: 4 unit Levothyroxine Sodium (Synthroid) 50 mcg PO DAILY@0630 [facility] Last Admin: 11/04/17 06:22 Dose: 50 mcg Methylprednisolone (Solu-Medrol) 20 mg IVP Q12 [facility] Last Admin: 11/04/17 09:20 Dose: 20 mg Rosuvastatin Calcium (Crestor) 2.5 mg PO HS [facility] Last Admin: 11/03/17 21:33 Dose: 2.5 mg Vitamin A (Vitamin A & D Oint Ud Foilpak) 1 ea TOP Q8 PRN PRN Reason: Dry skin Last Admin: 11/01/17 08:21 Dose: 1 ea Vitamin B Complex/Vit C/Folic Acid (Nephro-Kennedy) 1 tab PO 0800 [facility] Last Admin: 11/04/17 09:19 Dose: 1 tab - Labs Labs: 11/02/17 05:53 11/02/17 05:54 PT 12.1 SECONDS (9.7-12.2) 10/30/17 06:11 INR 1.1 10/30/17 06:11 APTT 33 SECONDS (21-34) 10/30/17 06:11
--- NOTE | 2017-11-04 21:05 | CP.PCM.PN ---
Subjective - Date & Time of Evaluation Date of Evaluation: 11/03/17 Time of Evaluation: 21:04 - Subjective Subjective: Patient today feeling comfortable. Receiving hemodialysis. Not in any distress. Yesterday patient had an episode of acute respiratory failure Did well with the BiPAP On examination: Vital signs stable. No fever. Chest bilateral good air entry Regular heart sound Assessment and recommendation: 82-year-old female with multiple medical history hypertension congestive heart failure, systolic congestive heart failure acute on chronic pain Acute respiratory failure status post extubation Continue the current treatment. Close monitoring respiratory status. Physical therapy. Objective - Vital Signs/Intake and Output Vital Signs (last 24 hours): Temp Pulse Resp BP Pulse Ox 98 F 95 H 28 H 107/43 L 99 11/04/17 20:00 11/04/17 20:13 11/04/17 20:13 11/04/17 20:13 11/04/17 20:13 Intake and Output: 11/04/17 11/05/17 18:59 06:59 Intake Total 200 Balance 200 - Medications Medications: Current Medications Acetaminophen (Tylenol 325mg Tab) 650 mg PO Q6 PRN PRN Reason: Pain, moderate (4-7) Last Admin: 10/27/17 22:00 Dose: 650 mg Albuterol/Ipratropium (Duoneb 3 Mg/0.5 Mg (3 Ml) Ud) 3 ml INH RQ4 [facility] Last Admin: 11/04/17 19:44 Dose: 3 ml Aspirin (Aspirin Chewable) 81 mg PO 0800 [facility] Last Admin: 11/04/17 09:19 Dose: 81 mg Epoetin Jonathan (Procrit) 4,000 unit IV QWK [facility] Famotidine (Pepcid) 20 mg PO DAILY [facility] Last Admin: 11/04/17 09:19 Dose: 20 mg Piperacillin Sod/Tazobactam Sod (Zosyn 2.25 Gm Iv Premix) 2.25 gm in 50 mls @ 100 mls/hr IVPB Q8H [facility] PRN Reason: Protocol Last Admin: 11/04/17 17:18 Dose: 100 mls/hr Insulin Human Regular (Novolin R) 0 unit SC ACHS [facility] PRN Reason: Protocol Last Admin: 11/04/17 17:18 Dose: 4 unit Levothyroxine Sodium (Synthroid) 50 mcg PO DAILY@0630 [facility] Last Admin: 11/04/17 06:22 Dose: 50 mcg Methylprednisolone (Solu-Medrol) 20 mg IVP Q12 [facility] Last Admin: 11/04/17 09:20 Dose: 20 mg Rosuvastatin Calcium (Crestor) 2.5 mg PO HS [facility] Last Admin: 11/03/17 21:33 Dose: 2.5 mg Vitamin A (Vitamin A & D Oint Ud Foilpak) 1 ea TOP Q8 PRN PRN Reason: Dry skin Last Admin: 11/01/17 08:21 Dose: 1 ea Vitamin B Complex/Vit C/Folic Acid (Nephro-Kennedy) 1 tab PO 0800 [facility] Last Admin: 11/04/17 09:19 Dose: 1 tab - Labs Labs: 11/02/17 05:53 11/02/17 05:54 PT 12.1 SECONDS (9.7-12.2) 10/30/17 06:11 INR 1.1 10/30/17 06:11 APTT 33 SECONDS (21-34) 10/30/17 06:11
--- NOTE | 2017-11-04 21:06 | CP.PCM.PN ---
Subjective - Date & Time of Evaluation Date of Evaluation: 11/04/17 Time of Evaluation: 21:05 - Subjective Subjective: Patient complaining of lower back pain. Having difficulty in going to the bathroom. Blood sugar noted to be on the high side. On nasal cannula. On examination: Vital signs stable. Chest bilateral decreased air entry in the lower lung parkinson noted. Regular heart sound. Abdomen soft. Edema in the legs noted Labs reviewed Assessment and recommendation: 82-year-old female admitted with acute respiratory insufficiency, respiratory failure intubated. Currently extubated doing well. Atrial fibrillation intermittent congestive heart failure end-stage renal disease on dialysis. Patient is having progressively worsening condition, weakness noted. Follow-up hemodialysis tomorrow. Physical therapy. Discussed with the family. We will follow the patient Objective - Vital Signs/Intake and Output Vital Signs (last 24 hours): Temp Pulse Resp BP Pulse Ox 98 F 95 H 28 H 107/43 L 99 11/04/17 20:00 11/04/17 20:13 11/04/17 20:13 11/04/17 20:13 11/04/17 20:13 Intake and Output: 11/04/17 11/05/17 18:59 06:59 Intake Total 200 Balance 200 - Medications Medications: Current Medications Acetaminophen (Tylenol 325mg Tab) 650 mg PO Q6 PRN PRN Reason: Pain, moderate (4-7) Last Admin: 10/27/17 22:00 Dose: 650 mg Albuterol/Ipratropium (Duoneb 3 Mg/0.5 Mg (3 Ml) Ud) 3 ml INH RQ4 [facility] Last Admin: 11/04/17 19:44 Dose: 3 ml Aspirin (Aspirin Chewable) 81 mg PO 0800 [facility] Last Admin: 11/04/17 09:19 Dose: 81 mg Epoetin Jonathan (Procrit) 4,000 unit IV QWK [facility] Famotidine (Pepcid) 20 mg PO DAILY [facility] Last Admin: 11/04/17 09:19 Dose: 20 mg Piperacillin Sod/Tazobactam Sod (Zosyn 2.25 Gm Iv Premix) 2.25 gm in 50 mls @ 100 mls/hr IVPB Q8H [facility] PRN Reason: Protocol Last Admin: 11/04/17 17:18 Dose: 100 mls/hr Insulin Human Regular (Novolin R) 0 unit SC ACHS [facility] PRN Reason: Protocol Last Admin: 11/04/17 17:18 Dose: 4 unit Levothyroxine Sodium (Synthroid) 50 mcg PO DAILY@0630 [facility] Last Admin: 11/04/17 06:22 Dose: 50 mcg Methylprednisolone (Solu-Medrol) 20 mg IVP Q12 [facility] Last Admin: 11/04/17 09:20 Dose: 20 mg Rosuvastatin Calcium (Crestor) 2.5 mg PO HS [facility] Last Admin: 11/03/17 21:33 Dose: 2.5 mg Vitamin A (Vitamin A & D Oint Ud Foilpak) 1 ea TOP Q8 PRN PRN Reason: Dry skin Last Admin: 11/01/17 08:21 Dose: 1 ea Vitamin B Complex/Vit C/Folic Acid (Nephro-Kennedy) 1 tab PO 0800 [facility] Last Admin: 11/04/17 09:19 Dose: 1 tab - Labs Labs: 11/02/17 05:53 11/02/17 05:54 PT 12.1 SECONDS (9.7-12.2) 10/30/17 06:11 INR 1.1 10/30/17 06:11 APTT 33 SECONDS (21-34) 10/30/17 06:11
[2017-11-04] MEDS: Rosuvastatin Calcium 2.5 mg Tab PO SCH (21:13)
[2017-11-05] MEDS: Albuterol-Ipratrop 3 mg / 0.5 (3 ml) UD INH SCH ×5 (00:10→15:56)
[2017-11-05] MEDS: Piperacill/Tazo 2.25gm in Dex 2.25 GM/50 ML BAG IVPB SCH ×3 (01:35→17:28)
[2017-11-05] MEDS: Levothyroxine 50 MCG TAB PO SCH (06:26)
[2017-11-05] MEDS: (Novolin R) Insulin Human Regular 100 units/ml vial SC SCH ×4 (08:08→21:19)
[2017-11-05] MEDS: MethylPREDNISolone 40 mg Vial IVP SCH ×2 (09:06→22:06)
--- NOTE | 2017-11-05 15:00 | CP.PCM.PN ---
Subjective - Date & Time of Evaluation Date of Evaluation: 11/05/17 Time of Evaluation: 14:59 - Subjective Subjective: Nephrology Consultation Note Covering for Dr Conley/Carlos: Assessment: stable Acute respi failure with hypoxia hypercapnia with pulm edema s/p mechanical ventilation 10/28/17 extubated 10/31/17 AMS likely due to opiates severe sys CHF exacerbation Diabetic chronic Kidney Disease (E11.22) Hypertensive Chronic Kidney Disease (I12.0) End stage renal disease (N18.6) dependence on hemodialysis (Z99.2) (MWF and sat ) via AVF Anemia (D64.9), Hyperphosphatemia (E83.39), Secondary Hyperparathyroidism (E21.1 ), HTN (I12.0) hx of pleural effusion s/p thoracocentesis Plan: Continue with Nephrovite 1 tab/day. HD today per MWF schedule. PRBC as needed for anemia. weekly ANTONIA with HD last Hb 9.4-11 range d/c phos binders, last phos level 1.0 KPHOS was supplemented, now phos 3.9 BP controlled without meds not on raas stefania as bp low Glycemic control, Dialysis consistent diet Further work up/management as per primary team Dose meds/antibiotics (if needed) for ESRD status. Avoid fleets enema/magnesium based laxatives. CHF optimization fall precautions consider palliative care Thanks for allowing me to participate in care of your patient. will follow with you. Please call if any Qs. had d/w team Dr Javid Griggs Office: [phone] reason for consult: ESRD HPI: Pt is a 82 F with hx of ESRD on hemodialysis (MWF and sat) via AVF (Dr Gonzalez/Dr Conley), chronic anemia, hyperphosphatemia, secondary hyperparathyroidism, Diabetes Mellitus, hypertension, severe CHF presented to [facility] with c/o severe SOB and AMS which improved after narcan. pt was on fentanyl. renal consult for ESRD management pt on bipap and unable to provide much hx ROS: extubated 10/31/17. pt feels same Physical Examination: General Appearance: chronically ill and debilitated appearing. on o2 via face mask Vitals reviewed and noted as below Head; Atraumatic, normocephalic ENT: deferred EYES: Pupils are equal, round and reactive to light accommodation. Sclera is anicteric. Neck; supple no lymphadenopathy, no thyromegaly or bruit Lungs: Improved respiratory rate/effort. Breath sounds bilateral with crackles Heart: Normal rate. s1s2 normal. No rub or gallop. Extremities: no edema. No varicose veins Neurological: Patient is awake alert but not much communicative Skin: Warm and dry. Normal turgor. No rash. Palpitation: Normal elasticity for age Abdomen: Abdomen is soft. Bowel sounds +. There is no abdominal tenderness, no guarding/rigidity or organomegaly Psych: deferred MSK: no joint tenderness or swelling. Digits and nails normal, no deformity : kidney or bladder not palpable Access: AVF Labs/imaging reviewed. Past medical history, past surgical history, family history, social history, allergy reviewed and noted as below Family Hx: no hx of CKD. Non contributory Objective - Vital Signs/Intake and Output Vital Signs (last 24 hours): Temp Pulse Resp BP Pulse Ox 97.5 F L 90 22 130/48 L 100 11/05/17 12:20 11/05/17 14:35 11/05/17 14:35 11/05/17 14:35 11/05/17 12:50 Intake and Output: 11/05/17 11/05/17 06:59 18:59 Intake Total 0 290 Output Total 2500 Balance 0 -2210 - Medications Medications: Current Medications Acetaminophen (Tylenol 325mg Tab) 650 mg PO Q6 PRN PRN Reason: Pain, moderate (4-7) Last Admin: 10/27/17 22:00 Dose: 650 mg Albuterol/Ipratropium (Duoneb 3 Mg/0.5 Mg (3 Ml) Ud) 3 ml INH RQ4 [facility] Last Admin: 11/05/17 11:30 Dose: 3 ml Aspirin (Aspirin Chewable) 81 mg PO 0800 [facility] Last Admin: 11/05/17 08:09 Dose: 81 mg Epoetin Jonathan (Procrit) 4,000 unit IV QWK [facility] Famotidine (Pepcid) 20 mg PO DAILY [facility] Last Admin: 11/05/17 09:07 Dose: 20 mg Piperacillin Sod/Tazobactam Sod (Zosyn 2.25 Gm Iv Premix) 2.25 gm in 50 mls @ 100 mls/hr IVPB Q8H [facility] PRN Reason: Protocol Last Admin: 11/05/17 09:07 Dose: 100 mls/hr Insulin Human Regular (Novolin R) 0 unit SC ACHS [facility] PRN Reason: Protocol Last Admin: 11/05/17 11:59 Dose: Not Given Levothyroxine Sodium (Synthroid) 50 mcg PO DAILY@0630 [facility] Last Admin: 11/05/17 06:26 Dose: 50 mcg Methylprednisolone (Solu-Medrol) 20 mg IVP Q12 [facility] Last Admin: 11/05/17 09:06 Dose: 20 mg Rosuvastatin Calcium (Crestor) 2.5 mg PO HS [facility] Last Admin: 11/04/17 21:13 Dose: 2.5 mg Vitamin A (Vitamin A & D Oint Ud Foilpak) 1 ea TOP Q8 PRN PRN Reason: Dry skin Last Admin: 11/01/17 08:21 Dose: 1 ea Vitamin B Complex/Vit C/Folic Acid (Nephro-Kennedy) 1 tab PO 0800 [facility] Last Admin: 11/04/17 09:19 Dose: 1 tab - Labs Labs: 11/02/17 05:53 11/02/17 05:54 PT 12.1 SECONDS (9.7-12.2) 10/30/17 06:11 INR 1.1 10/30/17 06:11 APTT 33 SECONDS (21-34) 10/30/17 06:11
[2017-11-05] MEDS: Multivitamin Vitamin B Complex (Nephro-Vite) Tab PO SCH (17:28)
[2017-11-05] MEDS: Rosuvastatin Calcium 2.5 mg Tab PO SCH (22:06)
[2017-11-06] MEDS: Piperacill/Tazo 2.25gm in Dex 2.25 GM/50 ML BAG IVPB SCH ×3 (02:15→17:13)
[2017-11-06] MEDS: Levothyroxine 50 MCG TAB PO SCH (06:11)
[2017-11-06 06:32] LABS: HEMOGLOBIN 10.1 g/dL (11.0-16.0); MEAN CELL VOLUME 101.5 fL (81.0-99.0); MEAN CORPUSCULAR HEMOGLOBIN 33.9 pg (27.0-31.0); MEAN CORPUSCULAR HGB CONC 33.4 g/dL (33.0-37.0); MEAN PLATELET VOLUME 7.7 fL (7.2-11.7); PLATELET COUNT 112 K/uL (130-400); RBC 2.99 Mil/uL (3.80-5.20); RED CELL DISTRIBUTION WIDTH 17.9 % (11.5-14.5); WHITE BLOOD COUNT 6.2 K/uL (4.8-10.8)
[2017-11-06 06:44] LABS: ALB/GLOB RATIO 0.9 (1.0-2.1); ALBUMIN 3.6 g/dL (3.5-5.0); CALCIUM 8.2 mg/dl (8.6-10.4)
[2017-11-06] MEDS: (Novolin R) Insulin Human Regular 100 units/ml vial SC SCH ×4 (08:50→22:48)
[2017-11-06] MEDS: Multivitamin Vitamin B Complex (Nephro-Vite) Tab PO SCH (09:05)
[2017-11-06] MEDS: MethylPREDNISolone 40 mg Vial IVP SCH (10:06)
[2017-11-06 10:44] LABS: LYMPH # 0.1 K/uL (1.0-4.3); MONO # 0.3 K/uL (0.0-0.8); NEUT # 5.8 K/uL (1.8-7.0)
[2017-11-06 10:47] LABS: ANISOCYTOSIS SLIGHT; LYMPHOCYTE 3 % (20-40); MONOCYTE 6 % (0-10); NEUTROPHIL 91 % (50-75); NUCLEATED RED BLOOD CELL 1 % (0-0); PLATELET ESTIMATE SLIGHTLY DECREASED (NORMAL); TOTAL CELLS COUNTED 100
--- NOTE | 2017-11-06 18:49 | CP.PCM.PN ---
Subjective - Date & Time of Evaluation Date of Evaluation: 11/06/17 Time of Evaluation: 18:49 - Subjective Subjective: Nephrology Consultation Note Covering for Dr Conley/Carlos: Assessment: stable Acute respi failure with hypoxia hypercapnia with pulm edema s/p mechanical ventilation 10/28/17 extubated 10/31/17 AMS likely due to opiates severe sys CHF exacerbation Diabetic chronic Kidney Disease (E11.22) Hypertensive Chronic Kidney Disease (I12.0) End stage renal disease (N18.6) dependence on hemodialysis (Z99.2) (MWF and sat ) via AVF Anemia (D64.9), Hyperphosphatemia (E83.39), Secondary Hyperparathyroidism (E21.1 ), HTN (I12.0) hx of pleural effusion s/p thoracocentesis Plan: Continue with Nephrovite 1 tab/day. HD tomorrow per MWF schedule. PRBC as needed for anemia. weekly ANTONIA with HD last Hb 9.4-11 range d/c phos binders, last phos level 1.0 KPHOS was supplemented, now phos 3.9 BP controlled without meds not on raas stefania as bp low Glycemic control, Dialysis consistent diet Further work up/management as per primary team Dose meds/antibiotics (if needed) for ESRD status. Avoid fleets enema/magnesium based laxatives. CHF optimization fall precautions consider palliative care Thanks for allowing me to participate in care of your patient. will follow with you. Please call if any Qs. had d/w team Dr Javid Griggs Office: [phone] reason for consult: ESRD HPI: Pt is a 82 F with hx of ESRD on hemodialysis (MWF and sat) via AVF (Dr Gonzalez/Dr Conley), chronic anemia, hyperphosphatemia, secondary hyperparathyroidism, Diabetes Mellitus, hypertension, severe CHF presented to [facility] with c/o severe SOB and AMS which improved after narcan. pt was on fentanyl. renal consult for ESRD management pt on bipap and unable to provide much hx ROS: extubated 10/31/17. pt feels same. has chronic SOB Physical Examination: General Appearance: chronically ill and debilitated appearing. on o2 via face mask Vitals reviewed and noted as below Head; Atraumatic, normocephalic ENT: deferred EYES: Pupils are equal, round and reactive to light accommodation. Sclera is anicteric. Neck; supple no lymphadenopathy, no thyromegaly or bruit Lungs: Improved respiratory rate/effort. Breath sounds bilateral with crackles Heart: Normal rate. s1s2 normal. No rub or gallop. Extremities: no edema. No varicose veins Neurological: Patient is awake alert but not much communicative Skin: Warm and dry. Normal turgor. No rash. Palpitation: Normal elasticity for age Abdomen: Abdomen is soft. Bowel sounds +. There is no abdominal tenderness, no guarding/rigidity or organomegaly Psych: deferred MSK: no joint tenderness or swelling. Digits and nails normal, no deformity : kidney or bladder not palpable Access: AVF Labs/imaging reviewed. Past medical history, past surgical history, family history, social history, allergy reviewed and noted as below Family Hx: no hx of CKD. Non contributory Objective - Vital Signs/Intake and Output Vital Signs (last 24 hours): Temp Pulse Resp BP Pulse Ox 98.1 F 82 18 118/39 L 100 11/06/17 12:00 11/06/17 15:06 11/06/17 15:06 11/06/17 15:06 11/06/17 15:06 Intake and Output: 11/06/17 11/06/17 06:59 18:59 Intake Total 100 Balance 100 - Medications Medications: Current Medications Acetaminophen (Tylenol 325mg Tab) 650 mg PO Q6 PRN PRN Reason: Pain, moderate (4-7) Last Admin: 10/27/17 22:00 Dose: 650 mg Aspirin (Aspirin Chewable) 81 mg PO 0800 [facility] Last Admin: 11/06/17 09:05 Dose: 81 mg Epoetin Jonathan (Procrit) 4,000 unit IV QWK [facility] Famotidine (Pepcid) 20 mg PO DAILY [facility] Last Admin: 11/06/17 10:05 Dose: 20 mg Piperacillin Sod/Tazobactam Sod (Zosyn 2.25 Gm Iv Premix) 2.25 gm in 50 mls @ 100 mls/hr IVPB Q8H [facility] PRN Reason: Protocol Last Admin: 11/06/17 17:13 Dose: 100 mls/hr Insulin Human Regular (Novolin R) 0 unit SC ACHS [facility] PRN Reason: Protocol Last Admin: 11/06/17 17:00 Dose: 1 unit Levothyroxine Sodium (Synthroid) 50 mcg PO DAILY@0630 [facility] Last Admin: 11/06/17 06:11 Dose: 50 mcg Methylprednisolone (Solu-Medrol) 20 mg IVP DAILY [facility] Stop: 11/08/17 10:01 Last Admin: 11/06/17 10:06 Dose: 20 mg Rosuvastatin Calcium (Crestor) 2.5 mg PO HS [facility] Last Admin: 11/05/17 22:06 Dose: 2.5 mg Vitamin A (Vitamin A & D Oint Ud Foilpak) 1 ea TOP Q8 PRN PRN Reason: Dry skin Last Admin: 11/01/17 08:21 Dose: 1 ea Vitamin B Complex/Vit C/Folic Acid (Nephro-Kennedy) 1 tab PO 0800 [facility] Last Admin: 11/06/17 09:05 Dose: 1 tab - Labs Labs: 11/06/17 06:20 11/06/17 06:20 PT 12.1 SECONDS (9.7-12.2) 10/30/17 06:11 INR 1.1 10/30/17 06:11 APTT 33 SECONDS (21-34) 10/30/17 06:11
--- NOTE | 2017-11-06 19:27 | CP.PCM.PN ---
Subjective - Date & Time of Evaluation Date of Evaluation: 11/06/17 Time of Evaluation: 19:27 - Subjective Subjective: Patient today lying down comfortably, she is not in any distress. Received hemodialysis yesterday. Nontender abdomen. Denies any abdominal pain, but generalized body pain noted, weakness present On examination: Vital signs stable. Chest bilateral good air entry Regular heart sound Labs reviewed Nonspecific Assessment/recommendation: Patient is a 82-year-old female with multiple medical history, end-stage renal disease, dialysis, atrial fibrillation flutter, hypertension, congestive heart failure. Anasarca. Disability. Patient is currently showing some improvement. We will continue the current treatment physical therapy possible rehab evaluation Objective - Vital Signs/Intake and Output Vital Signs (last 24 hours): Temp Pulse Resp BP Pulse Ox 98.1 F 82 18 118/39 L 100 11/06/17 12:00 11/06/17 15:06 11/06/17 15:06 11/06/17 15:06 11/06/17 15:06 - Medications Medications: Current Medications Acetaminophen (Tylenol 325mg Tab) 650 mg PO Q6 PRN PRN Reason: Pain, moderate (4-7) Last Admin: 10/27/17 22:00 Dose: 650 mg Aspirin (Aspirin Chewable) 81 mg PO 0800 [facility] Last Admin: 11/06/17 09:05 Dose: 81 mg Epoetin Jonathan (Procrit) 4,000 unit IV QWK [facility] Famotidine (Pepcid) 20 mg PO DAILY [facility] Last Admin: 11/06/17 10:05 Dose: 20 mg Piperacillin Sod/Tazobactam Sod (Zosyn 2.25 Gm Iv Premix) 2.25 gm in 50 mls @ 100 mls/hr IVPB Q8H [facility] PRN Reason: Protocol Last Admin: 11/06/17 17:13 Dose: 100 mls/hr Insulin Human Regular (Novolin R) 0 unit SC ACHS [facility] PRN Reason: Protocol Last Admin: 11/06/17 17:00 Dose: 1 unit Levothyroxine Sodium (Synthroid) 50 mcg PO DAILY@0630 [facility] Last Admin: 11/06/17 06:11 Dose: 50 mcg Methylprednisolone (Solu-Medrol) 20 mg IVP DAILY [facility] Stop: 11/08/17 10:01 Last Admin: 11/06/17 10:06 Dose: 20 mg Rosuvastatin Calcium (Crestor) 2.5 mg PO HS [facility] Last Admin: 11/05/17 22:06 Dose: 2.5 mg Vitamin A (Vitamin A & D Oint Ud Foilpak) 1 ea TOP Q8 PRN PRN Reason: Dry skin Last Admin: 11/01/17 08:21 Dose: 1 ea Vitamin B Complex/Vit C/Folic Acid (Nephro-Kennedy) 1 tab PO 0800 [facility] Last Admin: 11/06/17 09:05 Dose: 1 tab - Labs Labs: 11/06/17 06:20 11/06/17 06:20 PT 12.1 SECONDS (9.7-12.2) 10/30/17 06:11 INR 1.1 10/30/17 06:11 APTT 33 SECONDS (21-34) 10/30/17 06:11
[2017-11-06] MEDS: Rosuvastatin Calcium 2.5 mg Tab PO SCH (22:47)
[2017-11-07] MEDS: Piperacill/Tazo 2.25gm in Dex 2.25 GM/50 ML BAG IVPB SCH ×3 (01:53→19:26)
[2017-11-07] MEDS: Levothyroxine 50 MCG TAB PO SCH (06:23)
[2017-11-07] MEDS: Multivitamin Vitamin B Complex (Nephro-Vite) Tab PO SCH (08:17)
[2017-11-07] MEDS: (Novolin R) Insulin Human Regular 100 units/ml vial SC SCH ×5 (08:23→22:18)
[2017-11-07] MEDS: MethylPREDNISolone 40 mg Vial IVP SCH (10:00)
--- NOTE | 2017-11-07 15:04 | CP.PCM.PN ---
Subjective - Date & Time of Evaluation Date of Evaluation: 11/07/17 Time of Evaluation: 15:03 - Subjective Subjective: Nephrology Consultation Note Covering for Dr Conley/Carlos: Assessment: stable Acute respi failure with hypoxia hypercapnia with pulm edema s/p mechanical ventilation 10/28/17 extubated 10/31/17 AMS likely due to opiates severe sys CHF exacerbation Diabetic chronic Kidney Disease (E11.22) Hypertensive Chronic Kidney Disease (I12.0) End stage renal disease (N18.6) dependence on hemodialysis (Z99.2) (MWF and sat ) via AVF Anemia (D64.9), Hyperphosphatemia (E83.39), Secondary Hyperparathyroidism (E21.1 ), HTN (I12.0) hx of pleural effusion s/p thoracocentesis Plan: Continue with Nephrovite 1 tab/day. HD today per MWF schedule. extra UF session tomorrow PRBC as needed for anemia. weekly ANTONIA with HD last Hb 9.4-11 range d/c phos binders, last phos level 1.0 KPHOS was supplemented, now phos 3.9 BP controlled without meds not on raas stefania as bp low Glycemic control, Dialysis consistent diet Further work up/management as per primary team Dose meds/antibiotics (if needed) for ESRD status. Avoid fleets enema/magnesium based laxatives. CHF optimization fall precautions consider palliative care Thanks for allowing me to participate in care of your patient. will follow with you. Please call if any Qs. had d/w team Dr Javid Griggs Office: [phone] reason for consult: ESRD HPI: Pt is a 82 F with hx of ESRD on hemodialysis (MWF and sat) via AVF (Dr Gonzalez/Dr Conley), chronic anemia, hyperphosphatemia, secondary hyperparathyroidism, Diabetes Mellitus, hypertension, severe CHF presented to [facility] with c/o severe SOB and AMS which improved after narcan. pt was on fentanyl. renal consult for ESRD management pt on bipap and unable to provide much hx ROS: extubated 10/31/17. pt feels same. has chronic SOB Physical Examination: General Appearance: chronically ill and debilitated appearing. on o2 via NC Vitals reviewed and noted as below Head; Atraumatic, normocephalic ENT: normal mucosa EYES: Pupils are equal, round and reactive to light accommodation. Sclera is anicteric. Neck; supple no lymphadenopathy, no thyromegaly or bruit Lungs: Improved respiratory rate/effort. Breath sounds bilateral with crackles Heart: Normal rate. s1s2 normal. No rub or gallop. Extremities: no edema. No varicose veins Neurological: Patient is awake alert but not much communicative Skin: Warm and dry. Normal turgor. No rash. Palpitation: Normal elasticity for age Abdomen: Abdomen is soft. Bowel sounds +. There is no abdominal tenderness, no guarding/rigidity or organomegaly Psych: lack inishgt. normal mood MSK: no joint tenderness or swelling. Digits and nails normal, no deformity : kidney or bladder not palpable Access: AVF Labs/imaging reviewed. Past medical history, past surgical history, family history, social history, allergy reviewed and noted as below Family Hx: no hx of CKD. Non contributory Objective - Vital Signs/Intake and Output Vital Signs (last 24 hours): Temp Pulse Resp BP Pulse Ox 97.8 F 80 25 H 125/50 L 100 11/07/17 04:00 11/07/17 08:00 11/07/17 08:00 11/07/17 07:10 11/07/17 07:10 Intake and Output: 11/07/17 11/07/17 06:59 18:59 Intake Total 270 Output Total 0 Balance 270 - Medications Medications: Current Medications Acetaminophen (Tylenol 325mg Tab) 650 mg PO Q6 PRN PRN Reason: Pain, moderate (4-7) Last Admin: 10/27/17 22:00 Dose: 650 mg Aspirin (Aspirin Chewable) 81 mg PO 0800 [facility] Last Admin: 11/07/17 08:17 Dose: 81 mg Epoetin Jonathan (Procrit) 4,000 unit IV QWK [facility] Famotidine (Pepcid) 20 mg PO DAILY [facility] Last Admin: 11/06/17 10:05 Dose: 20 mg Piperacillin Sod/Tazobactam Sod (Zosyn 2.25 Gm Iv Premix) 2.25 gm in 50 mls @ 100 mls/hr IVPB Q8H [facility] PRN Reason: Protocol Last Admin: 11/07/17 01:53 Dose: 100 mls/hr Insulin Human Regular (Novolin R) 0 unit SC ACHS [facility] PRN Reason: Protocol Last Admin: 11/07/17 11:30 Dose: Not Given Levothyroxine Sodium (Synthroid) 50 mcg PO DAILY@0630 [facility] Last Admin: 11/07/17 06:23 Dose: 50 mcg Methylprednisolone (Solu-Medrol) 20 mg IVP DAILY [facility] Stop: 11/08/17 10:01 Last Admin: 11/06/17 10:06 Dose: 20 mg Rosuvastatin Calcium (Crestor) 2.5 mg PO HS [facility] Last Admin: 11/06/17 22:47 Dose: 2.5 mg Vitamin A (Vitamin A & D Oint Ud Foilpak) 1 ea TOP Q8 PRN PRN Reason: Dry skin Last Admin: 11/01/17 08:21 Dose: 1 ea Vitamin B Complex/Vit C/Folic Acid (Nephro-Kennedy) 1 tab PO 0800 [facility] Last Admin: 11/07/17 08:17 Dose: 1 tab - Labs Labs: 11/06/17 06:20 11/06/17 06:20 PT 12.1 SECONDS (9.7-12.2) 10/30/17 06:11 INR 1.1 10/30/17 06:11 APTT 33 SECONDS (21-34) 10/30/17 06:11
[2017-11-07] MEDS: Rosuvastatin Calcium 2.5 mg Tab PO SCH (22:17)
[2017-11-08] MEDS: Piperacill/Tazo 2.25gm in Dex 2.25 GM/50 ML BAG IVPB SCH ×3 (01:36→17:17)
[2017-11-08] MEDS: Levothyroxine 50 MCG TAB PO SCH (06:01)
[2017-11-08] MEDS: Multivitamin Vitamin B Complex (Nephro-Vite) Tab PO SCH (07:53)
[2017-11-08] MEDS: (Novolin R) Insulin Human Regular 100 units/ml vial SC SCH ×4 (07:55→21:25)
[2017-11-08] MEDS: MethylPREDNISolone 40 mg Vial IVP SCH (09:06)
[2017-11-08] MEDS ORDERED: Albumin Human 25% (12.5 gm/50 ml) IV ONE (11:56)
--- NOTE | 2017-11-08 15:01 | CP.PCM.PN ---
Subjective - Date & Time of Evaluation Date of Evaluation: 11/05/17 Time of Evaluation: 15:00 - Subjective Subjective: Patient is currently feeling slightly better. Some respiratory distress noted. Stable otherwise. No nausea vomiting Vital signs stable. Chest good air entry No rales noted Assessment and recommendation: 82-year-old female with multiple medical history. Admitted with acute respiratory failure. Pneumonia. Congestive heart failure. Atrial fibrillation flutter. End-stage renal disease on dialysis. Still having worsening pleural edema pulmonary edema. Continue the dialysis. Objective - Vital Signs/Intake and Output Vital Signs (last 24 hours): Temp Pulse Resp BP Pulse Ox 96.5 F L 76 22 75/31 L 100 11/08/17 12:25 11/08/17 12:25 11/08/17 12:25 11/08/17 12:25 11/08/17 12:25 Intake and Output: 11/08/17 11/08/17 06:59 18:59 Intake Total 450 Output Total 0 Balance 450 - Medications Medications: Current Medications Acetaminophen (Tylenol 325mg Tab) 650 mg PO Q6 PRN PRN Reason: Pain, moderate (4-7) Last Admin: 10/27/17 22:00 Dose: 650 mg Aspirin (Aspirin Chewable) 81 mg PO 0800 [facility] Last Admin: 11/08/17 07:53 Dose: 81 mg Epoetin Jonathan (Procrit) 4,000 unit IV QWK [facility] Famotidine (Pepcid) 20 mg PO DAILY [facility] Last Admin: 11/08/17 09:06 Dose: 20 mg Piperacillin Sod/Tazobactam Sod (Zosyn 2.25 Gm Iv Premix) 2.25 gm in 50 mls @ 100 mls/hr IVPB Q8H [facility] PRN Reason: Protocol Last Admin: 11/08/17 09:06 Dose: 100 mls/hr Insulin Human Regular (Novolin R) 0 unit SC ACHS [facility] PRN Reason: Protocol Last Admin: 11/08/17 12:12 Dose: 3 unit Levothyroxine Sodium (Synthroid) 50 mcg PO DAILY@0630 [facility] Last Admin: 11/08/17 06:01 Dose: 50 mcg Rosuvastatin Calcium (Crestor) 2.5 mg PO HS [facility] Last Admin: 11/07/17 22:17 Dose: 2.5 mg Vitamin A (Vitamin A & D Oint Ud Foilpak) 1 ea TOP Q8 PRN PRN Reason: Dry skin Last Admin: 11/01/17 08:21 Dose: 1 ea Vitamin B Complex/Vit C/Folic Acid (Nephro-Kennedy) 1 tab PO 0800 [facility] Last Admin: 11/08/17 07:53 Dose: 1 tab - Labs Labs: 11/06/17 06:20 11/06/17 06:20 PT 12.1 SECONDS (9.7-12.2) 10/30/17 06:11 INR 1.1 10/30/17 06:11 APTT 33 SECONDS (21-34) 10/30/17 06:11
--- NOTE | 2017-11-08 15:02 | CP.PCM.PN ---
Subjective - Date & Time of Evaluation Date of Evaluation: 11/07/17 Time of Evaluation: 15:01 - Subjective Subjective: Patient was feeling better. Able to eat. But still feeling increasingly weak. Awaiting for telemetry bed Vital signs stable. Mild hypoxia noted. Chest good air entry Regular heart sound Assessment and recommendation: 82-year-old female with a history of ESRD, hypertension, hypercholesterolemia. Congestive heart failure. End-stage renal disease on dialysis. We will continue the dialysis for tomorrow again, will follow the Objective - Vital Signs/Intake and Output Vital Signs (last 24 hours): Temp Pulse Resp BP Pulse Ox 96.5 F L 76 22 75/31 L 100 11/08/17 12:25 11/08/17 12:25 11/08/17 12:25 11/08/17 12:25 11/08/17 12:25 Intake and Output: 11/08/17 11/08/17 06:59 18:59 Intake Total 450 Output Total 0 Balance 450 - Medications Medications: Current Medications Acetaminophen (Tylenol 325mg Tab) 650 mg PO Q6 PRN PRN Reason: Pain, moderate (4-7) Last Admin: 10/27/17 22:00 Dose: 650 mg Aspirin (Aspirin Chewable) 81 mg PO 0800 [facility] Last Admin: 11/08/17 07:53 Dose: 81 mg Epoetin Jonathan (Procrit) 4,000 unit IV QWK [facility] Famotidine (Pepcid) 20 mg PO DAILY [facility] Last Admin: 11/08/17 09:06 Dose: 20 mg Piperacillin Sod/Tazobactam Sod (Zosyn 2.25 Gm Iv Premix) 2.25 gm in 50 mls @ 100 mls/hr IVPB Q8H [facility] PRN Reason: Protocol Last Admin: 11/08/17 09:06 Dose: 100 mls/hr Insulin Human Regular (Novolin R) 0 unit SC ACHS [facility] PRN Reason: Protocol Last Admin: 11/08/17 12:12 Dose: 3 unit Levothyroxine Sodium (Synthroid) 50 mcg PO DAILY@0630 [facility] Last Admin: 11/08/17 06:01 Dose: 50 mcg Rosuvastatin Calcium (Crestor) 2.5 mg PO HS [facility] Last Admin: 11/07/17 22:17 Dose: 2.5 mg Vitamin A (Vitamin A & D Oint Ud Foilpak) 1 ea TOP Q8 PRN PRN Reason: Dry skin Last Admin: 11/01/17 08:21 Dose: 1 ea Vitamin B Complex/Vit C/Folic Acid (Nephro-Kennedy) 1 tab PO 0800 [facility] Last Admin: 11/08/17 07:53 Dose: 1 tab - Labs Labs: 11/06/17 06:20 11/06/17 06:20 PT 12.1 SECONDS (9.7-12.2) 10/30/17 06:11 INR 1.1 10/30/17 06:11 APTT 33 SECONDS (21-34) 10/30/17 06:11
--- NOTE | 2017-11-08 15:03 | CP.PCM.PN ---
Subjective - Date & Time of Evaluation Date of Evaluation: 11/08/17 Time of Evaluation: 15:02 - Subjective Subjective: Patient today again receiving hemodialysis Feeling increasingly weakness. I spoke to the patient's son and grandson today. Still cough noted. On examination: Vital signs stable, mild hypotension noted, chest bilateral wheezing noted, x- ray showing right pleural effusion Assessment and recommendation: 82-year-old female with a history of end-stage renal disease on dialysis, hypertension, hypercholesterolemia. Atrial flutter and fibrillation. Congestive heart failure systolic. Chronic. Currently admitted with acute respiratory insufficiency improving. Physical therapy. Spoke to the family about the discharge plan. Family was somewhat upset with the going to rehab. We will speak to the family for possible discharge home. Objective - Vital Signs/Intake and Output Vital Signs (last 24 hours): Temp Pulse Resp BP Pulse Ox 96.5 F L 76 22 75/31 L 100 11/08/17 12:25 11/08/17 12:25 11/08/17 12:25 11/08/17 12:25 11/08/17 12:25 Intake and Output: 11/08/17 11/08/17 06:59 18:59 Intake Total 450 Output Total 0 Balance 450 - Medications Medications: Current Medications Acetaminophen (Tylenol 325mg Tab) 650 mg PO Q6 PRN PRN Reason: Pain, moderate (4-7) Last Admin: 10/27/17 22:00 Dose: 650 mg Aspirin (Aspirin Chewable) 81 mg PO 0800 [facility] Last Admin: 11/08/17 07:53 Dose: 81 mg Epoetin Jonathan (Procrit) 4,000 unit IV QWK [facility] Famotidine (Pepcid) 20 mg PO DAILY [facility] Last Admin: 11/08/17 09:06 Dose: 20 mg Piperacillin Sod/Tazobactam Sod (Zosyn 2.25 Gm Iv Premix) 2.25 gm in 50 mls @ 100 mls/hr IVPB Q8H [facility] PRN Reason: Protocol Last Admin: 11/08/17 09:06 Dose: 100 mls/hr Insulin Human Regular (Novolin R) 0 unit SC ACHS [facility] PRN Reason: Protocol Last Admin: 11/08/17 12:12 Dose: 3 unit Levothyroxine Sodium (Synthroid) 50 mcg PO DAILY@0630 [facility] Last Admin: 11/08/17 06:01 Dose: 50 mcg Rosuvastatin Calcium (Crestor) 2.5 mg PO HS [facility] Last Admin: 11/07/17 22:17 Dose: 2.5 mg Vitamin A (Vitamin A & D Oint Ud Foilpak) 1 ea TOP Q8 PRN PRN Reason: Dry skin Last Admin: 11/01/17 08:21 Dose: 1 ea Vitamin B Complex/Vit C/Folic Acid (Nephro-Kennedy) 1 tab PO 0800 [facility] Last Admin: 11/08/17 07:53 Dose: 1 tab - Labs Labs: 11/06/17 06:20 11/06/17 06:20 PT 12.1 SECONDS (9.7-12.2) 10/30/17 06:11 INR 1.1 10/30/17 06:11 APTT 33 SECONDS (21-34) 10/30/17 06:11
--- NOTE | 2017-11-08 16:40 | CP.PCM.PN ---
Subjective - Date & Time of Evaluation Date of Evaluation: 11/08/17 Time of Evaluation: 16:38 - Subjective Subjective: Nephrology Consultation Note Covering for Dr Conley/Carlos: Assessment: stable Acute respi failure with hypoxia hypercapnia with pulm edema s/p mechanical ventilation 10/28/17 extubated 10/31/17 AMS likely due to opiates severe sys CHF exacerbation Diabetic chronic Kidney Disease (E11.22) Hypertensive Chronic Kidney Disease (I12.0) End stage renal disease (N18.6) dependence on hemodialysis (Z99.2) (MWF and sat ) via AVF Anemia (D64.9), Hyperphosphatemia (E83.39), Secondary Hyperparathyroidism (E21.1 ), HTN (I12.0) hx of pleural effusion s/p thoracocentesis Plan: Continue with Nephrovite 1 tab/day. HD today per MWF schedule. extra UF session today PRBC as needed for anemia. weekly ANTONIA with HD monitor phos levels BP controlled without meds not on raas stefania as bp low Glycemic control, Dialysis consistent diet CHF optimization fall precautions consider palliative care Physical Examination: General Appearance: chronically ill and debilitated appearing. on o2 via NC Vitals reviewed and noted as below Head; Atraumatic, normocephalic ENT: normal mucosa EYES: Sclera is anicteric. Neck; supple no lymphadenopathy, no thyromegaly or bruit Lungs: Improved respiratory rate/effort. Breath sounds bilateral with crackles Heart: Normal rate. s1s2 normal. No rub or gallop. Extremities: no edema. No varicose veins Neurological: Patient is awake alert but not much communicative Skin: Warm and dry. Normal turgor. Abdomen: Abdomen is soft. Bowel sounds +. There is no abdominal tenderness, no guarding/rigidity or organomegaly Psych: lack inishgt. normal mood MSK: no joint tenderness or swelling. Objective - Vital Signs/Intake and Output Vital Signs (last 24 hours): Temp Pulse Resp BP Pulse Ox 96.5 F L 76 22 75/31 L 100 11/08/17 12:25 11/08/17 12:25 11/08/17 12:25 11/08/17 12:25 11/08/17 12:25 Intake and Output: 11/08/17 11/08/17 06:59 18:59 Intake Total 450 Output Total 0 Balance 450 - Medications Medications: Current Medications Acetaminophen (Tylenol 325mg Tab) 650 mg PO Q6 PRN PRN Reason: Pain, moderate (4-7) Last Admin: 10/27/17 22:00 Dose: 650 mg Aspirin (Aspirin Chewable) 81 mg PO 0800 [facility] Last Admin: 11/08/17 07:53 Dose: 81 mg Epoetin Jonathan (Procrit) 4,000 unit IV QWK [facility] Famotidine (Pepcid) 20 mg PO DAILY [facility] Last Admin: 11/08/17 09:06 Dose: 20 mg Piperacillin Sod/Tazobactam Sod (Zosyn 2.25 Gm Iv Premix) 2.25 gm in 50 mls @ 100 mls/hr IVPB Q8H [facility] PRN Reason: Protocol Last Admin: 11/08/17 09:06 Dose: 100 mls/hr Insulin Human Regular (Novolin R) 0 unit SC ACHS [facility] PRN Reason: Protocol Last Admin: 11/08/17 12:12 Dose: 3 unit Levothyroxine Sodium (Synthroid) 50 mcg PO DAILY@0630 [facility] Last Admin: 11/08/17 06:01 Dose: 50 mcg Rosuvastatin Calcium (Crestor) 2.5 mg PO HS [facility] Last Admin: 11/07/17 22:17 Dose: 2.5 mg Vitamin A (Vitamin A & D Oint Ud Foilpak) 1 ea TOP Q8 PRN PRN Reason: Dry skin Last Admin: 11/01/17 08:21 Dose: 1 ea Vitamin B Complex/Vit C/Folic Acid (Nephro-Kennedy) 1 tab PO 0800 [facility] Last Admin: 11/08/17 07:53 Dose: 1 tab - Labs Labs: 11/06/17 06:20 11/06/17 06:20 PT 12.1 SECONDS (9.7-12.2) 10/30/17 06:11 INR 1.1 10/30/17 06:11 APTT 33 SECONDS (21-34) 10/30/17 06:11
[2017-11-08] MEDS: Rosuvastatin Calcium 2.5 mg Tab PO SCH (21:25)
[2017-11-09] MEDS: Piperacill/Tazo 2.25gm in Dex 2.25 GM/50 ML BAG IVPB SCH ×3 (03:23→17:02)
[2017-11-09] MEDS: Levothyroxine 50 MCG TAB PO SCH (05:59)
[2017-11-09] MEDS: (Novolin R) Insulin Human Regular 100 units/ml vial SC SCH ×4 (07:46→21:33)
[2017-11-09] MEDS: Multivitamin Vitamin B Complex (Nephro-Vite) Tab PO SCH (07:47)
[2017-11-09] MEDS: Vitamins A & D Oint UD Foilpak TOP PRN (10:21)
--- NOTE | 2017-11-09 21:47 | CP.PCM.PN ---
Subjective - Date & Time of Evaluation Date of Evaluation: 11/09/17 Time of Evaluation: 21:46 - Subjective Subjective: Patient today again receiving hemodialysis Feeling increasingly weakness. I spoke to the patient's son and grandson today. Still cough noted. On examination: Vital signs stable, mild hypotension noted, chest bilateral wheezing noted, x- ray showing right pleural effusion Assessment and recommendation: 82-year-old female with a history of end-stage renal disease on dialysis, hypertension, hypercholesterolemia. Atrial flutter and fibrillation. Congestive heart failure systolic. Chronic. Currently admitted with acute respiratory insufficiency improving. Physical therapy. patient isclinically better. We'll continue the current treatment Will follow the patient Objective - Vital Signs/Intake and Output Vital Signs (last 24 hours): Temp Pulse Resp BP Pulse Ox 97.5 F L 77 12 133/46 L 100 11/09/17 20:00 11/09/17 20:00 11/09/17 20:00 11/09/17 20:00 11/09/17 20:00 Intake and Output: 11/09/17 11/10/17 18:59 06:59 Intake Total 900 Output Total 0 Balance 900 - Medications Medications: Current Medications Acetaminophen (Tylenol 325mg Tab) 650 mg PO Q6 PRN PRN Reason: Pain, moderate (4-7) Last Admin: 11/09/17 10:19 Dose: 650 mg Aspirin (Aspirin Chewable) 81 mg PO 0800 [facility] Last Admin: 11/09/17 07:47 Dose: 81 mg Epoetin Jonathan (Procrit) 4,000 unit IV QWK [facility] Famotidine (Pepcid) 20 mg PO DAILY [facility] Last Admin: 11/09/17 09:18 Dose: 20 mg Piperacillin Sod/Tazobactam Sod (Zosyn 2.25 Gm Iv Premix) 2.25 gm in 50 mls @ 100 mls/hr IVPB Q8H [facility] PRN Reason: Protocol Last Admin: 11/09/17 17:02 Dose: 100 mls/hr Insulin Human Regular (Novolin R) 0 unit SC ACHS [facility] PRN Reason: Protocol Last Admin: 11/09/17 21:33 Dose: Not Given Levothyroxine Sodium (Synthroid) 50 mcg PO DAILY@0630 [facility] Last Admin: 11/09/17 05:59 Dose: 50 mcg Rosuvastatin Calcium (Crestor) 2.5 mg PO HS [facility] Last Admin: 11/08/17 21:25 Dose: 2.5 mg Vitamin A (Vitamin A & D Oint Ud Foilpak) 1 ea TOP Q8 PRN PRN Reason: Dry skin Last Admin: 11/09/17 10:21 Dose: 1 ea Vitamin B Complex/Vit C/Folic Acid (Nephro-Kennedy) 1 tab PO 0800 [facility] Last Admin: 11/09/17 07:47 Dose: 1 tab - Labs Labs: 11/06/17 06:20 11/06/17 06:20 PT 12.1 SECONDS (9.7-12.2) 10/30/17 06:11 INR 1.1 10/30/17 06:11 APTT 33 SECONDS (21-34) 10/30/17 06:11
[2017-11-09] MEDS: Rosuvastatin Calcium 2.5 mg Tab PO SCH (22:50)
[2017-11-10] MEDS: Piperacill/Tazo 2.25gm in Dex 2.25 GM/50 ML BAG IVPB SCH ×3 (02:45→17:21)
[2017-11-10] MEDS: Levothyroxine 50 MCG TAB PO SCH (06:02)
[2017-11-10] MEDS: Multivitamin Vitamin B Complex (Nephro-Vite) Tab PO SCH (07:40)
[2017-11-10] MEDS: (Novolin R) Insulin Human Regular 100 units/ml vial SC SCH ×3 (07:41→16:36)
[2017-11-10] MEDS ORDERED: EPOETIN ALFA 4,000 UNIT/ML ML Dialysis IV SCH (10:00)
[2017-11-10 12:32] VITALS: O2SAT 100
--- NOTE | 2017-11-10 13:37 | CP.PCM.PN ---
Subjective - Date & Time of Evaluation Date of Evaluation: 11/10/17 Time of Evaluation: 13:36 - Subjective Subjective: Nephrology Consultation Note Covering for Dr Conley/Carlos: Assessment: stable Acute respi failure with hypoxia hypercapnia with pulm edema s/p mechanical ventilation 10/28/17 extubated 10/31/17 AMS likely due to opiates severe sys CHF exacerbation Diabetic chronic Kidney Disease (E11.22) Hypertensive Chronic Kidney Disease (I12.0) End stage renal disease (N18.6) dependence on hemodialysis (Z99.2) (MWF and sat ) via AVF Anemia (D64.9), Hyperphosphatemia (E83.39), Secondary Hyperparathyroidism (E21.1 ), HTN (I12.0) hx of pleural effusion s/p thoracocentesis Plan: Continue with Nephrovite 1 tab/day. HD today per MWF schedule. PRBC as needed for anemia. weekly ANTONIA with HD last Hb 9.4-11 range d/c phos binders, last phos level 1.0 KPHOS was supplemented, now phos 3.9 BP controlled without meds not on raas stefania as bp low Glycemic control, Dialysis consistent diet Further work up/management as per primary team Dose meds/antibiotics (if needed) for ESRD status. Avoid fleets enema/magnesium based laxatives. CHF optimization fall precautions consider palliative care Thanks for allowing me to participate in care of your patient. will follow with you. Please call if any Qs. had d/w team Dr Javid Griggs Office: [phone] reason for consult: ESRD HPI: Pt is a 82 F with hx of ESRD on hemodialysis (MWF and sat) via AVF (Dr Gonzalez/Dr Conley), chronic anemia, hyperphosphatemia, secondary hyperparathyroidism, Diabetes Mellitus, hypertension, severe CHF presented to [facility] with c/o severe SOB and AMS which improved after narcan. pt was on fentanyl. renal consult for ESRD management pt on bipap and unable to provide much hx ROS: extubated 10/31/17. pt feels same. has chronic SOB Physical Examination: General Appearance: chronically ill and debilitated appearing. on o2 via [place] Vitals reviewed and noted as below Head; Atraumatic, normocephalic ENT: normal mucosa EYES: Pupils are equal, round and reactive to light accommodation. Sclera is anicteric. Neck; supple no lymphadenopathy, no thyromegaly or bruit Lungs: normal respiratory rate/effort. Breath sounds bilateral improved Heart: Normal rate. s1s2 normal. No rub or gallop. Extremities: no edema. No varicose veins Neurological: Patient is awake alert but not much communicative Skin: Warm and dry. Normal turgor. No rash. Palpitation: Normal elasticity for age Abdomen: Abdomen is soft. Bowel sounds +. There is no abdominal tenderness, no guarding/rigidity or organomegaly Psych: lack inishgt. normal mood MSK: no joint tenderness or swelling. Digits and nails normal, no deformity : kidney or bladder not palpable Access: AVF Labs/imaging reviewed. Past medical history, past surgical history, family history, social history, allergy reviewed and noted as below Family Hx: no hx of CKD. Non contributory Objective - Vital Signs/Intake and Output Vital Signs (last 24 hours): Temp Pulse Resp BP Pulse Ox 97.4 F L 78 16 151/47 H 100 11/10/17 12:00 11/10/17 12:40 11/10/17 12:00 11/10/17 12:40 11/10/17 12:00 Intake and Output: 11/10/17 11/10/17 06:59 18:59 Intake Total 550 350 Output Total 0 Balance 550 350 - Medications Medications: Current Medications Acetaminophen (Tylenol 325mg Tab) 650 mg PO Q6 PRN PRN Reason: Pain, moderate (4-7) Last Admin: 11/09/17 22:50 Dose: 650 mg Aspirin (Aspirin Chewable) 81 mg PO 0800 [facility] Last Admin: 11/10/17 07:40 Dose: 81 mg Epoetin Jonathan (Procrit) 4,000 unit IV QWK [facility] Last Admin: 11/10/17 11:43 Dose: 4,000 unit Famotidine (Pepcid) 20 mg PO DAILY [facility] Last Admin: 11/10/17 09:16 Dose: 20 mg Piperacillin Sod/Tazobactam Sod (Zosyn 2.25 Gm Iv Premix) 2.25 gm in 50 mls @ 100 mls/hr IVPB Q8H [facility] PRN Reason: Protocol Last Admin: 11/10/17 09:11 Dose: 100 mls/hr Insulin Human Regular (Novolin R) 0 unit SC ACHS [facility] PRN Reason: Protocol Last Admin: 11/10/17 12:30 Dose: 1 unit Levothyroxine Sodium (Synthroid) 50 mcg PO DAILY@0630 [facility] Last Admin: 11/10/17 06:02 Dose: 50 mcg Rosuvastatin Calcium (Crestor) 2.5 mg PO HS [facility] Last Admin: 11/09/17 22:50 Dose: 2.5 mg Vitamin A (Vitamin A & D Oint Ud Foilpak) 1 ea TOP Q8 PRN PRN Reason: Dry skin Last Admin: 11/09/17 10:21 Dose: 1 ea Vitamin B Complex/Vit C/Folic Acid (Nephro-Kennedy) 1 tab PO 0800 [facility] Last Admin: 11/10/17 07:40 Dose: 1 tab - Labs Labs: 11/06/17 06:20 11/06/17 06:20 PT 12.1 SECONDS (9.7-12.2) 10/30/17 06:11 INR 1.1 10/30/17 06:11 APTT 33 SECONDS (21-34) 10/30/17 06:11
[2017-11-10 16:46] VITALS: BP 138/52; RESP 20; TEMP 98
--- NOTE | 2017-11-10 17:15 | CP.PCM.DIS ---
Provider - Provider Date of Admission: 10/27/17 06:37 Attending physician: Titus Moses MD Time Spent in preparation of Discharge (in minutes): 45 Hospital Course - Lab Results Lab Results: Micro Results 10/27/17 16:35 Blood Blood Culture - Final NO GROWTH AFTER 5 DAYS 10/27/17 16:35 Blood Gram Stain - Final TEST NOT PERFORMED 10/27/17 16:35 Blood Blood Culture - Final NO GROWTH AFTER 5 DAYS 10/27/17 16:35 Blood Gram Stain - Final TEST NOT PERFORMED 10/28/17 18:47 Trachasp Gram Stain - Final 10/28/17 18:47 Trachasp Sputum Culture - Final Yeast Species 10/27/17 09:10 Naris MRSA Culture (Admit) - Final MRSA NOT DETECTED 10/27/17 06:39 Urine,Catheterized Urine Culture - Final No Growth (<1,000 CFU/ML) Most Recent Lab Values WBC 6.2 K/uL (4.8-10.8) 11/06/17 06:20 RBC 2.99 Mil/uL (3.80-5.20) L 11/06/17 06:20 Hgb 10.1 g/dL (11.0-16.0) L 11/06/17 06:20 Hct 30.4 % (34.0-47.0) L 11/06/17 06:20 MCV 101.5 fL (81.0-99.0) H D 11/06/17 06:20 MCH 33.9 pg (27.0-31.0) H 11/06/17 06:20 MCHC 33.4 g/dL (33.0-37.0) 11/06/17 06:20 RDW 17.9 % (11.5-14.5) H 11/06/17 06:20 Plt Count 112 K/uL (130-400) L D 11/06/17 06:20 MPV 7.7 fL (7.2-11.7) 11/06/17 06:20 Neut % (Auto) 93.0 % (50.0-75.0) H 11/06/17 06:20 Lymph % (Auto) 2.0 % (20.0-40.0) L 11/06/17 06:20 [place] % (Auto) 5.0 % (0.0-10.0) 11/06/17 06:20 Eos % (Auto) 0.0 % (0.0-4.0) 11/06/17 06:20 Baso % (Auto) 0.0 % (0.0-2.0) 11/06/17 06:20 Neut # (Auto) 5.8 K/uL (1.8-7.0) 11/06/17 06:20 Lymph # (Auto) 0.1 K/uL (1.0-4.3) L 11/06/17 06:20 [place] # (Auto) 0.3 K/uL (0.0-0.8) 11/06/17 06:20 Eos # (Auto) 0.0 K/uL (0.0-0.7) 11/06/17 06:20 Baso # (Auto) 0.0 K/uL (0.0-0.2) 11/06/17 06:20 Neutrophils % (Manual) 91 % (50-75) H 11/06/17 06:20 Band Neutrophils % 4 % (0-2) H 11/01/17 06:06 Lymphocytes % (Manual) 3 % (20-40) L 11/06/17 06:20 Monocytes % (Manual) 6 % (0-10) 11/06/17 06:20 Myelocytes % 1 % (0-0) H 10/27/17 06:21 Nucleated RBC % 1 % (0-0) H 11/06/17 06:20 Toxic Granulation Present 11/01/17 06:06 Platelet Estimate Slightly decreased (NORMAL) L 11/06/17 06:20 Giant Platelets Present 10/28/17 06:08 Polychromasia Slight 11/02/17 05:53 Hypochromasia (manual) Slight 11/02/17 05:53 Poikilocytosis (manual Slight 10/28/17 06:08 Basophilic Stippling Slight 10/28/17 06:08 Anisocytosis (manual) Slight 11/06/17 06:20 Macrocytosis (manual) Moderate 11/06/17 06:20 Target Cells Slight 11/02/17 05:53 PT 12.1 SECONDS (9.7-12.2) 10/30/17 06:11 INR 1.1 10/30/17 06:11 APTT 33 SECONDS (21-34) 10/30/17 06:11 Puncture Site Rrad 10/31/17 13:53 pCO2 52 mm/Hg (35-45) H 10/31/17 13:53 pO2 73 mm/Hg (80-100) L 10/31/17 13:53 HCO3 29.2 mmol/L (21-28) H 10/31/17 13:53 ABG pH 7.39 (7.35-7.45) 10/31/17 13:53 ABG Total CO2 33.1 mmol/L (22-28) H 10/31/17 13:53 ABG O2 Saturation 96.7 % (95-98) 10/31/17 13:53 ABG Base Excess 5.6 mmol/L (-2.0-3.0) H 10/31/17 13:53 ABG Hemoglobin 10.0 g/dL (11.7-17.4) L 10/31/17 13:53 ABG Carboxyhemoglobin 2.3 % (0.5-1.5) H 10/31/17 13:53 POC ABG HHb (Measured) 3.2 % (0.0-5.0) 10/31/17 13:53 ABG Methemoglobin 0.6 % (0.0-3.0) 10/31/17 13:53 Ck Test Na 10/31/17 13:53 ABG Potassium 3.9 mmol/L (3.6-5.2) 10/27/17 06:56 VBG pH 7.47 (7.32-7.43) H 10/31/17 11:50 VBG pCO2 43 mmHg (40-60) 10/31/17 11:50 VBG HCO3 30.2 mmol/L 10/31/17 11:50 VBG Total CO2 32.6 mmol/L (22-28) H 10/31/17 11:50 VBG O2 Sat (Calc) 96.7 % (40-65) H 10/31/17 11:50 VBG Base Excess 6.8 mmol/L (0.0-2.0) H 10/31/17 11:50 VBG Potassium 3.0 mmol/L (3.6-5.2) L 10/31/17 11:50 A-a O2 Difference 112.0 mm/Hg 10/31/17 13:53 Respiratory Index 1.5 10/31/17 13:53 Hgb O2 Saturation 93.9 % (95.0-98.0) L 10/31/17 13:53 Sodium 138.0 mmol/l (132-148) 10/31/17 11:50 Chloride 102.0 mmol/L (98-107) 10/31/17 11:50 Glucose 113 mg/dl (65-105) H 10/31/17 11:50 Lactate 1.1 mmol/L (0.7-2.1) 10/31/17 11:50 Liter Flow 10.0 10/31/17 13:53 Vent Mode Cpap 10/31/17 05:15 Mechanical Rate 14 10/30/17 05:27 FiO2 35.0 % 10/31/17 13:53 Tidal Volume 400 10/30/17 05:27 PEEP 5 10/31/17 11:50 Pressure Support 12 10/31/17 05:15 Inspiratory BiPAP 10 10/28/17 09:45 Expiratory BiPAP 5 10/28/17 09:45 Sodium 141 mmol/L (132-148) 11/06/17 06:20 Potassium 5.2 mmol/L (3.6-5.2) 11/06/17 06:20 Chloride 99 mmol/L (98-107) 11/06/17 06:20 Carbon Dioxide 27 mmol/L (22-30) 11/06/17 06:20 Anion Gap 20 (10-20) 11/06/17 06:20 BUN 41 mg/dL (7-17) H 11/06/17 06:20 Creatinine 2.4 mg/dL (0.7-1.2) H 11/06/17 06:20 Est GFR ( Amer) 11/06/17 06:20 Est GFR (Non-Af Amer) 11/06/17 06:20 POC Glucose (mg/dL) 179 mg/dL (65-110) H 11/10/17 12:07 Random Glucose 327 mg/dL (65-105) H 11/06/17 06:20 Calcium 8.2 mg/dl (8.6-10.4) L 11/06/17 06:20 Phosphorus 3.9 mg/dL (2.5-4.5) 11/02/17 05:54 Magnesium 2.3 mg/dL (1.6-2.3) 11/02/17 05:54 Total Bilirubin 0.8 mg/dL (0.2-1.3) 11/06/17 06:20 AST 31 U/L (14-36) 11/06/17 06:20 ALT 28 U/L (9-52) 11/06/17 06:20 Alkaline Phosphatase 101 U/L (38-126) 11/06/17 06:20 Total Protein 7.5 g/dL (6.3-8.3) 11/06/17 06:20 Albumin 3.6 g/dL (3.5-5.0) 11/06/17 06:20 Globulin 3.9 gm/dL (2.2-3.9) 11/06/17 06:20 Albumin/Globulin Ratio 0.9 (1.0-2.1) L 11/06/17 06:20 Procalcitonin 6.12 NG/ML (0.19-0.49) H 10/28/17 09:53 Arterial Blood Potassium 3.9 mmol/L (3.6-5.2) 10/27/17 06:56 Venous Blood Potassium 3.0 mmol/L (3.6-5.2) L 10/31/17 11:50 Urine Color June (YELLOW) 10/27/17 06:39 Urine Clarity Hazy (Clear) 10/27/17 06:39 Urine pH 5.0 (5.0-8.0) 10/27/17 06:39 Ur Specific [place] 1.019 (1.003-1.030) 10/27/17 06:39 Urine Protein 2+ mg/dL (NEGATIVE) H 10/27/17 06:39 Urine Glucose (UA) 1+ mg/dL (Normal) 10/27/17 06:39 Urine Ketones Negative mg/dL (NEGATIVE) 10/27/17 06:39 Urine Blood 2+ (NEGATIVE) H 10/27/17 06:39 Urine Nitrate Negative (NEGATIVE) 10/27/17 06:39 Urine Bilirubin Negative (NEGATIVE) 10/27/17 06:39 Urine Urobilinogen Normal mg/dL (0.2-1.0) 10/27/17 06:39 Ur Leukocyte Esterase 2+ Scott/uL (Negative) H 10/27/17 06:39 Urine WBC (Auto) 114 /hpf (0-5) H 10/27/17 06:39 Urine RBC (Auto) 25 /hpf (0-3) H 10/27/17 06:39 Ur Squamous Epith Cells 5 /hpf (0-5) 10/27/17 06:39 Urine Bacteria Occ (<OCC) H 10/27/17 06:39 Random Vancomycin 5.8 ug/mL 10/31/17 11:59 - Hospital Course Hospital Course: Chief complaint: Altered mental status HPI: 82-year-old female with a history of ischemic heart disease, systolic heart failure, atrial fibrillation, history of carotid artery disease, diabetes, hyperlipidemia, end-stage renal disease, Patient also had a history of diverticulosis diverticulitis, left groin abscess , Received antibiotic and treatment. During the last hospitalization patient was hospitalized for recurrent fall, and also decompensated heart failure. Patient received hemodialysis. Right-sided pleural thoracentesis was done for pleural effusion. Patient sent to rehab, she was doing well, until 2 days she started having increasing weakness, lethargy. This morning patient was found to severe unresponsive, poorly responding to deep stimuli, and also difficulty to arouse. EMS was called, patient was given Narcan with minimal improvement. Patient was immediately transferred to emergency room at [facility]. In the ER patient was given another dose of Narcan, as the patient was having fentanyl patch. She briefly responded. But again she was not able to respond well, she was placed on BiPAP, and she was admitted to the intensive care unit. Patient in the intensive care unit more arousable than before. She was on BiPAP. She does not have any chest pain or does not have any other vomiting or nausea. She was responding to deep stimuli only. Patient also received emergent hemodialysis intensive care unit. Past medical history: Ischemic heart disease, hypertension, hypercholesterolemia, end-stage renal disease on dialysis, diabetes, diverticulosis diverticulitis. Surgical history includes AV fistula Allergy no known drug allergy Personal history: Used to be a smoker in the past. Family history significant for hypertension and heart disease. Review of system: Patient is having minimal headache, complaining of lower back pain, some shortness of breath noted. Minimal cough noted. Leg swelling occasionally noted On examination: Vital signs reviewed Blood pressure is mildly hypotensive. Patient responding only to do extremely. On BiPAP. Bilateral good air entry. Regular heart sound noted. Nontender abdomen. 1+ pedal edema Labs reviewed X-ray showing bilateral pleural effusion. Mild vascular congestion noted. EKG first-degree AV block sinus rhythm noted Patient had echocardiogram in June 2017, ejection fraction is 20-25%. Severe global hypokinesia noted. Aortic sclerosis noted. Mild to moderate mitral regurgitation. Pulmonary hypertension likely, and a moderate tricuspid regurgitation. Assessment and recommendation: 82-year-old female with multiple medical history with recurrent heart failure, ischemic heart disease, global hypokinesia, end-stage renal disease on dialysis , frequently dialysis, and also frequent volume overload status. Patient now admitted with altered mental status most likely secondary to opioid induced. Also associated with the possible decompensated heart failure, and associated with the shortness of breath. Patient is currently responding with the BiPAP. And also to the dialysis. Blood gas analysis reviewed and Currently improving. Continue the BiPAP, bronchodilators, hemodialysis, nephrology evaluation. DVT, GI prophylaxis. Patient possibly also has a decompensated systolic heart failure. Fluid restriction. Daily weight. Avoid opiates. Will follow the Course in the hospital: Patient admitted to the intensive care unit with the acute respiratory failure, altered mental status. Initially it was thought as opiate overdose, patient was placed on BiPAP, and also received hemodialysis. But there was no improvement, patient condition got worse. Respiratory status got worse, patient needed intubation. Patient was intubated initially for respiratory failure, acute secondary to possible pneumonia. Over the next few days patient did extremely well, after a few dialysis patient oxygenation got better. Placed on antibiotic. Patient improved markedly, and patient got extubated. Patient overall condition slowly improved Currently patient is getting the hemodialysis between 3 times to 4 times per week. Currently she is on Zosyn antibiotic for possible pneumonia, with associated respiratory insufficiency. Clinically patient is stable. She will be discharged to rehab today. She will follow-up in the rehab by the PMD, and she will be getting the hemodialysis outpatient Final diagnoses: Acute respiratory failure secondary to pneumonia, with acute altered mental status. Patient also had a chronic recurrent heart failure, ischemic cardiomyopathy, end -stage renal disease on dialysis. Prognosis is guarded. Medications reviewed Antibiotic 3 more days Other medications reviewed, reconciliation was done. Will follow-up the patient as needed. Discharge Plan - Follow Up Plan Condition: GOOD Disposition: OTHER INSTITUTION Instructions: Hemodialysis (DC), Pneumonia, Adult (DC), End Stage Kidney Disease (DC) Referrals: Yehuda Bragg MD [Staff Provider] - Titus Moses MD [Staff Provider] -
[2017-11-10 18:06] VITALS: PULSE 80
== END 2017-11-10 18:29 | DRG 208 ==
LOC: SUPCPDRO 05:43 → C.ER 05:43 → C.9I 06:37
PROVIDERS: ADMIT Internal Medicine; ATTEND Internal Medicine
PROC: 5A1D70Z Performance of Urinary Filtration, Intermittent, Less than 6 Hours Per Day (ICD-10-PCS; 2017-10-27)
PROC: 5A09457 Assistance with Respiratory Ventilation, 24-96 Consecutive Hours, Continuous Positive Airway Pressure (ICD-10-PCS; 2017-10-27)
PROC: 5A1945Z Respiratory Ventilation, 24-96 Consecutive Hours (ICD-10-PCS; principal; 2017-10-28)
PROC: 0BH18EZ Insertion of Endotracheal Airway into Trachea, Via Natural or Artificial Opening Endoscopic (ICD-10-PCS; 2017-10-28)
PROC: 5A1D70Z Performance of Urinary Filtration, Intermittent, Less than 6 Hours Per Day (ICD-10-PCS; 2017-10-29)
PROC: 5A1D70Z Performance of Urinary Filtration, Intermittent, Less than 6 Hours Per Day (ICD-10-PCS; 2017-11-01)
PROC: 5A1D70Z Performance of Urinary Filtration, Intermittent, Less than 6 Hours Per Day (ICD-10-PCS; 2017-11-03)
PROC: 5A1D70Z Performance of Urinary Filtration, Intermittent, Less than 6 Hours Per Day (ICD-10-PCS; 2017-11-05)
PROC: 5A1D70Z Performance of Urinary Filtration, Intermittent, Less than 6 Hours Per Day (ICD-10-PCS; 2017-11-07)
PROC: 5A1D70Z Performance of Urinary Filtration, Intermittent, Less than 6 Hours Per Day (ICD-10-PCS; 2017-11-08)
PROC: 5A1D70Z Performance of Urinary Filtration, Intermittent, Less than 6 Hours Per Day (ICD-10-PCS; 2017-11-10)
DX: J96.02 Acute respiratory failure with hypercapnia (principal); J69.0 Pneumonitis due to inhalation of food and vomit; I50.23 Acute on chronic systolic (congestive) heart failure; N18.6 End stage renal disease; E87.2 Acidosis; I13.2 Hypertensive heart and chronic kidney disease with heart failure and with stage 5 chronic kidney disease, or end stage renal disease; I48.92 Unspecified atrial flutter; N25.81 Secondary hyperparathyroidism of renal origin; J96.01 Acute respiratory failure with hypoxia; E11.22 Type 2 diabetes mellitus with diabetic chronic kidney disease; D69.6 Thrombocytopenia, unspecified; I25.5 Ischemic cardiomyopathy; I25.10 Atherosclerotic heart disease of native coronary artery without angina pectoris; D63.8 Anemia in other chronic diseases classified elsewhere; E83.39 Other disorders of phosphorus metabolism; I48.91 Unspecified atrial fibrillation; J44.9 Chronic obstructive pulmonary disease, unspecified; R41.82 Altered mental status, unspecified; T40.2X5A Adverse effect of other opioids, initial encounter; E03.9 Hypothyroidism, unspecified; M06.9 Rheumatoid arthritis, unspecified; K27.9 Peptic ulcer, site unspecified, unspecified as acute or chronic, without hemorrhage or perforation; E78.5 Hyperlipidemia, unspecified; E78.00 Pure hypercholesterolemia, unspecified; Z79.82 Long term (current) use of aspirin; Z87.01 Personal history of pneumonia (recurrent); Z87.891 Personal history of nicotine dependence; Z95.5 Presence of coronary angioplasty implant and graft; Z99.2 Dependence on renal dialysis; Z79.4 Long term (current) use of insulin